=== PATIENT | female | born 1965 ===

== ENCOUNTER 2017-02-01 12:45 | Inpatient (IN) | payer OTHER ==
--- NOTE | 2017-02-01 13:45 | C.PDOC ---
History Of Present Illness 51-year-old female, presents to the emergency department, accompanied by family with complaint of fever and vaginal bleeding x 2 days. Patient is s/p appendectomy 01/01, and developed a fever and therefore returned to the hospital , at which point she was found to have a UTI and gram negative [place] bacteremia. Patient was placed on antibiotics with gradual improvement. She was then found to have shortness of breath and was intubated and in the ICU. Patient had US and CT that were negative for DVT/PE. Patient comes in today with a fever, chills, and lower abdominal pain and vaginal bleeding, which she believes is typical of her menstrual period. She has fibroids and has been told that is why her periods are heavy. No vomiting, diarrhea, back pain, symptoms, chest pain , leg pain/swelling. Of note, patient took Motrin at 1:00PM. She does report cough and shortness of breath but only while she is febrile. Time Seen by Provider: 02/01/17 13:14 Chief Complaint (Nursing): Fever History Per: Patient, Family History/Exam Limitations: no limitations Onset/Duration Of Symptoms: Days Current Symptoms Are (Timing): Still Present Associated Symptoms: Fever, Chills Past Medical History Reviewed: Historical Data, Nursing Documentation, Vital Signs Vital Signs: Last Vital Signs Temp 98.9 F 02/01/17 15:48 Pulse 107 H 02/01/17 16:13 Resp 22 02/01/17 16:13 BP 100/38 L 02/01/17 16:13 Pulse Ox 99 02/01/17 16:13 - Medical History PMH: Anemia Denies: [facility] EXTRACTION OF ENDOMETRIUM, VIA OPENING, DIAGN (01/08/17) INSERTION OF ENDOTRACHEAL AIRWAY INTO TRACHEA, VIA OPENING (01/08/17) INSERTION OF INFUSION DEV INTO R FEMOR VEIN, PERC APPROACH (01/08/17) INSERTION OF INFUSION DEV INTO SUP VENA CAVA, PERC APPROACH (01/08/17) RESECTION OF APPENDIX, PERCUTANEOUS ENDOSCOPIC APPROACH (01/01/17) RESPIRATORY VENTILATION, 24-96 CONSECUTIVE HOURS (01/08/17) TRANSFUSE NONAUT RED BLOOD CELLS IN PERIPH VEIN, PERC (01/08/17) Family History: States: No Known Family Hx, Diabetes - Social History Hx Alcohol Use: No Hx Substance Use: No - Immunization History Hx Tetanus Toxoid Vaccination: No Hx Influenza Vaccination: No Hx Pneumococcal Vaccination: No Review Of Systems Except As Marked, All Systems Reviewed And Found Negative. Constitutional: Positive for: Fever Cardiovascular: Negative for: Chest Pain Genitourinary: Positive for: Vaginal Bleeding Skin: Negative for: Rash Physical Exam - Physical Exam Additional Physical Exam Comments: Constitutional: Tearful. Head: Normocephalic. Atraumatic. Eyes: PERRL. EOMI ENT: Moist mucous membranes. Neck: Supple. Cardiovascular: Tachycardic. Radial pulses 2+ bilaterally. Chest: No tenderness. Respiratory: Clear to auscultation bilaterally. GI: Soft. Lower abdominal tenderness. Nondistended. Well healed laparoscopy scars. Back: No CVA tenderness. No midline tenderness. Musculoskeletal: No tenderness or swelling of extremities. Skin: No rash. Neurologic: Alert, no focal deficit. ED Course And Treatment - Laboratory Results Result Diagrams: 02/01/17 13:40 02/01/17 13:40 O2 Sat by Pulse Oximetry: 97 Critical Care Time - Critical Care Note Total Time (in mins): 60 Documented critical care: time excludes all time spent performing seperately billable procedures. Medical Decision Making Medical Decision Making: Impression 51y/o F with recent appendectomy, uro/bacteremia sepsis p/w recurrent fever, chills and heavy menstrual period. Plan: * VBG * EKG * CMP, Mag, Phos * CBC, PTT, PT * Chest X-Ray * Urine/Blood cultures * Urinalysis/HCG * Reassess and Disposition Patient with fever, tachycardia, septic. Lactate returns at over 3. CODE SEPSIS activated. Patient given 30cc/kg bolus and started on broad spectrum antibiotics. CXR no infiltrate or consolidation as read by me. Patient's HR improved to 100s. UA shows UTI. CT shows large fibroids, cystitis, no obvious intra-abdominal abscess or colitis consistent with C diff. Dr. Wall accepts patient to hospitalist service. Dr. Murphy accepts patient to ICU. Disposition - Disposition Disposition: HOSPITALIZED Disposition Time: 15:00 Condition: CRITICAL - POA Core Measure Indicators: Code Sepsis - Clinical Impression Clinical Impression: UTI (urinary tract infection), Sepsis - Scribe Statement The provider has reviewed the documentation as recorded by the Afua Landin All medical record entries made by the Afua were at my direction and personally dictated by me. I have reviewed the chart and agree that the record accurately reflects my personal performance of the history, physical exam, medical decision making, and the department course for this patient. I have also personally directed, reviewed, and agree with the discharge instructions and disposition.
[2017-02-01 13:50] LABS: VENOUS BLOOD GAS BASE EXCESS -4.9 mmol/L (0.0-2.0); VENOUS BLOOD GAS PCO2 24 mmHg (40-60); VENOUS BLOOD PH 7.46 (7.32-7.43)
[2017-02-01 13:51] LABS: BASO # 0.2 K/uL (0.0-0.2); BASO % 0.7 % (0.0-2.0); EOS # 0.2 K/uL (0.0-0.7); EOS % 0.7 % (0.0-4.0); HEMATOCRIT 29.3 % (34.0-47.0); LYMPH # 1.1 K/uL (1.0-4.3); LYMPH % 3.9 % (20.0-40.0); MEAN CORPUSCULAR HGB CONC 30.8 g/dL (33.0-37.0); MEAN PLATELET VOLUME 9.4 fL (7.2-11.7); MONO # 0.4 K/uL (0.0-0.8); MONO % 1.3 % (0.0-10.0); RED CELL DISTRIBUTION WIDTH 35.2 % (11.5-14.5)
[2017-02-01 13:53] LABS: CHLORIDE 101 mmol/L (98-107)
[2017-02-01 13:54] LABS: SODIUM 132 mmol/L (132-148)
[2017-02-01 13:56] LABS: ALB/GLOB RATIO 0.8 (1.0-2.1); ALKALINE PHOSPHATASE 247 U/L (38-126); ALT/SGPT 27 U/L (9-52); AST/SGOT 64 U/L (14-36); BILIRUBIN,TOTAL 0.9 mg/dL (0.2-1.3); BLOOD UREA NITROGEN 7 mg/dL (7-17); CARBON DIOXIDE 17 mmol/L (22-30); GFR AFRICAN-AMERICAN > 60; GLUCOSE,RANDOM 127 mg/dL (65-105); TOTAL PROTEIN 7.7 g/dL (6.3-8.3)
[2017-02-01 13:57] LABS: MAGNESIUM 1.6 mg/dL (1.6-2.3); MEAN CELL VOLUME 74.9 fL (81.0-99.0); PHOSPHOROUS 4.1 mg/dL (2.5-4.5); POTASSIUM 5.2 mmol/L (3.6-5.2); WHITE BLOOD COUNT 27.9 K/uL (4.8-10.8)
[2017-02-01 13:58] LABS: PLATELET COUNT 402 K/uL (130-400)
[2017-02-01] MEDS ORDERED: Vancomycin 1 gm/NS 200 ml 1 GM/200 ML BAG IVPB STA (14:02)
[2017-02-01] MEDS ORDERED: Cefepime IV 2 gm in Dextrose 2 GM/100 ML BAG IVPB STA (14:02)
[2017-02-01 14:29] LABS: BASOPHIL 1 % (0-2); EOSINOPHIL 1 % (0-4); NEUTROPHIL 82 % (50-75); NUCLEATED RED BLOOD CELL 1 % (0-0); TOTAL CELLS COUNTED 100
[2017-02-01 14:30] LABS: SPHEROCYTES SLIGHT
[2017-02-01 14:31] LABS: LARGE PLATELETS PRESENT
--- NOTE | 2017-02-01 14:33 | RAD ---
HISTORY: fever COMPARISON: No prior. FINDINGS: LUNGS: No active pulmonary disease. PLEURA: No significant pleural effusion identified, no pneumothorax apparent. CARDIOVASCULAR: Normal. OSSEOUS STRUCTURES: No significant abnormalities. VISUALIZED UPPER ABDOMEN: Normal. OTHER FINDINGS: None. IMPRESSION: No active disease.
[2017-02-01] MEDS ORDERED: Cefepime 2 GM in Sodium Chloride 0.9% 100 ML IVPB ONE (15:00)
[2017-02-01] MEDS ORDERED: Iodixanol 320 MG/ML 100 ML BOTTLE IV ONE (15:35)
[2017-02-01] MEDS: Sodium Chloride 0.9% 1,000 ML IV SCH (15:40)
[2017-02-01 15:57] LABS: RBC URINE 86 /hpf (0-3); URINE BACTERIA OCC (<OCC); URINE BILIRUBIN NEGATIVE (NEGATIVE); URINE BLOOD 3+ (NEGATIVE); URINE COLOR Red (YELLOW); URINE GLUCOSE (UA) NORMAL (Normal); URINE KETONE NEGATIVE (NEGATIVE); URINE LEUKOCYTE ESTERASE 3+ Leu/uL (Negative); URINE PROTEIN 2+ mg/dL (NEGATIVE); URINE UROBILINOGEN NORMAL mg/dL (0.2-1.0); WBC URINE 2730 /hpf (0-5)
[2017-02-01] MEDS ORDERED: Sodium Chloride 0.9% 1,000 ML IV ONE (16:21)
--- NOTE | 2017-02-01 16:35 | CT ---
CT abdomen and pelvis History: Prior appendectomy. Fever. Vaginal bleeding. Diarrhea. Comparison: CT scan from [facility] dated 01/26/2017 Technique: Multiple contiguous axial images were performed through the abdomen and pelvis with the use of intravenous contrast. Subsequently, sagittal and images were obtained. This CT exam was performed using one or more of the following dose reduction techniques: Automated exposure control, adjustment of the mA and/or kV according to patient size, and/or use of iterative reconstruction technique. Findings: Bibasilar atelectasis at the lung bases. No pleural or pericardial effusion. Enlarged liver with diffuse fatty infiltration. Scattered hypoattenuated foci in the liver, too small to adequately characterize. Gallbladder appears preserved. Prominent spleen. Adrenal glands are preserved. Mild fatty atrophy of the pancreas. Upper abdominal bowel is preserved. Right kidney: No calculi or hydronephrosis. Left Kidney: No calculi or hydronephrosis. Mild thickening of the urinary bladder wall. Again identified is a markedly enlarged and heterogeneous uterus with markedly enlarged and innumerable fibroid lesions. At the right lateral aspect of the uterus, a partially necrotic and/or hemorrhagic fibroid lesion measures up to 14.4 x 16.2 centimeters. An additional lesion which is multilobulated also demonstrating necrotic and/or hemorrhagic components seen at the right lateral aspect of the uterus measures 15.9 x 11.5 centimeters. These may be better delineated with pelvic MRI if clinically indicated. Underlying neoplasm cannot be excluded. Lobulated elliptical lesion measuring 5.2 x 4.0 centimeters demonstrating a Hounsfield unit attenuation of 7 seen at the level of the left adnexa which may represent a left adnexal cyst. This may be better evaluated with pelvic ultrasound if clinically indicated. Evaluation of the lower abdominal bowel demonstrates fecal retention in the colon. Underdistention of the portion of the proximal sigmoid colon. Fecal retention within the remainder of the colon. Patient status post prior appendectomy with surgical clips noted in the right lower abdomen. Few shotty para-aortic and mesenteric lymph nodes. Degenerative changes in the spine. Multilevel posterior disc osteophyte complexes. Impression: 1. Again identified is a markedly enlarged and heterogeneous uterus with markedly enlarged and innumerable fibroid lesions. At the right lateral aspect of the uterus, a partially necrotic and/or hemorrhagic fibroid lesion measures up to 14.4 x 16.2 centimeters. An additional lesion which is multilobulated also demonstrating necrotic and/or hemorrhagic components seen at the right lateral aspect of the uterus measures 15.9 x 11.5 centimeters. These may be better delineated with pelvic MRI if clinically indicated. Underlying neoplasm cannot be excluded. 2. Lobulated elliptical lesion measuring 5.2 x 4.0 centimeters demonstrating a Hounsfield unit attenuation of 7 seen at the level of the left adnexa which may represent a left adnexal cyst. This may be better evaluated with pelvic ultrasound if clinically indicated. 3. Evaluation of the lower abdominal bowel demonstrates fecal retention in the colon. Underdistention of the portion of the proximal sigmoid colon. Fecal retention within the remainder of the colon. Patient status post prior appendectomy with surgical clips noted in the right lower abdomen. 4. Enlarged liver with diffuse fatty infiltration. Scattered hypoattenuated foci in the liver, too small to adequately characterize. 5. Mild thickening of the urinary bladder wall.
--- NOTE | 2017-02-01 16:42 | CP.PCM.HP ---
History of Present Illness - History of Present Illness History of Present Illness: This is a 51 yo F with PMH significant for iron deficiency anemia, DVT on coumadin and recent appendectomy, followed by a re-admission with complicated hospital course, requiring intubation, that now presents with fever and chills Pt had a lap-appendectomy on 01/02 with no complications. A few days later after an infusion treatment for her iron deficiency anemia, she developed swelling and pain at IV site and returned to [facility] where she was re- admitted. She was also found to have a UTI and gram negative rods bacteremia. She was placed on abx but eventually developed respiratory failure requiring intubation and ICU. However, she was able to recover and was discharged on with Zyvox. The very next day she reported fevers, chills and diarrhea. She also admits to a dry cough and dysuria. She otherwise denies any pain, MCCORD, sob, nausea, vomiting. PMD- does not have an PMD PMH: Iron deficiency anemia, DVT on coumadin PSH: appendectomy Home meds: ferrous sulfate Allergies: NKDA Present on Admission - Present on Admission Any Indicators Present on Admission: No Review of Systems - Constitutional Constitutional: Chills, Fever - Cardiovascular Cardiovascular: absent: Chest Pain, Palpitations - Respiratory Respiratory: Cough. absent: Dyspnea - Gastrointestinal Gastrointestinal: Diarrhea. absent: Abdominal Pain, Nausea, Vomiting - Genitourinary Genitourinary: Dysuria, Voiding Freq/Small Amts - Musculoskeletal Musculoskeletal: absent: Muscle Weakness, Stiffness - Integumentary Integumentary: absent: Pruritus, Rash - Neurological Neurological: absent: Numbness, Tingling Past Patient History - Infectious Disease Hx of Infectious Diseases: None - Past Medical History & Family History Past Medical History?: No - Past Social History Smoking Status: Never Smoked - CARDIAC Hx Cardiac Disorders: No - PULMONARY Hx Respiratory Disorders: No - NEUROLOGICAL Hx Neurological Disorder: No - HEENT Hx HEENT Problems: No - RENAL Hx Chronic Kidney Disease: No - ENDOCRINE/METABOLIC Hx Endocrine Disorders: No - HEMATOLOGICAL/ONCOLOGICAL Hx Anemia: Yes - INTEGUMENTARY Hx Dermatological Problems: No - MUSCULOSKELETAL/RHEUMATOLOGICAL Hx Musculoskeletal Disorders: No Hx Falls: No - GASTROINTESTINAL Hx Gastrointestinal Disorders: No - GENITOURINARY/GYNECOLOGICAL Hx Genitourinary Disorders: No - PSYCHIATRIC Hx Substance Use: No - SURGICAL HISTORY Hx Surgeries: Yes Other/Comment: APPENDECTOMY-DECEMBER 2016 - ANESTHESIA Hx Anesthesia: Yes Hx Anesthesia Reactions: No Hx Malignant Hyperthermia: No Meds Allergies/Adverse Reactions: Allergies Allergy/AdvReac Type Severity Reaction Status Date / Time No Known Allergies Allergy Verified 12/31/16 23:15 Physical Exam - Constitutional Appears: Toxic - Head Exam Head Exam: ATRAUMATIC, NORMOCEPHALIC - ENT Exam ENT Exam: Mucous Membranes Moist - Respiratory Exam Respiratory Exam: Clear to Auscultation Bilateral. absent: NORMAL BREATHING PATTERN (tachypneic) - Cardiovascular Exam Cardiovascular Exam: Tachycardia, +S1, +S2 - GI/Abdominal Exam GI & Abdominal Exam: Normal Bowel Sounds, Soft, Tenderness (b/l lower quadrants) - Extremities Exam Extremities exam: Positive for: normal inspection - Neurological Exam Neurological exam: Alert, Oriented x3 - Skin Skin Exam: Diaphoretic Results - Vital Signs Recent Vital Signs: Last Vital Signs Temp 98.9 F 02/01/17 15:48 Pulse 107 H 02/01/17 16:13 Resp 22 02/01/17 16:13 BP 100/38 L 02/01/17 16:13 Pulse Ox 99 02/01/17 16:13 - Labs Result Diagrams: 02/01/17 13:40 02/01/17 13:40 Labs: Laboratory Results - last 24 hr 02/01/17 15:38 Urine Color Red Urine Clarity Turbid Urine pH 6.0 Ur Specific [place] 1.004 Urine Protein 2+ H Urine Glucose (UA) Normal Urine Ketones Negative Urine Blood 3+ H Urine Nitrate Negative Urine Bilirubin Negative Urine Urobilinogen Normal Ur Leukocyte Esterase 3+ H Urine WBC (Auto) 2730 H Urine RBC (Auto) 86 H Urine Bacteria Occ H Urine HCG, Qual Negative Assessment & Plan - Assessment and Plan (Free Text) Assessment: Sepsis - Likely secondary to UTI vs intra-abdominal source vs endocarditis - Code sepsis - tachypneic, tachycardic, leukocytosis (with bandemia) and elevated lactate - Admitted to ICU - IVF per sepsis protocol - normotensive currently - UA positive for nitrates, protein, blood, RBC, WBC and bacteria - ID Consulted - Started on Tigycycline and Primaxin per ID - Urine/blood cultures collected from ED - Cdiff - f/u - Abd/pelvis CT (02/01) - 1. Again identified is a markedly enlarged and heterogeneous uterus with markedly enlarged and innumerable fibroid lesions. At the right lateral aspect of the uterus, a partially necrotic and/or hemorrhagic fibroid lesion measures up to 14.4 x 16.2 centimeters. An additional lesion which is multilobulated also demonstrating necrotic and/or hemorrhagic components seen at the right lateral aspect of the uterus measures 15.9 x 11.5 centimeters. These may be better delineated with pelvic MRI if clinically indicated. Underlying neoplasm cannot be excluded. 2. Lobulated elliptical lesion measuring 5.2 x 4.0 centimeters demonstrating a Hounsfield unit attenuation of 7 seen at the level of the left adnexa which may represent a left adnexal cyst. This may be better evaluated with pelvic ultrasound if clinically indicated. 3. Evaluation of the lower abdominal bowel demonstrates fecal retention in the colon. Underdistention of the portion of the proximal sigmoid colon. Fecal retention within the remainder of the colon. Patient status post prior appendectomy with surgical clips noted in the right lower abdomen. 4. Enlarged liver with diffuse fatty infiltration. Scattered hypoattenuated foci in the liver, too small to adequately characterize. 5. Mild thickening of the urinary bladder wall. Hx of DVT - Cont home coumadin Hx of iron deficiency anemia - Hgb low at 9 but stable - Cont to monitor and transfuse as necessary
--- NOTE | 2017-02-01 17:18 | CP.PCM.CON ---
History of Present Illness - History of Present Illness History of Present Illness: 51-year-old female presented to the emergency room complaining of fever , chills and lower abdominal pain associated with vaginal bleeding. Patient had lap appendicectomy on 01/02 and was discharged home after 2 days without any complication, Few days later patient developed swelling and pain at IV site where she was getting infusion for iron deficiency anemia, patient was readmitted and found to have urinary tract infection/VRE, patient was started on IV antibiotics but got intubated for respiratory distress requiring ventilatory support, was extubated after 3 days and discharged home last Thursday. During the hospital course patient was also found to have DVT in the right common femoral vein and was started on Coumadin. Today in the emergency room patient received 3 L of normal saline for hypotension. Patient is awake alert oriented 3 and denies any abdominal pain, denies dysuria. Patient complaining of dry cough with no chest pain. Patient also complaining of diarrhea for the past 2 days. Review of Systems - Review of Systems All systems: reviewed and no additional remarkable complaints except (Chills, fever and vaginal bleeding) Past Patient History - Infectious Disease Hx of Infectious Diseases: None - Past Medical History & Family History Past Medical History?: No - Past Social History Smoking Status: Never Smoked - CARDIAC Hx Cardiac Disorders: No - PULMONARY Hx Respiratory Disorders: No - NEUROLOGICAL Hx Neurological Disorder: No - HEENT Hx HEENT Problems: No - RENAL Hx Chronic Kidney Disease: No - ENDOCRINE/METABOLIC Hx Endocrine Disorders: No - HEMATOLOGICAL/ONCOLOGICAL Hx Anemia: Yes - INTEGUMENTARY Hx Dermatological Problems: No - MUSCULOSKELETAL/RHEUMATOLOGICAL Hx Musculoskeletal Disorders: No Hx Falls: No - GASTROINTESTINAL Hx Gastrointestinal Disorders: No - GENITOURINARY/GYNECOLOGICAL Hx Genitourinary Disorders: No - PSYCHIATRIC Hx Substance Use: No - SURGICAL HISTORY Hx Surgeries: Yes Other/Comment: APPENDECTOMY-DECEMBER 2016 - ANESTHESIA Hx Anesthesia: Yes Hx Anesthesia Reactions: No Hx Malignant Hyperthermia: No Meds Allergies/Adverse Reactions: Allergies Allergy/AdvReac Type Severity Reaction Status Date / Time No Known Allergies Allergy Verified 12/31/16 23:15 - Medications Medications: Current Medications Acetaminophen (Tylenol 325mg Tab) 975 mg PO ONCE PRN PRN Reason: Fever >100.4 F Last Admin: 02/01/17 14:40 Dose: 975 mg Imipenem/Cilastatin Sodium 500 (mg/ Sodium Chloride) 100 mls @ 100 mls/hr IVPB Q6H [facility] Sodium Chloride (Sodium Chloride 0.9%) 1,000 mls @ 1,000 mls/hr IV .Q1H ONE Stop: 02/01/17 17:20 Tigecycline 100 mg/ Sodium (Chloride) 100 mls @ 100 mls/hr IVPB ONCE ONE Stop: 02/01/17 17:20 Pantoprazole Sodium (Protonix Inj) 40 mg IVP DAILY [facility] Warfarin Sodium (Coumadin) 1 mg PO 1800 TORI Stop: 02/01/17 18:01 Physical Exam - Head Exam Head Exam: ATRAUMATIC, NORMOCEPHALIC - Eye Exam Eye Exam: Normal appearance - ENT Exam ENT Exam: Mucous Membranes Dry - Neck Exam Neck exam: Positive for: Normal Inspection - Respiratory Exam Respiratory Exam: Clear to Auscultation Bilateral - Cardiovascular Exam Cardiovascular Exam: Tachycardia, REGULAR RHYTHM - GI/Abdominal Exam GI & Abdominal Exam: Hyperactive Bowel Sounds, Tenderness Results - Vital Signs Recent Vital Signs: Last Vital Signs Temp 98.9 F 02/01/17 15:48 Pulse 107 H 02/01/17 16:13 Resp 22 02/01/17 16:13 BP 100/38 L 02/01/17 16:13 Pulse Ox 97 02/01/17 16:47 - Labs Result Diagrams: 02/01/17 13:40 02/01/17 13:40 Labs: Laboratory Results - last 24 hr 02/01/17 15:38 Urine Color Red Urine Clarity Turbid Urine pH 6.0 Ur Specific [place] 1.004 Urine Protein 2+ H Urine Glucose (UA) Normal Urine Ketones Negative Urine Blood 3+ H Urine Nitrate Negative Urine Bilirubin Negative Urine Urobilinogen Normal Ur Leukocyte Esterase 3+ H Urine WBC (Auto) 2730 H Urine RBC (Auto) 86 H Urine Bacteria Occ H Urine HCG, Qual Negative Assessment & Plan (1) Sepsis Status: Acute Comment: Most likely secondary to urinary tract infection, r/o C. difficile colitis. Patient started on tigecycline and Primaxin after discussing with infectious disease. Follow up culture and sensitivity. ID consult. Continue Coumadin and follow up PT/INR. IV fluid resuscitation and monitor urine output. CAT scan of the abdomen and pelvis (2) UTI (urinary tract infection) Status: Acute (3) Abdominal pain Status: Acute (4) Anemia Status: Acute
[2017-02-01 17:36] VITALS: BMI 43.0
[2017-02-01 19:33] LABS: VENOUS BLOOD GAS BASE EXCESS -4.4 mmol/L (0.0-2.0); VENOUS BLOOD GAS PCO2 35 mmHg (40-60); VENOUS BLOOD PH 7.37 (7.32-7.43)
[2017-02-01 20:21] LABS: BASO # 0.2 K/uL (0.0-0.2); BASO % 0.4 % (0.0-2.0); EOS # 0.1 K/uL (0.0-0.7); EOS % 0.2 % (0.0-4.0); HEMATOCRIT 24.7 % (34.0-47.0); LYMPH # 1.5 K/uL (1.0-4.3); LYMPH % 3.9 % (20.0-40.0); MEAN CELL VOLUME 75.6 fL (81.0-99.0); MEAN CORPUSCULAR HGB CONC 30.5 g/dL (33.0-37.0); MEAN PLATELET VOLUME 9.3 fL (7.2-11.7); MONO # 1.1 K/uL (0.0-0.8); MONO % 2.9 % (0.0-10.0); PLATELET COUNT 332 K/uL (130-400)
[2017-02-01 20:23] LABS: WHITE BLOOD COUNT 38.7 K/uL (4.8-10.8)
[2017-02-01 21:03] LABS: EOSINOPHIL 1 % (0-4); NEUTROPHIL 89 % (50-75); TOTAL CELLS COUNTED 100
[2017-02-02] MEDS: Sodium Chloride 0.9% 1,000 ML IV SCH ×4 (04:17→23:40)
[2017-02-02 06:39] LABS: CHLORIDE 107 mmol/L (98-107); POTASSIUM 3.9 mmol/L (3.6-5.2); SODIUM 135 mmol/L (132-148)
[2017-02-02 06:41] LABS: ALB/GLOB RATIO 0.7 (1.0-2.1); ALKALINE PHOSPHATASE 211 U/L (38-126); AST/SGOT 34 U/L (14-36); BILIRUBIN,TOTAL 0.7 mg/dL (0.2-1.3); CARBON DIOXIDE 21 mmol/L (22-30); GFR AFRICAN-AMERICAN > 60; TOTAL PROTEIN 5.8 g/dL (6.3-8.3)
[2017-02-02 06:42] LABS: ALT/SGPT 28 U/L (9-52); BLOOD UREA NITROGEN 7 mg/dL (7-17); CALCIUM 7.3 mg/dl (8.6-10.4); GLUCOSE,RANDOM 100 mg/dL (65-105); MAGNESIUM 1.6 mg/dL (1.6-2.3); PHOSPHOROUS 3.6 mg/dL (2.5-4.5)
[2017-02-02 06:46] LABS: INR 2.4
[2017-02-02 07:09] LABS: BASO # 0.2 K/uL (0.0-0.2); BASO % 0.6 % (0.0-2.0); EOS # 0.1 K/uL (0.0-0.7); EOS % 0.4 % (0.0-4.0); LYMPH # 1.6 K/uL (1.0-4.3); LYMPH % 5.3 % (20.0-40.0); MEAN CORPUSCULAR HEMOGLOBIN 23.7 pg (27.0-31.0); MEAN CORPUSCULAR HGB CONC 31.2 g/dL (33.0-37.0); MONO # 1.2 K/uL (0.0-0.8); MONO % 3.9 % (0.0-10.0); PLATELET COUNT 290 K/uL (130-400); RED CELL DISTRIBUTION WIDTH 31.8 % (11.5-14.5); WHITE BLOOD COUNT 30.8 K/uL (4.8-10.8)
[2017-02-02 08:32] LABS: EOSINOPHIL 1 % (0-4); NEUTROPHIL 77 % (50-75); TOTAL CELLS COUNTED 100
[2017-02-02] MEDS ORDERED: Magnesium Sulfate 1 gm in D5W 1 GM/100 ML BAG IVPB ONE (08:45)
[2017-02-02 10:57] LABS: RBC URINE 407 /hpf (0-3); URINE BILIRUBIN NEGATIVE (NEGATIVE); URINE BLOOD 3+ (NEGATIVE); URINE GLUCOSE (UA) 1+ mg/dL (Normal); URINE KETONE NEGATIVE (NEGATIVE); URINE LEUKOCYTE ESTERASE 3+ Leu/uL (Negative); URINE PROTEIN 2+ mg/dL (NEGATIVE); URINE UROBILINOGEN NORMAL mg/dL (0.2-1.0); WBC CLUMPS MANY /hpf; WBC URINE 501 /hpf (0-5)
[2017-02-02 10:58] LABS: URINE COLOR LIGHT RED (YELLOW)
--- NOTE | 2017-02-02 13:13 | CP.PCM.CON ---
History of Present Illness - History of Present Illness History of Present Illness: dictated Past Patient History - Infectious Disease Hx of Infectious Diseases: None - Past Medical History & Family History Past Medical History?: No - Past Social History Smoking Status: Never Smoked - CARDIAC Hx Cardiac Disorders: No - PULMONARY Hx Respiratory Disorders: No - NEUROLOGICAL Hx Neurological Disorder: No - HEENT Hx HEENT Problems: No - RENAL Hx Chronic Kidney Disease: No - ENDOCRINE/METABOLIC Hx Endocrine Disorders: No - HEMATOLOGICAL/ONCOLOGICAL Hx Anemia: Yes - INTEGUMENTARY Hx Dermatological Problems: No - MUSCULOSKELETAL/RHEUMATOLOGICAL Hx Musculoskeletal Disorders: No Hx Falls: No - GASTROINTESTINAL Hx Gastrointestinal Disorders: No - GENITOURINARY/GYNECOLOGICAL Hx Genitourinary Disorders: No - PSYCHIATRIC Hx Substance Use: No - SURGICAL HISTORY Hx Surgeries: Yes Other/Comment: APPENDECTOMY-DECEMBER 2016 - ANESTHESIA Hx Anesthesia: Yes Hx Anesthesia Reactions: No Hx Malignant Hyperthermia: No Meds Allergies/Adverse Reactions: Allergies Allergy/AdvReac Type Severity Reaction Status Date / Time No Known Allergies Allergy Verified 12/31/16 23:15 - Medications Medications: Current Medications Acetaminophen (Tylenol 325mg Tab) 650 mg PO Q6 PRN PRN Reason: Fever >100.4 F Last Admin: 02/01/17 22:14 Dose: 650 mg Imipenem/Cilastatin Sodium 500 (mg/ Sodium Chloride) 100 mls @ 100 mls/hr IVPB Q6H [facility] Last Admin: 02/02/17 09:58 Dose: 100 mls/hr Sodium Chloride (Sodium Chloride 0.9%) 1,000 mls @ 125 mls/hr IV .Q8H [facility] Last Admin: 02/02/17 08:21 Dose: Not Given Tigecycline 50 mg/ Dextrose 100 mls @ 100 mls/hr IVPB Q12H [facility] Pantoprazole Sodium (Protonix Inj) 40 mg IVP DAILY [facility] Last Admin: 02/02/17 09:59 Dose: 40 mg Pneumococcal Polyvalent Vaccine (Pneumovax 23 Vaccine) 0.5 ml IM .ONCE ONE Stop: 02/03/17 10:01 Results - Vital Signs Recent Vital Signs: Last Vital Signs Temp 97.8 F 02/02/17 12:00 Pulse 78 02/02/17 12:00 Resp 21 02/02/17 12:00 BP 103/44 L 02/02/17 12:00 Pulse Ox 10 L 02/02/17 12:00 - Labs Result Diagrams: 02/02/17 07:06 02/02/17 06:24 Labs: Laboratory Results - last 24 hr 02/01/17 02/01/17 02/01/17 15:38 16:38 17:49 WBC RBC Hgb Hct MCV MCH MCHC RDW Plt Count MPV Neut % (Auto) Lymph % (Auto) [place] % (Auto) Eos % (Auto) Baso % (Auto) Neut # Lymph # [place] # Eos # Baso # Neutrophils % (Manual) Band Neutrophils % Lymphocytes % (Manual) Monocytes % (Manual) Eosinophils % (Manual) Platelet Estimate Hypochromasia (manual) Poikilocytosis (manual Anisocytosis (manual) Microcytosis (manual) PT INR pO2 50 VBG pH 7.37 VBG pCO2 35 L VBG HCO3 21.1 VBG Total CO2 21.3 L VBG O2 Sat (Calc) 87.1 H VBG Base Excess -4.4 L VBG Potassium 3.6 Sodium 137.0 Chloride 114.0 H Glucose 75 Lactate 2.0 Potassium Carbon Dioxide Anion Gap BUN Creatinine Est GFR ( Amer) Est GFR (Non-Af Amer) Random Glucose Calcium Phosphorus Magnesium Total Bilirubin AST ALT Alkaline Phosphatase Total Protein Albumin Globulin Albumin/Globulin Ratio Procalcitonin 16.72 H Venous Blood Potassium 3.6 Urine Color Red Urine Clarity Turbid Urine pH 6.0 Ur Specific [place] 1.004 Urine Protein 2+ H Urine Glucose (UA) Normal Urine Ketones Negative Urine Blood 3+ H Urine Nitrate Negative Urine Bilirubin Negative Urine Urobilinogen Normal Ur Leukocyte Esterase 3+ H Urine WBC (Auto) 2730 H Urine RBC (Auto) 86 H Urine WBC Clumps (Auto) Ur Squamous Epith Cells Urine Bacteria Occ H Urine HCG, Qual Negative C. difficile Ag & Toxin Blood Type Antibody Screen 02/01/17 02/01/17 02/01/17 20:00 20:14 22:27 WBC 38.7 H* RBC 3.26 L Hgb 7.5 L Hct 24.7 L MCV 75.6 L MCH 23.0 L MCHC 30.5 L RDW 34.0 H Plt Count 332 MPV 9.3 Neut % (Auto) 92.6 H Lymph % (Auto) 3.9 L [place] % (Auto) 2.9 Eos % (Auto) 0.2 Baso % (Auto) 0.4 Neut # 35.9 H Lymph # 1.5 [place] # 1.1 H Eos # 0.1 Baso # 0.2 Neutrophils % (Manual) 89 H Band Neutrophils % 6 H Lymphocytes % (Manual) 3 L Monocytes % (Manual) 1 Eosinophils % (Manual) 1 Platelet Estimate Normal Hypochromasia (manual) Slight Poikilocytosis (manual Anisocytosis (manual) Slight Microcytosis (manual) Slight PT INR pO2 VBG pH VBG pCO2 VBG HCO3 VBG Total CO2 VBG O2 Sat (Calc) VBG Base Excess VBG Potassium Sodium Chloride Glucose Lactate Potassium Carbon Dioxide Anion Gap BUN Creatinine Est GFR ( Amer) Est GFR (Non-Af Amer) Random Glucose Calcium Phosphorus Magnesium Total Bilirubin AST ALT Alkaline Phosphatase Total Protein Albumin Globulin Albumin/Globulin Ratio Procalcitonin Venous Blood Potassium Urine Color Urine Clarity Urine pH Ur Specific [place] Urine Protein Urine Glucose (UA) Urine Ketones Urine Blood Urine Nitrate Urine Bilirubin Urine Urobilinogen Ur Leukocyte Esterase Urine WBC (Auto) Urine RBC (Auto) Urine WBC Clumps (Auto) Ur Squamous Epith Cells Urine Bacteria Urine HCG, Qual C. difficile Ag & Toxin Negative Blood Type B POSITIVE Antibody Screen Negative 02/02/17 02/02/17 02/02/17 06:24 06:24 07:06 WBC 30.8 H RBC 3.42 L Hgb 8.1 L Hct 26.0 L MCV 76.0 L MCH 23.7 L MCHC 31.2 L RDW 31.8 H Plt Count 290 MPV 9.0 Neut % (Auto) 89.8 H Lymph % (Auto) 5.3 L [place] % (Auto) 3.9 Eos % (Auto) 0.4 Baso % (Auto) 0.6 Neut # 27.6 H Lymph # 1.6 [place] # 1.2 H Eos # 0.1 Baso # 0.2 Neutrophils % (Manual) 77 H Band Neutrophils % 15 H* Lymphocytes % (Manual) 6 L Monocytes % (Manual) 1 Eosinophils % (Manual) 1 Platelet Estimate Normal Hypochromasia (manual) Moderate Poikilocytosis (manual Slight Anisocytosis (manual) Marked Microcytosis (manual) PT 27.7 H INR 2.4 pO2 VBG pH VBG pCO2 VBG HCO3 VBG Total CO2 VBG O2 Sat (Calc) VBG Base Excess VBG Potassium Sodium 135 Chloride 107 Glucose Lactate Potassium 3.9 Carbon Dioxide 21 L Anion Gap 11 BUN 7 Creatinine 0.5 L Est GFR ( Amer) > 60 Est GFR (Non-Af Amer) > 60 Random Glucose 100 Calcium 7.3 L Phosphorus 3.6 Magnesium 1.6 Total Bilirubin 0.7 AST 34 ALT 28 Alkaline Phosphatase 211 H Total Protein 5.8 L Albumin 2.4 L D Globulin 3.5 Albumin/Globulin Ratio 0.7 L Procalcitonin Venous Blood Potassium Urine Color Urine Clarity Urine pH Ur Specific [place] Urine Protein Urine Glucose (UA) Urine Ketones Urine Blood Urine Nitrate Urine Bilirubin Urine Urobilinogen Ur Leukocyte Esterase Urine WBC (Auto) Urine RBC (Auto) Urine WBC Clumps (Auto) Ur Squamous Epith Cells Urine Bacteria Urine HCG, Qual C. difficile Ag & Toxin Blood Type Antibody Screen 02/02/17 10:47 WBC RBC Hgb Hct MCV MCH MCHC RDW Plt Count MPV Neut % (Auto) Lymph % (Auto) [place] % (Auto) Eos % (Auto) Baso % (Auto) Neut # Lymph # [place] # Eos # Baso # Neutrophils % (Manual) Band Neutrophils % Lymphocytes % (Manual) Monocytes % (Manual) Eosinophils % (Manual) Platelet Estimate Hypochromasia (manual) Poikilocytosis (manual Anisocytosis (manual) Microcytosis (manual) PT INR pO2 VBG pH VBG pCO2 VBG HCO3 VBG Total CO2 VBG O2 Sat (Calc) VBG Base Excess VBG Potassium Sodium Chloride Glucose Lactate Potassium Carbon Dioxide Anion Gap BUN Creatinine Est GFR ( Amer) Est GFR (Non-Af Amer) Random Glucose Calcium Phosphorus Magnesium Total Bilirubin AST ALT Alkaline Phosphatase Total Protein Albumin Globulin Albumin/Globulin Ratio Procalcitonin Venous Blood Potassium Urine Color Light red Urine Clarity Hazy Urine pH 6.0 Ur Specific [place] 1.010 Urine Protein 2+ H Urine Glucose (UA) 1+ Urine Ketones Negative Urine Blood 3+ H Urine Nitrate Negative Urine Bilirubin Negative Urine Urobilinogen Normal Ur Leukocyte Esterase 3+ H Urine WBC (Auto) 501 H Urine RBC (Auto) 407 H Urine WBC Clumps (Auto) Many H Ur Squamous Epith Cells 5 Urine Bacteria Urine HCG, Qual C. difficile Ag & Toxin Blood Type Antibody Screen
--- NOTE | 2017-02-02 13:14 | CP.CCUPN ---
CCU Subjective - Physician Review Subjective (Free Text): 02/02/17 13:12 Patient seen and examined at bedside. Patient in no acute distress. Patient received 1 unit PRBCs overnight. Nursing staff reports no issues. The patient has no present complaints. The patient denies fever, chills, MCCORD, chest pain, abdominal pain, SOB, N/V/D/C, changes in bowel/bladder, and paresthesias. Today on rounds, a lower extremity venous duplex scan was ordered to rule out DVT. A repeat UA, urine culture, and CBC were also ordered. Critical Care Time Spent (in minutes): 90 CCU Objective - Vital Signs / Intake & Output Vital Signs (Last 4 hours): Vital Signs Temp Pulse Resp BP Pulse Ox 02/02/17 12:00 97.8 F 78 21 103/44 L 100 02/02/17 11:50 74 23 103/44 L 100 02/02/17 11:29 77 31 H 105/48 L 100 02/02/17 11:23 75 20 102/42 L 100 02/02/17 11:00 87 19 100 02/02/17 10:50 73 24 98/47 L 100 02/02/17 10:00 75 23 100 02/02/17 09:50 75 25 H 100/46 L 100 Intake and Output (Last 8hrs): Intake & Output 02/01/17 02/02/17 02/02/17 22:59 06:59 14:59 Intake Total 1290 1945 735 Output Total 950 1050 300 Balance 340 895 435 Weight 87 kg 85.899 kg Intake: Intake, IV Amount 1050 1230 635 Right Antecubital 1050 1230 635 Oral 240 390 100 Blood Product 325 Red Blood Cells Cpd As1 325 Lr Unit [id number] Output: Urine 950 1000 300 Urine, Voided 950 1000 300 Emesis 50 Other: Voiding Method Bedpan # Voids Urine, Voided 1 1 # Bowel Movements 1 0 - Physical Exam Head: Positive for: Atraumatic, Normocephalic Pupils: Positive for: PERRL Extroacular Muscles: Positive for: EOMI Conjunctiva: Positive for: Normal Mouth: Positive for: Moist Mucous Membranes. Negative for: Drooling Nose (External): Positive for: Atraumatic Neck: Positive for: Normal Range of Motion. Negative for: JVD, Lymphadenopathy Respiratory/Chest: Positive for: Clear to Auscultation, Good Air Exchange. Negative for: Respiratory Distress, Accessory Muscle Use, Wheezes, Rales, Retracting, Rhonchi, Tachypneic Cardiovascular: Positive for: Regular Rate and Rhythm, Normal S1, S2, Peripheal Pulses Present. Negative for: Murmurs, Irregular Rhythm Abdomen: Positive for: Normal Bowel Sounds. Negative for: Tenderness, Distention, Peritoneal Signs, Rebound, Guarding Upper Extremity: Positive for: Normal Inspection, Normal ROM, NORMAL PULSES, Neurovascularly Intact, Capillary Refill < 2s. Negative for: Cyanosis, Edema, Tenderness Lower Extremity: Positive for: Normal Inspection, NORMAL PULSES, Normal ROM, Neurovascularly Intact. Negative for: Edema, CALF TENDERNESS Neurological: Positive for: CN II-XII Intact Skin: Positive for: Warm, Dry, Normal Color. Negative for: Rashes Psychiatric: Positive for: Alert, Oriented x 3 - Medications Active Medications: Active Medications Generic Name Dose Route Start Last Admin Trade Name Freq PRN Reason Stop Dose Admin Acetaminophen 650 mg 02/01/17 21:44 02/01/17 22:14 Tylenol 325mg Tab PO 650 mg Q6 PRN Administration Fever >100.4 F Imipenem/Cilastatin Sodium 500 100 mls @ 100 mls/hr 02/01/17 16:30 02/02/17 09:58 mg/ Sodium Chloride IVPB 100 mls/hr Q6H TORI Administration Sodium Chloride 1,000 mls @ 125 mls/hr 02/01/17 15:40 02/02/17 08:21 Sodium Chloride 0.9% IV Not Given .Q8H TORI Pantoprazole Sodium 40 mg 02/01/17 16:30 02/02/17 09:59 Protonix Inj IVP 40 mg DAILY TORI Administration Pneumococcal Polyvalent Vaccine 0.5 ml 02/03/17 10:00 Pneumovax 23 Vaccine IM 02/03/17 10:01 .ONCE ONE - Patient Studies Lab Studies: Lab Studies 02/02/17 02/02/17 02/02/17 Range/Units 10:47 07:06 06:24 WBC 30.8 H (4.8-10.8) K/uL RBC 3.42 L (3.80-5.20) Mil/uL Hgb 8.1 L (11.0-16.0) g/dL Hct 26.0 L (34.0-47.0) % MCV 76.0 L (81.0-99.0) fL MCH 23.7 L (27.0-31.0) pg MCHC 31.2 L (33.0-37.0) g/dL RDW 31.8 H (11.5-14.5) % Plt Count 290 (130-400) K/uL MPV 9.0 (7.2-11.7) fL Neut % (Auto) 89.8 H (50.0-75.0) % Lymph % (Auto) 5.3 L (20.0-40.0) % Lyon % (Auto) 3.9 (0.0-10.0) % Eos % (Auto) 0.4 (0.0-4.0) % Baso % (Auto) 0.6 (0.0-2.0) % Neut # 27.6 H (1.8-7.0) K/uL Lymph # 1.6 (1.0-4.3) K/uL Lyon # 1.2 H (0.0-0.8) K/uL Eos # 0.1 (0.0-0.7) K/uL Baso # 0.2 (0.0-0.2) K/uL Neutrophils % (Manual) 77 H (50-75) % Band Neutrophils % 15 H* (0-2) % Lymphocytes % (Manual) 6 L (20-40) % Monocytes % (Manual) 1 (0-10) % Eosinophils % (Manual) 1 (0-4) % Platelet Estimate Normal (NORMAL) Hypochromasia (manual) Moderate Poikilocytosis (manual Slight Anisocytosis (manual) Marked Microcytosis (manual) PT (9.7-12.2) SECONDS INR pO2 (30-55) mm/Hg VBG pH (7.32-7.43) VBG pCO2 (40-60) mmHg VBG HCO3 mmol/L VBG Total CO2 (22-28) mmol/L VBG O2 Sat (Calc) (40-65) % VBG Base Excess (0.0-2.0) mmol/L VBG Potassium (3.6-5.2) mmol/L Sodium 135 (132-148) mmol/l Chloride 107 (98-107) mmol/L Glucose (65-105) mg/dl Lactate (0.7-2.1) mmol/L Potassium 3.9 (3.6-5.2) mmol/L Carbon Dioxide 21 L (22-30) mmol/L Anion Gap 11 (10-20) BUN 7 (7-17) mg/dL Creatinine 0.5 L (0.7-1.2) MG/DL Est GFR ( Amer) > 60 Est GFR (Non-Af Amer) > 60 Random Glucose 100 (65-105) mg/dL Calcium 7.3 L (8.6-10.4) mg/dl Phosphorus 3.6 (2.5-4.5) mg/dL Magnesium 1.6 (1.6-2.3) mg/dL Total Bilirubin 0.7 (0.2-1.3) mg/dL AST 34 (14-36) U/L ALT 28 (9-52) U/L Alkaline Phosphatase 211 H (38-126) U/L Total Protein 5.8 L (6.3-8.3) g/dL Albumin 2.4 L D (3.5-5.0) g/dL Globulin 3.5 (2.2-3.9) gm/dL Albumin/Globulin Ratio 0.7 L (1.0-2.1) Procalcitonin (0.19-0.49) NG/ML Venous Blood Potassium (3.6-5.2) mmol/L Urine Color Light red (YELLOW) Urine Clarity Hazy (Clear) Urine pH 6.0 (5.0-8.0) Ur Specific Makanda 1.010 (1.003-1.030) Urine Protein 2+ H (NEGATIVE) mg/dL Urine Glucose (UA) 1+ (Normal) mg/dL Urine Ketones Negative (NEGATIVE) mg/dL Urine Blood 3+ H (NEGATIVE) Urine Nitrate Negative (NEGATIVE) Urine Bilirubin Negative (NEGATIVE) Urine Urobilinogen Normal (0.2-1.0) mg/dL Ur Leukocyte Esterase 3+ H (Negative) [place]/uL Urine WBC (Auto) 501 H (0-5) /hpf Urine RBC (Auto) 407 H (0-3) /hpf Urine WBC Clumps (Auto) Many H (NONE) /hpf Ur Squamous Epith Cells 5 (0-5) /hpf Urine Bacteria (<OCC) Urine HCG, Qual (NEGATIVE) C. difficile Ag & Toxin (NEGATIVE) Blood Type Antibody Screen 02/02/17 02/01/17 02/01/17 Range/Units 06:24 22:27 20:14 WBC 38.7 H* (4.8-10.8) K/uL RBC 3.26 L (3.80-5.20) Mil/uL Hgb 7.5 L (11.0-16.0) g/dL Hct 24.7 L (34.0-47.0) % MCV 75.6 L (81.0-99.0) fL MCH 23.0 L (27.0-31.0) pg MCHC 30.5 L (33.0-37.0) g/dL RDW 34.0 H (11.5-14.5) % Plt Count 332 (130-400) K/uL MPV 9.3 (7.2-11.7) fL Neut % (Auto) 92.6 H (50.0-75.0) % Lymph % (Auto) 3.9 L (20.0-40.0) % Lyon % (Auto) 2.9 (0.0-10.0) % Eos % (Auto) 0.2 (0.0-4.0) % Baso % (Auto) 0.4 (0.0-2.0) % Neut # 35.9 H (1.8-7.0) K/uL Lymph # 1.5 (1.0-4.3) K/uL Lyon # 1.1 H (0.0-0.8) K/uL Eos # 0.1 (0.0-0.7) K/uL Baso # 0.2 (0.0-0.2) K/uL Neutrophils % (Manual) 89 H (50-75) % Band Neutrophils % 6 H (0-2) % Lymphocytes % (Manual) 3 L (20-40) % Monocytes % (Manual) 1 (0-10) % Eosinophils % (Manual) 1 (0-4) % Platelet Estimate Normal (NORMAL) Hypochromasia (manual) Slight Poikilocytosis (manual Anisocytosis (manual) Slight Microcytosis (manual) Slight PT 27.7 H (9.7-12.2) SECONDS INR 2.4 pO2 (30-55) mm/Hg VBG pH (7.32-7.43) VBG pCO2 (40-60) mmHg VBG HCO3 mmol/L VBG Total CO2 (22-28) mmol/L VBG O2 Sat (Calc) (40-65) % VBG Base Excess (0.0-2.0) mmol/L VBG Potassium (3.6-5.2) mmol/L Sodium (132-148) mmol/l Chloride (98-107) mmol/L Glucose (65-105) mg/dl Lactate (0.7-2.1) mmol/L Potassium (3.6-5.2) mmol/L Carbon Dioxide (22-30) mmol/L Anion Gap (10-20) BUN (7-17) mg/dL Creatinine (0.7-1.2) MG/DL Est GFR ( Amer) Est GFR (Non-Af Amer) Random Glucose (65-105) mg/dL Calcium (8.6-10.4) mg/dl Phosphorus (2.5-4.5) mg/dL Magnesium (1.6-2.3) mg/dL Total Bilirubin (0.2-1.3) mg/dL AST (14-36) U/L ALT (9-52) U/L Alkaline Phosphatase (38-126) U/L Total Protein (6.3-8.3) g/dL Albumin (3.5-5.0) g/dL Globulin (2.2-3.9) gm/dL Albumin/Globulin Ratio (1.0-2.1) Procalcitonin (0.19-0.49) NG/ML Venous Blood Potassium (3.6-5.2) mmol/L Urine Color (YELLOW) Urine Clarity (Clear) Urine pH (5.0-8.0) Ur Specific Makanda (1.003-1.030) Urine Protein (NEGATIVE) mg/dL Urine Glucose (UA) (Normal) mg/dL Urine Ketones (NEGATIVE) mg/dL Urine Blood (NEGATIVE) Urine Nitrate (NEGATIVE) Urine Bilirubin (NEGATIVE) Urine Urobilinogen (0.2-1.0) mg/dL Ur Leukocyte Esterase (Negative) [place]/uL Urine WBC (Auto) (0-5) /hpf Urine RBC (Auto) (0-3) /hpf Urine WBC Clumps (Auto) (NONE) /hpf Ur Squamous Epith Cells (0-5) /hpf Urine Bacteria (<OCC) Urine HCG, Qual (NEGATIVE) C. difficile Ag & Toxin (NEGATIVE) Blood Type B POSITIVE Antibody Screen Negative 02/01/17 02/01/17 02/01/17 Range/Units 20:00 17:49 16:38 WBC (4.8-10.8) K/uL RBC (3.80-5.20) Mil/uL Hgb (11.0-16.0) g/dL Hct (34.0-47.0) % MCV (81.0-99.0) fL MCH (27.0-31.0) pg MCHC (33.0-37.0) g/dL RDW (11.5-14.5) % Plt Count (130-400) K/uL MPV (7.2-11.7) fL Neut % (Auto) (50.0-75.0) % Lymph % (Auto) (20.0-40.0) % Lyon % (Auto) (0.0-10.0) % Eos % (Auto) (0.0-4.0) % Baso % (Auto) (0.0-2.0) % Neut # (1.8-7.0) K/uL Lymph # (1.0-4.3) K/uL Lyon # (0.0-0.8) K/uL Eos # (0.0-0.7) K/uL Baso # (0.0-0.2) K/uL Neutrophils % (Manual) (50-75) % Band Neutrophils % (0-2) % Lymphocytes % (Manual) (20-40) % Monocytes % (Manual) (0-10) % Eosinophils % (Manual) (0-4) % Platelet Estimate (NORMAL) Hypochromasia (manual) Poikilocytosis (manual Anisocytosis (manual) Microcytosis (manual) PT (9.7-12.2) SECONDS INR pO2 50 (30-55) mm/Hg VBG pH 7.37 (7.32-7.43) VBG pCO2 35 L (40-60) mmHg VBG HCO3 21.1 mmol/L VBG Total CO2 21.3 L (22-28) mmol/L VBG O2 Sat (Calc) 87.1 H (40-65) % VBG Base Excess -4.4 L (0.0-2.0) mmol/L VBG Potassium 3.6 (3.6-5.2) mmol/L Sodium 137.0 (132-148) mmol/l Chloride 114.0 H (98-107) mmol/L Glucose 75 (65-105) mg/dl Lactate 2.0 (0.7-2.1) mmol/L Potassium (3.6-5.2) mmol/L Carbon Dioxide (22-30) mmol/L Anion Gap (10-20) BUN (7-17) mg/dL Creatinine (0.7-1.2) MG/DL Est GFR ( Amer) Est GFR (Non-Af Amer) Random Glucose (65-105) mg/dL Calcium (8.6-10.4) mg/dl Phosphorus (2.5-4.5) mg/dL Magnesium (1.6-2.3) mg/dL Total Bilirubin (0.2-1.3) mg/dL AST (14-36) U/L ALT (9-52) U/L Alkaline Phosphatase (38-126) U/L Total Protein (6.3-8.3) g/dL Albumin (3.5-5.0) g/dL Globulin (2.2-3.9) gm/dL Albumin/Globulin Ratio (1.0-2.1) Procalcitonin 16.72 H (0.19-0.49) NG/ML Venous Blood Potassium 3.6 (3.6-5.2) mmol/L Urine Color (YELLOW) Urine Clarity (Clear) Urine pH (5.0-8.0) Ur Specific Makanda (1.003-1.030) Urine Protein (NEGATIVE) mg/dL Urine Glucose (UA) (Normal) mg/dL Urine Ketones (NEGATIVE) mg/dL Urine Blood (NEGATIVE) Urine Nitrate (NEGATIVE) Urine Bilirubin (NEGATIVE) Urine Urobilinogen (0.2-1.0) mg/dL Ur Leukocyte Esterase (Negative) [place]/uL Urine WBC (Auto) (0-5) /hpf Urine RBC (Auto) (0-3) /hpf Urine WBC Clumps (Auto) (NONE) /hpf Ur Squamous Epith Cells (0-5) /hpf Urine Bacteria (<OCC) Urine HCG, Qual (NEGATIVE) C. difficile Ag & Toxin Negative (NEGATIVE) Blood Type Antibody Screen 02/01/17 Range/Units 15:38 WBC (4.8-10.8) K/uL RBC (3.80-5.20) Mil/uL Hgb (11.0-16.0) g/dL Hct (34.0-47.0) % MCV (81.0-99.0) fL MCH (27.0-31.0) pg MCHC (33.0-37.0) g/dL RDW (11.5-14.5) % Plt Count (130-400) K/uL MPV (7.2-11.7) fL Neut % (Auto) (50.0-75.0) % Lymph % (Auto) (20.0-40.0) % Lyon % (Auto) (0.0-10.0) % Eos % (Auto) (0.0-4.0) % Baso % (Auto) (0.0-2.0) % Neut # (1.8-7.0) K/uL Lymph # (1.0-4.3) K/uL Lyon # (0.0-0.8) K/uL Eos # (0.0-0.7) K/uL Baso # (0.0-0.2) K/uL Neutrophils % (Manual) (50-75) % Band Neutrophils % (0-2) % Lymphocytes % (Manual) (20-40) % Monocytes % (Manual) (0-10) % Eosinophils % (Manual) (0-4) % Platelet Estimate (NORMAL) Hypochromasia (manual) Poikilocytosis (manual Anisocytosis (manual) Microcytosis (manual) PT (9.7-12.2) SECONDS INR pO2 (30-55) mm/Hg VBG pH (7.32-7.43) VBG pCO2 (40-60) mmHg VBG HCO3 mmol/L VBG Total CO2 (22-28) mmol/L VBG O2 Sat (Calc) (40-65) % VBG Base Excess (0.0-2.0) mmol/L VBG Potassium (3.6-5.2) mmol/L Sodium (132-148) mmol/l Chloride (98-107) mmol/L Glucose (65-105) mg/dl Lactate (0.7-2.1) mmol/L Potassium (3.6-5.2) mmol/L Carbon Dioxide (22-30) mmol/L Anion Gap (10-20) BUN (7-17) mg/dL Creatinine (0.7-1.2) MG/DL Est GFR ( Amer) Est GFR (Non-Af Amer) Random Glucose (65-105) mg/dL Calcium (8.6-10.4) mg/dl Phosphorus (2.5-4.5) mg/dL Magnesium (1.6-2.3) mg/dL Total Bilirubin (0.2-1.3) mg/dL AST (14-36) U/L ALT (9-52) U/L Alkaline Phosphatase (38-126) U/L Total Protein (6.3-8.3) g/dL Albumin (3.5-5.0) g/dL Globulin (2.2-3.9) gm/dL Albumin/Globulin Ratio (1.0-2.1) Procalcitonin (0.19-0.49) NG/ML Venous Blood Potassium (3.6-5.2) mmol/L Urine Color Red (YELLOW) Urine Clarity Turbid (Clear) Urine pH 6.0 (5.0-8.0) Ur Specific Makanda 1.004 (1.003-1.030) Urine Protein 2+ H (NEGATIVE) mg/dL Urine Glucose (UA) Normal (Normal) mg/dL Urine Ketones Negative (NEGATIVE) mg/dL Urine Blood 3+ H (NEGATIVE) Urine Nitrate Negative (NEGATIVE) Urine Bilirubin Negative (NEGATIVE) Urine Urobilinogen Normal (0.2-1.0) mg/dL Ur Leukocyte Esterase 3+ H (Negative) [place]/uL Urine WBC (Auto) 2730 H (0-5) /hpf Urine RBC (Auto) 86 H (0-3) /hpf Urine WBC Clumps (Auto) (NONE) /hpf Ur Squamous Epith Cells (0-5) /hpf Urine Bacteria Occ H (<OCC) Urine HCG, Qual Negative (NEGATIVE) C. difficile Ag & Toxin (NEGATIVE) Blood Type Antibody Screen Laboratory Results - last 24 hr 02/01/17 02/01/17 02/01/17 15:38 16:38 17:49 WBC RBC Hgb Hct MCV MCH MCHC RDW Plt Count MPV Neut % (Auto) Lymph % (Auto) Lyon % (Auto) Eos % (Auto) Baso % (Auto) Neut # Lymph # Lyon # Eos # Baso # Neutrophils % (Manual) Band Neutrophils % Lymphocytes % (Manual) Monocytes % (Manual) Eosinophils % (Manual) Platelet Estimate Hypochromasia (manual) Poikilocytosis (manual Anisocytosis (manual) Microcytosis (manual) PT INR pO2 50 VBG pH 7.37 VBG pCO2 35 L VBG HCO3 21.1 VBG Total CO2 21.3 L VBG O2 Sat (Calc) 87.1 H VBG Base Excess -4.4 L VBG Potassium 3.6 Sodium 137.0 Chloride 114.0 H Glucose 75 Lactate 2.0 Potassium Carbon Dioxide Anion Gap BUN Creatinine Est GFR ( Amer) Est GFR (Non-Af Amer) Random Glucose Calcium Phosphorus Magnesium Total Bilirubin AST ALT Alkaline Phosphatase Total Protein Albumin Globulin Albumin/Globulin Ratio Procalcitonin 16.72 H Venous Blood Potassium 3.6 Urine Color Red Urine Clarity Turbid Urine pH 6.0 Ur Specific Makanda 1.004 Urine Protein 2+ H Urine Glucose (UA) Normal Urine Ketones Negative Urine Blood 3+ H Urine Nitrate Negative Urine Bilirubin Negative Urine Urobilinogen Normal Ur Leukocyte Esterase 3+ H Urine WBC (Auto) 2730 H Urine RBC (Auto) 86 H Urine WBC Clumps (Auto) Ur Squamous Epith Cells Urine Bacteria Occ H Urine HCG, Qual Negative C. difficile Ag & Toxin Blood Type Antibody Screen 02/01/17 02/01/17 02/01/17 20:00 20:14 22:27 WBC 38.7 H* RBC 3.26 L Hgb 7.5 L Hct 24.7 L MCV 75.6 L MCH 23.0 L MCHC 30.5 L RDW 34.0 H Plt Count 332 MPV 9.3 Neut % (Auto) 92.6 H Lymph % (Auto) 3.9 L Lyon % (Auto) 2.9 Eos % (Auto) 0.2 Baso % (Auto) 0.4 Neut # 35.9 H Lymph # 1.5 Lyon # 1.1 H Eos # 0.1 Baso # 0.2 Neutrophils % (Manual) 89 H Band Neutrophils % 6 H Lymphocytes % (Manual) 3 L Monocytes % (Manual) 1 Eosinophils % (Manual) 1 Platelet Estimate Normal Hypochromasia (manual) Slight Poikilocytosis (manual Anisocytosis (manual) Slight Microcytosis (manual) Slight PT INR pO2 VBG pH VBG pCO2 VBG HCO3 VBG Total CO2 VBG O2 Sat (Calc) VBG Base Excess VBG Potassium Sodium Chloride Glucose Lactate Potassium Carbon Dioxide Anion Gap BUN Creatinine Est GFR ( Amer) Est GFR (Non-Af Amer) Random Glucose Calcium Phosphorus Magnesium Total Bilirubin AST ALT Alkaline Phosphatase Total Protein Albumin Globulin Albumin/Globulin Ratio Procalcitonin Venous Blood Potassium Urine Color Urine Clarity Urine pH Ur Specific Makanda Urine Protein Urine Glucose (UA) Urine Ketones Urine Blood Urine Nitrate Urine Bilirubin Urine Urobilinogen Ur Leukocyte Esterase Urine WBC (Auto) Urine RBC (Auto) Urine WBC Clumps (Auto) Ur Squamous Epith Cells Urine Bacteria Urine HCG, Qual C. difficile Ag & Toxin Negative Blood Type B POSITIVE Antibody Screen Negative 02/02/17 02/02/17 02/02/17 06:24 06:24 07:06 WBC 30.8 H RBC 3.42 L Hgb 8.1 L Hct 26.0 L MCV 76.0 L MCH 23.7 L MCHC 31.2 L RDW 31.8 H Plt Count 290 MPV 9.0 Neut % (Auto) 89.8 H Lymph % (Auto) 5.3 L Lyon % (Auto) 3.9 Eos % (Auto) 0.4 Baso % (Auto) 0.6 Neut # 27.6 H Lymph # 1.6 Lyon # 1.2 H Eos # 0.1 Baso # 0.2 Neutrophils % (Manual) 77 H Band Neutrophils % 15 H* Lymphocytes % (Manual) 6 L Monocytes % (Manual) 1 Eosinophils % (Manual) 1 Platelet Estimate Normal Hypochromasia (manual) Moderate Poikilocytosis (manual Slight Anisocytosis (manual) Marked Microcytosis (manual) PT 27.7 H INR 2.4 pO2 VBG pH VBG pCO2 VBG HCO3 VBG Total CO2 VBG O2 Sat (Calc) VBG Base Excess VBG Potassium Sodium 135 Chloride 107 Glucose Lactate Potassium 3.9 Carbon Dioxide 21 L Anion Gap 11 BUN 7 Creatinine 0.5 L Est GFR ( Amer) > 60 Est GFR (Non-Af Amer) > 60 Random Glucose 100 Calcium 7.3 L Phosphorus 3.6 Magnesium 1.6 Total Bilirubin 0.7 AST 34 ALT 28 Alkaline Phosphatase 211 H Total Protein 5.8 L Albumin 2.4 L D Globulin 3.5 Albumin/Globulin Ratio 0.7 L Procalcitonin Venous Blood Potassium Urine Color Urine Clarity Urine pH Ur Specific Mak[place] Urine Protein Urine Glucose (UA) Urine Ketones Urine Blood Urine Nitrate Urine Bilirubin Urine Urobilinogen Ur Leukocyte Esterase Urine WBC (Auto) Urine RBC (Auto) Urine WBC Clumps (Auto) Ur Squamous Epith Cells Urine Bacteria Urine HCG, Qual C. difficile Ag & Toxin Blood Type Antibody Screen 02/02/17 10:47 WBC RBC Hgb Hct MCV MCH MCHC RDW Plt Count MPV Neut % (Auto) Lymph % (Auto) Lyon % (Auto) Eos % (Auto) Baso % (Auto) Neut # Lymph # Lyon # Eos # Baso # Neutrophils % (Manual) Band Neutrophils % Lymphocytes % (Manual) Monocytes % (Manual) Eosinophils % (Manual) Platelet Estimate Hypochromasia (manual) Poikilocytosis (manual Anisocytosis (manual) Microcytosis (manual) PT INR pO2 VBG pH VBG pCO2 VBG HCO3 VBG Total CO2 VBG O2 Sat (Calc) VBG Base Excess VBG Potassium Sodium Chloride Glucose Lactate Potassium Carbon Dioxide Anion Gap BUN Creatinine Est GFR ( Amer) Est GFR (Non-Af Amer) Random Glucose Calcium Phosphorus Magnesium Total Bilirubin AST ALT Alkaline Phosphatase Total Protein Albumin Globulin Albumin/Globulin Ratio Procalcitonin Venous Blood Potassium Urine Color Light red Urine Clarity Hazy Urine pH 6.0 Ur Specific Makanda 1.010 Urine Protein 2+ H Urine Glucose (UA) 1+ Urine Ketones Negative Urine Blood 3+ H Urine Nitrate Negative Urine Bilirubin Negative Urine Urobilinogen Normal Ur Leukocyte Esterase 3+ H Urine WBC (Auto) 501 H Urine RBC (Auto) 407 H Urine WBC Clumps (Auto) Many H Ur Squamous Epith Cells 5 Urine Bacteria Urine HCG, Qual C. difficile Ag & Toxin Blood Type Antibody Screen Review of Systems - Review of Systems All systems: reviewed and no additional remarkable complaints except - EENT Eyes: absent: Blind Spots, Blurred Vision Nose/Mouth/Throat: absent: Nose Pain, Facial Pain, Neck Pain - Cardiovascular Cardiovascular: absent: Chest Pain, Orthopnea, Palpitations, Syncope - Respiratory Respiratory: absent: Cough, Dyspnea, Dyspnea on Exertion - Gastrointestinal Gastrointestinal: absent: Constipation, Dyspepsia, Nausea, Vomiting - Genitourinary Genitourinary: absent: Change in Urinary Stream, Difficulty Urinating - Musculoskeletal Musculoskeletal: absent: Arthralgias, Stiffness, Tingling - Integumentary Integumentary: absent: Lesions, Rash, Wounds - Neurological Neurological: absent: Sensory Deficit, Syncope, Tingling, Tremor, Vertigo, Weakness - Endocrine Endocrine: absent: Cold Intolorance, Heat Intolorance Critical Care Progress Note - Extremities/Vascular Does the Patient have a Central Venous Catheter?: No Does the Patient need a Central Venous Catheter?: No Does the Patient have a Salas Catheter?: No Does the Patient need a Salas Catheter?: No - Prophylaxis GI Prophylaxis GI: PPI - Prophylaxis DVT Prophylaxis DVT: Warfarin, SCDs - Nutrition Nutrition: Nutrition Category Date Time Status Heart Healthy Diet [DIET] Diets 02/02/17 Lunch Active Assessment/Plan (1) Sepsis Current Visit: Yes Status: Acute (2) UTI (urinary tract infection) Current Visit: Yes Status: Acute (3) Anemia Current Visit: No Status: Acute (4) History of appendicitis Current Visit: No Status: Acute (5) History of deep vein thrombosis (DVT) of lower extremity Current Visit: Yes Status: Acute - Assessment and Plan (Free Text) Plan: Patient status: hemodynamically stable Neuro: -A&OX3 -no acute issues Cardiovascular: -Lower Extremity and RUE Doppler- negative for DVT -02/02/17: will hold Coumadin 1mg po daily until tomorrow; INR = 2.4 - INR currently therapeutic Imaging: -02/01/17 CXR: No active disease -01/16/17 LE ultrasound: There is a incomplete/nonobstructive thrombus within the right common femoral vein. -likely 2/2 to right femoral TLC on prior admission Pulmonary: -No acute issues -Imaging: -02/01/17 CXR: No active disease Gastrointestinal: -No acute issues -Heart Healthy Diet- tolerating well Hematology: -Iron deficiency anemia -02/02/17: h&h 8.1/26 (increased from 7.5/24.7) -02/01/17: transfused 1 units PRBC -Repeat CBC 20:00pm Endocrine: -No acute issues Renal: -Hypomagnesemia --> repleted with 1gm magnesium sulfate Musculoskeletal: -No acute issues Genitourinary: -Vaginal bleeding likely 2/2 to uterine fibroids -No active bleeding -Imaging: -02/01/17 CT abd/pelvis: 1. Again identified is a markedly enlarged and heterogeneous uterus with markedly enlarged and innumerable fibroid lesions. At the right lateral aspect of the uterus, a partially necrotic and/or hemorrhagic fibroid lesion measures up to 14.4 x 16.2 centimeters. An additional lesion which is multilobulated also demonstrating necrotic and/or hemorrhagic components seen at the right lateral aspect of the uterus measures 15.9 x 11.5 centimeters. These may be better delineated with pelvic MRI if clinically indicated. Underlying neoplasm cannot be excluded. 2. Lobulated elliptical lesion measuring 5.2 x 4.0 centimeters demonstrating a Hounsfield unit attenuation of 7 seen at the level of the left adnexa which may represent a left adnexal cyst. This may be better evaluated with pelvic ultrasound if clinically indicated. 3. Evaluation of the lower abdominal bowel demonstrates fecal retention in the colon. Underdistention of the portion of the proximal sigmoid colon. Fecal retention within the remainder of the colon. Patient status post prior appendectomy with surgical clips noted in the right lower abdomen. 4. Enlarged liver with diffuse fatty infiltration. Scattered hypoattenuated foci in the liver, too small to adequately characterize. 5. Mild thickening of the urinary bladder wall. Infectious disease: -ID Consult- Dr. Hernandez -Sepsis likely 2/2 to UTI (urosepsis) -continue Tigecycline 100mg and Imipenem/Cilastatin 500mg (day 2) -continue IVF (NS 125mls/hr Q8h) -02/01/17: C.diff negative -Pro-calcitonin: 16.72 -02/02/17 UA: light red with 501 WBC and 3+ leukocyte esterase; negative nitrate -02/01/17 UA: red with 2730 WBC and 3+ leukocyte esterase; negative nitrate -Leukocytosis with bandemia -WBC count decreasing; will continue to trend -Repeat UA and Urine Cx -Repeat CBC 20:00pm GI prophylaxis: Protonix 40mg IVP daily DVT prophylaxis: SCDs Case discussed with Dr. Susu Story PGY1 - Date & Time Date: 02/02/17 Time: 13:18
--- NOTE | 2017-02-02 17:57 | CARD ---
APPROVED REPORT EXAM: Two-dimensional and M-mode echocardiogram with Doppler and color Doppler. Other Information Quality : GoodRhythm : NSR INDICATION Fever M-Mode DIMENSIONS Left Atrium (MM)4.14 (2.5-4.0cm)IVSd1.21 (0.7-1.1cm) Aortic Root2.73 (2.2-3.7cm)LVDd5.35 (4.0-5.6cm) Aortic Cusp Exc.1.56 (1.5-2.0cm)PWd1.25 (0.7-1.1cm) FS (%) 31 %LVDs3.67 (2.0-3.8cm) LVEF (%)59 (>50%) Aortic Valve AoV Peak Rbbmbyqj468.9cm/Ezequiel Peak GR.10mmHg Mitral Valve MV E Hqtlpwss21.6cm/sMV A Onyutnqg86.3cm/sE/A ratio1.3 TDI E/Lateral E'0.0E/Medial E'0.0 Tricuspid Valve TR Peak Ulpaghja014ku/sTR Peak Gr.[id number] LEFT VENTRICLE The left ventricle is normal size. There is normal left ventricular wall thickness. The left ventricular function is normal. The left ventricular ejection fraction is within the normal range. There is normal LV segmental wall motion. The left ventricular diastolic function is normal. RIGHT VENTRICLE The right ventricle is normal size. ATRIA The left atrium is borderline dilated. MITRAL VALVE The mitral valve is normal in structure. TRICUSPID VALVE There is mild tricuspid regurgitation. <Conclusion> Normal LV systolic function. Mild TR. Borderline dilated LA. No othre significant abnormality seen.
[2017-02-02 20:52] LABS: BASO # 0.1 K/uL (0.0-0.2); BASO % 0.4 % (0.0-2.0); EOS # 0.3 K/uL (0.0-0.7); EOS % 1.2 % (0.0-4.0); LYMPH # 1.8 K/uL (1.0-4.3); LYMPH % 7.9 % (20.0-40.0); MEAN CELL VOLUME 76.4 fL (81.0-99.0); MEAN CORPUSCULAR HGB CONC 31.4 g/dL (33.0-37.0); MEAN PLATELET VOLUME 9.4 fL (7.2-11.7); MONO # 1.2 K/uL (0.0-0.8); MONO % 5.4 % (0.0-10.0); PLATELET COUNT 322 K/uL (130-400); RED CELL DISTRIBUTION WIDTH 32.7 % (11.5-14.5); WHITE BLOOD COUNT 22.6 K/uL (4.8-10.8)
[2017-02-02] MEDS: Enoxaparin 30 mg Syringe SC SCH (21:34)
[2017-02-02 21:48] LABS: EOSINOPHIL 1 % (0-4); NEUTROPHIL 81 % (50-75); TOTAL CELLS COUNTED 100
[2017-02-03] MEDS: Sodium Chloride 0.9% 1,000 ML IV SCH ×4 (01:41→23:31)
[2017-02-03 05:46] LABS: VENOUS BLOOD GAS BASE EXCESS 0.1 mmol/L (0.0-2.0); VENOUS BLOOD GAS PCO2 34 mmHg (40-60); VENOUS BLOOD PH 7.45 (7.32-7.43)
[2017-02-03 05:59] LABS: BASO # 0.1 K/uL (0.0-0.2); BASO % 0.4 % (0.0-2.0); EOS # 0.1 K/uL (0.0-0.7); EOS % 0.5 % (0.0-4.0); HEMATOCRIT 25.2 % (34.0-47.0); LYMPH # 1.6 K/uL (1.0-4.3); LYMPH % 6.3 % (20.0-40.0); MEAN CELL VOLUME 75.5 fL (81.0-99.0); MEAN CORPUSCULAR HGB CONC 31.8 g/dL (33.0-37.0); MONO # 1.4 K/uL (0.0-0.8); MONO % 5.3 % (0.0-10.0); PLATELET COUNT 271 K/uL (130-400); RED CELL DISTRIBUTION WIDTH 31.9 % (11.5-14.5); WHITE BLOOD COUNT 25.8 K/uL (4.8-10.8)
[2017-02-03 06:15] LABS: CHLORIDE 104 mmol/L (98-107); POTASSIUM 3.2 mmol/L (3.6-5.2); SODIUM 134 mmol/L (132-148)
[2017-02-03 06:17] LABS: AST/SGOT 21 U/L (14-36); BILIRUBIN,TOTAL 0.7 mg/dL (0.2-1.3); CARBON DIOXIDE 23 mmol/L (22-30); GFR AFRICAN-AMERICAN > 60
[2017-02-03 06:18] LABS: ALB/GLOB RATIO 0.7 (1.0-2.1); ALKALINE PHOSPHATASE 185 U/L (38-126); ALT/SGPT 23 U/L (9-52); BLOOD UREA NITROGEN 7 mg/dL (7-17); GLUCOSE,RANDOM 110 mg/dL (65-105); PHOSPHOROUS 3.5 mg/dL (2.5-4.5); TOTAL PROTEIN 5.7 g/dL (6.3-8.3)
[2017-02-03 06:19] LABS: CALCIUM 7.4 mg/dl (8.6-10.4); MAGNESIUM 1.6 mg/dL (1.6-2.3)
[2017-02-03 06:49] LABS: METAMYELOCYTE 1 % (0-0); NEUTROPHIL 90 % (50-75); TOTAL CELLS COUNTED 100
[2017-02-03 08:07] LABS: INR 2.1
--- NOTE | 2017-02-03 08:57 | CON ---
DATE: 02/02/2017 REQUESTING PHYSICIAN: Dr. Wall. HISTORY OF PRESENT ILLNESS: This patient is a 51-year-old female. She was admitted through the [facility] Room and she is presently in ICU. I am asked to evaluate her. She came in with fever, chills, lower abdominal pain. She also had diarrhea she says for 2 days, and she came in with lower abdomin al pain and also had vaginal bleeding. She is in ICU. She speaks mostly Chinese, but able to tell m e that she had a laparoscopic appendicectomy done on 01/02/2017 and went home for 2-3 days, and then she went for an IV infusion and where the IV was infused with iron she developed swelling in her righ t arm with a lot of pain and swelling. She stayed home, but when the pain and swelling became worse she went there and she was readmitted to [facility] where she was treated for UTI VRE and also had cellu litis and DVT of the right ____ and also had DVT in the right common femoral vein and right upper arm , and she was started on Coumadin. Now she comes with diarrhea and abdominal pain. Her white count is very elevated; hence, I am asked to see her. She has been on treatment there with ____ and Zyvox I am told, but I will try to get records as they are not here in the chart. She also went for the Do ppler studies right now and there are no clots, and according to the nurse there are no clots there a re at this time in the arm or in the right leg. She is on oxygen. SOCIAL HISTORY: Negative for smoking or drinking. PAST SURGICAL HISTORY: She did have an appendicectomy. ALLERGIES: She is not allergic to any medications. MEDICATIONS: At home are warfarin. She is on Protonix at this time. She has history of anemia and recent appendicectomy on 01/02/2017. REVIEW OF SYSTEMS: She denies any headaches right now. No ear, nose and throat problems. Denies an y chest pain, no shortness of breath. She is on oxygen. Denies abdominal pain. She did have diarrh ea yesterday she says 3 times, liquidy. She denies any pains in her lower extremities. PHYSICAL EXAMINATION: VITAL SIGNS: I find her temperature is 97.8, pulse 78, blood pressure 103/44, respirations are 21. HEENT: Her head is atraumatic, normocephalic. Pupils are reacting to light. She appears pale. Thr oat: No congestion, no thrush seen. NECK: Supple. DIGNA is flat. LUNGS: Clear. No crackles or rales present. HEART: S1, S2 is regular. No murmurs present. ABDOMEN: Soft, flabby, nontender at this time. EXTREMITIES: Have no edema or swelling. There are no rashes. PSYCHIATRIC: She is alert, oriented x 3. LABORATORY DATA: Her white count was 38.7 yesterday, now it is 30.8 She came with a white count of 27.9, hemoglobin is 8.1, hematocrit 26, platelet count is 290, so she is very anemia. Neutrophils ar e 77, bands are 15; this is on a machine diff. INR is 2.4. Sodium is 135, potassium 3.9, chloride 1 07, CO2 is 21, anion gap is 11, creatinine is 0.5. UA shows a lot of WBCs 501, and RBCs 407, ____ ma ny as per ____, and a culture is pending at this time. She also had a CAT scan of the abdomen and pelvis which shows bibasilar atelectasis at the lung base. No pleural or pericardial effusion. Enlarged liver with fatty infiltration. Scattered hypo____ fo ci in the liver, too many to characterize, too small to characterize, which I am not sure what this i s. She did have DVT, however. Gallbladder appears preserved. Noted is an enlarged uterus, markedly enlarged and heterogenous uterus with markedly enlarged enumerable fibroids at the right lateral ___ _ she has a hemorrhagic fibroid lesion which is 14.4 x 16.2 which is multilobulated and demonstrating necrotic and hemorrhagic components; so she may have pedunculated fibroids in the uterus along with this multilobulated necrotic lesion which is also a fibroid. There is some redundancy of the colon, fecal retention, enlarged liver and mild thickening of the urinary bladder gatica. So she will need a gynecological exam as she is anemic, but that can be done once she improves. Chest x-ray did not sh ow any active disease, so she is with a DVT of right arm and right leg, had appendicectomy, has fibro id uterus, is on Coumadin and is anemic and also having diarrhea. C. diff is however negative. Righ t now, I have left her on antibiotics since she has bandemia, and we are using Primaxin as well as Ty gacil here to cover the VRE, as the other antibiotic is not available ____. Will follow as white cou nt is decreasing on this, and will follow with you. Prognosis remains guarded as she is in ICU. Jarrett Hernandez MD cc: [id number] TT: 02/02/2017 18:16:37 Confirmation # [id number] Dictation # [id number] mn
[2017-02-03] MEDS ORDERED: Pneumococcal 23-Valent Vaccine IM ONE (10:00)
[2017-02-03] MEDS: Magnesium Sulfate 1 gm in D5W 1 GM/100 ML BAG IVPB SCH (10:08)
[2017-02-03] MEDS: Enoxaparin 30 mg Syringe SC SCH (10:09)
[2017-02-03] MEDS: Potassium Chloride 20 mEq ER Tab PO SCH ×2 (10:10→17:29)
--- NOTE | 2017-02-03 12:30 | CP.CCUPN ---
<JezRoger - Last Filed: 02/03/17 12:27> CCU Subjective - Physician Review Subjective (Free Text): 02/02/17 13:12 Patient seen and examined at bedside. Patient in no acute distress. Patient received 1 unit PRBCs overnight. Nursing staff reports no issues. The patient has no present complaints. The patient denies fever, chills, MCCORD, chest pain, abdominal pain, SOB, N/V/D/C, changes in bowel/bladder, and paresthesias. Today on rounds, a lower extremity venous duplex scan was ordered to rule out DVT. A repeat UA, urine culture, and CBC were also ordered. 02/03/17 12:28 Patient seen and examined at bedside. No acute distress. No acute events overnight. Nursing staff reports no issues. The patient reports scant vaginal bleeding. Patient also reports continued burning on urination. The patient denies fever, chills, N/V/D/C, chest pain, abdominal pain, SOB, cough, and paresthesias. Today on rounds, the patient's magnesium and potassium were replaced. The patient was deemed medically/hemodynamically stable and will be transferred to the telemetry floor to continue current medical management. The patient's contact precautions were discontinued due to recent negative cultures. Critical Care Time Spent (in minutes): 60 CCU Objective - Vital Signs / Intake & Output Vital Signs (Last 4 hours): Vital Signs Pulse Resp BP Pulse Ox 02/03/17 11:51 65 24 97/40 L 100 02/03/17 11:00 69 19 100 02/03/17 10:51 67 21 108/43 L 100 02/03/17 10:00 78 23 99 02/03/17 09:51 71 24 112/46 L 100 02/03/17 09:00 74 28 H 100 02/03/17 08:51 74 26 H 107/48 L 100 Intake and Output (Last 8hrs): Intake & Output 02/02/17 02/03/17 02/03/17 22:59 06:59 14:59 Intake Total 1635 950 250 Output Total 1261 1151 0 Balance 374 -201 250 Weight 86.183 kg Intake: Intake, IV Amount 1075 950 250 Right Antecubital 1075 950 250 Oral 560 Output: Urine 1260 1150 0 Urine, Voided 1260 1150 0 Urine/Stool Mix 1 1 Other: # Voids Urine, Voided 1 1 # Bowel Movements 0 1 - Physical Exam Head: Positive for: Atraumatic, Normocephalic Pupils: Positive for: PERRL Extroacular Muscles: Positive for: EOMI Conjunctiva: Positive for: Normal Mouth: Positive for: Moist Mucous Membranes. Negative for: Drooling Nose (External): Positive for: Atraumatic Neck: Positive for: Normal Range of Motion. Negative for: JVD, Lymphadenopathy Respiratory/Chest: Positive for: Clear to Auscultation, Good Air Exchange. Negative for: Respiratory Distress, Accessory Muscle Use, Wheezes, Rales, Retracting, Rhonchi, Tachypneic Cardiovascular: Positive for: Regular Rate and Rhythm, Normal S1, S2, Peripheal Pulses Present. Negative for: Murmurs, Irregular Rhythm Abdomen: Positive for: Normal Bowel Sounds. Negative for: Tenderness, Distention, Peritoneal Signs, Rebound, Guarding Upper Extremity: Positive for: Normal Inspection, Normal ROM, NORMAL PULSES, Neurovascularly Intact, Capillary Refill < 2s. Negative for: Cyanosis, Edema, Tenderness Lower Extremity: Positive for: Normal Inspection, NORMAL PULSES, Normal ROM, Neurovascularly Intact. Negative for: Edema, CALF TENDERNESS Neurological: Positive for: CN II-XII Intact Skin: Positive for: Warm, Dry, Normal Color. Negative for: Rashes Psychiatric: Positive for: Alert, Oriented x 3 - Medications Active Medications: Active Medications Generic Name Dose Route Start Last Admin Trade Name Freq PRN Reason Stop Dose Admin Acetaminophen 650 mg 02/01/17 21:44 02/02/17 22:34 Tylenol 325mg Tab PO 650 mg Q6 PRN Administration Fever >100.4 F Enoxaparin Sodium 30 mg 02/02/17 22:00 02/03/17 10:09 Lovenox SC 30 mg Q12 TORI Administration Imipenem/Cilastatin Sodium 500 100 mls @ 100 mls/hr 02/01/17 16:30 02/03/17 04:30 mg/ Sodium Chloride IVPB 100 mls/hr Q6H TORI Administration Sodium Chloride 1,000 mls @ 125 mls/hr 02/01/17 15:40 02/03/17 01:41 Sodium Chloride 0.9% IV 125 mls/hr .Q8H TORI Administration Tigecycline 50 mg/ Sodium 100 mls @ 100 mls/hr 02/02/17 14:00 02/03/17 01:39 Chloride IVPB 100 mls/hr Q12H TORI Administration Pantoprazole Sodium 40 mg 02/01/17 16:30 02/03/17 10:09 Protonix Inj IVP 40 mg DAILY TORI Administration Potassium Chloride 40 meq 02/03/17 10:00 02/03/17 10:10 K-Dur 20 Meq Er Tab PO 02/03/17 18:01 40 meq BID TORI Administration - Patient Studies Lab Studies: Microbiology Studies 02/02/17 10:32 Urine Culture - Final Urine No Growth (<1,000 CFU/ML) 02/01/17 Unknown MRSA Culture (Admit) - Final Naris MRSA NOT DETECTED 02/01/17 19:20 Urine Culture - Final Urine No Growth (<1,000 CFU/ML) Lab Studies 02/03/17 02/03/17 02/03/17 Range/Units 05:54 05:54 05:54 WBC 25.8 H (4.8-10.8) K/uL RBC 3.34 L (3.80-5.20) Mil/uL Hgb 8.0 L (11.0-16.0) g/dL Hct 25.2 L (34.0-47.0) % MCV 75.5 L (81.0-99.0) fL MCH 24.0 L (27.0-31.0) pg MCHC 31.8 L (33.0-37.0) g/dL RDW 31.9 H (11.5-14.5) % Plt Count 271 (130-400) K/uL MPV 9.0 (7.2-11.7) fL Neut % (Auto) 87.5 H (50.0-75.0) % Lymph % (Auto) 6.3 L (20.0-40.0) % [place] % (Auto) 5.3 (0.0-10.0) % Eos % (Auto) 0.5 (0.0-4.0) % Baso % (Auto) 0.4 (0.0-2.0) % Neut # 22.6 H (1.8-7.0) K/uL Lymph # 1.6 (1.0-4.3) K/uL [place] # 1.4 H (0.0-0.8) K/uL Eos # 0.1 (0.0-0.7) K/uL Baso # 0.1 (0.0-0.2) K/uL Neutrophils % (Manual) 90 H (50-75) % Band Neutrophils % 1 (0-2) % Lymphocytes % (Manual) 3 L (20-40) % Monocytes % (Manual) 5 (0-10) % Eosinophils % (Manual) (0-4) % Metamyelocytes % 1 H (0-0) % Platelet Estimate Normal (NORMAL) Polychromasia Slight Hypochromasia (manual) Slight Anisocytosis (manual) Moderate Microcytosis (manual) Slight Tear Drop Cells Slight Ovalocytes Slight PT 25.0 H (9.7-12.2) SECONDS INR 2.1 APTT 44 H (21-34) SECONDS pO2 (30-55) mm/Hg VBG pH (7.32-7.43) VBG pCO2 (40-60) mmHg VBG HCO3 mmol/L VBG Total CO2 (22-28) mmol/L VBG O2 Sat (Calc) (40-65) % VBG Base Excess (0.0-2.0) mmol/L VBG Potassium (3.6-5.2) mmol/L Sodium 134 (132-148) mmol/l Chloride 104 (98-107) mmol/L Glucose (65-105) mg/dl Lactate (0.7-2.1) mmol/L Liter Flow Potassium 3.2 L (3.6-5.2) mmol/L Carbon Dioxide 23 (22-30) mmol/L Anion Gap 10 (10-20) BUN 7 (7-17) mg/dL Creatinine 0.5 L (0.7-1.2) MG/DL Est GFR ( Amer) > 60 Est GFR (Non-Af Amer) > 60 Random Glucose 110 H (65-105) mg/dL Calcium 7.4 L (8.6-10.4) mg/dl Phosphorus 3.5 (2.5-4.5) mg/dL Magnesium 1.6 (1.6-2.3) mg/dL Total Bilirubin 0.7 (0.2-1.3) mg/dL AST 21 (14-36) U/L ALT 23 (9-52) U/L Alkaline Phosphatase 185 H (38-126) U/L Total Protein 5.7 L (6.3-8.3) g/dL Albumin 2.3 L (3.5-5.0) g/dL Globulin 3.5 (2.2-3.9) gm/dL Albumin/Globulin Ratio 0.7 L (1.0-2.1) Venous Blood Potassium (3.6-5.2) mmol/L 02/03/17 02/02/17 Range/Units 05:17 20:30 WBC 22.6 H (4.8-10.8) K/uL RBC 3.67 L (3.80-5.20) Mil/uL Hgb 8.8 L (11.0-16.0) g/dL Hct 28.0 L (34.0-47.0) % MCV 76.4 L (81.0-99.0) fL MCH 24.0 L (27.0-31.0) pg MCHC 31.4 L (33.0-37.0) g/dL RDW 32.7 H (11.5-14.5) % Plt Count 322 (130-400) K/uL MPV 9.4 (7.2-11.7) fL Neut % (Auto) 85.1 H (50.0-75.0) % Lymph % (Auto) 7.9 L (20.0-40.0) % [place] % (Auto) 5.4 (0.0-10.0) % Eos % (Auto) 1.2 (0.0-4.0) % Baso % (Auto) 0.4 (0.0-2.0) % Neut # 19.2 H (1.8-7.0) K/uL Lymph # 1.8 (1.0-4.3) K/uL [place] # 1.2 H (0.0-0.8) K/uL Eos # 0.3 (0.0-0.7) K/uL Baso # 0.1 (0.0-0.2) K/uL Neutrophils % (Manual) 81 H (50-75) % Band Neutrophils % 4 H (0-2) % Lymphocytes % (Manual) 10 L (20-40) % Monocytes % (Manual) 4 (0-10) % Eosinophils % (Manual) 1 (0-4) % Metamyelocytes % (0-0) % Platelet Estimate Normal (NORMAL) Polychromasia Slight Hypochromasia (manual) Slight Anisocytosis (manual) Marked Microcytosis (manual) Moderate Tear Drop Cells Ovalocytes Slight PT (9.7-12.2) SECONDS INR APTT (21-34) SECONDS pO2 83 H (30-55) mm/Hg VBG pH 7.45 H (7.32-7.43) VBG pCO2 34 L (40-60) mmHg VBG HCO3 25.0 mmol/L VBG Total CO2 24.6 (22-28) mmol/L VBG O2 Sat (Calc) 98.9 H (40-65) % VBG Base Excess 0.1 (0.0-2.0) mmol/L VBG Potassium 3.4 L (3.6-5.2) mmol/L Sodium 136.0 (132-148) mmol/l Chloride 107.0 (98-107) mmol/L Glucose 110 H (65-105) mg/dl Lactate 1.0 (0.7-2.1) mmol/L Liter Flow 2.0 Potassium (3.6-5.2) mmol/L Carbon Dioxide (22-30) mmol/L Anion Gap (10-20) BUN (7-17) mg/dL Creatinine (0.7-1.2) MG/DL Est GFR ( Amer) Est GFR (Non-Af Amer) Random Glucose (65-105) mg/dL Calcium (8.6-10.4) mg/dl Phosphorus (2.5-4.5) mg/dL Magnesium (1.6-2.3) mg/dL Total Bilirubin (0.2-1.3) mg/dL AST (14-36) U/L ALT (9-52) U/L Alkaline Phosphatase (38-126) U/L Total Protein (6.3-8.3) g/dL Albumin (3.5-5.0) g/dL Globulin (2.2-3.9) gm/dL Albumin/Globulin Ratio (1.0-2.1) Venous Blood Potassium 3.4 L (3.6-5.2) mmol/L Laboratory Results - last 24 hr 0602/03/17 02/03/17 20:30 05:17 05:54 WBC 22.6 H 25.8 H RBC 3.67 L 3.34 L Hgb 8.8 L 8.0 L Hct 28.0 L 25.2 L MCV 76.4 L 75.5 L MCH 24.0 L 24.0 L MCHC 31.4 L 31.8 L RDW 32.7 H 31.9 H Plt Count 322 271 MPV 9.4 9.0 Neut % (Auto) 85.1 H 87.5 H Lymph % (Auto) 7.9 L 6.3 L [place] % (Auto) 5.4 5.3 Eos % (Auto) 1.2 0.5 Baso % (Auto) 0.4 0.4 Neut # 19.2 H 22.6 H Lymph # 1.8 1.6 [place] # 1.2 H 1.4 H Eos # 0.3 0.1 Baso # 0.1 0.1 Neutrophils % (Manual) 81 H 90 H Band Neutrophils % 4 H 1 Lymphocytes % (Manual) 10 L 3 L Monocytes % (Manual) 4 5 Eosinophils % (Manual) 1 Metamyelocytes % 1 H Platelet Estimate Normal Normal Polychromasia Slight Slight Hypochromasia (manual) Slight Slight Anisocytosis (manual) Marked Moderate Microcytosis (manual) Moderate Slight Tear Drop Cells Slight Ovalocytes Slight Slight PT INR APTT pO2 83 H VBG pH 7.45 H VBG pCO2 34 L VBG HCO3 25.0 VBG Total CO2 24.6 VBG O2 Sat (Calc) 98.9 H VBG Base Excess 0.1 VBG Potassium 3.4 L Sodium 136.0 Chloride 107.0 Glucose 110 H Lactate 1.0 Liter Flow 2.0 Potassium Carbon Dioxide Anion Gap BUN Creatinine Est GFR ( Amer) Est GFR (Non-Af Amer) Random Glucose Calcium Phosphorus Magnesium Total Bilirubin AST ALT Alkaline Phosphatase Total Protein Albumin Globulin Albumin/Globulin Ratio Venous Blood Potassium 3.4 L 02/03/17 02/03/17 05:54 05:54 WBC RBC Hgb Hct MCV MCH MCHC RDW Plt Count MPV Neut % (Auto) Lymph % (Auto) [place] % (Auto) Eos % (Auto) Baso % (Auto) Neut # Lymph # [place] # Eos # Baso # Neutrophils % (Manual) Band Neutrophils % Lymphocytes % (Manual) Monocytes % (Manual) Eosinophils % (Manual) Metamyelocytes % Platelet Estimate Polychromasia Hypochromasia (manual) Anisocytosis (manual) Microcytosis (manual) Tear Drop Cells Ovalocytes PT 25.0 H INR 2.1 APTT 44 H pO2 VBG pH VBG pCO2 VBG HCO3 VBG Total CO2 VBG O2 Sat (Calc) VBG Base Excess VBG Potassium Sodium 134 Chloride 104 Glucose Lactate Liter Flow Potassium 3.2 L Carbon Dioxide 23 Anion Gap 10 BUN 7 Creatinine 0.5 L Est GFR ( Amer) > 60 Est GFR (Non-Af Amer) > 60 Random Glucose 110 H Calcium 7.4 L Phosphorus 3.5 Magnesium 1.6 Total Bilirubin 0.7 AST 21 ALT 23 Alkaline Phosphatase 185 H Total Protein 5.7 L Albumin 2.3 L Globulin 3.5 Albumin/Globulin Ratio 0.7 L Venous Blood Potassium Review of Systems - Review of Systems Review of Systems: All systems: reviewed and no additional remarkable complaints except - EENT Eyes: absent: Blind Spots, Blurred Vision Nose/Mouth/Throat: absent: Nose Pain, Facial Pain, Neck Pain - Cardiovascular Cardiovascular: absent: Chest Pain, Orthopnea, Palpitations, Syncope - Respiratory Respiratory: absent: Cough, Dyspnea, Dyspnea on Exertion - Gastrointestinal Gastrointestinal: absent: Constipation, Dyspepsia, Nausea, Vomiting - Genitourinary Genitourinary: absent: Change in Urinary Stream, Difficulty Urinating - Musculoskeletal Musculoskeletal: absent: Arthralgias, Stiffness, Tingling - Integumentary Integumentary: absent: Lesions, Rash, Wounds - Neurological Neurological: absent: Sensory Deficit, Syncope, Tingling, Tremor, Vertigo, Weakness - Endocrine Endocrine: absent: Cold Intolorance, Heat Intolorance Critical Care Progress Note - Extremities/Vascular Does the Patient have a Central Venous Catheter?: No Does the Patient need a Central Venous Catheter?: No Does the Patient have a [place] Catheter?: No Does the Patient need a [place] Catheter?: No - Prophylaxis GI Prophylaxis GI: PPI - Prophylaxis DVT Prophylaxis DVT: SCDs - Nutrition Nutrition: Nutrition Category Date Time Status Heart Healthy Diet [DIET] Diets 02/02/17 Lunch Active Assessment/Plan (1) Sepsis Current Visit: Yes Status: Acute (2) UTI (urinary tract infection) Current Visit: Yes Status: Acute (3) Anemia Current Visit: No Status: Acute (4) History of appendicitis Current Visit: No Status: Acute (5) History of deep vein thrombosis (DVT) of lower extremity Current Visit: Yes Status: Acute - Assessment and Plan (Free Text) Plan: Patient status: hemodynamically stable transfer to telemetry floor Neuro: -A&OX3 -no acute issues Cardiovascular: -Lower Extremity and RUE Doppler- negative for DVT Imaging: -02/02/17 ECHO: LVEF 59%, no LV systolic dysfunction; mild TR -01/16/17 LE ultrasound: There is a incomplete/nonobstructive thrombus within the right common femoral vein. Pulmonary: -No acute issues -Imaging: -02/01/17 CXR: No active disease Gastrointestinal: -No acute issues -Heart Healthy Diet- tolerating well Hematology: -Iron deficiency anemia -02/02/17: h&h 8.1/26 (increased from 7.5/24.7) -02/01/17: transfused 1 units PRBC -INR 2.1- coumadin 1mg po daily on hold Endocrine: -No acute issues Renal: -Hypomagnesemia --> repleted with 1gm magnesium sulfate x 2 bags -Hypokalemia - repleted with potassium chloride 40meq PO BID x 2 doses Musculoskeletal: -No acute issues Genitourinary: -Vaginal bleeding likely 2/2 to uterine fibroids -No active bleeding -Imaging: -02/01/17 CT abd/pelvis: 1. Again identified is a markedly enlarged and heterogeneous uterus with markedly enlarged and innumerable fibroid lesions. At the right lateral aspect of the uterus, a partially necrotic and/or hemorrhagic fibroid lesion measures up to 14.4 x 16.2 centimeters. An additional lesion which is multilobulated also demonstrating necrotic and/or hemorrhagic components seen at the right lateral aspect of the uterus measures 15.9 x 11.5 centimeters. These may be better delineated with pelvic MRI if clinically indicated. Underlying neoplasm cannot be excluded. 2. Lobulated elliptical lesion measuring 5.2 x 4.0 centimeters demonstrating a Hounsfield unit attenuation of 7 seen at the level of the left adnexa which may represent a left adnexal cyst. This may be better evaluated with pelvic ultrasound if clinically indicated. 3. Evaluation of the lower abdominal bowel demonstrates fecal retention in the colon. Underdistention of the portion of the proximal sigmoid colon. Fecal retention within the remainder of the colon. Patient status post prior appendectomy with surgical clips noted in the right lower abdomen. 4. Enlarged liver with diffuse fatty infiltration. Scattered hypoattenuated foci in the liver, too small to adequately characterize. 5. Mild thickening of the urinary bladder wall. Infectious disease: -DC contact precautions -ID Consult- Dr. Hernandez -Sepsis likely 2/2 to UTI (urosepsis) -continue Tigecycline 100mg q12 (day 3) -Primaxin 500mg IV q6 (day 3) -continue IVF (NS 125mls) -02/01/17: C.diff negative -Pro-calcitonin: 16.72 -02/02/17 UA: light red with 501 WBC and 3+ leukocyte esterase; negative nitrate -02/01/17 UA: red with 2730 WBC and 3+ leukocyte esterase; negative nitrate -Repeat UA and Urine Cx- negative GI prophylaxis: Protonix 40mg IVP daily DVT prophylaxis: Lovenox 30mg SC BID Case discussed with Dr. Jeffrey Story PGY1 - Date & Time Date: 02/03/17 Time: 12:30 <El Murphy - Last Filed: 02/03/17 18:50> CCU Subjective - Physician Review Critical Care Time Spent (in minutes): 30 CCU Objective - Vital Signs / Intake & Output Vital Signs (Last 4 hours): Vital Signs Temp Pulse Resp BP Pulse Ox 02/03/17 16:00 98.4 F 74 25 H 99 02/03/17 15:51 70 23 120/49 L 100 02/03/17 15:00 72 29 H 100 02/03/17 14:51 79 21 116/75 99 Intake and Output (Last 8hrs): Intake & Output 02/03/17 02/03/17 02/03/17 06:59 14:59 22:59 Intake Total 950 1000 500 Output Total 1151 650 700 Balance -201 350 -200 Weight 190 lb Intake: Intake, IV Amount 950 1000 500 Right Antecubital 950 1000 500 Output: Urine 1150 650 700 Urine, Voided 1150 650 700 Urine/Stool Mix 1 Other: # Voids Urine, Voided 1 # Bowel Movements 1 - Medications Active Medications: Active Medications Generic Name Dose Route Start Last Admin Trade Name Freq PRN Reason Stop Dose Admin Acetaminophen 650 mg 02/01/17 21:44 06/12/17 22:34 Tylenol 325mg Tab PO 650 mg Q6 PRN Administration Fever >100.4 F Imipenem/Cilastatin Sodium 500 100 mls @ 100 mls/hr 02/01/17 16:30 02/03/17 17:29 mg/ Sodium Chloride IVPB 100 mls/hr Q6H TORI Administration Sodium Chloride 1,000 mls @ 125 mls/hr 02/01/17 15:40 02/03/17 15:14 Sodium Chloride 0.9% IV 125 mls/hr .Q8H TORI Administration Tigecycline 50 mg/ Sodium 100 mls @ 100 mls/hr 02/02/17 14:00 02/03/17 14:00 Chloride IVPB 100 mls/hr Q12H TORI Administration Pantoprazole Sodium 40 mg 02/01/17 16:30 02/03/17 10:09 Protonix Inj IVP 40 mg DAILY TORI Administration Pneumococcal Polyvalent Vaccine 0.5 ml 02/07/17 17:36 Pneumovax 23 Vaccine IM 02/07/17 17:37 .ONCE ONE - Patient Studies Lab Studies: Microbiology Studies 02/02/17 10:32 Urine Culture - Final Urine No Growth (<1,000 CFU/ML) 02/01/17 Unknown MRSA Culture (Admit) - Final Naris MRSA NOT DETECTED 02/01/17 19:20 Urine Culture - Final Urine No Growth (<1,000 CFU/ML) Lab Studies 02/03/17 02/03/17 02/03/17 Range/Units 05:54 05:54 05:54 WBC 25.8 H (4.8-10.8) K/uL RBC 3.34 L (3.80-5.20) Mil/uL Hgb 8.0 L (11.0-16.0) g/dL Hct 25.2 L (34.0-47.0) % MCV 75.5 L (81.0-99.0) fL MCH 24.0 L (27.0-31.0) pg MCHC 31.8 L (33.0-37.0) g/dL RDW 31.9 H (11.5-14.5) % Plt Count 271 (130-400) K/uL MPV 9.0 (7.2-11.7) fL Neut % (Auto) 87.5 H (50.0-75.0) % Lymph % (Auto) 6.3 L (20.0-40.0) % [place] % (Auto) 5.3 (0.0-10.0) % Eos % (Auto) 0.5 (0.0-4.0) % Baso % (Auto) 0.4 (0.0-2.0) % Neut # 22.6 H (1.8-7.0) K/uL Lymph # 1.6 (1.0-4.3) K/uL [place] # 1.4 H (0.0-0.8) K/uL Eos # 0.1 (0.0-0.7) K/uL Baso # 0.1 (0.0-0.2) K/uL Neutrophils % (Manual) 90 H (50-75) % Band Neutrophils % 1 (0-2) % Lymphocytes % (Manual) 3 L (20-40) % Monocytes % (Manual) 5 (0-10) % Eosinophils % (Manual) (0-4) % Metamyelocytes % 1 H (0-0) % Platelet Estimate Normal (NORMAL) Polychromasia Slight Hypochromasia (manual) Slight Anisocytosis (manual) Moderate Microcytosis (manual) Slight Tear Drop Cells Slight Ovalocytes Slight PT 25.0 H (9.7-12.2) SECONDS INR 2.1 APTT 44 H (21-34) SECONDS pO2 (30-55) mm/Hg VBG pH (7.32-7.43) VBG pCO2 (40-60) mmHg VBG HCO3 mmol/L VBG Total CO2 (22-28) mmol/L VBG O2 Sat (Calc) (40-65) % VBG Base Excess (0.0-2.0) mmol/L VBG Potassium (3.6-5.2) mmol/L Sodium 134 (132-148) mmol/l Chloride 104 (98-107) mmol/L Glucose (65-105) mg/dl Lactate (0.7-2.1) mmol/L Liter Flow Potassium 3.2 L (3.6-5.2) mmol/L Carbon Dioxide 23 (22-30) mmol/L Anion Gap 10 (10-20) BUN 7 (7-17) mg/dL Creatinine 0.5 L (0.7-1.2) MG/DL Est GFR ( Amer) > 60 Est GFR (Non-Af Amer) > 60 Random Glucose 110 H (65-105) mg/dL Calcium 7.4 L (8.6-10.4) mg/dl Phosphorus 3.5 (2.5-4.5) mg/dL Magnesium 1.6 (1.6-2.3) mg/dL Total Bilirubin 0.7 (0.2-1.3) mg/dL AST 21 (14-36) U/L ALT 23 (9-52) U/L Alkaline Phosphatase 185 H (38-126) U/L Total Protein 5.7 L (6.3-8.3) g/dL Albumin 2.3 L (3.5-5.0) g/dL Globulin 3.5 (2.2-3.9) gm/dL Albumin/Globulin Ratio 0.7 L (1.0-2.1) Venous Blood Potassium (3.6-5.2) mmol/L 02/03/17 02/02/17 Range/Units 05:17 20:30 WBC 22.6 H (4.8-10.8) K/uL RBC 3.67 L (3.80-5.20) Mil/uL Hgb 8.8 L (11.0-16.0) g/dL Hct 28.0 L (34.0-47.0) % MCV 76.4 L (81.0-99.0) fL MCH 24.0 L (27.0-31.0) pg MCHC 31.4 L (33.0-37.0) g/dL RDW 32.7 H (11.5-14.5) % Plt Count 322 (130-400) K/uL MPV 9.4 (7.2-11.7) fL Neut % (Auto) 85.1 H (50.0-75.0) % Lymph % (Auto) 7.9 L (20.0-40.0) % [place] % (Auto) 5.4 (0.0-10.0) % Eos % (Auto) 1.2 (0.0-4.0) % Baso % (Auto) 0.4 (0.0-2.0) % Neut # 19.2 H (1.8-7.0) K/uL Lymph # 1.8 (1.0-4.3) K/uL [place] # 1.2 H (0.0-0.8) K/uL Eos # 0.3 (0.0-0.7) K/uL Baso # 0.1 (0.0-0.2) K/uL Neutrophils % (Manual) 81 H (50-75) % Band Neutrophils % 4 H (0-2) % Lymphocytes % (Manual) 10 L (20-40) % Monocytes % (Manual) 4 (0-10) % Eosinophils % (Manual) 1 (0-4) % Metamyelocytes % (0-0) % Platelet Estimate Normal (NORMAL) Polychromasia Slight Hypochromasia (manual) Slight Anisocytosis (manual) Marked Microcytosis (manual) Moderate Tear Drop Cells Ovalocytes Slight PT (9.7-12.2) SECONDS INR APTT (21-34) SECONDS pO2 83 H (30-55) mm/Hg VBG pH 7.45 H (7.32-7.43) VBG pCO2 34 L (40-60) mmHg VBG HCO3 25.0 mmol/L VBG Total CO2 24.6 (22-28) mmol/L VBG O2 Sat (Calc) 98.9 H (40-65) % VBG Base Excess 0.1 (0.0-2.0) mmol/L VBG Potassium 3.4 L (3.6-5.2) mmol/L Sodium 136.0 (132-148) mmol/l Chloride 107.0 (98-107) mmol/L Glucose 110 H (65-105) mg/dl Lactate 1.0 (0.7-2.1) mmol/L Liter Flow 2.0 Potassium (3.6-5.2) mmol/L Carbon Dioxide (22-30) mmol/L Anion Gap (10-20) BUN (7-17) mg/dL Creatinine (0.7-1.2) MG/DL Est GFR ( Amer) Est GFR (Non-Af Amer) Random Glucose (65-105) mg/dL Calcium (8.6-10.4) mg/dl Phosphorus (2.5-4.5) mg/dL Magnesium (1.6-2.3) mg/dL Total Bilirubin (0.2-1.3) mg/dL AST (14-36) U/L ALT (9-52) U/L Alkaline Phosphatase (38-126) U/L Total Protein (6.3-8.3) g/dL Albumin (3.5-5.0) g/dL Globulin (2.2-3.9) gm/dL Albumin/Globulin Ratio (1.0-2.1) Venous Blood Potassium 3.4 L (3.6-5.2) mmol/L Laboratory Results - last 24 hr 02/02/17 02/03/17 02/03/17 20:30 05:17 05:54 WBC 22.6 H 25.8 H RBC 3.67 L 3.34 L Hgb 8.8 L 8.0 L Hct 28.0 L 25.2 L MCV 76.4 L 75.5 L MCH 24.0 L 24.0 L MCHC 31.4 L 31.8 L RDW 32.7 H 31.9 H Plt Count 322 271 MPV 9.4 9.0 Neut % (Auto) 85.1 H 87.5 H Lymph % (Auto) 7.9 L 6.3 L [place] % (Auto) 5.4 5.3 Eos % (Auto) 1.2 0.5 Baso % (Auto) 0.4 0.4 Neut # 19.2 H 22.6 H Lymph # 1.8 1.6 [place] # 1.2 H 1.4 H Eos # 0.3 0.1 Baso # 0.1 0.1 Neutrophils % (Manual) 81 H 90 H Band Neutrophils % 4 H 1 Lymphocytes % (Manual) 10 L 3 L Monocytes % (Manual) 4 5 Eosinophils % (Manual) 1 Metamyelocytes % 1 H Platelet Estimate Normal Normal Polychromasia Slight Slight Hypochromasia (manual) Slight Slight Anisocytosis (manual) Marked Moderate Microcytosis (manual) Moderate Slight Tear Drop Cells Slight Ovalocytes Slight Slight PT INR APTT pO2 83 H VBG pH 7.45 H VBG pCO2 34 L VBG HCO3 25.0 VBG Total CO2 24.6 VBG O2 Sat (Calc) 98.9 H VBG Base Excess 0.1 VBG Potassium 3.4 L Sodium 136.0 Chloride 107.0 Glucose 110 H Lactate 1.0 Liter Flow 2.0 Potassium Carbon Dioxide Anion Gap BUN Creatinine Est GFR ( Amer) Est GFR (Non-Af Amer) Random Glucose Calcium Phosphorus Magnesium Total Bilirubin AST ALT Alkaline Phosphatase Total Protein Albumin Globulin Albumin/Globulin Ratio Venous Blood Potassium 3.4 L 02/03/17 02/03/17 05:54 05:54 WBC RBC Hgb Hct MCV MCH MCHC RDW Plt Count MPV Neut % (Auto) Lymph % (Auto) [place] % (Auto) Eos % (Auto) Baso % (Auto) Neut # Lymph # [place] # Eos # Baso # Neutrophils % (Manual) Band Neutrophils % Lymphocytes % (Manual) Monocytes % (Manual) Eosinophils % (Manual) Metamyelocytes % Platelet Estimate Polychromasia Hypochromasia (manual) Anisocytosis (manual) Microcytosis (manual) Tear Drop Cells Ovalocytes PT 25.0 H INR 2.1 APTT 44 H pO2 VBG pH VBG pCO2 VBG HCO3 VBG Total CO2 VBG O2 Sat (Calc) VBG Base Excess VBG Potassium Sodium 134 Chloride 104 Glucose Lactate Liter Flow Potassium 3.2 L Carbon Dioxide 23 Anion Gap 10 BUN 7 Creatinine 0.5 L Est GFR ( Amer) > 60 Est GFR (Non-Af Amer) > 60 Random Glucose 110 H Calcium 7.4 L Phosphorus 3.5 Magnesium 1.6 Total Bilirubin 0.7 AST 21 ALT 23 Alkaline Phosphatase 185 H Total Protein 5.7 L Albumin 2.3 L Globulin 3.5 Albumin/Globulin Ratio 0.7 L Venous Blood Potassium Critical Care Progress Note - Nutrition Nutrition: Nutrition Category Date Time Status Heart Healthy Diet [DIET] Diets 02/02/17 Lunch Active Assessment/Plan (1) Sepsis Current Visit: Yes Status: Acute (2) UTI (urinary tract infection) Current Visit: Yes Status: Acute (3) Abdominal pain Current Visit: No Status: Acute (4) Anemia Current Visit: No Status: Acute Attending/Attestation - Attestation I have personally seen and examined this patient.: Yes I have fully participated in the care of the patient.: Yes I have reviewed all pertinent clinical information: Yes Notes (Text): 02/03/17 18:49 Patient seen and examined in the intensive care unit. Case discussed with staff in morning rounds. Condition much improved Continue antibiotics Transfer to floor
--- NOTE | 2017-02-03 14:50 | CP.PCM.PN ---
Subjective - Date & Time of Evaluation Date of Evaluation: 02/03/17 Time of Evaluation: 02:30 - Subjective Subjective: dictated Objective - Vital Signs/Intake and Output Vital Signs (last 24 hours): Temp Pulse Resp BP Pulse Ox 100.2 F H 66 21 97/40 L 100 02/03/17 04:00 02/03/17 12:00 02/03/17 12:00 02/03/17 11:51 02/03/17 12:00 Intake and Output: 02/03/17 02/03/17 06:59 18:59 Intake Total 1790 750 Output Total 1852 300 Balance -62 450 - Medications Medications: Current Medications Acetaminophen (Tylenol 325mg Tab) 650 mg PO Q6 PRN PRN Reason: Fever >100.4 F Last Admin: 02/02/17 22:34 Dose: 650 mg Enoxaparin Sodium (Lovenox) 30 mg SC Q12 [facility] Last Admin: 02/03/17 10:09 Dose: 30 mg Imipenem/Cilastatin Sodium 500 (mg/ Sodium Chloride) 100 mls @ 100 mls/hr IVPB Q6H [facility] Last Admin: 02/03/17 04:30 Dose: 100 mls/hr Sodium Chloride (Sodium Chloride 0.9%) 1,000 mls @ 125 mls/hr IV .Q8H [facility] Last Admin: 02/03/17 01:41 Dose: 125 mls/hr Tigecycline 50 mg/ Sodium (Chloride) 100 mls @ 100 mls/hr IVPB Q12H [facility] Last Admin: 02/03/17 01:39 Dose: 100 mls/hr Pantoprazole Sodium (Protonix Inj) 40 mg IVP DAILY [facility] Last Admin: 02/03/17 10:09 Dose: 40 mg Potassium Chloride (K-Dur 20 Meq Er Tab) 40 meq PO BID [facility] Stop: 02/03/17 18:01 Last Admin: 02/03/17 10:10 Dose: 40 meq - Labs Labs: 02/03/17 05:54 02/03/17 05:54 PT 25.0 SECONDS (9.7-12.2) H 02/03/17 05:54 INR 2.1 02/03/17 05:54 APTT 44 SECONDS (21-34) H 02/03/17 05:54
--- NOTE | 2017-02-03 14:52 | VASCLAB ---
PROCEDURE: Right Upper Extremity Venous Duplex Exam HISTORY: DVT PRIORS: None. TECHNIQUE: Right upper extremity, internal jugular, subclavian, axillary, brachial, ulnar, radial, basilic and upper cephalic veins were evaluated. Flow was assessed with color Doppler, compressibility, assessment of phasic flow and augmentation response. Report prepared by TRINIDAD Sanchez, RVT FINDINGS: RIGHT: 1. Internal Jugular: 1.1. Compressibility - Fully compressible: Thrombus - None : Flow - Phasic: Augmentation -Normal: Reflux - None. 2. Subclavian: 2.1. Compressibility - Fully compressible: Thrombus - None : Flow - Phasic: Augmentation -Normal: Reflux - None. 3. Axillary: 3.1. Compressibility - Fully compressible: Thrombus - None : Flow - Phasic: Augmentation -Normal: Reflux - None. 4. Brachial: 4.1. Compressibility - Fully compressible: Thrombus - None: Flow - Phasic: Augmentation -Normal: Reflux - None. 5. Ulnar: 5.1. Compressibility - Fully compressible: Thrombus - None: Flow - Phasic: Augmentation -Normal: Reflux - None. 6. Radial: 6.1. Compressibility - Fully compressible: Thrombus - None: Flow - Phasic: Augmentation - Normal: Reflux - None. 7. Cephalic: 7.1. Compressibility - Fully compressible: Thrombus - None: Flow - Phasic: Augmentation -Normal: Reflux - None. 8. Basilic: 8.1. Compressibility - Fully compressible: Thrombus - None: Flow - Phasic: Augmentation -Normal: Reflux - None. OTHER FINDINGS: Right: None. IMPRESSION: Right: No evidence of vein thrombosis of the right upper extremity with excellent venous flow. Normal valve function noted of the right side. Normal venous flow noted in the left internal jugular and left subclavian veins.
--- NOTE | 2017-02-03 14:52 | VASCLAB ---
PROCEDURE: Lower Extremity Venous Duplex Exam. HISTORY: DVT PRIORS: None. TECHNIQUE: Bilateral common femoral, femoral, popliteal and posterior tibial, peroneal and great saphenous veins were evaluated. Flow was assessed with color Doppler, compressibility, assessment of phasic flow and augmentation response. Report prepared by TRINIDAD Sanchez, RVT FINDINGS: RIGHT: 1. Common Femoral Vein: 1.1. Compressibility - Fully compressible: Thrombus - None : Flow - Phasic: Augmentation -Normal: Reflux - None. 2. Femoral Vein: 2.1. Compressibility - Fully compressible: Thrombus - None : Flow - Phasic: Augmentation -Normal: Reflux - None. 3. Popliteal Vein: 3.1. Compressibility - Fully compressible: Thrombus - None : Flow - Phasic: Augmentation -Normal: Reflux - None. 4. Posterior Tibial Vein: 4.1. Compressibility - Fully compressible: Thrombus - None: Flow - Phasic: Augmentation -Normal: Reflux - None. 5. Peroneal Vein: 5.1. Compressibility - Fully compressible: Thrombus - None: Flow - Phasic: Augmentation -Normal: Reflux - None. 6. Great Saphenous Vein: 6.1. Compressibility - Fully compressible: Thrombus - None: Flow - Phasic: Augmentation - Normal: Reflux - None. LEFT: 1. Common Femoral Vein: 1.1. Compressibility - Fully compressible: Thrombus - None: Flow - Phasic: Augmentation -Normal: Reflux - None. 2. Femoral Vein: 2.1. Compressibility - Fully compressible: Thrombus - None: Flow - Phasic: Augmentation -Normal: Reflux - None. 3. Popliteal Vein: 3.1. Compressibility - Fully compressible: Thrombus - None : Flow - Phasic: Augmentation -Normal: Reflux - None. 4. Posterior Tibial Vein: 4.1. Compressibility - Fully compressible: Thrombus - None: Flow - Phasic: Augmentation -Normal: Reflux - None. 5. Peroneal Vein: 5.1. Compressibility - Fully compressible: Thrombus - None: Flow - Phasic: Augmentation -Normal: Reflux - None. 6. Great Saphenous Vein: 6.1. Compressibility - Fully compressible: Thrombus - None: Flow - Phasic: Augmentation - Normal: Reflux - None. OTHER FINDINGS: Right: None significant. Left: None significant. IMPRESSION: Right: No evidence of deep or superficial vein thrombosis of the right lower extremity. Normal valve function noted of the right side. Left: No evidence of deep or superficial vein thrombosis of the left lower extremity. Normal valve function noted of the left side.
--- NOTE | 2017-02-03 17:35 | CP.PCM.PN ---
Subjective - Date & Time of Evaluation Date of Evaluation: 02/03/17 Time of Evaluation: 17:31 - Subjective Subjective: feels better though had fever and chills all night now not somnolent Objective - Vital Signs/Intake and Output Vital Signs (last 24 hours): Temp Pulse Resp BP Pulse Ox 98.4 F 74 25 H 120/49 L 99 02/03/17 16:00 02/03/17 16:00 02/03/17 16:00 02/03/17 15:51 02/03/17 16:00 Intake and Output: 02/03/17 02/03/17 06:59 18:59 Intake Total 1790 1250 Output Total 1852 950 Balance -62 300 - Medications Medications: Current Medications Acetaminophen (Tylenol 325mg Tab) 650 mg PO Q6 PRN PRN Reason: Fever >100.4 F Last Admin: 02/02/17 22:34 Dose: 650 mg Enoxaparin Sodium (Lovenox) 30 mg SC Q12 [facility] Last Admin: 02/03/17 10:09 Dose: 30 mg Imipenem/Cilastatin Sodium 500 (mg/ Sodium Chloride) 100 mls @ 100 mls/hr IVPB Q6H [facility] Last Admin: 02/03/17 17:29 Dose: 100 mls/hr Sodium Chloride (Sodium Chloride 0.9%) 1,000 mls @ 125 mls/hr IV .Q8H [facility] Last Admin: 02/03/17 15:14 Dose: 125 mls/hr Tigecycline 50 mg/ Sodium (Chloride) 100 mls @ 100 mls/hr IVPB Q12H [facility] Last Admin: 02/03/17 14:00 Dose: 100 mls/hr Pantoprazole Sodium (Protonix Inj) 40 mg IVP DAILY [facility] Last Admin: 02/03/17 10:09 Dose: 40 mg Potassium Chloride (K-Dur 20 Meq Er Tab) 40 meq PO BID [facility] Stop: 02/03/17 18:01 Last Admin: 02/03/17 17:29 Dose: 40 meq - Labs Labs: 02/03/17 05:54 02/03/17 05:54 PT 25.0 SECONDS (9.7-12.2) H 02/03/17 05:54 INR 2.1 02/03/17 05:54 APTT 44 SECONDS (21-34) H 02/03/17 05:54 - Constitutional Appears: Well, Non-toxic, No Acute Distress - Head Exam Head Exam: ATRAUMATIC, NORMAL INSPECTION - Eye Exam Eye Exam: Normal appearance - ENT Exam ENT Exam: Mucous Membranes Dry - Respiratory Exam Respiratory Exam: Clear to Ausculation Bilateral, NORMAL BREATHING PATTERN. absent: Rales, Rhonchi, Wheezes - Cardiovascular Exam Cardiovascular Exam: REGULAR RHYTHM, +S1, +S2. absent: Murmur - GI/Abdominal Exam GI & Abdominal Exam: Soft, Normal Bowel Sounds. absent: Organomegaly Additional comments: obese - Back Exam Back Exam: absent: CVA tenderness (L), CVA tenderness (R) - Neurological Exam Neurological Exam: Alert, Awake, Oriented x3 - Psychiatric Exam Psychiatric exam: Depressed - Skin Skin Exam: Normal Color Assessment and Plan - Assessment and Plan (Free Text) Assessment: Sepsis - Likely secondary to UTI complicated recurrent and possible pyelonephritis- - rule out bacteremia, consider intraabdominal abscess post surgical procedure appendectomy recently - Code severe sepsis without shock- tachypneic, tachycardic, leukocytosis (with bandemia) and elevated lactate - Admitted to ICU on admssion now stable for floor - IVF per sepsis protocol - normotensive currently - UA positive for nitrates, protein, blood, RBC, WBC and bacteria - ID Consult appreciated - Urine/blood cultures collected from ED - Cdiff - f/u - Abd/pelvis CT (02/01) - 1. Again identified is a markedly enlarged and heterogeneous uterus with markedly enlarged and innumerable fibroid lesions. At the right lateral aspect of the uterus, a partially necrotic and/or hemorrhagic fibroid lesion measures up to 14.4 x 16.2 centimeters. An additional lesion which is multilobulated also demonstrating necrotic and/or hemorrhagic components seen at the right lateral aspect of the uterus measures 15.9 x 11.5 centimeters. These may be better delineated with pelvic MRI if clinically indicated. Underlying neoplasm cannot be excluded. 2. Lobulated elliptical lesion measuring 5.2 x 4.0 centimeters demonstrating a Hounsfield unit attenuation of 7 seen at the level of the left adnexa which may represent a left adnexal cyst. This may be better evaluated with pelvic ultrasound if clinically indicated. 3. Evaluation of the lower abdominal bowel demonstrates fecal retention in the colon. Underdistention of the portion of the proximal sigmoid colon. Fecal retention within the remainder of the colon. Patient status post prior appendectomy with surgical clips noted in the right lower abdomen. 4. Enlarged liver with diffuse fatty infiltration. Scattered hypoattenuated foci in the liver, too small to adequately characterize. 5. Mild thickening of the urinary bladder wall. Hx of DVT - Cont home coumadin Hx of iron deficiency anemia - Hgb low - Cont to monitor and transfuse as necessary constipation fecal retention monitor Hypokalemia monitor
[2017-02-04] MEDS: Sodium Chloride 0.9% 1,000 ML IV SCH ×3 (01:11→17:29)
[2017-02-04 06:02] LABS: BASO # 0.1 K/uL (0.0-0.2); BASO % 0.5 % (0.0-2.0); EOS # 0.2 K/uL (0.0-0.7); EOS % 1.5 % (0.0-4.0); HEMATOCRIT 26.8 % (34.0-47.0); LYMPH # 1.8 K/uL (1.0-4.3); LYMPH % 14.3 % (20.0-40.0); MEAN CELL VOLUME 76.3 fL (81.0-99.0); MEAN CORPUSCULAR HEMOGLOBIN 24.3 pg (27.0-31.0); MEAN CORPUSCULAR HGB CONC 31.8 g/dL (33.0-37.0); MEAN PLATELET VOLUME 9.3 fL (7.2-11.7); MONO % 7.8 % (0.0-10.0); RED CELL DISTRIBUTION WIDTH 32.2 % (11.5-14.5); WHITE BLOOD COUNT 12.7 K/uL (4.8-10.8)
[2017-02-04 06:13] LABS: CHLORIDE 102 mmol/L (98-107)
[2017-02-04 06:14] LABS: POTASSIUM 4.1 mmol/L (3.6-5.2); SODIUM 134 mmol/L (132-148)
[2017-02-04 06:16] LABS: ALB/GLOB RATIO 0.5 (1.0-2.1); ALKALINE PHOSPHATASE 153 U/L (38-126); AST/SGOT 28 U/L (14-36); BILIRUBIN,TOTAL 0.6 mg/dL (0.2-1.3); BLOOD UREA NITROGEN 8 mg/dL (7-17); CARBON DIOXIDE 23 mmol/L (22-30); GFR AFRICAN-AMERICAN > 60; TOTAL PROTEIN 6.1 g/dL (6.3-8.3)
[2017-02-04 06:17] LABS: ALT/SGPT 25 U/L (9-52); CALCIUM 7.7 mg/dl (8.6-10.4); GLUCOSE,RANDOM 93 mg/dL (65-105); MAGNESIUM 1.7 mg/dL (1.6-2.3); PHOSPHOROUS 3.7 mg/dL (2.5-4.5)
--- NOTE | 2017-02-04 08:15 | PN ---
DATE: 02/03/2017 PHYSICAL EXAMINATION: VITAL SIGNS: The patient is afebrile, T-max is ____; blood pressure is 97/40, respirations are 21. She states she has no problems. She is still, however, having high white count. HEENT: Head is atraumatic, normocephalic. NECK: Supple. LUNGS: Clear. GASTROINTESTINAL: She denies any diarrhea. HEART: S1, S2 regular. ABDOMEN: Soft, nontender. No guarding, no rigidity present. EXTREMITIES: Have no edema. LABORATORY DATA: White count is 25.8, hemoglobin 8, hematocrit 25.2, platelet count is 271. Her ___ _ are 87.5, ____ are 90. The chemistry shows sodium 134, potassium 3.2, chloride 104, CO2 is 23. He r alk phos is 185. Potassium is low and is being supplemented. C. diff is negative. Blood cultures x 2 are negative. Urine culture is all negative. She, however, had that CAT scan which showed hete rogenous uterus, markedly enlarged, at the right lateral aspect of the uterus a partially necrotic an d hemorrhaging fibroid lesion 14.4 x 16.2, it is multiloculated, demonstrating necrotic and/or hemorr hagic component. So this needs to be reviewed with the old CAT scan prior to her surgery, so that if this is hemorrhagic cyst or probably an abscess as the white count still remains high and needs to b e investigated further. I do see a pelvic MRI which was done on 01/14/2017 which shows on the right 11 x 10 x 11 and has multiple areas, so they are talking about the same cyst on uterus. But this is also after the surgery, so it does remain suspicious. IMPRESSION: She is admitted here with sepsis and has a really high white count. Cultures have been negative. At this time, she is status post appendicectomy and has hemorrhagic cyst versus abscess on the right side which needs to be investigated further as the white count still remains high. I see her on medications of imipenem as well as Tygacil, and will leave her on these medications till she i s a little more stable. If the white count is not coming down, we may have to explore this area of t he hemorrhagic cyst versus abscess. Jarrett Hernandez MD cc: [id number] TT: 02/03/2017 15:47:13 Confirmation # [id number] Dictation # [id number] [id number]
--- NOTE | 2017-02-04 09:17 | CP.PCM.PN ---
Subjective - Date & Time of Evaluation Date of Evaluation: 02/04/17 Time of Evaluation: 09:10 - Subjective Subjective: Medical Attending Note Follow-up: Sepsis, Urinary tract infection, Pyleonephritis, History of Fibroid Patient seen and examined this morning. Patient denies headache, denies chills, denies chest pain, denies shortness of breathe, denies cough, reports mild abdominal pain, reports mild nausea, denies vomitting, denies edema, denies change in stools. Patient is currently on her menstruation, which she reports irregular secondary to history of fibroids. Objective - Vital Signs/Intake and Output Vital Signs (last 24 hours): Temp Pulse Resp BP Pulse Ox 97.2 F L 65 20 118/42 L 99 02/04/17 04:00 02/04/17 05:00 02/04/17 05:00 02/04/17 03:59 02/04/17 04:00 Intake and Output: 02/04/17 02/04/17 06:59 18:59 Intake Total 1790 Output Total 1 Balance 1789 - Medications Medications: Current Medications Acetaminophen (Tylenol 325mg Tab) 650 mg PO Q6 PRN PRN Reason: Fever >100.4 F Last Admin: 02/02/17 22:34 Dose: 650 mg Imipenem/Cilastatin Sodium 500 (mg/ Sodium Chloride) 100 mls @ 100 mls/hr IVPB Q6H [facility] Last Admin: 02/04/17 03:59 Dose: 100 mls/hr Sodium Chloride (Sodium Chloride 0.9%) 1,000 mls @ 125 mls/hr IV .Q8H [facility] Last Admin: 02/04/17 01:11 Dose: 125 mls/hr Tigecycline 50 mg/ Sodium (Chloride) 100 mls @ 100 mls/hr IVPB Q12H [facility] Last Admin: 02/04/17 01:15 Dose: 100 mls/hr Pantoprazole Sodium (Protonix Inj) 40 mg IVP DAILY [facility] Last Admin: 02/03/17 10:09 Dose: 40 mg Pneumococcal Polyvalent Vaccine (Pneumovax 23 Vaccine) 0.5 ml IM .ONCE ONE Stop: 02/07/17 17:37 - Labs Labs: 02/04/17 05:50 02/04/17 05:50 PT 22.9 SECONDS (9.7-12.2) H 02/04/17 05:50 INR 2.0 02/04/17 05:50 APTT 44 SECONDS (21-34) H 02/03/17 05:54 - Constitutional Appears: Non-toxic, No Acute Distress - Head Exam Head Exam: NORMAL INSPECTION - Eye Exam Eye Exam: EOMI Pupil Exam: PERRL - ENT Exam ENT Exam: Mucous Membranes Moist - Respiratory Exam Respiratory Exam: Clear to Ausculation Bilateral, NORMAL BREATHING PATTERN. absent: Rales, Rhonchi, Wheezes - Cardiovascular Exam Cardiovascular Exam: REGULAR RHYTHM, +S1, +S2 - GI/Abdominal Exam GI & Abdominal Exam: Soft, Normal Bowel Sounds. absent: Distended, Firm, Guarding, Rigid, Tenderness, Rebound - Neurological Exam Neurological Exam: Alert, Awake, Oriented x3 - Psychiatric Exam Psychiatric exam: Normal Affect, Normal Mood - Skin Skin Exam: Dry, Normal Color, Warm. absent: Pallor, Petechiae, Rash Assessment and Plan (1) Sepsis Assessment & Plan: * Criteria: tachypneic, tachycardic, leukocytosis (with bandemia) and elevated lactate * Likely secondary to UTI complicated recurrent and possible pyelonephritis * Infectious Disease (Dr. Hernandez) on consult-->help appreciated * Abd/pelvis CT with IV contrast (02/01/17) - 1. Again identified is a markedly enlarged and heterogeneous uterus with markedly enlarged and innumerable fibroid lesions. At the right lateral aspect of the uterus, a partially necrotic and/or hemorrhagic fibroid lesion measures up to 14.4 x 16.2 centimeters. An additional lesion which is multilobulated also demonstrating necrotic and/or hemorrhagic components seen at the right lateral aspect of the uterus measures 15.9 x 11.5 centimeters. These may be better delineated with pelvic MRI if clinically indicated. Underlying neoplasm cannot be excluded. 2. Lobulated elliptical lesion measuring 5.2 x 4.0 centimeters demonstrating a Hounsfield unit attenuation of 7 seen at the level of the left adnexa which may represent a left adnexal cyst. This may be better evaluated with pelvic ultrasound if clinically indicated. 3. Evaluation of the lower abdominal bowel demonstrates fecal retention in the colon. Underdistention of the portion of the proximal sigmoid colon. Fecal retention within the remainder of the colon. Patient status post prior appendectomy with surgical clips noted in the right lower abdomen. 4. Enlarged liver with diffuse fatty infiltration. Scattered hypoattenuated foci in the liver, too small to adequately characterize. 5. Mild thickening of the urinary bladder wall. * IV Abx: Primaxin 500mg IV Q 6hour (active since 02/01/17); Tigecycline 50mg IV Q 12hours (active since 02/02/17) * Echocardiogram (02/02/17): normal LV systolic function, mild TR, Borderline dilated LA, no other significiant abnormality seen * UA: pyruia * Blood Culture (02/01/17): no growth for 48 hours X2 * Urine culture (02/01/17): no growth * Urine culture (02/02/17) No growth * MRSA: not detected * pending Renal US Status: Acute (2) Complicated UTI (urinary tract infection) Status: Acute (3) History of deep vein thrombosis (DVT) of lower extremity Assessment & Plan: 02/03/17 Lower venous doppler; No evidence of deep or superficial vein thrombus of the right and left lower extremities Patient reports she only took Coumadin for 3 weeks. Will need at least 3 month therapy to complete first time DVT Status: Chronic (4) Fibroid Assessment & Plan: Patient reports a history of irregular periods and history of fibroids Will order pelvic/transvaginal US to further evaluate Status: Chronic (5) Iron deficiency anemia Assessment & Plan: Ordered for iron studies, ferritin, B12, haptoglobin, occult blood, reti count Pelvic/transvaginal ordered given hx of fibromas/irregular menstruations Status: Chronic (6) Prophylactic measure Assessment & Plan: Lovenox 30mg subq12 hours Protonix 40mg PO daily Status: Acute
--- NOTE | 2017-02-04 09:48 | US ---
Renal ultrasound History: Hematuria. Comparison: CT scan dated 02/01/2017 Technique: Real-time sonography was performed through the kidneys. Findings: Right kidney: 12.2 x 5.4 x 5.6 centimeters. Normal echogenicity. No calculi or hydronephrosis. Left Kidney: Limited visualization. 11.8 x 6.5 x 6.1 centimeters. Normal echogenicity. No calculi or hydronephrosis. Visualized aorta is grossly preserved. Under distended urinary bladder. Question mild wall thickening of the urinary bladder. Incidentally noted is a markedly enlarged fibroid uterus. Impression: Unremarkable sonographic evaluation of the kidneys. Somewhat limited evaluation of the left kidney. Incidentally noted is a markedly enlarged fibroid uterus. Underdistended urinary bladder. Question mild thickening of the urinary bladder wall. Clinical correlation. If there is persistent concern for pyelonephritis, consider further evaluation with contrast-enhanced CT scan of the abdomen and pelvis.
[2017-02-04] MEDS ORDERED: Enoxaparin 30 mg Syringe SC SCH (10:00)
[2017-02-04 11:37] LABS: INR 2.1
[2017-02-04 11:50] LABS: IRON 52 ug/dL (37-170)
--- NOTE | 2017-02-04 18:32 | CP.PCM.CON ---
History of Present Illness - History of Present Illness History of Present Illness: 51 yr lmp 01/31/17 admitted for septicimia/h/o dct/s/p appedectomy with complicated course.pt c/o irrgular periods, period staying 15 days with clots. pt states bleeding not heavy.pt has not seen an obgyn in 20yrs.[facility] and was told she had fibroid uterus and ovariabn cyst. onhx 3 x , 1 x sab pmh h/o dvt on coumadian all vancomycin psh appendectomy soch den pelvic exam ext gen old blood, ut 20weeks size, irrgulaar. could not palpate adenxa,min bleeding CT Scan Abd/pelvis CT (02/01) - 1. Again identified is a markedly enlarged and heterogeneous uterus with markedly enlarged and innumerable fibroid lesions. At the right lateral aspect of the uterus, a partially necrotic and/or hemorrhagic fibroid lesion measures up to 14.4 x 16.2 centimeters. An additional lesion which is multilobulated also demonstrating necrotic and/or hemorrhagic components seen at the right lateral aspect of the uterus measures 15.9 x 11.5 centimeters. These may be better delineated with pelvic MRI if clinically indicated. Underlying neoplasm cannot be excluded. 2. Lobulated elliptical lesion measuring 5.2 x 4.0 centimeters demonstrating a Hounsfield unit attenuation of 7 seen at the level of the left adnexa which may represent a left adnexal cyst. This may be better evaluated with pelvic ultrasound if clinically indicated. 3. Evaluation of the lower abdominal bowel demonstrates fecal retention in the colon. Underdistention of the portion of the proximal sigmoid colon. Fecal retention within the remainder of the colon. Patient status post prior appendectomy with surgical clips noted in the right lower abdomen. 4. Enlarged liver with diffuse fatty infiltration. Scattered hypoattenuated foci in the liver, too small to adequately characterize. 5. Mild thickening of the urinary bladder wall. Review of Systems - Menstruation Menstruation: Abnormal Vaginal Bleeding Past Patient History - Infectious Disease Hx of Infectious Diseases: None - Past Medical History & Family History Past Medical History?: No - Past Social History Smoking Status: Never Smoked - CARDIAC Hx Cardiac Disorders: No - PULMONARY Hx Respiratory Disorders: No - NEUROLOGICAL Hx Neurological Disorder: No - HEENT Hx HEENT Problems: No - RENAL Hx Chronic Kidney Disease: No - ENDOCRINE/METABOLIC Hx Endocrine Disorders: No - HEMATOLOGICAL/ONCOLOGICAL Hx Anemia: Yes - INTEGUMENTARY Hx Dermatological Problems: No - MUSCULOSKELETAL/RHEUMATOLOGICAL Hx Musculoskeletal Disorders: No Hx Falls: No - GASTROINTESTINAL Hx Gastrointestinal Disorders: No - GENITOURINARY/GYNECOLOGICAL Hx Genitourinary Disorders: No - PSYCHIATRIC Hx Substance Use: No - SURGICAL HISTORY Hx Surgeries: Yes Other/Comment: APPENDECTOMY-DECEMBER 2016 - ANESTHESIA Hx Anesthesia: Yes Hx Anesthesia Reactions: No Hx Malignant Hyperthermia: No Meds Allergies/Adverse Reactions: Allergies Allergy/AdvReac Type Severity Reaction Status Date / Time vancomycin AdvReac Severe REDNESS Verified 02/03/17 10:03 - Medications Medications: Current Medications Acetaminophen (Tylenol 325mg Tab) 650 mg PO Q6 PRN PRN Reason: Fever >100.4 F Last Admin: 02/02/17 22:34 Dose: 650 mg Imipenem/Cilastatin Sodium 500 (mg/ Sodium Chloride) 100 mls @ 100 mls/hr IVPB Q6H [facility] Last Admin: 02/04/17 17:34 Dose: 100 mls/hr Sodium Chloride (Sodium Chloride 0.9%) 1,000 mls @ 125 mls/hr IV .Q8H [facility] Last Admin: 02/04/17 17:29 Dose: Not Given Tigecycline 50 mg/ Sodium (Chloride) 100 mls @ 100 mls/hr IVPB Q12H [facility] Last Admin: 02/04/17 14:23 Dose: 100 mls/hr Ondansetron HCl (Zofran Inj) 4 mg IVP Q6H PRN PRN Reason: Nausea/Vomiting Pantoprazole Sodium (Protonix Inj) 40 mg IVP DAILY [facility] Last Admin: 02/04/17 11:12 Dose: 40 mg Pneumococcal Polyvalent Vaccine (Pneumovax 23 Vaccine) 0.5 ml IM .ONCE ONE Stop: 02/07/17 17:37 Physical Exam - Exam External exam: NORMAL EXTERNAL EXAM Speculum exam: Vaginal Bleeding (min) Bimanual exam: Adenexal Mass (could not be palpated), Uterine Enlargement Results - Vital Signs Recent Vital Signs: Last Vital Signs Temp 97.2 F L 02/04/17 04:00 Pulse 65 02/04/17 05:00 Resp 20 02/04/17 05:00 BP 118/42 L 02/04/17 03:59 Pulse Ox 99 02/04/17 04:00 - Labs Result Diagrams: 02/04/17 05:50 02/04/17 05:50 Labs: Laboratory Results - last 24 hr 02/04/17 02/04/17 02/04/17 05:50 05:50 05:50 WBC 12.7 H D RBC 3.51 L Hgb 8.5 L Hct 26.8 L MCV 76.3 L MCH 24.3 L MCHC 31.8 L RDW 32.2 H Plt Count 311 MPV 9.3 Neut % (Auto) 75.9 H Lymph % (Auto) 14.3 L Kemper % (Auto) 7.8 Eos % (Auto) 1.5 Baso % (Auto) 0.5 Neut # 9.6 H Lymph # 1.8 Kemper # 1.0 H Eos # 0.2 Baso # 0.1 Retic Count PT 22.9 H INR 2.0 Sodium 134 Potassium 4.1 Chloride 102 Carbon Dioxide 23 Anion Gap 12 BUN 8 Creatinine 0.4 L Est GFR ( Amer) > 60 Est GFR (Non-Af Amer) > 60 Random Glucose 93 Calcium 7.7 L Phosphorus 3.7 Magnesium 1.7 Iron TIBC % Saturation Ferritin Total Bilirubin 0.6 AST 28 ALT 25 Alkaline Phosphatase 153 H Total Protein 6.1 L Albumin 2.1 L Globulin 4.0 H Albumin/Globulin Ratio 0.5 L Vitamin B12 Folate Procalcitonin Stool Occult Blood 02/04/17 02/04/17 02/04/17 05:50 11:25 11:25 WBC RBC Hgb Hct MCV MCH MCHC RDW Plt Count MPV Neut % (Auto) Lymph % (Auto) Kemper % (Auto) Eos % (Auto) Baso % (Auto) Neut # Lymph # Kemper # Eos # Baso # Retic Count 2.2 H PT 23.9 H INR 2.1 Sodium Potassium Chloride Carbon Dioxide Anion Gap BUN Creatinine Est GFR ( Amer) Est GFR (Non-Af Amer) Random Glucose Calcium Phosphorus Magnesium Iron TIBC % Saturation Ferritin Total Bilirubin AST ALT Alkaline Phosphatase Total Protein Albumin Globulin Albumin/Globulin Ratio Vitamin B12 Folate Procalcitonin 3.73 H Stool Occult Blood 02/04/17 02/04/17 02/04/17 11:25 11:25 11:59 WBC RBC Hgb Hct MCV MCH MCHC RDW Plt Count MPV Neut % (Auto) Lymph % (Auto) Kemper % (Auto) Eos % (Auto) Baso % (Auto) Neut # Lymph # Kemper # Eos # Baso # Retic Count PT INR Sodium Potassium Chloride Carbon Dioxide Anion Gap BUN Creatinine Est GFR ( Amer) Est GFR (Non-Af Amer) Random Glucose Calcium Phosphorus Magnesium Iron 52 TIBC 221 L % Saturation 23 Ferritin 226.0 Total Bilirubin AST ALT Alkaline Phosphatase Total Protein Albumin Globulin Albumin/Globulin Ratio Vitamin B12 > 1000 H Folate 6.0 Procalcitonin Stool Occult Blood Positive H Assessment & Plan - Assessment and Plan (Free Text) Assessment: 51 yr with septicimea/h/o dvr/irrgular periods/fibroid uterus/left ovarian cyst Plan: plan will f/u pelvic sonogram results will order tumor markers. cont ICU management. cont medical management will f/u up results - Date & Time Date: 02/04/17 Time: 18:40
--- NOTE | 2017-02-04 18:56 | US ---
HISTORY: irregular menstruation; fibroma vs abscess COMPARISON: Comparison is made to the previous CT dated 02/01/2017 TECHNIQUE: Transabdominal ultrasound examination of the pelvis was obtained. FINDINGS: UTERUS: Measures 18.5 x 11.5 x 17.8 cm. The uterus is heterogeneous markedly enlarged demonstrates anteverted configuration. There is large fibroid at the uterine fundus measures 11.8 x 10.7 x 10.5 centimeter. There is also fibroid at the midportion of the uterus measures 11.3 x 8.8 x 10.6 centimeter. There are also smaller fibroids at the uterine body. ENDOMETRIUM: Measures 5.6 mm in diameter. Unremarkable. CERVIX: No cervical abnormality identified. RIGHT OVARY: The right ovary was not visualized. LEFT OVARY: Measures 2.5 x 4.6 x 6.1 cm. There is complex cyst seen at the left ovary measures 4.6 x 4.5 x 3.6 centimeter. FREE FLUID: No significant free fluid noted. OTHER FINDINGS: None. IMPRESSION: Markedly enlarged heterogeneous uterus contains multiple soft tissue mass lesions likely represent fibroids. The largest fibroid seen at the fundus measures 11.7 centimeter in the largest diameter. Complex cystic lesion at the left ovary measures 4.6 centimeter. Further assessment and follow-up are recommended. Nonvisualization of the right ovary in this exam.
[2017-02-05] MEDS: Sodium Chloride 0.9% 1,000 ML IV SCH ×2 (01:41→17:15)
[2017-02-05 06:21] LABS: BASO # 0.1 K/uL (0.0-0.2); BASO % 0.8 % (0.0-2.0); EOS # 0.2 K/uL (0.0-0.7); EOS % 0.9 % (0.0-4.0); HEMATOCRIT 30.2 % (34.0-47.0); LYMPH # 1.7 K/uL (1.0-4.3); LYMPH % 10.1 % (20.0-40.0); MEAN CELL VOLUME 76.7 fL (81.0-99.0); MEAN CORPUSCULAR HEMOGLOBIN 24.4 pg (27.0-31.0); MEAN CORPUSCULAR HGB CONC 31.8 g/dL (33.0-37.0); MEAN PLATELET VOLUME 9.3 fL (7.2-11.7); MONO # 0.8 K/uL (0.0-0.8); MONO % 4.9 % (0.0-10.0); RED CELL DISTRIBUTION WIDTH 31.7 % (11.5-14.5); WHITE BLOOD COUNT 16.8 K/uL (4.8-10.8)
[2017-02-05 06:39] LABS: CHLORIDE 99 mmol/L (98-107); POTASSIUM 3.8 mmol/L (3.6-5.2); SODIUM 132 mmol/L (132-148)
[2017-02-05 06:41] LABS: GFR AFRICAN-AMERICAN > 60
[2017-02-05 06:42] LABS: ALB/GLOB RATIO 0.7 (1.0-2.1); ALKALINE PHOSPHATASE 179 U/L (38-126); ALT/SGPT 19 U/L (9-52); AST/SGOT 18 U/L (14-36); BILIRUBIN,TOTAL 0.7 mg/dL (0.2-1.3); BLOOD UREA NITROGEN 9 mg/dL (7-17); CARBON DIOXIDE 23 mmol/L (22-30); GLUCOSE,RANDOM 99 mg/dL (65-105); PHOSPHOROUS 4.3 mg/dL (2.5-4.5); TOTAL PROTEIN 6.3 g/dL (6.3-8.3)
[2017-02-05 06:43] LABS: CALCIUM 7.9 mg/dl (8.6-10.4); MAGNESIUM 1.5 mg/dL (1.6-2.3)
[2017-02-05 06:49] LABS: FSH 10.6 mIU/mL
[2017-02-05 07:05] LABS: CA 19-9 6.4 U/mL (0-37)
--- NOTE | 2017-02-05 07:18 | CP.PCM.PN ---
<BookerJanelle - Last Filed: 02/05/17 19:31> Subjective - Date & Time of Evaluation Date of Evaluation: 02/05/17 Time of Evaluation: 07:45 - Subjective Subjective: Patient seen and examined this morning. She stated that she is feeling a lot better today. Patient denies headache, denies chills, denies chest pain, denies shortness of breathe, denies cough, reports mild abdominal pain, reports mild nausea, denies vomiting, denies edema, denies change in stools. Objective - Vital Signs/Intake and Output Vital Signs (last 24 hours): Temp Pulse Resp BP Pulse Ox 98.2 F 74 16 125/57 L 98 02/05/17 04:00 02/05/17 05:05 02/05/17 05:05 02/05/17 05:05 02/05/17 05:05 - Medications Medications: Current Medications Acetaminophen (Tylenol 325mg Tab) 650 mg PO Q6 PRN PRN Reason: Fever >100.4 F Last Admin: 02/02/17 22:34 Dose: 650 mg Enoxaparin Sodium (Lovenox) 40 mg SC DAILY [facility] Imipenem/Cilastatin Sodium 500 (mg/ Sodium Chloride) 100 mls @ 100 mls/hr IVPB Q6H [facility] Last Admin: 02/05/17 04:44 Dose: 100 mls/hr Sodium Chloride (Sodium Chloride 0.9%) 1,000 mls @ 125 mls/hr IV .Q8H [facility] Last Admin: 02/05/17 01:41 Dose: 125 mls/hr Tigecycline 50 mg/ Sodium (Chloride) 100 mls @ 100 mls/hr IVPB Q12H [facility] Last Admin: 02/05/17 01:41 Dose: 100 mls/hr Ondansetron HCl (Zofran Inj) 4 mg IVP Q6H PRN PRN Reason: Nausea/Vomiting Pantoprazole Sodium (Protonix Inj) 40 mg IVP DAILY [facility] Last Admin: 02/04/17 11:12 Dose: 40 mg Pneumococcal Polyvalent Vaccine (Pneumovax 23 Vaccine) 0.5 ml IM .ONCE ONE Stop: 02/07/17 17:37 - Labs Labs: 02/05/17 06:12 02/05/17 06:09 PT 22.6 SECONDS (9.7-12.2) H 02/05/17 06:11 INR 2.0 02/05/17 06:11 APTT 44 SECONDS (21-34) H 02/03/17 05:54 - Constitutional Appears: Non-toxic, No Acute Distress - Head Exam Head Exam: ATRAUMATIC, NORMAL INSPECTION - Eye Exam Eye Exam: EOMI, Normal appearance, PERRL Pupil Exam: NORMAL ACCOMODATION - ENT Exam ENT Exam: Mucous Membranes Moist - Neck Exam Neck Exam: Normal Inspection - Respiratory Exam Respiratory Exam: Clear to Ausculation Bilateral, NORMAL BREATHING PATTERN. absent: Accessory Muscle Use, Rales, Wheezes, Respiratory Distress - Cardiovascular Exam Cardiovascular Exam: REGULAR RHYTHM, +S1, +S2 - GI/Abdominal Exam GI & Abdominal Exam: Soft, Normal Bowel Sounds. absent: Distended, Firm, Guarding, Tenderness - Extremities Exam Extremities Exam: Normal Inspection. absent: Calf Tenderness - Back Exam Back Exam: NORMAL INSPECTION. absent: CVA tenderness (L), CVA tenderness (R), paraspinal tenderness - Neurological Exam Neurological Exam: Alert, Awake, Oriented x3 - Psychiatric Exam Psychiatric exam: Normal Affect, Normal Mood - Skin Skin Exam: Dry, Intact, Normal Color, Warm Assessment and Plan - Assessment and Plan (Free Text) Assessment: (1) Sepsis Assessment & Plan: Criteria: tachypneic, tachycardic, leukocytosis (with bandemia) and elevated lactate Likely secondary to UTI complicated recurrent and possible pyelonephritis Infectious Disease (Dr. Hernandez) on consult-->help appreciated IV Abx: Primaxin 500mg IV Q 6hour (active since 02/01/17) Tigecycline 50mg IV Q 12hours (active since 02/02/17) - discontinued 02/05 Abd/pelvis CT with IV contrast (02/01/17) - 1. Again identified is a markedly enlarged and heterogeneous uterus with markedly enlarged and innumerable fibroid lesions. At the right lateral aspect of the uterus, a partially necrotic and/or hemorrhagic fibroid lesion measures up to 14.4 x 16.2 centimeters. An additional lesion which is multilobulated also demonstrating necrotic and/or hemorrhagic components seen at the right lateral aspect of the uterus measures 15.9 x 11.5 centimeters. These may be better delineated with pelvic MRI if clinically indicated. Underlying neoplasm cannot be excluded. 2. Lobulated elliptical lesion measuring 5.2 x 4.0 centimeters demonstrating a Hounsfield unit attenuation of 7 seen at the level of the left adnexa which may represent a left adnexal cyst. This may be better evaluated with pelvic ultrasound if clinically indicated. 3. Evaluation of the lower abdominal bowel demonstrates fecal retention in the colon. Underdistention of the portion of the proximal sigmoid colon. Fecal retention within the remainder of the colon. Patient status post prior appendectomy with surgical clips noted in the right lower abdomen. 4. Enlarged liver with diffuse fatty infiltration. Scattered hypoattenuated foci in the liver, too small to adequately characterize. 5. Mild thickening of the urinary bladder wall. Echocardiogram (02/02/17): normal LV systolic function, mild TR, Borderline dilated LA, no other significiant abnormality seen UA: pyruia Blood Culture (02/01/17): no growth for 48 hours X2 Urine culture (02/01/17): no growth Urine culture (02/02/17) No growth pending Renal US Status: Acute (2) Complicated UTI (urinary tract infection) Status: Acute (3) History of deep vein thrombosis (DVT) of lower extremity Assessment & Plan: 02/03/17 Lower venous doppler; No evidence of deep or superficial vein thrombus of the right and left lower extremities Patient reports she only took Coumadin for 3 weeks. Will need at least 3 month therapy to complete first time DVT Coumadin 1mg PO daily, Monitor INR today was 2 Status: Chronic (4) Fibroid Assessment & Plan: Patient reports a history of irregular periods and history of fibroids Pelvic/transvaginal - leiomyomata, left ovarian cyst and non visualization of right ovary negative tumor markers [employer] consulted - outpatient follow up, no further intervention at this time Status: Chronic (5) Iron deficiency anemia Assessment & Plan: Fe 52, TIBC 221, %Sat 23, Ferritin 226 B12 >1000 Folate 6 FOBT + Retic 2.2 Haptoglobin 212 Status: Chronic (6) Prophylactic measure Assessment & Plan: Lovenox 30mg subq12 hours Protonix 40mg PO daily Heart Healthy diet Status: Acute <Tiffani Rivera V - Last Filed: 02/06/17 08:13> Objective - Vital Signs/Intake and Output Vital Signs (last 24 hours): Temp Pulse Resp BP Pulse Ox 98.7 F 67 16 110/53 L 98 02/06/17 06:00 06/16/17 06:00 02/06/17 06:00 02/06/17 05:05 02/06/17 05:05 Intake and Output: 02/06/17 02/06/17 06:59 18:59 Intake Total 1800 Output Total 1450 Balance 350 - Medications Medications: Current Medications Acetaminophen (Tylenol 325mg Tab) 650 mg PO Q6 PRN PRN Reason: Fever >100.4 F Last Admin: 02/02/17 22:34 Dose: 650 mg Enoxaparin Sodium (Lovenox) 40 mg SC DAILY [facility] Last Admin: 02/05/17 09:40 Dose: 40 mg Imipenem/Cilastatin Sodium 500 (mg/ Sodium Chloride) 100 mls @ 100 mls/hr IVPB Q6H [facility] Last Admin: 02/06/17 04:00 Dose: 100 mls/hr Sodium Chloride (Sodium Chloride 0.9%) 1,000 mls @ 75 mls/hr IV .[id number] [facility] Last Admin: 02/06/17 06:00 Dose: Not Given Ondansetron HCl (Zofran Inj) 4 mg IVP Q6H PRN PRN Reason: Nausea/Vomiting Pantoprazole Sodium (Protonix Inj) 40 mg IVP DAILY [facility] Last Admin: 02/05/17 09:39 Dose: 40 mg Pneumococcal Polyvalent Vaccine (Pneumovax 23 Vaccine) 0.5 ml IM .ONCE ONE Stop: 02/07/17 17:37 - Labs Labs: 02/06/17 06:36 02/06/17 06:33 PT 22.3 SECONDS (9.7-12.2) H 02/06/17 07:09 INR 1.9 02/06/17 07:09 APTT 44 SECONDS (21-34) H 02/03/17 05:54 Assessment and Plan (1) Sepsis Status: Acute (2) Complicated UTI (urinary tract infection) Status: Acute (3) History of deep vein thrombosis (DVT) of lower extremity Status: Chronic (4) Fibroid Status: Chronic (5) Iron deficiency anemia Status: Chronic (6) Prophylactic measure Status: Acute Attending/Attestation - Attestation I have personally seen and examined this patient.: Yes I have fully participated in the care of the patient.: Yes I have reviewed all pertinent clinical information, including history, physical exam and plan: Yes Notes (Text): This is late computer entry for 02/05/17. Patient seen, examined and case discussed with day-time resident. Patient reports she is feeling better. Discussed with infectious disease, will continue Primaxin and discontinue Tigeyclcine and monitor the white count. Patient's cultures remain negative but suspected source like urinary tract infection given pyuria noted on multiple urinalysis. Fluids decreased to 75cc/hr. Patient ordered for Coumadin 1mg PO for treatment of DVT. Assessment and Plan (1) Sepsis Assessment & Plan: * Criteria: tachypneic, tachycardic, leukocytosis (with bandemia) and elevated lactate * Likely secondary to UTI complicated recurrent * Infectious Disease (Dr. Hernandez) on consult-->help appreciated * Abd/pelvis CT with IV contrast (02/01/17) - 1. Again identified is a markedly enlarged and heterogeneous uterus with markedly enlarged and innumerable fibroid lesions. At the right lateral aspect of the uterus, a partially necrotic and/or hemorrhagic fibroid lesion measures up to 14.4 x 16.2 centimeters. An additional lesion which is multilobulated also demonstrating necrotic and/or hemorrhagic components seen at the right lateral aspect of the uterus measures 15.9 x 11.5 centimeters. These may be better delineated with pelvic MRI if clinically indicated. Underlying neoplasm cannot be excluded. 2. Lobulated elliptical lesion measuring 5.2 x 4.0 centimeters demonstrating a Hounsfield unit attenuation of 7 seen at the level of the left adnexa which may represent a left adnexal cyst. This may be better evaluated with pelvic ultrasound if clinically indicated. 3. Evaluation of the lower abdominal bowel demonstrates fecal retention in the colon. Underdistention of the portion of the proximal sigmoid colon. Fecal retention within the remainder of the colon. Patient status post prior appendectomy with surgical clips noted in the right lower abdomen. 4. Enlarged liver with diffuse fatty infiltration. Scattered hypoattenuated foci in the liver, too small to adequately characterize. 5. Mild thickening of the urinary bladder wall. * IV Abx: Primaxin 500mg IV Q 6hour (active since 02/01/17); Tigecycline 50mg IV Q 12hours (active since 02/02/17) * Echocardiogram (02/02/17): normal LV systolic function, mild TR, Borderline dilated LA, no other significiant abnormality seen * UA: pyruia * Blood Culture (02/01/17): no growth for 48 hours X2 * Urine culture (02/01/17): no growth * Urine culture (02/02/17) No growth * MRSA: not detected * Renal US (02/03/17): unremarkable sonographic evaluation of the kidneys. somewhat limited evaluation of the left kidney. incidentally noted a markedly enlarged fibroid urterus. underdistended urinary bladder. Mild thickening of the urinary bladder wall. * Procalcitonin: 16.72-->3.73 Status: Acute (2) Complicated UTI (urinary tract infection) Status: Acute * see above (3) History of deep vein thrombosis (DVT) of lower extremity Assessment & Plan: * 02/03/17 Lower venous doppler; No evidence of deep or superficial vein thrombus of the right and left lower extremities * Patient reports she only took Coumadin for 3 weeks. Will need at least 3 month therapy to complete first time DVT. INR: 2.0 * Given home dose Coumadin 1mg PO today; f/u INR in AM Status: Chronic (4) Fibroid Assessment & Plan: * Patient reports a history of irregular periods and history of fibroids * Pelvic US (02/04/17): markedly enlarged heterogenous uters contains multiple soft tissue mass lesions likely represent fibroids. Largest fibroid seen at the fundus measures 11.7 cm in the largest diameter. Complex cystic lesion at the left ovary measures 4.6 cm. * Per technology advisor, no intervention at this time, follow-up outpatient Status: Chronic (5) Iron deficiency anemia Assessment & Plan: * Given blood transfusion during admission * B12 >1000, Folate: 6.0, Iron: 52, TIBC: 221, %saturation: 23, Ferritin: 226, Occult blood positive. monitor H/H * Per technology advisor, no intervention at this time, follow-up outpatient for fibroids Status: Chronic (6) Prophylactic measure Assessment & Plan: * Lovenox 30mg subq daily for dvt ppx * Protonix 40mg PO daily Status: Acute
[2017-02-05] MEDS: Magnesium Sulfate 1 gm in D5W 1 GM/100 ML BAG IVPB SCH ×2 (08:14→09:36)
[2017-02-05] MEDS: Enoxaparin 40 mg Syringe SC SCH (09:40)
--- NOTE | 2017-02-05 16:07 | CP.PCM.CON ---
History of Present Illness - History of Present Illness History of Present Illness: Follow up credit assessment analyst consultation initially requested by Dr. Wall Patient received in ICU #11, reclining in reclining chair. Patient appears in NAD; in good spirits. Pleasant and cooperative Patient has no credit assessment analyst-related complaints at this time. Past Patient History - Infectious Disease Hx of Infectious Diseases: None - Past Medical History & Family History Past Medical History?: No - Past Social History Smoking Status: Never Smoked - CARDIAC Hx Cardiac Disorders: No - PULMONARY Hx Respiratory Disorders: No - NEUROLOGICAL Hx Neurological Disorder: No - HEENT Hx HEENT Problems: No - RENAL Hx Chronic Kidney Disease: No - ENDOCRINE/METABOLIC Hx Endocrine Disorders: No - HEMATOLOGICAL/ONCOLOGICAL Hx Anemia: Yes - INTEGUMENTARY Hx Dermatological Problems: No - MUSCULOSKELETAL/RHEUMATOLOGICAL Hx Musculoskeletal Disorders: No Hx Falls: No - GASTROINTESTINAL Hx Gastrointestinal Disorders: No - GENITOURINARY/GYNECOLOGICAL Hx Genitourinary Disorders: No - PSYCHIATRIC Hx Substance Use: No - SURGICAL HISTORY Hx Surgeries: Yes Other/Comment: APPENDECTOMY-DECEMBER 2016 - ANESTHESIA Hx Anesthesia: Yes Hx Anesthesia Reactions: No Hx Malignant Hyperthermia: No Meds Allergies/Adverse Reactions: Allergies Allergy/AdvReac Type Severity Reaction Status Date / Time vancomycin AdvReac Severe REDNESS Verified 02/03/17 10:03 - Medications Medications: Current Medications Acetaminophen (Tylenol 325mg Tab) 650 mg PO Q6 PRN PRN Reason: Fever >100.4 F Last Admin: 02/02/17 22:34 Dose: 650 mg Enoxaparin Sodium (Lovenox) 40 mg SC DAILY [facility] Last Admin: 02/05/17 09:40 Dose: 40 mg Imipenem/Cilastatin Sodium 500 (mg/ Sodium Chloride) 100 mls @ 100 mls/hr IVPB Q6H [facility] Last Admin: 02/05/17 10:36 Dose: 100 mls/hr Sodium Chloride (Sodium Chloride 0.9%) 1,000 mls @ 125 mls/hr IV .Q8H [facility] Last Admin: 02/05/17 01:41 Dose: 125 mls/hr Ondansetron HCl (Zofran Inj) 4 mg IVP Q6H PRN PRN Reason: Nausea/Vomiting Pantoprazole Sodium (Protonix Inj) 40 mg IVP DAILY [facility] Last Admin: 02/05/17 09:39 Dose: 40 mg Pneumococcal Polyvalent Vaccine (Pneumovax 23 Vaccine) 0.5 ml IM .ONCE ONE Stop: 02/07/17 17:37 Physical Exam - Constitutional Appears: Well, No Acute Distress - Eye Exam Eye Exam: Normal appearance - ENT Exam ENT Exam: Mucous Membranes Moist - Extremities Exam Extremities exam: Positive for: normal inspection (SCD in place) - Neurological Exam Neurological exam: Alert, Oriented x3 - Psychiatric Exam Psychiatric exam: Normal Affect, Normal Mood - Skin Skin Exam: Dry, Pallor Results - Vital Signs Recent Vital Signs: Last Vital Signs Temp 98.2 F 02/05/17 04:00 Pulse 71 02/05/17 08:00 Resp 16 02/05/17 05:05 BP 125/57 L 02/05/17 05:05 Pulse Ox 98 02/05/17 05:05 - Labs Result Diagrams: 02/05/17 06:12 02/05/17 06:09 Labs: Laboratory Results - last 24 hr 02/04/17 02/05/17 02/05/17 11:25 06:09 06:09 WBC RBC Hgb Hct MCV MCH MCHC RDW Plt Count MPV Neut % (Auto) Lymph % (Auto) Arthur % (Auto) Eos % (Auto) Baso % (Auto) Neut # Lymph # Arthur # Eos # Baso # Haptoglobin 212 PT INR Sodium Potassium Chloride Carbon Dioxide Anion Gap BUN Creatinine Est GFR ( Amer) Est GFR (Non-Af Amer) Random Glucose Calcium Phosphorus Magnesium Total Bilirubin AST ALT Alkaline Phosphatase Total Protein Albumin Globulin Albumin/Globulin Ratio Alpha Fetoprotein < 0.8 CA 19-9 Antigen 6.4 CA 125 Antigen 25.8 FSH 3rd Generation 10.6 02/05/17 02/05/17 02/05/17 06:09 06:11 06:12 WBC 16.8 H RBC 3.94 Hgb 9.6 L Hct 30.2 L MCV 76.7 L MCH 24.4 L MCHC 31.8 L RDW 31.7 H Plt Count 342 MPV 9.3 Neut % (Auto) 83.3 H Lymph % (Auto) 10.1 L Arthur % (Auto) 4.9 Eos % (Auto) 0.9 Baso % (Auto) 0.8 Neut # 14.0 H Lymph # 1.7 Arthur # 0.8 Eos # 0.2 Baso # 0.1 Haptoglobin PT 22.6 H INR 2.0 Sodium 132 Potassium 3.8 Chloride 99 Carbon Dioxide 23 Anion Gap 14 BUN 9 Creatinine 0.4 L Est GFR ( Amer) > 60 Est GFR (Non-Af Amer) > 60 Random Glucose 99 Calcium 7.9 L Phosphorus 4.3 Magnesium 1.5 L Total Bilirubin 0.7 AST 18 ALT 19 Alkaline Phosphatase 179 H Total Protein 6.3 Albumin 2.6 L D Globulin 3.6 Albumin/Globulin Ratio 0.7 L Alpha Fetoprotein CA 19-9 Antigen CA 125 Antigen FSH 3rd Generation Assessment & Plan - Assessment and Plan (Free Text) Assessment: Ultrasound report reviewed by me: uterus 18.5 x 11.5 x 17.8 cm ; large fundal leiomyoma 11.8 x 10.7 x 10.5cm; one in the midportion 11.3 x 8.8 x 10.6 cm; and other smaller leiomyomata. Endometrium 5.6 mm. Left ovary: 2.5 x 4.6 x 6.1 cm with complex cyst 4.6 x 4.5 x 3.6 cm. Right ovary not visualized. No free fluid. 51 y.o. admitted for sepsis; being treated for UTI/pyelonephritis; h/o DVT on anticoagulant; and recent appendectomy (01/01/17) with post-operative complications. H/O leiomyomata - just found out during hospitalization 12/2016; not seen credit assessment analyst x >= 20 years. Discussed with patient ultrasound findings noted for leiomyomata, left ovarian cyst and non visualization of right ovary; also, negative tumor markers. It was explained to patient, any further intervention for her leiomyomata, menorrhagia and resulting anemia, are to be addressed as an outpatient. Patient was informed of services in [facility]; states she might prefer to go to [facility]. Patient was reassured the hospital and credit assessment analyst provider are all of her choosing. Patient is clinically stable; no credit assessment analyst intervention indicated at this time. Thank you for the pleasure of this consultation. Please re-consult if necessary. Plan: Continue management as per primary/ICU medical teams - Date & Time Date: 02/05/17 Time: 15:35
[2017-02-06] MEDS: Sodium Chloride 0.9% 1,000 ML IV SCH (06:00)
[2017-02-06 06:51] LABS: BASO # 0.1 K/uL (0.0-0.2); BASO % 1.2 % (0.0-2.0); EOS # 0.2 K/uL (0.0-0.7); EOS % 1.9 % (0.0-4.0); HEMATOCRIT 29.8 % (34.0-47.0); LYMPH # 1.7 K/uL (1.0-4.3); LYMPH % 17.8 % (20.0-40.0); MEAN CELL VOLUME 76.7 fL (81.0-99.0); MEAN CORPUSCULAR HEMOGLOBIN 24.9 pg (27.0-31.0); MEAN CORPUSCULAR HGB CONC 32.4 g/dL (33.0-37.0); MONO # 0.5 K/uL (0.0-0.8); RED CELL DISTRIBUTION WIDTH 32.2 % (11.5-14.5); WHITE BLOOD COUNT 9.5 K/uL (4.8-10.8)
[2017-02-06 06:52] LABS: CHLORIDE 102 mmol/L (98-107); POTASSIUM 3.8 mmol/L (3.6-5.2); SODIUM 134 mmol/L (132-148)
[2017-02-06 06:54] LABS: ALB/GLOB RATIO 0.7 (1.0-2.1); ALKALINE PHOSPHATASE 177 U/L (38-126); AST/SGOT 20 U/L (14-36); BILIRUBIN,TOTAL 0.6 mg/dL (0.2-1.3); BLOOD UREA NITROGEN 9 mg/dL (7-17); CARBON DIOXIDE 22 mmol/L (22-30); GFR AFRICAN-AMERICAN > 60; TOTAL PROTEIN 6.4 g/dL (6.3-8.3)
[2017-02-06 06:55] LABS: ALT/SGPT 12 U/L (9-52); CALCIUM 7.9 mg/dl (8.6-10.4); GLUCOSE,RANDOM 88 mg/dL (65-105); MAGNESIUM 1.9 mg/dL (1.6-2.3); PHOSPHOROUS 4.1 mg/dL (2.5-4.5)
[2017-02-06 07:22] LABS: INR 1.9
[2017-02-06] MEDS: Enoxaparin 40 mg Syringe SC SCH (09:06)
--- NOTE | 2017-02-06 10:15 | CP.PCM.PN ---
<Janelle Celeste - Last Filed: 02/06/17 17:41> Subjective - Date & Time of Evaluation Date of Evaluation: 02/06/17 Time of Evaluation: 07:30 - Subjective Subjective: Pt seen and evaluated at bedside. Nursing reports no adverse events overnight. Today, pt is comfortable and in no acute distress. Pt states that her breathing is good today and that her back pain has resolved. Pt has no other complaints at this time. She reports having a normal bowel movement yesterday. Pt denies fever, chills, headache, chest pain, palpitations, shortness of breath, back pain, abdominal pain, bowel/bladder pain or leg swelling/pain. Pt tolerating diet and medications well. Objective - Vital Signs/Intake and Output Vital Signs (last 24 hours): Temp Pulse Resp BP Pulse Ox 98.7 F 67 16 110/53 L 98 02/06/17 06:00 02/06/17 06:00 02/06/17 06:00 02/06/17 05:05 02/06/17 05:05 Intake and Output: 02/06/17 02/06/17 06:59 18:59 Intake Total 1800 Output Total 1450 Balance 350 - Medications Medications: Current Medications Acetaminophen (Tylenol 325mg Tab) 650 mg PO Q6 PRN PRN Reason: Fever >100.4 F Last Admin: 02/02/17 22:34 Dose: 650 mg Enoxaparin Sodium (Lovenox) 40 mg SC DAILY [facility] Last Admin: 02/06/17 09:06 Dose: 40 mg Imipenem/Cilastatin Sodium 500 (mg/ Sodium Chloride) 100 mls @ 100 mls/hr IVPB Q6H [facility] Last Admin: 02/06/17 04:00 Dose: 100 mls/hr Sodium Chloride (Sodium Chloride 0.9%) 1,000 mls @ 75 mls/hr IV .[id number] [facility] Last Admin: 02/06/17 06:00 Dose: Not Given Ondansetron HCl (Zofran Inj) 4 mg IVP Q6H PRN PRN Reason: Nausea/Vomiting Pantoprazole Sodium (Protonix Inj) 40 mg IVP DAILY [facility] Last Admin: 02/06/17 09:06 Dose: 40 mg Pneumococcal Polyvalent Vaccine (Pneumovax 23 Vaccine) 0.5 ml IM .ONCE ONE Stop: 02/07/17 17:37 - Labs Labs: 02/06/17 06:36 02/06/17 06:33 PT 22.3 SECONDS (9.7-12.2) H 02/06/17 07:09 INR 1.9 02/06/17 07:09 APTT 44 SECONDS (21-34) H 02/03/17 05:54 - Constitutional Appears: Non-toxic, No Acute Distress - Head Exam Head Exam: ATRAUMATIC, NORMAL INSPECTION - Eye Exam Eye Exam: EOMI Pupil Exam: NORMAL ACCOMODATION - ENT Exam ENT Exam: Mucous Membranes Moist - Respiratory Exam Respiratory Exam: Clear to Ausculation Bilateral, NORMAL BREATHING PATTERN. absent: Accessory Muscle Use, Decreased Breath Sounds, Respiratory Distress - Cardiovascular Exam Cardiovascular Exam: REGULAR RHYTHM, +S1, +S2 - GI/Abdominal Exam GI & Abdominal Exam: Soft, Normal Bowel Sounds. absent: Distended, Firm, Guarding, Tenderness - Extremities Exam Extremities Exam: Normal Inspection. absent: Calf Tenderness - Back Exam Back Exam: NORMAL INSPECTION. absent: CVA tenderness (L), CVA tenderness (R), paraspinal tenderness - Neurological Exam Neurological Exam: Alert, Awake, Oriented x3 - Psychiatric Exam Psychiatric exam: Normal Affect, Normal Mood - Skin Skin Exam: Dry, Intact, Normal Color, Warm Assessment and Plan - Assessment and Plan (Free Text) Assessment: (1) Sepsis Assessment & Plan: * Criteria: tachypneic, tachycardic, leukocytosis (with bandemia) and elevated lactate * WBC 9.8, has now normalized * With follow up with ID about ab tx * Likely secondary to UTI complicated recurrent * Infectious Disease (Dr. Hernandez) on consult-->help appreciated * Abd/pelvis CT with IV contrast (02/01/17) - 1. Again identified is a markedly enlarged and heterogeneous uterus with markedly enlarged and innumerable fibroid lesions. At the right lateral aspect of the uterus, a partially necrotic and/or hemorrhagic fibroid lesion measures up to 14.4 x 16.2 centimeters. An additional lesion which is multilobulated also demonstrating necrotic and/or hemorrhagic components seen at the right lateral aspect of the uterus measures 15.9 x 11.5 centimeters. These may be better delineated with pelvic MRI if clinically indicated. Underlying neoplasm cannot be excluded. 2. Lobulated elliptical lesion measuring 5.2 x 4.0 centimeters demonstrating a Hounsfield unit attenuation of 7 seen at the level of the left adnexa which may represent a left adnexal cyst. This may be better evaluated with pelvic ultrasound if clinically indicated. 3. Evaluation of the lower abdominal bowel demonstrates fecal retention in the colon. Underdistention of the portion of the proximal sigmoid colon. Fecal retention within the remainder of the colon. Patient status post prior appendectomy with surgical clips noted in the right lower abdomen. 4. Enlarged liver with diffuse fatty infiltration. Scattered hypoattenuated foci in the liver, too small to adequately characterize. 5. Mild thickening of the urinary bladder wall. * IV Abx: Primaxin 500mg IV Q 6hour (active since 02/01/17); Tigecycline 50mg IV Q 12hours (active since 02/02/17) * Echocardiogram (02/02/17): normal LV systolic function, mild TR, Borderline dilated LA, no other significiant abnormality seen * UA: pyruia * Blood Culture (02/01/17): no growth for 48 hours X2 * Urine culture (02/01/17): no growth * Urine culture (02/02/17) No growth * MRSA: not detected * Renal US (02/03/17): unremarkable sonographic evaluation of the kidneys. somewhat limited evaluation of the left kidney. incidentally noted a markedly enlarged fibroid urterus. underdistended urinary bladder. Mild thickening of the urinary bladder wall. * Procalcitonin: 16.72-->3.73, will f/u tomorrow am Status: Acute (2) Complicated UTI (urinary tract infection) Status: Acute * see above (3) History of deep vein thrombosis (DVT) of lower extremity Assessment & Plan: * 02/03/17 Lower venous doppler; No evidence of deep or superficial vein thrombus of the right and left lower extremities * Patient reports she only took Coumadin for 3 weeks. Will need at least 3 month therapy to complete first time DVT. INR: 2.0 * Give Coumadin 2mg PO today; INR 1.9 this morning will repeat tomorrow. Status: Chronic (4) Fibroid Assessment & Plan: * Patient reports a history of irregular periods and history of fibroids * Pelvic US (02/04/17): markedly enlarged heterogenous uters contains multiple soft tissue mass lesions likely represent fibroids. Largest fibroid seen at the fundus measures 11.7 cm in the largest diameter. Complex cystic lesion at the left ovary measures 4.6 cm. * Per battery repairer, no intervention at this time, follow-up outpatient Status: Chronic (5) Iron deficiency anemia Assessment & Plan: * Given blood transfusion during admission * B12 >1000, Folate: 6.0, Iron: 52, TIBC: 221, %saturation: 23, Ferritin: 226, Occult blood positive. monitor H/H * Per battery repairer, no intervention at this time, follow-up outpatient for fibroids Status: Chronic (6) Prophylactic measure Assessment & Plan: * Lovenox 30mg subq daily for dvt ppx * Protonix 40mg PO daily Status: Acute <Tiffani Rivera V - Last Filed: 02/09/17 16:00> Objective - Vital Signs/Intake and Output Vital Signs (last 24 hours): Temp Pulse Resp BP Pulse Ox 97.5 F L 73 20 121/65 97 02/09/17 15:00 02/09/17 15:00 02/09/17 15:00 02/09/17 15:00 02/09/17 15:00 Intake and Output: 02/09/17 02/09/17 06:59 18:59 Intake Total 700 Balance 700 - Medications Medications: Current Medications Acetaminophen (Tylenol 325mg Tab) 650 mg PO Q6 PRN PRN Reason: Fever >100.4 F Last Admin: 02/02/17 22:34 Dose: 650 mg Enoxaparin Sodium (Lovenox) 90 mg SC Q12 [facility] Stop: 02/10/17 10:01 Imipenem/Cilastatin Sodium 500 (mg/ Sodium Chloride) 100 mls @ 100 mls/hr IVPB Q6H [facility] Last Admin: 02/09/17 11:30 Dose: 100 mls/hr Metronidazole (Flagyl) 500 mg in 100 mls @ 100 mls/hr IVPB Q8 [facility] Last Admin: 02/09/17 14:35 Dose: 100 mls/hr Ondansetron HCl (Zofran Inj) 4 mg IVP Q6H PRN PRN Reason: Nausea/Vomiting Pantoprazole Sodium (Protonix Inj) 40 mg IVP DAILY [facility] Last Admin: 02/09/17 09:53 Dose: 40 mg Potassium Chloride (K-Dur 20 Meq Er Tab) 40 meq PO ONCE ONE Stop: 02/10/17 13:39 Warfarin Sodium (Coumadin) 5 mg PO 1800 [facility] Stop: 02/09/17 18:01 - Labs Labs: 02/09/17 06:19 02/09/17 06:19 PT 20.8 SECONDS (9.7-12.2) H 02/09/17 06:19 INR 1.8 02/09/17 06:19 APTT 44 SECONDS (21-34) H 02/03/17 05:54 Assessment and Plan (1) Sepsis Status: Acute (2) Complicated UTI (urinary tract infection) Status: Acute (3) History of deep vein thrombosis (DVT) of lower extremity Status: Chronic (4) Fibroid Status: Chronic (5) Iron deficiency anemia Status: Chronic (6) Prophylactic measure Status: Acute Attending/Attestation - Attestation I have personally seen and examined this patient.: Yes I have fully participated in the care of the patient.: Yes I have reviewed all pertinent clinical information, including history, physical exam and plan: Yes Notes (Text): This is late computer entry for 02/06/17. Patient seen, examined and case discussed with day-time resident. Patient reports she is feeling better. Patient's white count has normalized to 9.5. Patient is currently on Primaxin IV. Patient ordered for procalcitonin for tomorrow. Discussed with infectious disease, will continue Primaxin and discontinue Tigeyclcine and monitor the white count. Patient's cultures remain negative but suspected source like urinary tract infection given pyuria noted on multiple urinalysis. Fluids decreased to 75cc/hr. Patient ordered for Coumadin PO for treatment of 1st time DVT. Assessment and Plan (1) Sepsis Assessment & Plan: * Criteria: tachypneic, tachycardic, leukocytosis (with bandemia) and elevated lactate * Likely secondary to UTI complicated recurrent * Infectious Disease (Dr. Hernandez) on consult-->help appreciated * Abd/pelvis CT with IV contrast (02/01/17) - 1. Again identified is a markedly enlarged and heterogeneous uterus with markedly enlarged and innumerable fibroid lesions. At the right lateral aspect of the uterus, a partially necrotic and/or hemorrhagic fibroid lesion measures up to 14.4 x 16.2 centimeters. An additional lesion which is multilobulated also demonstrating necrotic and/or hemorrhagic components seen at the right lateral aspect of the uterus measures 15.9 x 11.5 centimeters. These may be better delineated with pelvic MRI if clinically indicated. Underlying neoplasm cannot be excluded. 2. Lobulated elliptical lesion measuring 5.2 x 4.0 centimeters demonstrating a Hounsfield unit attenuation of 7 seen at the level of the left adnexa which may represent a left adnexal cyst. This may be better evaluated with pelvic ultrasound if clinically indicated. 3. Evaluation of the lower abdominal bowel demonstrates fecal retention in the colon. Underdistention of the portion of the proximal sigmoid colon. Fecal retention within the remainder of the colon. Patient status post prior appendectomy with surgical clips noted in the right lower abdomen. 4. Enlarged liver with diffuse fatty infiltration. Scattered hypoattenuated foci in the liver, too small to adequately characterize. 5. Mild thickening of the urinary bladder wall. * IV Abx: Primaxin 500mg IV Q 6hour (active since 02/01/17) * Echocardiogram (02/02/17): normal LV systolic function, mild TR, Borderline dilated LA, no other significiant abnormality seen * UA: pyruia * Blood Culture (02/01/17): no growth * Urine culture (02/01/17): no growth * Urine culture (02/02/17) No growth * MRSA: not detected * Renal US (02/03/17): unremarkable sonographic evaluation of the kidneys. somewhat limited evaluation of the left kidney. incidentally noted a markedly enlarged fibroid urterus. underdistended urinary bladder. Mild thickening of the urinary bladder wall. * Procalcitonin: 16.72-->3.73-->ordered for procalcitonin tomorrow Status: Acute (2) Complicated UTI (urinary tract infection) Status: Acute * see above (3) History of deep vein thrombosis (DVT) of lower extremity Assessment & Plan: * 02/03/17 Lower venous doppler; No evidence of deep or superficial vein thrombus of the right and left lower extremities * Patient reports she only took Coumadin for 3 weeks. Will need at least 3 month therapy to complete first time DVT. INR: 2.0 * Ordered for Coumdin tomorrow; f/u INR Status: Chronic (4) Fibroid Assessment & Plan: * Patient reports a history of irregular periods and history of fibroids * Pelvic US (02/04/17): markedly enlarged heterogenous uters contains multiple soft tissue mass lesions likely represent fibroids. Largest fibroid seen at the fundus measures 11.7 cm in the largest diameter. Complex cystic lesion at the left ovary measures 4.6 cm. * Per battery repairer, no intervention at this time, follow-up outpatient Status: Chronic (5) Iron deficiency anemia Assessment & Plan: * Given blood transfusion during admission * B12 >1000, Folate: 6.0, Iron: 52, TIBC: 221, %saturation: 23, Ferritin: 226, Occult blood positive. monitor H/H * Per battery repairer, no intervention at this time, follow-up outpatient for fibroids Status: Chronic (6) Prophylactic measure Assessment & Plan: * Lovenox 30mg subq daily for dvt ppx * Protonix 40mg PO daily Status: Acute
[2017-02-07 06:10] LABS: BASO % 0.2 % (0.0-2.0); EOS # 0.2 K/uL (0.0-0.7); EOS % 1.7 % (0.0-4.0); HEMATOCRIT 29.5 % (34.0-47.0); LYMPH # 2.2 K/uL (1.0-4.3); LYMPH % 19.7 % (20.0-40.0); MEAN CORPUSCULAR HEMOGLOBIN 24.8 pg (27.0-31.0); MEAN CORPUSCULAR HGB CONC 32.2 g/dL (33.0-37.0); MEAN PLATELET VOLUME 9.1 fL (7.2-11.7); MONO # 0.8 K/uL (0.0-0.8); MONO % 7.4 % (0.0-10.0); RED CELL DISTRIBUTION WIDTH 31.3 % (11.5-14.5); WHITE BLOOD COUNT 11.3 K/uL (4.8-10.8)
[2017-02-07 06:29] LABS: CHLORIDE 98 mmol/L (98-107); POTASSIUM 3.5 mmol/L (3.6-5.2); SODIUM 133 mmol/L (132-148)
[2017-02-07 06:31] LABS: BILIRUBIN,TOTAL 0.7 mg/dL (0.2-1.3); GFR AFRICAN-AMERICAN > 60
[2017-02-07 06:32] LABS: ALB/GLOB RATIO 0.7 (1.0-2.1); ALKALINE PHOSPHATASE 185 U/L (38-126); ALT/SGPT 14 U/L (9-52); AST/SGOT 20 U/L (14-36); BLOOD UREA NITROGEN 7 mg/dL (7-17); CALCIUM 7.8 mg/dl (8.6-10.4); CARBON DIOXIDE 26 mmol/L (22-30); GLUCOSE,RANDOM 105 mg/dL (65-105); PHOSPHOROUS 3.9 mg/dL (2.5-4.5); TOTAL PROTEIN 6.4 g/dL (6.3-8.3)
[2017-02-07 06:33] LABS: MAGNESIUM 1.7 mg/dL (1.6-2.3)
[2017-02-07] MEDS ORDERED: Potassium Chloride 20 mEq ER Tab PO ONE (10:42)
[2017-02-07] MEDS: Enoxaparin 40 mg Syringe SC SCH (10:56)
--- NOTE | 2017-02-07 13:33 | CP.PCM.PN ---
Subjective - Date & Time of Evaluation Date of Evaluation: 02/07/17 Time of Evaluation: 08:30 - Subjective Subjective: PGY1 Progress note for Dr. Magallon: Patient seen and examined. Patient reports she feels well and is eating well. She states she feels her stomach was churning and had a small amount of diarrhea yesterday. Patient denies dysuria. Objective - Vital Signs/Intake and Output Vital Signs (last 24 hours): Temp Pulse Resp BP Pulse Ox 98.5 F 73 20 111/73 98 02/07/17 07:15 02/07/17 08:00 02/07/17 07:15 02/07/17 07:15 02/07/17 07:15 - Medications Medications: Current Medications Acetaminophen (Tylenol 325mg Tab) 650 mg PO Q6 PRN PRN Reason: Fever >100.4 F Last Admin: 02/02/17 22:34 Dose: 650 mg Enoxaparin Sodium (Lovenox) 40 mg SC DAILY [facility] Last Admin: 02/07/17 10:56 Dose: 40 mg Imipenem/Cilastatin Sodium 500 (mg/ Sodium Chloride) 100 mls @ 100 mls/hr IVPB Q6H [facility] Last Admin: 02/07/17 10:57 Dose: 100 mls/hr Ondansetron HCl (Zofran Inj) 4 mg IVP Q6H PRN PRN Reason: Nausea/Vomiting Pantoprazole Sodium (Protonix Inj) 40 mg IVP DAILY [facility] Last Admin: 02/07/17 10:56 Dose: 40 mg Pneumococcal Polyvalent Vaccine (Pneumovax 23 Vaccine) 0.5 ml IM .ONCE ONE Stop: 02/07/17 17:37 - Labs Labs: 02/07/17 06:05 02/07/17 06:05 PT 22.9 SECONDS (9.7-12.2) H 02/07/17 06:05 INR 2.0 02/07/17 06:05 APTT 44 SECONDS (21-34) H 02/03/17 05:54 - Constitutional Appears: Non-toxic, No Acute Distress - Head Exam Head Exam: ATRAUMATIC, NORMOCEPHALIC - Eye Exam Eye Exam: EOMI - ENT Exam ENT Exam: Mucous Membranes Moist - Respiratory Exam Respiratory Exam: Clear to Ausculation Bilateral, NORMAL BREATHING PATTERN - Cardiovascular Exam Cardiovascular Exam: +S1, +S2 - GI/Abdominal Exam GI & Abdominal Exam: Soft, Normal Bowel Sounds. absent: Tenderness - Extremities Exam Extremities Exam: Normal Inspection, Pedal Edema (mild bilateral) - Neurological Exam Neurological Exam: Alert, Awake - Psychiatric Exam Psychiatric exam: Normal Affect, Normal Mood - Skin Skin Exam: Warm Assessment and Plan - Assessment and Plan (Free Text) Assessment: (1) Sepsis Assessment & Plan: * Criteria: tachypneic, tachycardic, leukocytosis (with bandemia) and elevated lactate * WBC 9.8, has now normalized * With follow up with ID about ab tx * Likely secondary to UTI complicated recurrent * Infectious Disease (Dr. Hernandez) on consult-->help appreciated * Abd/pelvis CT with IV contrast (02/01/17) - 1. Again identified is a markedly enlarged and heterogeneous uterus with markedly enlarged and innumerable fibroid lesions. At the right lateral aspect of the uterus, a partially necrotic and/or hemorrhagic fibroid lesion measures up to 14.4 x 16.2 centimeters. An additional lesion which is multilobulated also demonstrating necrotic and/or hemorrhagic components seen at the right lateral aspect of the uterus measures 15.9 x 11.5 centimeters. These may be better delineated with pelvic MRI if clinically indicated. Underlying neoplasm cannot be excluded. 2. Lobulated elliptical lesion measuring 5.2 x 4.0 centimeters demonstrating a Hounsfield unit attenuation of 7 seen at the level of the left adnexa which may represent a left adnexal cyst. This may be better evaluated with pelvic ultrasound if clinically indicated. 3. Evaluation of the lower abdominal bowel demonstrates fecal retention in the colon. Underdistention of the portion of the proximal sigmoid colon. Fecal retention within the remainder of the colon. Patient status post prior appendectomy with surgical clips noted in the right lower abdomen. 4. Enlarged liver with diffuse fatty infiltration. Scattered hypoattenuated foci in the liver, too small to adequately characterize. 5. Mild thickening of the urinary bladder wall. * IV Abx: Primaxin 500mg IV Q 6hour (active since 02/01/17); Tigecycline 50mg IV Q 12hours (active since 02/02/17) * Echocardiogram (02/02/17): normal LV systolic function, mild TR, Borderline dilated LA, no other significiant abnormality seen * UA: pyruia * Blood Culture (02/01/17): no growth for 48 hours X2 * Urine culture (02/01/17): no growth * Urine culture (02/02/17) No growth * MRSA: not detected * Renal US (02/03/17): unremarkable sonographic evaluation of the kidneys. somewhat limited evaluation of the left kidney. incidentally noted a markedly enlarged fibroid urterus. underdistended urinary bladder. Mild thickening of the urinary bladder wall. * Procalcitonin: 16.72-->3.73--> 0.29 Status: Acute (2) Complicated UTI (urinary tract infection) Status: Acute * see above (3) History of deep vein thrombosis (DVT) of lower extremity Assessment & Plan: * 02/03/17 Lower venous doppler; No evidence of deep or superficial vein thrombus of the right and left lower extremities * Patient reports she only took Coumadin for 3 weeks. Will need at least 3 month therapy to complete first time DVT. INR: 2.0 * Give Coumadin 1mg PO today; INR 2.0 this morning will repeat tomorrow. Status: Chronic (4) Fibroid Assessment & Plan: * Patient reports a history of irregular periods and history of fibroids * Pelvic US (02/04/17): markedly enlarged heterogenous uters contains multiple soft tissue mass lesions likely represent fibroids. Largest fibroid seen at the fundus measures 11.7 cm in the largest diameter. Complex cystic lesion at the left ovary measures 4.6 cm. * Per verifier operator, no intervention at this time, follow-up outpatient Status: Chronic (5) Iron deficiency anemia Assessment & Plan: * Given blood transfusion during admission * B12 >1000, Folate: 6.0, Iron: 52, TIBC: 221, %saturation: 23, Ferritin: 226, Occult blood positive. monitor H/H * Per verifier operator, no intervention at this time, follow-up outpatient for fibroids Status: Chronic (6) Prophylactic measure Assessment & Plan: * Lovenox 30mg subq daily for dvt ppx * Protonix 40mg PO daily Status: Acute
[2017-02-07] MEDS ORDERED: Pneumococcal 23-Valent Vaccine IM ONE (17:36)
--- NOTE | 2017-02-08 06:44 | CP.PCM.PN ---
Subjective - Date & Time of Evaluation Date of Evaluation: 02/08/17 Time of Evaluation: 10:00 - Subjective Subjective: Medicine Note- Hospitalist Service Patient was seen and examined at bedside. Patient reports no acute complaints at this time. Patient says she was feeling gassy yesterday. Tolerating PO. Denies constipation, diarrhea, no nausea, vomiting. No events overnight Objective - Vital Signs/Intake and Output Vital Signs (last 24 hours): Temp Pulse Resp BP Pulse Ox 99.2 F 92 H 20 115/74 98 02/07/17 23:00 02/07/17 23:00 02/07/17 23:00 02/07/17 23:00 02/07/17 23:00 Intake and Output: 02/07/17 02/08/17 18:59 06:59 Intake Total 500 500 Balance 500 500 - Medications Medications: Current Medications Acetaminophen (Tylenol 325mg Tab) 650 mg PO Q6 PRN PRN Reason: Fever >100.4 F Last Admin: 02/02/17 22:34 Dose: 650 mg Enoxaparin Sodium (Lovenox) 40 mg SC DAILY [facility] Last Admin: 02/07/17 10:56 Dose: 40 mg Imipenem/Cilastatin Sodium 500 (mg/ Sodium Chloride) 100 mls @ 100 mls/hr IVPB Q6H [facility] Last Admin: 02/08/17 06:01 Dose: 100 mls/hr Ondansetron HCl (Zofran Inj) 4 mg IVP Q6H PRN PRN Reason: Nausea/Vomiting Pantoprazole Sodium (Protonix Inj) 40 mg IVP DAILY [facility] Last Admin: 02/07/17 10:56 Dose: 40 mg - Labs Labs: 02/07/17 06:05 02/07/17 06:05 PT 22.9 SECONDS (9.7-12.2) H 02/07/17 06:05 INR 2.0 02/07/17 06:05 APTT 44 SECONDS (21-34) H 02/03/17 05:54 - Constitutional Appears: Non-toxic, No Acute Distress - Head Exam Head Exam: ATRAUMATIC, NORMAL INSPECTION, NORMOCEPHALIC - Eye Exam Pupil Exam: NORMAL ACCOMODATION, PERRL - ENT Exam ENT Exam: Mucous Membranes Moist - Respiratory Exam Respiratory Exam: Clear to Ausculation Bilateral, NORMAL BREATHING PATTERN. absent: Rhonchi, Wheezes - Cardiovascular Exam Cardiovascular Exam: REGULAR RHYTHM, +S1, +S2 - GI/Abdominal Exam GI & Abdominal Exam: Soft, Normal Bowel Sounds. absent: Tenderness, Diminished Bowel Sounds, Hernia, Hypoactive Bowel Sounds - Neurological Exam Neurological Exam: Alert, Awake, Oriented x3 - Psychiatric Exam Psychiatric exam: Normal Affect, Normal Mood - Skin Skin Exam: Dry, Intact, Normal Color, Warm Assessment and Plan - Assessment and Plan (Free Text) Assessment: (1) Sepsis Assessment & Plan: * Criteria: tachypneic, tachycardic, leukocytosis (with bandemia) and elevated lactate * WBC 9.8, has now normalized * With follow up with ID about ab tx * Likely secondary to UTI complicated recurrent * Infectious Disease (Dr. Hernandez) on consult-->help appreciated * Abd/pelvis CT with IV contrast (02/01/17) - 1. Again identified is a markedly enlarged and heterogeneous uterus with markedly enlarged and innumerable fibroid lesions. At the right lateral aspect of the uterus, a partially necrotic and/or hemorrhagic fibroid lesion measures up to 14.4 x 16.2 centimeters. An additional lesion which is multilobulated also demonstrating necrotic and/or hemorrhagic components seen at the right lateral aspect of the uterus measures 15.9 x 11.5 centimeters. These may be better delineated with pelvic MRI if clinically indicated. Underlying neoplasm cannot be excluded. 2. Lobulated elliptical lesion measuring 5.2 x 4.0 centimeters demonstrating a Hounsfield unit attenuation of 7 seen at the level of the left adnexa which may represent a left adnexal cyst. This may be better evaluated with pelvic ultrasound if clinically indicated. 3. Evaluation of the lower abdominal bowel demonstrates fecal retention in the colon. Underdistention of the portion of the proximal sigmoid colon. Fecal retention within the remainder of the colon. Patient status post prior appendectomy with surgical clips noted in the right lower abdomen. 4. Enlarged liver with diffuse fatty infiltration. Scattered hypoattenuated foci in the liver, too small to adequately characterize. 5. Mild thickening of the urinary bladder wall. * IV Abx: Primaxin 500mg IV Q 6hour (active since 02/01/17); Tigecycline 50mg IV Q 12hours (active since 02/02/17) * Echocardiogram (02/02/17): normal LV systolic function, mild TR, Borderline dilated LA, no other significiant abnormality seen * UA: pyruia * Blood Culture (02/01/17): no growth for 48 hours X2 * Urine culture (02/01/17): no growth * Urine culture (02/02/17) No growth * MRSA: not detected * Renal US (02/03/17): unremarkable sonographic evaluation of the kidneys. somewhat limited evaluation of the left kidney. incidentally noted a markedly enlarged fibroid urterus. underdistended urinary bladder. Mild thickening of the urinary bladder wall. * Procalcitonin: 16.72-->3.73--> 0.29 Status: Acute (2) Complicated UTI (urinary tract infection) Status: Acute * see above (3) History of deep vein thrombosis (DVT) of lower extremity Assessment & Plan: * 02/03/17 Lower venous doppler; No evidence of deep or superficial vein thrombus of the right and left lower extremities * Patient reports she only took Coumadin for 3 weeks. Will need at least 3 month therapy to complete first time DVT. INR: 2.0 * Give Coumadin 1mg PO today; INR 2.0 this morning will repeat tomorrow. Status: Chronic (4) Fibroid Assessment & Plan: * Patient reports a history of irregular periods and history of fibroids * Pelvic US (02/04/17): markedly enlarged heterogenous uters contains multiple soft tissue mass lesions likely represent fibroids. Largest fibroid seen at the fundus measures 11.7 cm in the largest diameter. Complex cystic lesion at the left ovary measures 4.6 cm. * Per senior engineering associate, no intervention at this time, follow-up outpatient Status: Chronic (5) Iron deficiency anemia Assessment & Plan: * Given blood transfusion during admission * B12 >1000, Folate: 6.0, Iron: 52, TIBC: 221, %saturation: 23, Ferritin: 226, Occult blood positive. monitor H/H * Per senior engineering associate, no intervention at this time, follow-up outpatient for fibroids * Stool occult positive Status: Chronic (6) Prophylactic measure Assessment & Plan: * Lovenox 30mg subq daily for dvt ppx * Protonix 40mg PO daily Status: Acute
[2017-02-08] MEDS: Enoxaparin 40 mg Syringe SC SCH (09:29)
[2017-02-08] MEDS ORDERED: POLYETHYLENE GLYCOL 3350 17 GM/Dose PACKET PO ONE (13:59)
[2017-02-08 14:01] LABS: BASO # 0.2 K/uL (0.0-0.2); BASO % 0.8 % (0.0-2.0); MEAN CELL VOLUME 78.8 fL (81.0-99.0); MEAN PLATELET VOLUME 9.4 fL (7.2-11.7)
[2017-02-08 14:07] LABS: EOS # 0.1 K/uL (0.0-0.7); EOS % 0.6 % (0.0-4.0); HEMATOCRIT 31.3 % (34.0-47.0); LYMPH # 2.3 K/uL (1.0-4.3); MEAN CORPUSCULAR HEMOGLOBIN 24.8 pg (27.0-31.0); MEAN CORPUSCULAR HGB CONC 31.5 g/dL (33.0-37.0); MONO % 5.5 % (0.0-10.0); RED CELL DISTRIBUTION WIDTH 32.6 % (11.5-14.5); WHITE BLOOD COUNT 17.9 K/uL (4.8-10.8)
[2017-02-08 14:09] LABS: CHLORIDE 101 mmol/L (98-107); SODIUM 134 mmol/L (132-148)
[2017-02-08 14:10] LABS: POTASSIUM 3.7 mmol/L (3.6-5.2)
[2017-02-08 14:12] LABS: ALB/GLOB RATIO 0.7 (1.0-2.1); ALKALINE PHOSPHATASE 185 U/L (38-126); ALT/SGPT 16 U/L (9-52); AST/SGOT 31 U/L (14-36); BILIRUBIN,TOTAL 0.7 mg/dL (0.2-1.3); BLOOD UREA NITROGEN 3 mg/dL (7-17); CARBON DIOXIDE 24 mmol/L (22-30); GFR AFRICAN-AMERICAN > 60; GLUCOSE,RANDOM 112 mg/dL (65-105); TOTAL PROTEIN 6.8 g/dL (6.3-8.3)
[2017-02-08 14:13] LABS: CALCIUM 7.9 mg/dl (8.6-10.4)
[2017-02-08] MEDS: metroNIDAZOLE IV 500 mg/100 ml 500 MG/100 ML BAG IVPB SCH ×2 (14:49→21:39)
[2017-02-09] MEDS: metroNIDAZOLE IV 500 mg/100 ml 500 MG/100 ML BAG IVPB SCH ×3 (05:21→22:08)
[2017-02-09 06:31] LABS: BASO # 0.1 K/uL (0.0-0.2); BASO % 0.8 % (0.0-2.0); EOS # 0.2 K/uL (0.0-0.7); EOS % 1.6 % (0.0-4.0); HEMATOCRIT 30.1 % (34.0-47.0); LYMPH # 2.4 K/uL (1.0-4.3); LYMPH % 19.8 % (20.0-40.0); MEAN CELL VOLUME 78.8 fL (81.0-99.0); MEAN CORPUSCULAR HEMOGLOBIN 24.6 pg (27.0-31.0); MEAN CORPUSCULAR HGB CONC 31.2 g/dL (33.0-37.0); MEAN PLATELET VOLUME 9.1 fL (7.2-11.7); MONO # 0.8 K/uL (0.0-0.8); NRBC % 0.1 % (0.0-2.0); RED CELL DISTRIBUTION WIDTH 32.4 % (11.5-14.5); WHITE BLOOD COUNT 11.9 K/uL (4.8-10.8)
[2017-02-09 06:35] LABS: INR 1.8
[2017-02-09 06:58] LABS: CHLORIDE 100 mmol/L (98-107); SODIUM 135 mmol/L (132-148)
[2017-02-09 06:59] LABS: POTASSIUM 3.5 mmol/L (3.6-5.2)
[2017-02-09 07:01] LABS: ALB/GLOB RATIO 0.6 (1.0-2.1); ALKALINE PHOSPHATASE 184 U/L (38-126); AST/SGOT 24 U/L (14-36); BILIRUBIN,TOTAL 0.5 mg/dL (0.2-1.3); CARBON DIOXIDE 26 mmol/L (22-30); GFR AFRICAN-AMERICAN > 60; TOTAL PROTEIN 6.8 g/dL (6.3-8.3)
[2017-02-09 07:02] LABS: ALT/SGPT 22 U/L (9-52); BLOOD UREA NITROGEN 4 mg/dL (7-17); GLUCOSE,RANDOM 108 mg/dL (65-105)
[2017-02-09] MEDS: Enoxaparin 40 mg Syringe SC SCH (09:53)
[2017-02-09] MEDS ORDERED: Enoxaparin 100 mg Syringe SC SCH (10:30)
[2017-02-09] MEDS ORDERED: Enoxaparin 60 mg Syringe SC ONE ×2 (10:45→12:00)
--- NOTE | 2017-02-09 17:56 | CP.PCM.PN ---
Subjective - Date & Time of Evaluation Date of Evaluation: 02/09/17 Time of Evaluation: 09:40 - Subjective Subjective: PGY1 Progress note for Dr. Magallon Patient was seen and examined at bedside. Patient states she is passing gas but is still constipated. Tolerating PO. Denies diarrhea, nausea, and vomiting. No events overnight Objective - Vital Signs/Intake and Output Vital Signs (last 24 hours): Temp Pulse Resp BP Pulse Ox 97.5 F L 78 20 121/65 97 02/09/17 15:00 02/09/17 16:00 02/09/17 15:00 02/09/17 15:00 02/09/17 15:00 Intake and Output: 02/09/17 02/09/17 06:59 18:59 Intake Total 700 600 Balance 700 600 - Medications Medications: Current Medications Acetaminophen (Tylenol 325mg Tab) 650 mg PO Q6 PRN PRN Reason: Fever >100.4 F Last Admin: 02/02/17 22:34 Dose: 650 mg Enoxaparin Sodium (Lovenox) 90 mg SC Q12 [facility] Stop: 02/10/17 10:01 Imipenem/Cilastatin Sodium 500 (mg/ Sodium Chloride) 100 mls @ 100 mls/hr IVPB Q6H [facility] Last Admin: 02/09/17 17:24 Dose: 100 mls/hr Metronidazole (Flagyl) 500 mg in 100 mls @ 100 mls/hr IVPB Q8 [facility] Last Admin: 02/09/17 14:35 Dose: 100 mls/hr Ondansetron HCl (Zofran Inj) 4 mg IVP Q6H PRN PRN Reason: Nausea/Vomiting Pantoprazole Sodium (Protonix Inj) 40 mg IVP DAILY [facility] Last Admin: 02/09/17 09:53 Dose: 40 mg Potassium Chloride (K-Dur 20 Meq Er Tab) 40 meq PO ONCE ONE Stop: 02/10/17 13:39 Warfarin Sodium (Coumadin) 5 mg PO 1800 [facility] Stop: 02/09/17 18:01 - Labs Labs: 02/09/17 06:19 02/09/17 06:19 PT 20.8 SECONDS (9.7-12.2) H 02/09/17 06:19 INR 1.8 02/09/17 06:19 APTT 44 SECONDS (21-34) H 02/03/17 05:54 - Constitutional Appears: No Acute Distress - Respiratory Exam Respiratory Exam: Clear to Ausculation Bilateral, NORMAL BREATHING PATTERN - Cardiovascular Exam Cardiovascular Exam: REGULAR RHYTHM. absent: JVD - GI/Abdominal Exam GI & Abdominal Exam: Soft, Normal Bowel Sounds - Neurological Exam Neurological Exam: Alert, Awake, Oriented x3 Assessment and Plan - Assessment and Plan (Free Text) Plan: 1.) Sepsis secondary to UTI Criteria: tachypneic, tachycardic, leukocytosis (with bandemia) and elevated lactate * WBC 11.9 * With follow up with ID about ab tx * Likely secondary to UTI complicated recurrent * Infectious Disease (Dr. Hrenandez) on consult-->help appreciated * Abd/pelvis CT with IV contrast (02/01/17) - 1. Again identified is a markedly enlarged and heterogeneous uterus with markedly enlarged and innumerable fibroid lesions. At the right lateral aspect of the uterus, a partially necrotic and/or hemorrhagic fibroid lesion measures up to 14.4 x 16.2 centimeters. An additional lesion which is multilobulated also demonstrating necrotic and/or hemorrhagic components seen at the right lateral aspect of the uterus measures 15.9 x 11.5 centimeters. These may be better delineated with pelvic MRI if clinically indicated. Underlying neoplasm cannot be excluded. 2. Lobulated elliptical lesion measuring 5.2 x 4.0 centimeters demonstrating a Hounsfield unit attenuation of 7 seen at the level of the left adnexa which may represent a left adnexal cyst. This may be better evaluated with pelvic ultrasound if clinically indicated. 3. Evaluation of the lower abdominal bowel demonstrates fecal retention in the colon. Underdistention of the portion of the proximal sigmoid colon. Fecal retention within the remainder of the colon. Patient status post prior appendectomy with surgical clips noted in the right lower abdomen. 4. Enlarged liver with diffuse fatty infiltration. Scattered hypoattenuated foci in the liver, too small to adequately characterize. 5. Mild thickening of the urinary bladder wall. * IV Abx: Primaxin 500mg IV Q 6hour (active since 02/01/17); Tigecycline 50mg IV Q 12hours (active since 02/02/17) * Echocardiogram (02/02/17): normal LV systolic function, mild TR, Borderline dilated LA, no other significiant abnormality seen * UA: pyruia * Blood Culture (02/01/17): no growth for 48 hours X2 * Urine culture (02/01/17): no growth * Urine culture (02/02/17) No growth * MRSA: not detected * Renal US (02/03/17): unremarkable sonographic evaluation of the kidneys. somewhat limited evaluation of the left kidney. incidentally noted a markedly enlarged fibroid urterus. underdistended urinary bladder. Mild thickening of the urinary bladder wall. * Procalcitonin: 16.72-->3.73--> 0.29 2.) History of DVT * 02/03/17 Lower venous doppler; No evidence of deep or superficial vein thrombus of the right and left lower extremities * Patient reports she only took Coumadin for 3 weeks. Will need at least 3 month therapy to complete first time DVT. * INR: 1.8 * Coumadin 5mg PO 02/09/17 * Lovenox changed to 90mg Q12 3.) Fibroid * Patient reports a history of irregular periods and history of fibroids * Pelvic US (02/04/17): markedly enlarged heterogenous uters contains multiple soft tissue mass lesions likely represent fibroids. Largest fibroid seen at the fundus measures 11.7 cm in the largest diameter. Complex cystic lesion at the left ovary measures 4.6 cm. * Per javascript engineer, no intervention at this time, follow-up outpatient 5.) Iron deficiency Anemia * Given blood transfusion during admission * B12 >1000, Folate: 6.0, Iron: 52, TIBC: 221, %saturation: 23, Ferritin: 226, Occult blood positive. * H/H: 9.4/30.1 * Per javascript engineer, no intervention at this time, follow-up outpatient for fibroids * Stool occult positive 6.) Acute Constipation * Lactulose 20mg PO once 7.) Prophylactic Measure * Lovenox changed to 90mg Q12 * Protonix 40mg PO daily
[2017-02-09] MEDS: Enoxaparin 100 mg Syringe SC SCH (22:10)
[2017-02-10] MEDS: metroNIDAZOLE IV 500 mg/100 ml 500 MG/100 ML BAG IVPB SCH ×3 (05:16→21:58)
--- NOTE | 2017-02-10 06:15 | CP.PCM.PN ---
<Carolina Snow - Last Filed: 02/10/17 21:17> Subjective - Date & Time of Evaluation Date of Evaluation: 02/10/17 Time of Evaluation: 07:30 - Subjective Subjective: PGY1 Progress note for Dr. Rivera Patient was seen and examined at bedside. Patient states she has had a bowel movement. Tolerating PO. Denies diarrhea, nausea, and vomiting. No events overnight Objective - Vital Signs/Intake and Output Vital Signs (last 24 hours): Temp Pulse Resp BP Pulse Ox 98.6 F 73 20 104/66 97 02/10/17 04:00 02/10/17 04:00 02/10/17 04:00 02/10/17 04:00 02/10/17 04:00 Intake and Output: 02/09/17 02/10/17 18:59 06:59 Intake Total 600 Balance 600 - Medications Medications: Current Medications Acetaminophen (Tylenol 325mg Tab) 650 mg PO Q6 PRN PRN Reason: Fever >100.4 F Last Admin: 02/02/17 22:34 Dose: 650 mg Enoxaparin Sodium (Lovenox) 90 mg SC Q12 [facility] Stop: 02/10/17 10:01 Last Admin: 02/09/17 22:10 Dose: 90 mg Imipenem/Cilastatin Sodium 500 (mg/ Sodium Chloride) 100 mls @ 100 mls/hr IVPB Q6H [facility] Last Admin: 02/10/17 04:09 Dose: 100 mls/hr Metronidazole (Flagyl) 500 mg in 100 mls @ 100 mls/hr IVPB Q8 [facility] Last Admin: 02/10/17 05:16 Dose: 100 mls/hr Ondansetron HCl (Zofran Inj) 4 mg IVP Q6H PRN PRN Reason: Nausea/Vomiting Last Admin: 02/10/17 05:21 Dose: 4 mg Pantoprazole Sodium (Protonix Inj) 40 mg IVP DAILY [facility] Last Admin: 02/09/17 09:53 Dose: 40 mg Potassium Chloride (K-Dur 20 Meq Er Tab) 40 meq PO ONCE ONE Stop: 02/10/17 13:39 - Labs Labs: 02/09/17 06:19 02/09/17 06:19 PT 20.8 SECONDS (9.7-12.2) H 06/19/17 06:19 INR 1.8 02/09/17 06:19 APTT 44 SECONDS (21-34) H 02/03/17 05:54 - Constitutional Appears: No Acute Distress - Respiratory Exam Respiratory Exam: Clear to Ausculation Bilateral, NORMAL BREATHING PATTERN - Cardiovascular Exam Cardiovascular Exam: REGULAR RHYTHM - GI/Abdominal Exam GI & Abdominal Exam: Soft, Normal Bowel Sounds. absent: Tenderness - Neurological Exam Neurological Exam: Alert, Awake, Oriented x3 Assessment and Plan - Assessment and Plan (Free Text) Plan: 1.) Sepsis secondary to UTI Criteria: tachypneic, tachycardic, leukocytosis (with bandemia) and elevated lactate * WBC 10.9 * With follow up with ID about ab tx * Likely secondary to UTI complicated recurrent * Infectious Disease (Dr. Hernandez) on consult-->help appreciated * Abd/pelvis CT with IV contrast (02/01/17) - 1. Again identified is a markedly enlarged and heterogeneous uterus with markedly enlarged and innumerable fibroid lesions. At the right lateral aspect of the uterus, a partially necrotic and/or hemorrhagic fibroid lesion measures up to 14.4 x 16.2 centimeters. An additional lesion which is multilobulated also demonstrating necrotic and/or hemorrhagic components seen at the right lateral aspect of the uterus measures 15.9 x 11.5 centimeters. These may be better delineated with pelvic MRI if clinically indicated. Underlying neoplasm cannot be excluded. 2. Lobulated elliptical lesion measuring 5.2 x 4.0 centimeters demonstrating a Hounsfield unit attenuation of 7 seen at the level of the left adnexa which may represent a left adnexal cyst. This may be better evaluated with pelvic ultrasound if clinically indicated. 3. Evaluation of the lower abdominal bowel demonstrates fecal retention in the colon. Underdistention of the portion of the proximal sigmoid colon. Fecal retention within the remainder of the colon. Patient status post prior appendectomy with surgical clips noted in the right lower abdomen. 4. Enlarged liver with diffuse fatty infiltration. Scattered hypoattenuated foci in the liver, too small to adequately characterize. 5. Mild thickening of the urinary bladder wall. * IV Abx: 500mg Imipenem/Cilastatin q6h, 500mg Metronidazole q8h * Echocardiogram (02/02/17): normal LV systolic function, mild TR, Borderline dilated LA, no other significiant abnormality seen * UA: pyruia * Blood Culture (02/01/17): no growth for 48 hours X2 * Urine culture (02/01/17): no growth * Urine culture (02/02/17) No growth * MRSA: not detected * Renal US (02/03/17): unremarkable sonographic evaluation of the kidneys. somewhat limited evaluation of the left kidney. incidentally noted a markedly enlarged fibroid urterus. underdistended urinary bladder. Mild thickening of the urinary bladder wall. * Procalcitonin: 16.72-->3.73--> 0.29 * f/u abdominal and pelvic CT 2.) History of DVT * 02/03/17 Lower venous doppler; No evidence of deep or superficial vein thrombus of the right and left lower extremities * Patient reports she only took Coumadin for 3 weeks. Will need at least 3 month therapy to complete first time DVT. * INR: 1.7 * Coumadin 5mg PO 02/09/17 * Lovenox changed to 90mg Q12 3.) Fibroid * Patient reports a history of irregular periods and history of fibroids * Pelvic US (02/04/17): markedly enlarged heterogenous uters contains multiple soft tissue mass lesions likely represent fibroids. Largest fibroid seen at the fundus measures 11.7 cm in the largest diameter. Complex cystic lesion at the left ovary measures 4.6 cm. * Per coagulator, no intervention at this time, follow-up outpatient 5.) Iron deficiency Anemia * Given blood transfusion during admission * B12 >1000, Folate: 6.0, Iron: 52, TIBC: 221, %saturation: 23, Ferritin: 226, Occult blood positive. * H/H: 9.5/29.8 * Per coagulator, no intervention at this time, follow-up outpatient for fibroids * Stool occult positive 7.) Prophylactic Measure * Lovenox changed to 90mg Q12 * Protonix 40mg PO daily <Tiffani Rivera V - Last Filed: 02/10/17 23:57> Objective - Vital Signs/Intake and Output Vital Signs (last 24 hours): Temp Pulse Resp BP Pulse Ox 97.8 F 75 20 135/94 H 100 02/10/17 16:00 02/10/17 16:00 02/10/17 16:00 02/10/17 08:34 02/10/17 16:00 Intake and Output: 02/10/17 02/11/17 18:59 06:59 Intake Total 680 Balance 680 - Medications Medications: Current Medications Acetaminophen (Tylenol 325mg Tab) 650 mg PO Q6 PRN PRN Reason: Fever >100.4 F Last Admin: 02/02/17 22:34 Dose: 650 mg Imipenem/Cilastatin Sodium 500 (mg/ Sodium Chloride) 100 mls @ 100 mls/hr IVPB Q6H [facility] Last Admin: 02/10/17 23:31 Dose: 100 mls/hr Metronidazole (Flagyl) 500 mg in 100 mls @ 100 mls/hr IVPB Q8 [facility] Last Admin: 02/10/17 21:58 Dose: 100 mls/hr Ondansetron HCl (Zofran Inj) 4 mg IVP Q6H PRN PRN Reason: Nausea/Vomiting Last Admin: 02/10/17 05:21 Dose: 4 mg Pantoprazole Sodium (Protonix Inj) 40 mg IVP DAILY [facility] Last Admin: 02/10/17 09:25 Dose: 40 mg Potassium Chloride (K-Dur 20 Meq Er Tab) 40 meq PO ONCE ONE Stop: 02/11/17 11:48 - Labs Labs: 02/10/17 07:03 02/10/17 07:03 PT 19.0 SECONDS (9.7-12.2) H 02/10/17 07:03 INR 1.7 02/10/17 07:03 APTT 44 SECONDS (21-34) H 02/03/17 05:54 Assessment and Plan (1) Sepsis Status: Acute (2) Complicated UTI (urinary tract infection) Status: Acute (3) History of deep vein thrombosis (DVT) of lower extremity Status: Chronic (4) Fibroid Status: Chronic (5) Iron deficiency anemia Status: Chronic (6) Prophylactic measure Status: Acute Attending/Attestation - Attestation I have personally seen and examined this patient.: Yes I have fully participated in the care of the patient.: Yes I have reviewed all pertinent clinical information, including history, physical exam and plan: Yes Notes (Text): Patient seen, examined and case discussed with day-time resident. Patient seen this morning; reports feeling well; curious to when she can go home. Discussed with infectious disease, recommending repeat CT scan given recent history of appendectomy and rule out abscess. Patient's white count is decreasing and is afebrile. Patient is also no therapeutic for DVT; will continue bridge therapeutic Lovenox to Coumadin; f/u INR in the AM. Patient ordered for repeat CT abdomen/Pelvis-->awaiting result Assessment and Plan (1) Sepsis Assessment & Plan: * Criteria: tachypneic, tachycardic, leukocytosis (with bandemia) and elevated lactate * Likely secondary to UTI complicated recurrent * Infectious Disease (Dr. Hernandez) on consult-->help appreciated * Abd/pelvis CT with IV contrast (02/01/17) - 1. Again identified is a markedly enlarged and heterogeneous uterus with markedly enlarged and innumerable fibroid lesions. At the right lateral aspect of the uterus, a partially necrotic and/or hemorrhagic fibroid lesion measures up to 14.4 x 16.2 centimeters. An additional lesion which is multilobulated also demonstrating necrotic and/or hemorrhagic components seen at the right lateral aspect of the uterus measures 15.9 x 11.5 centimeters. These may be better delineated with pelvic MRI if clinically indicated. Underlying neoplasm cannot be excluded. 2. Lobulated elliptical lesion measuring 5.2 x 4.0 centimeters demonstrating a Hounsfield unit attenuation of 7 seen at the level of the left adnexa which may represent a left adnexal cyst. This may be better evaluated with pelvic ultrasound if clinically indicated. 3. Evaluation of the lower abdominal bowel demonstrates fecal retention in the colon. Underdistention of the portion of the proximal sigmoid colon. Fecal retention within the remainder of the colon. Patient status post prior appendectomy with surgical clips noted in the right lower abdomen. 4. Enlarged liver with diffuse fatty infiltration. Scattered hypoattenuated foci in the liver, too small to adequately characterize. 5. Mild thickening of the urinary bladder wall. * IV Abx: Primaxin 500mg IV Q 6hour (active since 02/01/17) * Echocardiogram (02/02/17): normal LV systolic function, mild TR, Borderline dilated LA, no other significiant abnormality seen * UA: pyruia * Blood Culture (02/01/17): no growth * Urine culture (02/01/17): no growth * Urine culture (02/02/17) No growth * MRSA: not detected * Renal US (02/03/17): unremarkable sonographic evaluation of the kidneys. somewhat limited evaluation of the left kidney. incidentally noted a markedly enlarged fibroid urterus. underdistended urinary bladder. Mild thickening of the urinary bladder wall. * Procalcitonin: 16.72-->3.73-->0.27 * Ordered for repeat CT abdomen/Pelvis Status: Acute (2) Complicated UTI (urinary tract infection) Status: Acute * see above (3) History of deep vein thrombosis (DVT) of lower extremity Assessment & Plan: * 02/03/17 Lower venous doppler; No evidence of deep or superficial vein thrombus of the right and left lower extremities * Patient reports she only took Coumadin for 3 weeks. Will need at least 3 month therapy to complete first time DVT. INR: 2.0 * Lovenox 90mg [id number] bridge until INR is therapeutic * Ordered for Coumadin 5mg tonight; f/u INR in AM Status: Chronic (4) Fibroid Assessment & Plan: * Patient reports a history of irregular periods and history of fibroids * Pelvic US (02/04/17): markedly enlarged heterogenous uters contains multiple soft tissue mass lesions likely represent fibroids. Largest fibroid seen at the fundus measures 11.7 cm in the largest diameter. Complex cystic lesion at the left ovary measures 4.6 cm. * Per coagulator, no intervention at this time, follow-up outpatient Status: Chronic (5) Iron deficiency anemia Assessment & Plan: * Given blood transfusion during admission * B12 >1000, Folate: 6.0, Iron: 52, TIBC: 221, %saturation: 23, Ferritin: 226, Occult blood positive. monitor H/H * Per coagulator, no intervention at this time, follow-up outpatient for fibroids Status: Chronic (6) Prophylactic measure Assessment & Plan: * Lovenox 90mg subq Q12 hours-->patient is being bridged to Coumadin * Protonix 40mg PO daily Status: Acute
[2017-02-10 07:12] LABS: BASO # 0.1 K/uL (0.0-0.2); BASO % 0.6 % (0.0-2.0); EOS # 0.2 K/uL (0.0-0.7); HEMATOCRIT 29.8 % (34.0-47.0); LYMPH # 1.9 K/uL (1.0-4.3); LYMPH % 17.1 % (20.0-40.0); MEAN CELL VOLUME 79.4 fL (81.0-99.0); MEAN CORPUSCULAR HEMOGLOBIN 25.5 pg (27.0-31.0); MEAN CORPUSCULAR HGB CONC 32.1 g/dL (33.0-37.0); MEAN PLATELET VOLUME 9.1 fL (7.2-11.7); MONO # 0.5 K/uL (0.0-0.8); RED CELL DISTRIBUTION WIDTH 32.2 % (11.5-14.5); WHITE BLOOD COUNT 10.9 K/uL (4.8-10.8)
[2017-02-10 07:17] LABS: INR 1.7
[2017-02-10 08:36] LABS: CHLORIDE 105 mmol/L (98-107); POTASSIUM 3.5 mmol/L (3.6-5.2); SODIUM 137 mmol/L (132-148)
[2017-02-10 08:38] LABS: ALB/GLOB RATIO 0.7 (1.0-2.1); ALKALINE PHOSPHATASE 159 U/L (38-126); AST/SGOT 28 U/L (14-36); BILIRUBIN,TOTAL 0.5 mg/dL (0.2-1.3); CARBON DIOXIDE 23 mmol/L (22-30); GFR AFRICAN-AMERICAN > 60; TOTAL PROTEIN 6.8 g/dL (6.3-8.3)
[2017-02-10 08:39] LABS: ALT/SGPT 18 U/L (9-52); BLOOD UREA NITROGEN 5 mg/dL (7-17); CALCIUM 8.2 mg/dl (8.6-10.4); GLUCOSE,RANDOM 105 mg/dL (65-105)
[2017-02-10] MEDS: Enoxaparin 100 mg Syringe SC SCH (09:28)
--- NOTE | 2017-02-10 11:55 | CP.PCM.PN ---
Subjective - Date & Time of Evaluation Date of Evaluation: 02/10/17 Time of Evaluation: 11:15 - Subjective Subjective: dictated Objective - Vital Signs/Intake and Output Vital Signs (last 24 hours): Temp Pulse Resp BP Pulse Ox 97.7 F 81 18 135/94 H 98 02/10/17 08:34 02/10/17 08:34 02/10/17 08:34 02/10/17 08:34 02/10/17 08:34 - Medications Medications: Current Medications Acetaminophen (Tylenol 325mg Tab) 650 mg PO Q6 PRN PRN Reason: Fever >100.4 F Last Admin: 02/02/17 22:34 Dose: 650 mg Imipenem/Cilastatin Sodium 500 (mg/ Sodium Chloride) 100 mls @ 100 mls/hr IVPB Q6H [facility] Last Admin: 02/10/17 09:33 Dose: 100 mls/hr Metronidazole (Flagyl) 500 mg in 100 mls @ 100 mls/hr IVPB Q8 [facility] Last Admin: 02/10/17 05:16 Dose: 100 mls/hr Ondansetron HCl (Zofran Inj) 4 mg IVP Q6H PRN PRN Reason: Nausea/Vomiting Last Admin: 02/10/17 05:21 Dose: 4 mg Pantoprazole Sodium (Protonix Inj) 40 mg IVP DAILY [facility] Last Admin: 02/10/17 09:25 Dose: 40 mg Potassium Chloride (K-Dur 20 Meq Er Tab) 40 meq PO ONCE ONE Stop: 02/11/17 11:48 Warfarin Sodium (Coumadin) 5 mg PO 1800 [facility] Stop: 02/10/17 18:01 - Labs Labs: 02/10/17 07:03 02/10/17 07:03 PT 19.0 SECONDS (9.7-12.2) H 02/10/17 07:03 INR 1.7 02/10/17 07:03 APTT 44 SECONDS (21-34) H 02/03/17 05:54
[2017-02-10] MEDS ORDERED: Potassium Chloride 20 mEq ER Tab PO ONE (13:38)
[2017-02-10] MEDS ORDERED: Iodixanol 320 MG/ML 100 ML BOTTLE IV ONE (21:36)
[2017-02-10] MEDS ORDERED: Enoxaparin 100 mg Syringe SC SCH (23:45)
[2017-02-11] MEDS: metroNIDAZOLE IV 500 mg/100 ml 500 MG/100 ML BAG IVPB SCH ×2 (05:12→14:09)
--- NOTE | 2017-02-11 05:50 | CP.PCM.PN ---
Objective - Vital Signs/Intake and Output Vital Signs (last 24 hours): Temp Pulse Resp BP Pulse Ox 98.7 F 86 20 109/71 96 02/10/17 23:00 02/11/17 00:00 02/10/17 23:00 02/10/17 23:00 02/10/17 23:00 Intake and Output: 02/10/17 02/11/17 18:59 06:59 Intake Total 680 Balance 680 - Medications Medications: Current Medications Acetaminophen (Tylenol 325mg Tab) 650 mg PO Q6 PRN PRN Reason: Fever >100.4 F Last Admin: 02/02/17 22:34 Dose: 650 mg Enoxaparin Sodium (Lovenox) 90 mg SC Q12 [facility] Last Admin: 02/11/17 00:20 Dose: 90 mg Imipenem/Cilastatin Sodium 500 (mg/ Sodium Chloride) 100 mls @ 100 mls/hr IVPB Q6H [facility] Last Admin: 02/11/17 03:59 Dose: 100 mls/hr Metronidazole (Flagyl) 500 mg in 100 mls @ 100 mls/hr IVPB Q8 [facility] Last Admin: 02/11/17 05:12 Dose: 100 mls/hr Ondansetron HCl (Zofran Inj) 4 mg IVP Q6H PRN PRN Reason: Nausea/Vomiting Last Admin: 02/10/17 05:21 Dose: 4 mg Pantoprazole Sodium (Protonix Inj) 40 mg IVP DAILY [facility] Last Admin: 02/10/17 09:25 Dose: 40 mg Potassium Chloride (K-Dur 20 Meq Er Tab) 40 meq PO ONCE ONE Stop: 02/11/17 11:48 - Labs Labs: 02/10/17 07:03 02/10/17 07:03 PT 19.0 SECONDS (9.7-12.2) H 02/10/17 07:03 INR 1.7 02/10/17 07:03 APTT 44 SECONDS (21-34) H 02/03/17 05:54
[2017-02-11 07:06] LABS: INR 2.8
[2017-02-11 07:07] LABS: EOS # 0.2 K/uL (0.0-0.7); EOS % 1.5 % (0.0-4.0); MONO # 0.5 K/uL (0.0-0.8)
[2017-02-11 07:19] LABS: BASO # 0.2 K/uL (0.0-0.2); BASO % 1.5 % (0.0-2.0); HEMATOCRIT 30.9 % (34.0-47.0); LYMPH # 2.1 K/uL (1.0-4.3); LYMPH % 18.7 % (20.0-40.0); MEAN CELL VOLUME 79.6 fL (81.0-99.0); MEAN CORPUSCULAR HEMOGLOBIN 24.8 pg (27.0-31.0); MEAN CORPUSCULAR HGB CONC 31.2 g/dL (33.0-37.0); MEAN PLATELET VOLUME 9.5 fL (7.2-11.7); NRBC % 0.3 % (0.0-2.0); RED CELL DISTRIBUTION WIDTH 32.1 % (11.5-14.5); WHITE BLOOD COUNT 11.4 K/uL (4.8-10.8)
[2017-02-11 07:33] LABS: CHLORIDE 105 mmol/L (98-107); SODIUM 137 mmol/L (132-148)
[2017-02-11 07:34] LABS: POTASSIUM 3.4 mmol/L (3.6-5.2)
[2017-02-11 07:36] LABS: ALB/GLOB RATIO 0.7 (1.0-2.1); ALKALINE PHOSPHATASE 147 U/L (38-126); ALT/SGPT 19 U/L (9-52); AST/SGOT 22 U/L (14-36); BILIRUBIN,TOTAL 0.5 mg/dL (0.2-1.3); BLOOD UREA NITROGEN 4 mg/dL (7-17); CALCIUM 8.2 mg/dl (8.6-10.4); CARBON DIOXIDE 25 mmol/L (22-30); GFR AFRICAN-AMERICAN > 60; GLUCOSE,RANDOM 103 mg/dL (65-105)
[2017-02-11] MEDS ORDERED: Iodixanol 320 MG/ML 100 ML BOTTLE IV ONE (08:52)
--- NOTE | 2017-02-11 10:21 | CT ---
PROCEDURE: CT Abdomen and Pelvis with contrast HISTORY: s/p appendectomy r/o abcess COMPARISON: 02/01/2017 TECHNIQUE: Contrast dose: 100 mL Visipaque 320 Radiation dose: Total exam DLP = 1143.80 mGy-cm. This CT exam was performed using one or more of the following dose reduction techniques: Automated exposure control, adjustment of the mA and/or kV according to patient size, and/or use of iterative reconstruction technique. FINDINGS: LOWER THORAX: Unremarkable. LIVER: Normal size and contour. Diffusely diminished attenuation may indicate diffuse fatty infiltration. There are several very small nonspecific low-attenuation masses in both lobes of the liver, largest 6 mm. No change. No biliary dilatation. GALLBLADDER AND BILE DUCTS: Unremarkable. PANCREAS: Unremarkable. No gross lesion or ductal dilatation. SPLEEN: Unremarkable. ADRENALS: Unremarkable. No mass. KIDNEYS AND URETERS: Unremarkable. No hydronephrosis. No solid mass. VASCULATURE: Unremarkable. No aortic aneurysm. BOWEL: Unremarkable. No obstruction. No gross mural thickening. APPENDIX: Status post appendectomy. PERITONEUM: Unremarkable. No free fluid. No free air. LYMPH NODES: Unremarkable. No enlarged lymph nodes. BLADDER: Nondistended REPRODUCTIVE: Markedly enlarged uterus containing multiple with fibroids. Largest fibroid measures 13.6 cm in greatest dimension, unchanged. This shows possible central necrosis. Heterogeneous low attenuation is seen throughout the center of this fibroid in the upper right uterus. This is unchanged. Multiple smaller fibroids are identified. Left adnexal cyst, likely ovarian, 5 cm greatest dimension. This corresponds to a complex left ovarian cyst demonstrated on pelvic ultrasound 02/04/2017 measuring 4.6 cm in greatest dimension. BONES: No acute fracture. OTHER FINDINGS: None. IMPRESSION: Markedly enlarged multi fibroid uterus. 5 cm left ovarian cyst. No acute abnormalities.
[2017-02-11] MEDS ORDERED: Potassium Chloride 20 mEq ER Tab PO ONE ×2 (10:35→11:47)
[2017-02-11 13:04] LABS: MAGNESIUM 1.7 mg/dL (1.6-2.3)
--- NOTE | 2017-02-11 14:56 | CP.PCM.DIS ---
<Tiffani Rivera V - Last Filed: 02/11/17 18:18> Provider - Provider Date of Admission: 02/01/17 15:00 Attending physician: Tiffani Rivera DO Diagnosis - Discharge Diagnosis (1) Sepsis Status: Resolved (2) Complicated UTI (urinary tract infection) Status: Resolved (3) History of deep vein thrombosis (DVT) of lower extremity Status: Chronic (4) Fibroid Status: Chronic (5) Iron deficiency anemia Status: Chronic (6) Prophylactic measure Status: Acute Hospital Course - Lab Results Lab Results: Micro Results 02/02/17 10:32 Urine Urine Culture - Final No Growth (<1,000 CFU/ML) 02/01/17 Unknown Naris MRSA Culture (Admit) - Final MRSA NOT DETECTED 02/01/17 19:20 Urine Urine Culture - Final No Growth (<1,000 CFU/ML) Most Recent Lab Values WBC 11.4 K/uL (4.8-10.8) H 02/11/17 06:56 RBC 3.88 Mil/uL (3.80-5.20) 02/11/17 06:56 Hgb 9.6 g/dL (11.0-16.0) L 02/11/17 06:56 Hct 30.9 % (34.0-47.0) L 02/11/17 06:56 MCV 79.6 fL (81.0-99.0) L 02/11/17 06:56 MCH 24.8 pg (27.0-31.0) L 02/11/17 06:56 MCHC 31.2 g/dL (33.0-37.0) L 02/11/17 06:56 RDW 32.1 % (11.5-14.5) H 02/11/17 06:56 Plt Count 298 K/uL (130-400) 02/11/17 06:56 MPV 9.5 fL (7.2-11.7) 02/11/17 06:56 Neut % (Auto) 74.3 % (50.0-75.0) 02/11/17 06:56 Lymph % (Auto) 18.7 % (20.0-40.0) L 02/11/17 06:56 [place] % (Auto) 4.0 % (0.0-10.0) 02/11/17 06:56 Eos % (Auto) 1.5 % (0.0-4.0) 02/11/17 06:56 Baso % (Auto) 1.5 % (0.0-2.0) 02/11/17 06:56 Neut # 8.5 K/uL (1.8-7.0) H 02/11/17 06:56 Lymph # 2.1 K/uL (1.0-4.3) 02/11/17 06:56 [place] # 0.5 K/uL (0.0-0.8) 02/11/17 06:56 Eos # 0.2 K/uL (0.0-0.7) 02/11/17 06:56 Baso # 0.2 K/uL (0.0-0.2) 02/11/17 06:56 Neutrophils % (Manual) 90 % (50-75) H 02/03/17 05:54 Band Neutrophils % 1 % (0-2) 02/03/17 05:54 Lymphocytes % (Manual) 3 % (20-40) L 02/03/17 05:54 Monocytes % (Manual) 5 % (0-10) 02/03/17 05:54 Eosinophils % (Manual) 1 % (0-4) 02/02/17 20:30 Basophils % (Manual) 1 % (0-2) 02/01/17 13:40 Metamyelocytes % 1 % (0-0) H 02/03/17 05:54 Nucleated RBC % 1 % (0-0) H 02/01/17 13:40 Differential Comment 02/08/17 13:50 Platelet Estimate Normal (NORMAL) 02/03/17 05:54 Large Platelets Present 02/01/17 13:40 Polychromasia Slight 02/03/17 05:54 Hypochromasia (manual) Slight 02/03/17 05:54 Poikilocytosis (manual Slight 02/02/17 07:06 Anisocytosis (manual) Moderate 02/03/17 05:54 Microcytosis (manual) Slight 02/03/17 05:54 Macrocytosis (manual) Slight 02/01/17 13:40 Spherocytes Slight 02/01/17 13:40 Tear Drop Cells Slight 02/03/17 05:54 Ovalocytes Slight 02/03/17 05:54 Retic Count 2.2 % (0.5-1.5) H 02/04/17 11:25 Haptoglobin 212 mg/dL (43-212) 02/04/17 11:25 PT 32.9 SECONDS (9.7-12.2) H* D 02/11/17 06:56 INR 2.8 D 02/11/17 06:56 APTT 44 SECONDS (21-34) H 02/03/17 05:54 pO2 83 mm/Hg (30-55) H 02/03/17 05:17 VBG pH 7.45 (7.32-7.43) H 02/03/17 05:17 VBG pCO2 34 mmHg (40-60) L 02/03/17 05:17 VBG HCO3 25.0 mmol/L 02/03/17 05:17 VBG Total CO2 24.6 mmol/L (22-28) 02/03/17 05:17 VBG O2 Sat (Calc) 98.9 % (40-65) H 02/03/17 05:17 VBG Base Excess 0.1 mmol/L (0.0-2.0) 02/03/17 05:17 VBG Potassium 3.4 mmol/L (3.6-5.2) L 02/03/17 05:17 Sodium 136.0 mmol/l (132-148) 02/03/17 05:17 Chloride 107.0 mmol/L (98-107) 02/03/17 05:17 Glucose 110 mg/dl (65-105) H 02/03/17 05:17 Lactate 1.0 mmol/L (0.7-2.1) 02/03/17 05:17 Liter Flow 2.0 02/03/17 05:17 Sodium 137 mmol/L (132-148) 02/11/17 06:56 Potassium 3.4 mmol/L (3.6-5.2) L 02/11/17 06:56 Chloride 105 mmol/L (98-107) 02/11/17 06:56 Carbon Dioxide 25 mmol/L (22-30) 02/11/17 06:56 Anion Gap 10 (10-20) 02/11/17 06:56 BUN 4 mg/dL (7-17) L 02/11/17 06:56 Creatinine 0.4 MG/DL (0.7-1.2) L 02/11/17 06:56 Est GFR ( Amer) > 60 02/11/17 06:56 Est GFR (Non-Af Amer) > 60 02/11/17 06:56 Random Glucose 103 mg/dL (65-105) 02/11/17 06:56 Calcium 8.2 mg/dl (8.6-10.4) L 02/11/17 06:56 Phosphorus 3.9 mg/dL (2.5-4.5) 02/07/17 06:05 Magnesium 1.7 mg/dL (1.6-2.3) 02/11/17 06:56 Iron 52 ug/dL (37-170) 02/04/17 11:25 TIBC 221 ug/dL (250-450) L 02/04/17 11:25 % Saturation 23 (20-55) 02/04/17 11:25 Ferritin 226.0 ng/mL 02/04/17 11:25 Total Bilirubin 0.5 mg/dL (0.2-1.3) 02/11/17 06:56 AST 22 U/L (14-36) 02/11/17 06:56 ALT 19 U/L (9-52) 02/11/17 06:56 Alkaline Phosphatase 147 U/L (38-126) H 02/11/17 06:56 Total Protein 7.0 g/dL (6.3-8.3) 02/11/17 06:56 Albumin 2.8 g/dL (3.5-5.0) L 02/11/17 06:56 Globulin 4.1 gm/dL (2.2-3.9) H 02/11/17 06:56 Albumin/Globulin Ratio 0.7 (1.0-2.1) L 02/11/17 06:56 Alpha Fetoprotein < 0.8 ng/mL (0.0-7.5) 02/05/17 06:09 CA 19-9 Antigen 6.4 U/mL (0-37) 02/05/17 06:09 CA 125 Antigen 25.8 U/mL (0-35) 02/05/17 06:09 Vitamin B12 > 1000 pg/mL (239-931) H 02/04/17 11:25 Folate 6.0 ng/mL 02/04/17 11:25 Procalcitonin 0.29 NG/ML (0.19-0.49) 02/07/17 06:05 FSH 3rd Generation 10.6 mIU/mL 02/05/17 06:09 Venous Blood Potassium 3.4 mmol/L (3.6-5.2) L 02/03/17 05:17 Urine Color Light red (YELLOW) 02/02/17 10:47 Urine Clarity Hazy (Clear) 02/02/17 10:47 Urine pH 6.0 (5.0-8.0) 02/02/17 10:47 Ur Specific [place] 1.010 (1.003-1.030) 02/02/17 10:47 Urine Protein 2+ mg/dL (NEGATIVE) H 02/02/17 10:47 Urine Glucose (UA) 1+ mg/dL (Normal) 02/02/17 10:47 Urine Ketones Negative mg/dL (NEGATIVE) 02/02/17 10:47 Urine Blood 3+ (NEGATIVE) H 02/02/17 10:47 Urine Nitrate Negative (NEGATIVE) 02/02/17 10:47 Urine Bilirubin Negative (NEGATIVE) 02/02/17 10:47 Urine Urobilinogen Normal mg/dL (0.2-1.0) 02/02/17 10:47 Ur Leukocyte Esterase 3+ [place]/uL (Negative) H 02/02/17 10:47 Urine WBC (Auto) 501 /hpf (0-5) H 02/02/17 10:47 Urine RBC (Auto) 407 /hpf (0-3) H 02/02/17 10:47 Urine WBC Clumps (Auto) Many /hpf (NONE) H 02/02/17 10:47 Ur Squamous Epith Cells 5 /hpf (0-5) 02/02/17 10:47 Urine Bacteria Occ (<OCC) H 02/01/17 15:38 Urine HCG, Qual Negative (NEGATIVE) 02/01/17 15:38 Stool Occult Blood Positive (NEGATIVE) H 02/04/17 11:59 C. difficile Ag & Toxin Negative (NEGATIVE) 02/01/17 20:00 Blood Type B POSITIVE 02/01/17 22:27 Antibody Screen Negative 02/01/17 22:27 Discharge Plan - Discharge Medications Prescriptions: Warfarin [Coumadin] 1 mg PO 1800 #7 tab - Follow Up Plan Condition: STABLE Disposition: HOME/ ROUTINE Instructions: Warfarin (By mouth), Urinary Tract Infection in Women (DC), Heart Healthy Diet (DC), Deep Venous Thrombosis (DC), Sepsis (GEN) Additional Instructions: Patient is recommended to take Zyvox 600mg once twice a day for 7 days and with yogurt. Patient is also advised to take Coumadin 1mg once a day. Patient is scheduled for an INR check on Thursday02/16/17 at the [facility] must come at 8:30am. Patient also recommended to take Iron supplements and take with juice. Patient recommended to follow up at the [facility] to establish care post hospitalization and for referal for rug shampooer for fibroids. Patient should return to ED immediately if symptoms return or worsen. Instructions discussed with patient who understood and agreed. New perscriptions: Zyvox 600mg PO q12 (#14/no refills), Coumadin 1mg once a day (#7/no refills), Ferrrous Sulfate 325mg PO BID (#30/no refills) Referrals: Magno Emanuel [Staff Provider] - Nisa Goldstein MD [Staff Provider] - [facility] [Provider Group] - 7 Days (INR check Thursday) Attending/Attestation - Attestation I have personally seen and examined this patient.: Yes I have fully participated in the care of the patient.: Yes I have reviewed all pertinent clinical information, including history, physical exam and plan: Yes Notes (Text): Patient seen, examined and case discussed with day-time resident. Patient seen this morning; reports feeling well. Patient's repeat CT scan does not show abscess; shows fibroids. Discussed with infectious disease, patient is stable for discharge; recommended for Zyvox 600mg PO BID for 7 days. Patient has prescription filled from her recent discharge from [facility]. Discharge order and discharge instructions discussed with day-communications intern which include: Patient is scheduled for an INR check on Thursday02/16/17 at the [facility] must come at 8:30am for DVT therapy. Patient is recommended to take Zyvox 600mg once twice a day for 7 days and with yogurt. Patient is also advised to take Coumadin 1mg once a day. Patient is scheduled for an INR check on Thursday02/16/17 at the [facility] at [facility] must come at 8:30am. Patient also recommended to take Iron supplements and take with juice. Patient recommended to follow up at the [facility] to establish care post hospitalization and for referral for rug shampooer for fibroids and GI for screening colonoscopy. Patient should return to ED immediately if symptoms return or worsen. Instructions discussed with patient who understood and agreed. New prescriptions: Zyvox 600mg PO q12 (#14/no refills)-->has the script filled Coumadin 1mg once a day (#7/no refills)-->will need INR check and refill script pending INR level Ferrrous Sulfate 325mg PO BID (#30/no refills)-->advised to take with juice This is a summary of patient's hospitalization. Please see EMR for further details. Assessment and Plan (1) Sepsis Assessment & Plan: * Criteria: tachypneic, tachycardic, leukocytosis (with bandemia) and elevated lactate * Likely secondary to UTI complicated recurrent * Infectious Disease (Dr. Hernandez) on consult-->help appreciated * Abd/pelvis CT with IV contrast (02/01/17) - 1. Again identified is a markedly enlarged and heterogeneous uterus with markedly enlarged and innumerable fibroid lesions. At the right lateral aspect of the uterus, a partially necrotic and/or hemorrhagic fibroid lesion measures up to 14.4 x 16.2 centimeters. An additional lesion which is multilobulated also demonstrating necrotic and/or hemorrhagic components seen at the right lateral aspect of the uterus measures 15.9 x 11.5 centimeters. These may be better delineated with pelvic MRI if clinically indicated. Underlying neoplasm cannot be excluded. 2. Lobulated elliptical lesion measuring 5.2 x 4.0 centimeters demonstrating a Hounsfield unit attenuation of 7 seen at the level of the left adnexa which may represent a left adnexal cyst. This may be better evaluated with pelvic ultrasound if clinically indicated. 3. Evaluation of the lower abdominal bowel demonstrates fecal retention in the colon. Underdistention of the portion of the proximal sigmoid colon. Fecal retention within the remainder of the colon. Patient status post prior appendectomy with surgical clips noted in the right lower abdomen. 4. Enlarged liver with diffuse fatty infiltration. Scattered hypoattenuated foci in the liver, too small to adequately characterize. 5. Mild thickening of the urinary bladder wall. * Primaxin 500mg IV Q 6hour (active since 02/01/17) during hospitalization * Echocardiogram (02/02/17): normal LV systolic function, mild TR, Borderline dilated LA, no other significiant abnormality seen * UA: pyruia * Blood Culture (02/01/17): no growth * Urine culture (02/01/17): no growth * Urine culture (02/02/17) No growth * MRSA: not detected * Renal US (02/03/17): unremarkable sonographic evaluation of the kidneys. somewhat limited evaluation of the left kidney. incidentally noted a markedly enlarged fibroid urterus. underdistended urinary bladder. Mild thickening of the urinary bladder wall. * Procalcitonin: 16.72-->3.73-->0.27 * Ct abdomen/Pelvis (02/11/17): markedly enlarged multifibroid uterus. 5 cm left ovarian cyst. No acute abnormalities * Discharge instructions include: Patient is recommended to take Zyvox 600mg once twice a day for 7 days and with yogurt Status: Resolved (2) Complicated UTI (urinary tract infection) Status: Stablized * see above (3) History of deep vein thrombosis (DVT) of lower extremity Assessment & Plan: * 02/03/17 Lower venous doppler; No evidence of deep or superficial vein thrombus of the right and left lower extremities * Patient reports she only took Coumadin for 3 weeks. Will need at least 3 month therapy to complete first time DVT. INR: 2.0 * Therapuetic INR: 2.8 * Discharge instructions: Coumadin 1mg once a day (#7/no refills)-->will need INR check and refill script pending INR level when she follow-up on Thursday, february 16 for an INR check Status: Chronic (4) Fibroid Assessment & Plan: * Patient reports a history of irregular periods and history of fibroids * Pelvic US (02/04/17): markedly enlarged heterogenous uters contains multiple soft tissue mass lesions likely represent fibroids. Largest fibroid seen at the fundus measures 11.7 cm in the largest diameter. Complex cystic lesion at the left ovary measures 4.6 cm. * Discharge instructions include: will need referral to ob-research program manager when she establishes herself in the clinic for further workup. Status: Chronic (5) Iron deficiency anemia Assessment & Plan: * Given blood transfusion during admission * H/H monitored during admission while on blood thinner * B12 >1000, Folate: 6.0, Iron: 52, TIBC: 221, %saturation: 23, Ferritin: 226, Occult blood positive. monitor H/H * Per research program manager, no intervention at this time, follow-up outpatient for fibroids * Discharge instructions include: will need referral to ob-research program manager when she establishes herself in the clinic for further workup, will need GI referral for screening colonoscopy; and possible occult blood, and provided script iron supplements Status: Chronic (6) Prophylactic measure Assessment & Plan: * Protonix 40mg PO daily * Coumadin 1mg PO daily upon discharge-->f/u INR check for DVT therapy <Carolina Snow - Last Filed: 02/11/17 20:47> Provider - Provider Date of Admission: 02/01/17 15:00 Attending physician: Tiffani Rivera, Time Spent in preparation of Discharge (in minutes): 40 Diagnosis - Discharge Diagnosis (1) Sepsis Status: Resolved Comment: See hospital summary for further details. (2) Complicated UTI (urinary tract infection) Status: Resolved Comment: See hospital summary for further details. (3) Fibroid Status: Chronic Comment: See hospital summary for further details. (4) History of deep vein thrombosis (DVT) of lower extremity Status: Chronic Comment: See hospital summary for further details. (5) Iron deficiency anemia Status: Chronic Comment: See hospital summary for further details. Hospital Course - Lab Results Lab Results: Micro Results 02/02/17 10:32 Urine Urine Culture - Final No Growth (<1,000 CFU/ML) 02/01/17 Unknown Naris MRSA Culture (Admit) - Final MRSA NOT DETECTED 02/01/17 19:20 Urine Urine Culture - Final No Growth (<1,000 CFU/ML) Most Recent Lab Values WBC 11.4 K/uL (4.8-10.8) H 02/11/17 06:56 RBC 3.88 Mil/uL (3.80-5.20) 02/11/17 06:56 Hgb 9.6 g/dL (11.0-16.0) L 02/11/17 06:56 Hct 30.9 % (34.0-47.0) L 02/11/17 06:56 MCV 79.6 fL (81.0-99.0) L 02/11/17 06:56 MCH 24.8 pg (27.0-31.0) L 02/11/17 06:56 MCHC 31.2 g/dL (33.0-37.0) L 02/11/17 06:56 RDW 32.1 % (11.5-14.5) H 02/11/17 06:56 Plt Count 298 K/uL (130-400) 02/11/17 06:56 MPV 9.5 fL (7.2-11.7) 02/11/17 06:56 Neut % (Auto) 74.3 % (50.0-75.0) 02/11/17 06:56 Lymph % (Auto) 18.7 % (20.0-40.0) L 02/11/17 06:56 [place] % (Auto) 4.0 % (0.0-10.0) 02/11/17 06:56 Eos % (Auto) 1.5 % (0.0-4.0) 02/11/17 06:56 Baso % (Auto) 1.5 % (0.0-2.0) 02/11/17 06:56 Neut # 8.5 K/uL (1.8-7.0) H 02/11/17 06:56 Lymph # 2.1 K/uL (1.0-4.3) 02/11/17 06:56 [place] # 0.5 K/uL (0.0-0.8) 02/11/17 06:56 Eos # 0.2 K/uL (0.0-0.7) 02/11/17 06:56 Baso # 0.2 K/uL (0.0-0.2) 02/11/17 06:56 Neutrophils % (Manual) 90 % (50-75) H 02/03/17 05:54 Band Neutrophils % 1 % (0-2) 02/03/17 05:54 Lymphocytes % (Manual) 3 % (20-40) L 02/03/17 05:54 Monocytes % (Manual) 5 % (0-10) 02/03/17 05:54 Eosinophils % (Manual) 1 % (0-4) 02/02/17 20:30 Basophils % (Manual) 1 % (0-2) 02/01/17 13:40 Metamyelocytes % 1 % (0-0) H 02/03/17 05:54 Nucleated RBC % 1 % (0-0) H 02/01/17 13:40 Differential Comment 02/08/17 13:50 Platelet Estimate Normal (NORMAL) 02/03/17 05:54 Large Platelets Present 02/01/17 13:40 Polychromasia Slight 02/03/17 05:54 Hypochromasia (manual) Slight 02/03/17 05:54 Poikilocytosis (manual Slight 02/02/17 07:06 Anisocytosis (manual) Moderate 02/03/17 05:54 Microcytosis (manual) Slight 02/03/17 05:54 Macrocytosis (manual) Slight 02/01/17 13:40 Spherocytes Slight 02/01/17 13:40 Tear Drop Cells Slight 02/03/17 05:54 Ovalocytes Slight 02/03/17 05:54 Retic Count 2.2 % (0.5-1.5) H 02/04/17 11:25 Haptoglobin 212 mg/dL (43-212) 02/04/17 11:25 PT 32.9 SECONDS (9.7-12.2) H* D 02/11/17 06:56 INR 2.8 D 02/11/17 06:56 APTT 44 SECONDS (21-34) H 02/03/17 05:54 pO2 83 mm/Hg (30-55) H 02/03/17 05:17 VBG pH 7.45 (7.32-7.43) H 02/03/17 05:17 VBG pCO2 34 mmHg (40-60) L 02/03/17 05:17 VBG HCO3 25.0 mmol/L 02/03/17 05:17 VBG Total CO2 24.6 mmol/L (22-28) 02/03/17 05:17 VBG O2 Sat (Calc) 98.9 % (40-65) H 02/03/17 05:17 VBG Base Excess 0.1 mmol/L (0.0-2.0) 02/03/17 05:17 VBG Potassium 3.4 mmol/L (3.6-5.2) L 02/03/17 05:17 Sodium 136.0 mmol/l (132-148) 02/03/17 05:17 Chloride 107.0 mmol/L (98-107) 02/03/17 05:17 Glucose 110 mg/dl (65-105) H 02/03/17 05:17 Lactate 1.0 mmol/L (0.7-2.1) 02/03/17 05:17 Liter Flow 2.0 02/03/17 05:17 Sodium 137 mmol/L (132-148) 02/11/17 06:56 Potassium 3.4 mmol/L (3.6-5.2) L 02/11/17 06:56 Chloride 105 mmol/L (98-107) 02/11/17 06:56 Carbon Dioxide 25 mmol/L (22-30) 02/11/17 06:56 Anion Gap 10 (10-20) 02/11/17 06:56 BUN 4 mg/dL (7-17) L 02/11/17 06:56 Creatinine 0.4 MG/DL (0.7-1.2) L 02/11/17 06:56 Est GFR ( Amer) > 60 02/11/17 06:56 Est GFR (Non-Af Amer) > 60 02/11/17 06:56 Random Glucose 103 mg/dL (65-105) 02/11/17 06:56 Calcium 8.2 mg/dl (8.6-10.4) L 02/11/17 06:56 Phosphorus 3.9 mg/dL (2.5-4.5) 02/07/17 06:05 Magnesium 1.7 mg/dL (1.6-2.3) 02/11/17 06:56 Iron 52 ug/dL (37-170) 02/04/17 11:25 TIBC 221 ug/dL (250-450) L 02/04/17 11:25 % Saturation 23 (20-55) 02/04/17 11:25 Ferritin 226.0 ng/mL 02/04/17 11:25 Total Bilirubin 0.5 mg/dL (0.2-1.3) 02/11/17 06:56 AST 22 U/L (14-36) 02/11/17 06:56 ALT 19 U/L (9-52) 02/11/17 06:56 Alkaline Phosphatase 147 U/L (38-126) H 02/11/17 06:56 Total Protein 7.0 g/dL (6.3-8.3) 02/11/17 06:56 Albumin 2.8 g/dL (3.5-5.0) L 02/11/17 06:56 Globulin 4.1 gm/dL (2.2-3.9) H 02/11/17 06:56 Albumin/Globulin Ratio 0.7 (1.0-2.1) L 02/11/17 06:56 Alpha Fetoprotein < 0.8 ng/mL (0.0-7.5) 02/05/17 06:09 CA 19-9 Antigen 6.4 U/mL (0-37) 02/05/17 06:09 CA 125 Antigen 25.8 U/mL (0-35) 02/05/17 06:09 Vitamin B12 > 1000 pg/mL (239-931) H 02/04/17 11:25 Folate 6.0 ng/mL 02/04/17 11:25 Procalcitonin 0.29 NG/ML (0.19-0.49) 02/07/17 06:05 FSH 3rd Generation 10.6 mIU/mL 02/05/17 06:09 Venous Blood Potassium 3.4 mmol/L (3.6-5.2) L 02/03/17 05:17 Urine Color Light red (YELLOW) 02/02/17 10:47 Urine Clarity Hazy (Clear) 02/02/17 10:47 Urine pH 6.0 (5.0-8.0) 02/02/17 10:47 Ur Specific [place] 1.010 (1.003-1.030) 02/02/17 10:47 Urine Protein 2+ mg/dL (NEGATIVE) H 02/02/17 10:47 Urine Glucose (UA) 1+ mg/dL (Normal) 02/02/17 10:47 Urine Ketones Negative mg/dL (NEGATIVE) 02/02/17 10:47 Urine Blood 3+ (NEGATIVE) H 02/02/17 10:47 Urine Nitrate Negative (NEGATIVE) 02/02/17 10:47 Urine Bilirubin Negative (NEGATIVE) 02/02/17 10:47 Urine Urobilinogen Normal mg/dL (0.2-1.0) 02/02/17 10:47 Ur Leukocyte Esterase 3+ [place]/uL (Negative) H 02/02/17 10:47 Urine WBC (Auto) 501 /hpf (0-5) H 02/02/17 10:47 Urine RBC (Auto) 407 /hpf (0-3) H 02/02/17 10:47 Urine WBC Clumps (Auto) Many /hpf (NONE) H 02/02/17 10:47 Ur Squamous Epith Cells 5 /hpf (0-5) 02/02/17 10:47 Urine Bacteria Occ (<OCC) H 02/01/17 15:38 Urine HCG, Qual Negative (NEGATIVE) 02/01/17 15:38 Stool Occult Blood Positive (NEGATIVE) H 02/04/17 11:59 C. difficile Ag & Toxin Negative (NEGATIVE) 02/01/17 20:00 Blood Type B POSITIVE 02/01/17 22:27 Antibody Screen Negative 02/01/17 22:27 - Hospital Course Hospital Course: On admission: This is a 51 yo F with PMH significant for iron deficiency anemia , DVT on coumadin and recent appendectomy, followed by a re-admission with complicated hospital course, requiring intubation, that now presents with fever and chills Pt had a lap-appendectomy on 01/02 with no complications. A few days later after an infusion treatment for her iron deficiency anemia, she developed swelling and pain at IV site and returned to [facility] where she was re-admitted. She was also found to have a UTI and gram negative rods bacteremia. She was placed on abx but eventually developed respiratory failure requiring intubation and ICU. However, she was able to recover and was discharged on 01/30/17 with Zyvox. The very next day she reported fevers, chills and diarrhea. She also admits to a dry cough and dysuria. She otherwise denies any pain, MCCORD, sob, nausea, vomiting. Patient admitted to intensive care unit. Infectious disease (Dr. Hernandez), and obstetrics and gynecology (Dr. Farooq) were consulted on her case. Patient underwent sepsis workup. Patient's workup included blood and urine cultures and completed imaging which showed: Abd/pelvis CT with IV contrast (02/01/17) - 1. Again identified is a markedly enlarged and heterogeneous uterus with markedly enlarged and innumerable fibroid lesions. At the right lateral aspect of the uterus, a partially necrotic and/or hemorrhagic fibroid lesion measures up to 14.4 x 16.2 centimeters. An additional lesion which is multilobulated also demonstrating necrotic and/or hemorrhagic components seen at the right lateral aspect of the uterus measures 15.9 x 11.5 centimeters. These may be better delineated with pelvic MRI if clinically indicated. Underlying neoplasm cannot be excluded. 2. Lobulated elliptical lesion measuring 5.2 x 4.0 centimeters demonstrating a Hounsfield unit attenuation of 7 seen at the level of the left adnexa which may represent a left adnexal cyst. This may be better evaluated with pelvic ultrasound if clinically indicated. 3. Evaluation of the lower abdominal bowel demonstrates fecal retention in the colon. Underdistention of the portion of the proximal sigmoid colon. Fecal retention within the remainder of the colon. Patient status post prior appendectomy with surgical clips noted in the right lower abdomen. 4. Enlarged liver with diffuse fatty infiltration. Scattered hypoattenuated foci in the liver, too small to adequately characterize. 5. Mild thickening of the urinary bladder wall. Renal US (02/03/17): unremarkable sonographic evaluation of the kidneys. somewhat limited evaluation of the left kidney. incidentally noted a markedly enlarged fibroid urterus. underdistended urinary bladder. Mild thickening of the urinary bladder wall. Patient was started on IV antibiotics to cover for complicated urinary tract infection based on abnormal urinary analysis. Patient was closely monitored and stabilized to telemetry floor. Patient noted for fibroid. Obstetrics and gynecology (Dr. Farooq) on case determined: Pelvic US (02/04/17): markedly enlarged heterogenous uters contains multiple soft tissue mass lesions likely represent fibroids. Largest fibroid seen at the fundus measures 11.7 cm in the largest diameter. Complex cystic lesion at the left ovary measures 4.6 cm. Patient treated for prior deep vein thrombosis, and closely monitored hemoglobin and hematocrit while on anticoagulation. Patient stable for discharge per Dr. Rivera. Per infectious disease patient is stable for discharge. Patient is recommended to take Zyvox 600mg once twice a day for 7 days and with yogurt. Patient is also advised to take Coumadin 1mg once a day. Patient is scheduled for an INR check on Thursday02/16/17 at the [facility] must come at 8:30am. Patient also recommended to take Iron supplements and take with juice. Patient recommended to follow up at the [facility] to establish care post hospitalization and for referal for rug shampooer for fibroids. Patient should return to ED immediately if symptoms return or worsen. Instructions discussed with patient who understood and agreed. New perscriptions: Zyvox 600mg PO q12 (#14/no refills), Coumadin 1mg once a day (#7/no refills), Ferrrous Sulfate 325mg PO BID (#30/no refills) This is a summary of patient's hospitalization please refer to EMR for further details of the record. Discharge Exam - Head Exam Head Exam: ATRAUMATIC, NORMAL INSPECTION, NORMOCEPHALIC - Respiratory Exam Respiratory Exam: Clear to PA & Lateral, NORMAL BREATHING PATTERN - Cardiovascular Exam Cardiovascular Exam: REGULAR RHYTHM - GI/Abdominal Exam GI & Abdominal Exam: Normal Bowel Sounds, Soft. absent: Tenderness - Neurological Exam Neurological exam: Alert, Oriented x3
[2017-02-11] MEDS ORDERED: Magnesium Sulfate 1 gm in D5W 1 GM/100 ML BAG IVPB ONE (15:29)
[2017-02-11 16:48] VITALS: BP 109/70
[2017-02-11 16:58] VITALS: PULSE 65; RESP 18; TEMP 98.4; O2SAT 98
[2017-02-11] MEDS ORDERED: Bisacodyl 5mg EC Tab PO ONE (17:03)
== END 2017-02-11 18:30 | disposition home or self-care (01) | DRG 901 ==
LOC: C.ER 12:45 → C.9I 15:00 → C.6T 02-07 07:25
PROVIDERS: ADMIT Internal Medicine; ATTEND Hospitalist
DX: A41.9 Sepsis, unspecified organism (principal); K76.0 Fatty (change of) liver, not elsewhere classified; E87.6 Hypokalemia; N39.0 Urinary tract infection, site not specified; D50.9 Iron deficiency anemia, unspecified; D25.9 Leiomyoma of uterus, unspecified; K59.00 Constipation, unspecified; N92.0 Excessive and frequent menstruation with regular cycle; R65.20 Severe sepsis without septic shock; Z86.718 Personal history of other venous thrombosis and embolism; B96.89 Other specified bacterial agents as the cause of diseases classified elsewhere

== ENCOUNTER 2017-02-14 16:46 | Inpatient (IN) | payer OTHER ==
[2017-02-14 16:46] VITALS: BMI 43.0
[2017-02-14] MEDS ORDERED: Sodium Chloride 0.9% 1,000 ML IV ONE (17:19)
--- NOTE | 2017-02-14 17:20 | C.PDOC ---
History Of Present Illness Patient is a 51 year old female who presents to the ER with a complaint of fever and palpitations that began this morning. Patient was admitted 02/01-02/11 for sepsis due to appendicitis; has been bed bound for weeks. Denies nausea, vomiting or SOB. Time Seen by Provider: 02/14/17 17:11 Chief Complaint (Nursing): Chest Pain History Per: Patient History/Exam Limitations: no limitations Onset/Duration Of Symptoms: Hrs (Since AM) Current Symptoms Are (Timing): Still Present Associated Symptoms: denies: Nausea, Dyspnea, Other (Vomiting) Modifying Factors: None Exacerbating Factors: None Alleviating Factors: None Recent travel outside of the [place]: No Past Medical History Reviewed: Historical Data, Nursing Documentation, Vital Signs Vital Signs: Last Vital Signs Temp 97.8 F 02/14/17 22:42 Pulse 76 02/14/17 22:42 Resp 16 02/14/17 22:42 BP 112/73 02/14/17 22:42 Pulse Ox 98 02/14/17 22:42 - Medical History PMH: Anemia, Deep Vein Thrombosis (to leg doesnt remember which one) Surgical History: No Surg Hx - [facility] Procedures EXTRACTION OF ENDOMETRIUM, VIA OPENING, DIAGN (01/08/17) INSERTION OF ENDOTRACHEAL AIRWAY INTO TRACHEA, VIA OPENING (01/08/17) INSERTION OF INFUSION DEV INTO R FEMOR VEIN, PERC APPROACH (01/08/17) INSERTION OF INFUSION DEV INTO SUP VENA CAVA, PERC APPROACH (01/08/17) RESECTION OF APPENDIX, PERCUTANEOUS ENDOSCOPIC APPROACH (01/01/17) RESPIRATORY VENTILATION, 24-96 CONSECUTIVE HOURS (01/08/17) TRANSFUSE NONAUT RED BLOOD CELLS IN PERIPH VEIN, PERC (01/08/17) Family History: States: Diabetes - Social History Hx Alcohol Use: No Hx Substance Use: No - Immunization History Hx Tetanus Toxoid Vaccination: No Hx Influenza Vaccination: No Hx Pneumococcal Vaccination: No Review Of Systems Constitutional: Positive for: Fever Cardiovascular: Positive for: Palpitations Respiratory: Negative for: Shortness of Breath Gastrointestinal: Negative for: Nausea, Vomiting Physical Exam - Physical Exam Appears: Non-toxic, No Acute Distress, Other (Anxious, appears older than age given) Skin: Normal Color, Warm, Dry Head: Atraumatic, Normacephalic Oral Mucosa: Moist Chest: Symmetrical, No Tenderness Cardiovascular: Rhythm Regular, No Murmur Respiratory: Normal Breath Sounds, No Rales, No Rhonchi, No Wheezing Gastrointestinal/Abdominal: Soft, No Tenderness Neurological/Psych: Oriented x3, Normal Speech, Normal Cognition ED Course And Treatment - Laboratory Results Result Diagrams: 02/14/17 17:42 02/14/17 17:42 Lab Interpretation: Abnormal (Ua neg, d-dimer 296 H) ECG: Interpreted By Il ECG Rhythm: Sinus Rhythm ECG Interpretation: Normal Rate From EC O2 Sat by Pulse Oximetry: 100 Pulse Ox Interpretation: Normal - Radiology CXR: Interpreted by Me CXR Interpretation: Yes: No Acute Disease - CT Scan/US CTA Other Rad Studies (CT/US): Read By Radiologist, Radiology Report Reviewed CT/US Interpretation: IMPRESSION: No acute chest pathology. No filling defects suspicious for pulmonary emboli are seen. There is no CT evidence of aortic dissection nor leakage. No aortic aneurysm is appreciated. Progress Note: CTA, EKG, blood culture and urine culture ordered. IV fluids administered. Reevaluation Time: 21:13 Reassessment Condition: Improved - Physician Consult Information Outcome Of Conversation: 1700 and 2100: d/w Hospitalists- Dr. Ruddy colby to Obs. Will consider abx changes. Medical Decision Making Medical Decision Making: recent sepsis related to AP, now febrile and leukocytosis again d-dimer elevated, neg for PE consider endocarditis? ABX changes per per prior antibacteriograms and per Hospitalists. Disposition Doctor Will See Patient In The: Hospital Counseled Patient/Family Regarding: Studies Performed, Diagnosis - Disposition Disposition: HOSPITALIZED Disposition Time: 21:14 Condition: GOOD - Clinical Impression Clinical Impression: Chest discomfort, Fever - Scribe Statement The provider has reviewed the documentation as recorded by the Afua Patel All medical record entries made by the Arnulfoibamol were at my direction and personally dictated by me. I have reviewed the chart and agree that the record accurately reflects my personal performance of the history, physical exam, medical decision making, and the department course for this patient. I have also personally directed, reviewed, and agree with the discharge instructions and disposition.
--- NOTE | 2017-02-14 17:47 | RAD ---
PROCEDURE: CHEST RADIOGRAPH, 1 VIEW HISTORY: SOB COMPARISON: 02/01/2017 FINDINGS: LUNGS: Clear. PLEURA: No pneumothorax or pleural fluid seen. CARDIOVASCULAR: Normal. OSSEOUS STRUCTURES: No significant abnormalities. VISUALIZED UPPER ABDOMEN: Normal. OTHER FINDINGS: None. IMPRESSION: No active disease.
[2017-02-14 17:48] LABS: BASO # 0.1 K/uL (0.0-0.2); BASO % 0.8 % (0.0-2.0); EOS # 0.1 K/uL (0.0-0.7); EOS % 0.6 % (0.0-4.0); HEMOGLOBIN 10.3 g/dL (11.0-16.0); LYMPH # 1.9 K/uL (1.0-4.3); LYMPH % 9.7 % (20.0-40.0); MEAN CELL VOLUME 80.2 fL (81.0-99.0); MEAN CORPUSCULAR HGB CONC 32.4 g/dL (33.0-37.0); MONO % 5.1 % (0.0-10.0); NEUT # 16.5 K/uL (1.8-7.0); NEUT % 83.8 % (50.0-75.0); PLATELET COUNT 281 K/uL (130-400); RBC 3.95 Mil/uL (3.80-5.20); RED CELL DISTRIBUTION WIDTH 30.6 % (11.5-14.5); WHITE BLOOD COUNT 19.7 K/uL (4.8-10.8)
[2017-02-14 17:55] LABS: ALBUMIN 3.4 g/dL (3.5-5.0)
[2017-02-14 17:57] LABS: INR 2.2
[2017-02-14 17:58] LABS: ALB/GLOB RATIO 0.8 (1.0-2.1); AST/SGOT 34 U/L (14-36); BLOOD UREA NITROGEN 6 mg/dL (7-17); GFR AFRICAN-AMERICAN > 60; GFR NON-AFRICAN AMERICAN > 60
[2017-02-14 17:59] LABS: ALT/SGPT 17 U/L (9-52); CALCIUM 8.7 mg/dl (8.6-10.4)
[2017-02-14 18:06] LABS: SQUAMOUS EPITHIAL < 1 /hpf (0-5); URINE BILIRUBIN NEGATIVE (NEGATIVE); URINE BLOOD 2+ (NEGATIVE); URINE CLARITY Clear (Clear); URINE COLOR Colorless (YELLOW); URINE GLUCOSE (UA) NORMAL (Normal); URINE LEUKOCYTE ESTERASE 2+ Leu/uL (Negative); URINE NITRATE NEGATIVE (NEGATIVE); URINE PROTEIN NEGATIVE (NEGATIVE); URINE UROBILINOGEN NORMAL mg/dL (0.2-1.0)
[2017-02-14 18:08] LABS: B-TYPE NATRIURETIC PEPTIDE 280 pg/mL (0-900)
[2017-02-14 18:20] LABS: LYMPHOCYTE 9 % (20-40); MONOCYTE 3 % (0-10); NEUTROPHIL 88 % (50-75); TOTAL CELLS COUNTED 100
[2017-02-14 18:21] LABS: ANISOCYTOSIS MODERATE; HYPOCHROMIC SLIGHT; MICROCYTOSIS SLIGHT; PLATELET ESTIMATE NORMAL (NORMAL)
[2017-02-14 18:22] LABS: OVALOCYTES SLIGHT; POLYCHROMIC SLIGHT
[2017-02-14 18:42] LABS: VENOUS BLOOD GAS BASE EXCESS 0.1 mmol/L (0.0-2.0); VENOUS BLOOD GAS PCO2 39 mmHg (40-60); VENOUS BLOOD GAS PO2 39 mm/Hg (30-55); VENOUS BLOOD PH 7.41 (7.32-7.43)
[2017-02-14] MEDS ORDERED: Iodixanol 320 MG/ML 100 ML BOTTLE IV ONE (19:34)
[2017-02-14] MEDS ORDERED: (Novolin R) Insulin Human Regular 100 units/ml vial IV ONE (22:43)
[2017-02-14] MEDS: Sodium Chloride 0.9% 1,000 ML IV SCH (23:52)
[2017-02-15 00:01] LABS: CK-MB 0.24 ng/mL (0.0-3.38)
--- NOTE | 2017-02-15 01:05 | CP.PCM.HP ---
<Layo Snowssaj Cam - Last Filed: 02/15/17 02:39> History of Present Illness - History of Present Illness History of Present Illness: PMD: [facility] CC: "Fever" HPI: 51 year old female with past medical history of urinary tract infection, fibroids, anemia, dvt presents to the ED with fever. Patient states she had a fever today at 9AM at 101 degrees and after taking 2 Motrin her temperature went down to 97 degrees. Patient states she sweated when she had the fever. Patient states she feels short of breath with exertion. Patient states she feels chest pressure. Patient denies headache, change in vision, nausea, vomiting, dysuria, hematuria, diarrhea or constipation. Past Medical History: Fibroids, Urinary tract infection, anemia, DVT Past Surgical History: Appendectomy Family History: Mom: hypertension, stomach cancer, passed at the age of 68 Medications: Ferrous Sulfate 325BID, 1mg Coumadin once per day, Linezolid 600mg Allergies: Vancomycin Social: Lives at home with , unemployed, denies alcohol, smoking, illicit drugs Present on Admission - Present on Admission Any Indicators Present on Admission: Yes History of DVT/PE: Yes Review of Systems - Review of Systems Systems not reviewed;Unavailable: Language Barrier (speaks slovak) - Constitutional Constitutional: Fever. absent: Chills, Headache - EENT Eyes: absent: Blurred Vision, Change in Vision Nose/Mouth/Throat: absent: Nasal Congestion, Nasal Discharge, Sore Throat - Cardiovascular Cardiovascular: Chest Pain (chest pressure), Dyspnea on Exertion. absent: Chest Pain at Rest, Edema, Leg Edema, Lightheadedness, Pedal Edema, Radiating Pain, Rapid Heart Rate - Respiratory Respiratory: absent: Cough, Dyspnea, Stridor, Pain on Inspiration, Chest Congestion Additional comments: shortness of breath on exertion - Gastrointestinal Gastrointestinal: absent: Abdominal Pain, Constipation, Diarrhea, Nausea, Vomiting - Genitourinary Genitourinary: absent: Dysuria, Flank Pain, Hematuria - Reproductive: Female Additional comments: no vaginal bleeding - Musculoskeletal Musculoskeletal: absent: Arthralgias, Numbness, Tingling - Neurological Neurological: absent: Dizziness, Numbness, Headaches, Loss of Vision, Tingling - Endocrine Endocrine: Excessive Sweating (during the fever on thursday morning ) Past Patient History - Infectious Disease Hx of Infectious Diseases: None - Past Medical History & Family History Past Medical History?: No - Past Social History Smoking Status: Never Smoked - CARDIAC Hx Cardiac Disorders: No - PULMONARY Hx Respiratory Disorders: No - NEUROLOGICAL Hx Neurological Disorder: No - HEENT Hx HEENT Problems: No - RENAL Hx Chronic Kidney Disease: No - ENDOCRINE/METABOLIC Hx Endocrine Disorders: No - HEMATOLOGICAL/ONCOLOGICAL Hx Anemia: Yes - INTEGUMENTARY Hx Dermatological Problems: No - MUSCULOSKELETAL/RHEUMATOLOGICAL Hx Musculoskeletal Disorders: No Hx Falls: No - GASTROINTESTINAL Hx Gastrointestinal Disorders: No - GENITOURINARY/GYNECOLOGICAL Other/Comment: uterine fibroids - PSYCHIATRIC Hx Substance Use: No - SURGICAL HISTORY Hx Surgeries: Yes Other/Comment: APPENDECTOMY-JAN 01 2017 - ANESTHESIA Hx Anesthesia: Yes Hx Anesthesia Reactions: No Hx Malignant Hyperthermia: No Meds Allergies/Adverse Reactions: Allergies Allergy/AdvReac Type Severity Reaction Status Date / Time vancomycin Allergy Severe REDNESS Verified 02/14/17 17:06 Physical Exam - Constitutional Appears: No Acute Distress - Head Exam Head Exam: NORMAL INSPECTION, NORMOCEPHALIC - Eye Exam Eye Exam: EOMI, PERRL - ENT Exam ENT Exam: Mucous Membranes Moist - Neck Exam Neck exam: Positive for: Full Rom, Normal Inspection - Respiratory Exam Respiratory Exam: Clear to Auscultation Bilateral, NORMAL BREATHING PATTERN. absent: Rales, Rhonchi, Wheezes, Stridor - Cardiovascular Exam Cardiovascular Exam: REGULAR RHYTHM, RRR, +S1, +S2. absent: JVD - GI/Abdominal Exam GI & Abdominal Exam: Normal Bowel Sounds, Soft. absent: Distended, Rebound, Rigid, Tenderness - Extremities Exam Extremities exam: Positive for: normal inspection, pedal pulses present. Negative for: calf tenderness, joint swelling, pedal edema, tenderness - Back Exam Back exam: absent: CVA tenderness (L), CVA tenderness (R) - Neurological Exam Neurological exam: Alert, Oriented x3 - Skin Skin Exam: Normal Color, Warm Results - Vital Signs Recent Vital Signs: Last Vital Signs Temp 98.0 F 02/15/17 00:05 Pulse 85 02/15/17 00:05 Resp 20 02/15/17 00:05 BP 112/75 02/15/17 00:05 Pulse Ox 100 02/15/17 00:39 - Labs Result Diagrams: 02/14/17 17:42 02/14/17 17:42 Labs: Laboratory Results - last 24 hr 02/14/17 02/14/17 23:37 23:37 Lactic Acid 0.7 Total Creatine Kinase < 20 L CK-MB (Mass) 0.24 Troponin I, Quant < 0.0120 Assessment & Plan - Assessment and Plan (Free Text) Assessment: 51 year old female with past medical history of urinary tract infection , fibroids, anemia, dvt presents to the ED with fever. Plan: 1.) Fever * Infectious Disease Consult: Dr. Hernandez ---> help appreciated * 500mg Primaxin q6h * 600mg Zyvox q12h * f/u blood culture * f/u urine culture * f/u procalcitonin * f/u Lactate Level 2.) Chest Pain * f/u ECHO * f/u JOE x3 * f/u EKG x3 * f/u Angio Chest 3.) History of DVT * Coumadin 1mg PO daily * PT/INR: 26.0/2.2 4.) Chronic Anemia * Monitor H/H: 10.3/31.7 * 325mg Ferrous Sulfate PO BID 5.) History of Fibroid Patient reports a history of irregular periods and history of fibroids * Pelvic US (02/04/17): markedly enlarged heterogenous uters contains multiple soft tissue mass lesions likely represent fibroids. Largest fibroid seen at the fundus measures 11.7 cm in the largest diameter. Complex cystic lesion at the left ovary measures 4.6 cm. 6.) Prophylaxis * Protonix 40mg PO daily <Gene Pabon - Last Filed: 02/15/17 06:36> Results - Vital Signs Recent Vital Signs: Last Vital Signs Temp 98.0 F 02/15/17 00:05 Pulse 85 02/15/17 00:05 Resp 20 02/15/17 00:05 BP 112/75 02/15/17 00:05 Pulse Ox 100 02/15/17 00:39 - Labs Result Diagrams: 02/15/17 05:37 02/15/17 05:37 Labs: Laboratory Results - last 24 hr 02/14/17 02/14/17 02/15/17 23:37 23:37 05:37 WBC RBC Hgb Hct MCV MCH MCHC RDW Plt Count MPV Neut % (Auto) Lymph % (Auto) [place] % (Auto) Eos % (Auto) Baso % (Auto) Neut # Lymph # [place] # Eos # Baso # Sodium 135 Potassium 3.7 Chloride 100 Carbon Dioxide 24 Anion Gap 15 BUN 6 L Creatinine 0.5 L Est GFR ( Amer) > 60 Est GFR (Non-Af Amer) > 60 Random Glucose 110 H Lactic Acid 0.7 Calcium 7.8 L Phosphorus 4.5 Magnesium 1.7 Total Bilirubin 0.4 AST 22 ALT 20 Alkaline Phosphatase 186 H Total Creatine Kinase < 20 L < 20 L CK-MB (Mass) 0.24 < 0.22 Troponin I, Quant < 0.0120 < 0.0120 Total Protein 7.3 Albumin 3.1 L Globulin 4.2 H Albumin/Globulin Ratio 0.7 L 02/15/17 05:37 WBC 11.6 H RBC 3.72 L Hgb 9.7 L Hct 30.3 L MCV 81.3 MCH 26.0 L MCHC 32.0 L RDW 30.8 H Plt Count 269 MPV 9.3 Neut % (Auto) 73.5 Lymph % (Auto) 15.4 L [place] % (Auto) 7.9 Eos % (Auto) 2.0 Baso % (Auto) 1.2 Neut # 8.6 H Lymph # 1.8 [place] # 0.9 H Eos # 0.2 Baso # 0.1 Sodium Potassium Chloride Carbon Dioxide Anion Gap BUN Creatinine Est GFR ( Amer) Est GFR (Non-Af Amer) Random Glucose Lactic Acid Calcium Phosphorus Magnesium Total Bilirubin AST ALT Alkaline Phosphatase Total Creatine Kinase CK-MB (Mass) Troponin I, Quant Total Protein Albumin Globulin Albumin/Globulin Ratio Assessment & Plan - Date & Time Date: 02/15/17 (I have seen and examined the patient. I agree with the findings and plan of care as documented by Dr. Snow. Patient with UTI, recent admission for Sepsis, returns positive for SIRS. Patient sent home on Linezolid, but returns due to fever, chest pain, and SOB. Consult to ID. Start Primaxin and Zyvox. Monitor vitals closely. Check urine and blool cultures. ROMIx3 with EKG. Check 2D Echo. Monitor for acute changes.) Time: 06:33 Attending/Attestation - Attestation I have personally seen and examined this patient.: Yes I have fully participated in the care of the patient.: Yes I have reviewed all pertinent clinical information: Yes
[2017-02-15] MEDS: Linezolid 600 mg in D5W 300 ml 600 MG/300 ML BAG IVPB SCH ×2 (01:35→15:44)
[2017-02-15 05:47] LABS: BASO # 0.1 K/uL (0.0-0.2); BASO % 1.2 % (0.0-2.0); EOS # 0.2 K/uL (0.0-0.7); HEMOGLOBIN 9.7 g/dL (11.0-16.0); LYMPH # 1.8 K/uL (1.0-4.3); LYMPH % 15.4 % (20.0-40.0); MEAN CELL VOLUME 81.3 fL (81.0-99.0); MEAN PLATELET VOLUME 9.3 fL (7.2-11.7); MONO # 0.9 K/uL (0.0-0.8); MONO % 7.9 % (0.0-10.0); NEUT # 8.6 K/uL (1.8-7.0); NEUT % 73.5 % (50.0-75.0); RBC 3.72 Mil/uL (3.80-5.20); RED CELL DISTRIBUTION WIDTH 30.8 % (11.5-14.5); WHITE BLOOD COUNT 11.6 K/uL (4.8-10.8)
[2017-02-15 05:48] LABS: ALBUMIN 3.1 g/dL (3.5-5.0)
[2017-02-15 05:51] LABS: ALB/GLOB RATIO 0.7 (1.0-2.1); ALT/SGPT 20 U/L (9-52); AST/SGOT 22 U/L (14-36); BLOOD UREA NITROGEN 6 mg/dL (7-17); GFR AFRICAN-AMERICAN > 60; GFR NON-AFRICAN AMERICAN > 60
[2017-02-15 05:52] LABS: CALCIUM 7.8 mg/dl (8.6-10.4); MAGNESIUM 1.7 mg/dL (1.6-2.3)
[2017-02-15 06:00] LABS: CK-MB < 0.22 ng/mL (0.0-3.38)
--- NOTE | 2017-02-15 08:37 | CT ---
PROCEDURE: CT Chest with contrast (Pulmonary Angiogram) HISTORY: cp/sob, h/o DVT, recent sepsis COMPARISON: None available. TECHNIQUE: Axial computed tomography images were obtained of the chest in the pulmonary arterial phase of enhancement. Coronal and sagittal reformatted images were created and reviewed. Intravenous contrast dose: 100 mL Visipaque 320 Radiation dose: Total exam DLP = 437.74 mGy-cm. This CT exam was performed using one or more of the following dose reduction techniques: Automated exposure control, adjustment of the mA and/or kV according to patient size, and/or use of iterative reconstruction technique. FINDINGS: PULMONARY ARTERIES: Unremarkable. No pulmonary embolism. AORTA: No acute findings. No thoracic aortic aneurysm. LUNGS: No pulmonary infiltrate. 4 mm nodule identified in right upper lobe (series 4, image 42). No followup required. PLEURAL SPACES: Unremarkable. No effusion or pneuomothorax. HEART: Unremarkable. No cardiomegaly. No significant pericardial effusion. LYMPH NODES: No lymphadenopathy. BONES, CHEST WALL: Unremarkable. No fracture or destructive lesion OTHER FINDINGS: Nodule in right lobe of thyroid, 1.4 cm. Recommend correlation with thyroid ultrasound examination. Images through upper abdomen demonstrate mild splenomegaly. The spleen measures up to 13.5 cm greatest dimension. IMPRESSION: No evidence of pulmonary embolism. No evidence of pneumonia. Incidental 4 mm right upper lobe nodule. No followup required as per Fleischner society criteria. 1.4 cm nodule in right lobe of thyroid. Correlate with thyroid ultrasound examination. Mild splenomegaly, nonspecific. Preliminary interpretation of this examination was reported by [employer] at 8:27 p.m. on 02/14/2017. There is concurrence of this report with the preliminary interpretation.
[2017-02-15] MEDS: Sodium Chloride 0.9% 1,000 ML IV SCH ×2 (09:00→18:46)
--- NOTE | 2017-02-15 16:23 | CP.PCM.PN ---
<Sebas Hernandez - Last Filed: 02/15/17 16:15> Subjective - Date & Time of Evaluation Date of Evaluation: 02/15/17 Time of Evaluation: 09:00 - Subjective Subjective: PGY3 on medicine Dr. Rivera service: Pt seen and examined at bedside this morning. Pt reports no acute events overnight and resting comfortably on bed. Pt said her symptoms improved a lot since yesterday. No acute events overnight per RN. Objective - Vital Signs/Intake and Output Vital Signs (last 24 hours): Temp Pulse Resp BP Pulse Ox 98.2 F 78 20 113/57 L 99 02/15/17 09:53 02/15/17 09:53 02/15/17 09:53 02/15/17 09:53 02/15/17 09:53 Intake and Output: 02/15/17 02/15/17 06:59 18:59 Intake Total 1160 Balance 1160 - Medications Medications: Current Medications Famotidine (Pepcid) 20 mg PO BID [facility] Last Admin: 02/15/17 10:36 Dose: 20 mg Ferrous Sulfate (Feosol) 325 mg PO BID [facility] Last Admin: 02/15/17 10:36 Dose: 325 mg Sodium Chloride (Sodium Chloride 0.9%) 1,000 mls @ 100 mls/hr IV .Q10H [facility] Last Admin: 02/15/17 09:00 Dose: Not Given Imipenem/Cilastatin Sodium 500 (mg/ Sodium Chloride) 100 mls @ 100 mls/hr IVPB Q6H [facility] Last Admin: 02/15/17 13:14 Dose: 100 mls/hr Linezolid (Zyvox 600mg/300ml D5w) 600 mg in 300 mls @ 200 mls/hr IVPB Q12H [facility] Last Admin: 02/15/17 15:44 Dose: 200 mls/hr Warfarin Sodium (Coumadin) 1 mg PO 1800 [facility] Stop: 02/15/17 18:01 - Labs Labs: 02/15/17 05:37 02/15/17 05:37 PT 26.0 SECONDS (9.7-12.2) H 02/14/17 17:42 INR 2.2 02/14/17 17:42 APTT 41 SECONDS (21-34) H 02/14/17 17:42 - Constitutional Appears: Non-toxic, No Acute Distress - Head Exam Head Exam: NORMOCEPHALIC - Eye Exam Eye Exam: Normal appearance Pupil Exam: NORMAL ACCOMODATION - ENT Exam ENT Exam: Mucous Membranes Moist - Respiratory Exam Respiratory Exam: Rales (RLL ), NORMAL BREATHING PATTERN - Cardiovascular Exam Cardiovascular Exam: REGULAR RHYTHM, +S1, +S2. absent: Gallop, Rubs - GI/Abdominal Exam GI & Abdominal Exam: Soft, Normal Bowel Sounds - Neurological Exam Neurological Exam: Alert, Awake, Oriented x3 - Psychiatric Exam Psychiatric exam: Normal Mood - Skin Skin Exam: Intact Assessment and Plan - Assessment and Plan (Free Text) Assessment: 51 year old female with past medical history of urinary tract infection , fibroids, anemia, dvt presents to the ED with fever. Plan: 1.) Fever * Infectious Disease Consult: Dr. Hernandez ---> help appreciated * 500mg Primaxin q6h * 600mg Zyvox q12h * WBC improving * will repeat urine culture * Procalcitonin mildly elevated at 0.55 * Lactate Level normal * f/u blood culture 2.) Chest Pain * Angio chest CT showed no evidence of PE. 4mm RUL nodule finding does not need follow up per Fleischner criteria. 1.4cm right lobe thyroid per report. * JOE negative * f/u ECHO * f/u EKG x3 3.) History of DVT * Coumadin 1mg PO daily * PT/INR: 26.0/2.2 4.) Chronic Anemia * Monitor H/H: 10.3/31.7 * 325mg Ferrous Sulfate PO BID 5.) History of Fibroid Patient reports a history of irregular periods and history of fibroids * Pelvic US (02/04/17): markedly enlarged heterogenous uters contains multiple soft tissue mass lesions likely represent fibroids. Largest fibroid seen at the fundus measures 11.7 cm in the largest diameter. Complex cystic lesion at the left ovary measures 4.6 cm. 6.) Thyroid nodule * Right thyroid nodule 1.4cm per CT report. * F/U TSH. 7.) Prophylaxis * Protonix 40mg PO daily <Tiffani Rivera V - Last Filed: 02/16/17 06:58> Objective - Vital Signs/Intake and Output Vital Signs (last 24 hours): Temp Pulse Resp BP Pulse Ox 98.0 F 78 20 107/67 98 02/15/17 23:50 02/16/17 04:18 02/15/17 23:50 02/15/17 23:50 02/15/17 23:50 - Medications Medications: Current Medications Famotidine (Pepcid) 20 mg PO BID [facility] Last Admin: 02/15/17 18:41 Dose: 20 mg Ferrous Sulfate (Feosol) 325 mg PO BID [facility] Last Admin: 02/15/17 18:41 Dose: 325 mg Sodium Chloride (Sodium Chloride 0.9%) 1,000 mls @ 100 mls/hr IV .Q10H [facility] Last Admin: 02/15/17 18:46 Dose: Not Given Imipenem/Cilastatin Sodium 500 (mg/ Sodium Chloride) 100 mls @ 100 mls/hr IVPB Q6H [facility] Last Admin: 02/16/17 06:20 Dose: 100 mls/hr Linezolid (Zyvox 600mg/300ml D5w) 600 mg in 300 mls @ 200 mls/hr IVPB Q12H [facility] Last Admin: 02/16/17 01:16 Dose: 200 mls/hr - Labs Labs: 02/15/17 05:37 02/15/17 05:37 PT 20.1 SECONDS (9.7-12.2) H D 02/15/17 17:44 INR 1.8 02/15/17 17:44 APTT 41 SECONDS (21-34) H 02/14/17 17:42 Attending/Attestation - Attestation I have personally seen and examined this patient.: Yes I have fully participated in the care of the patient.: Yes I have reviewed all pertinent clinical information, including history, physical exam and plan: Yes Notes (Text): This is late computer entry for 02/15/17. Patient seen, examined, and case discussed with day-time resident. Patient reports she can tried the Zyvox for the past 4 days but reports she had 101 F with associated chills and sweats and came to the hospital. Patient restarted on IV antibiotics per infectious disease. Patient's procalcitonin: 0.55 (estuarod slightly) from prior admission. Patient denies other acute complaints. ROMIX3: negative Patient ruled for PE on admission. Compliant on Coumadin; order for Coumadin tonight; f/u INR (1) Sepsis Assessment & Plan: * Came in with leukocytosis which is improving today * Urine culture contaminated->will repeat * Blood cultures collected on admission * CT Chest: negative for pneumonia, PE * Per ID, Primaxin 500mg IV Q 6hours and Zyvox 600mg IV Q 12hours * Infectious disease: Dr Hernandez on the case * Procalcitonin: 0.55 Prior admission: * Criteria: tachypneic, tachycardic, leukocytosis (with bandemia) and elevated lactate * Likely secondary to UTI complicated recurrent * Infectious Disease (Dr. Hernandez) on consult-->help appreciated * Abd/pelvis CT with IV contrast (02/01/17) - 1. Again identified is a markedly enlarged and heterogeneous uterus with markedly enlarged and innumerable fibroid lesions. At the right lateral aspect of the uterus, a partially necrotic and/or hemorrhagic fibroid lesion measures up to 14.4 x 16.2 centimeters. An additional lesion which is multilobulated also demonstrating necrotic and/or hemorrhagic components seen at the right lateral aspect of the uterus measures 15.9 x 11.5 centimeters. These may be better delineated with pelvic MRI if clinically indicated. Underlying neoplasm cannot be excluded. 2. Lobulated elliptical lesion measuring 5.2 x 4.0 centimeters demonstrating a Hounsfield unit attenuation of 7 seen at the level of the left adnexa which may represent a left adnexal cyst. This may be better evaluated with pelvic ultrasound if clinically indicated. 3. Evaluation of the lower abdominal bowel demonstrates fecal retention in the colon. Underdistention of the portion of the proximal sigmoid colon. Fecal retention within the remainder of the colon. Patient status post prior appendectomy with surgical clips noted in the right lower abdomen. 4. Enlarged liver with diffuse fatty infiltration. Scattered hypoattenuated foci in the liver, too small to adequately characterize. 5. Mild thickening of the urinary bladder wall. * Primaxin 500mg IV Q 6hour (active since 02/01/17) during hospitalization * Echocardiogram (02/02/17): normal LV systolic function, mild TR, Borderline dilated LA, no other significiant abnormality seen * UA: pyruia * Blood Culture (02/01/17): no growth * Urine culture (02/01/17): no growth * Urine culture (02/02/17) No growth * MRSA: not detected * Renal US (02/03/17): unremarkable sonographic evaluation of the kidneys. somewhat limited evaluation of the left kidney. incidentally noted a markedly enlarged fibroid urterus. underdistended urinary bladder. Mild thickening of the urinary bladder wall. * Procalcitonin: 16.72-->3.73-->0.27 * Ct abdomen/Pelvis (02/11/17): markedly enlarged multifibroid uterus. 5 cm left ovarian cyst. No acute abnormalities * Discharge instructions include: Patient is recommended to take Zyvox 600mg once twice a day for 7 days and with yogurt Status: Resolved (2) Complicated UTI (urinary tract infection) Status: Stablized * see above (3) History of deep vein thrombosis (DVT) of lower extremity Assessment & Plan: * CT chest: ruled out for PE * compliant on coumadin; restarted home dose in hospital; monitor INR Prior admission * 02/03/17 Lower venous doppler; No evidence of deep or superficial vein thrombus of the right and left lower extremities * Patient reports she only took Coumadin for 3 weeks. Will need at least 3 month therapy to complete first time DVT. INR: 2.0 * Therapuetic INR: 2.8 * Discharge instructions: Coumadin 1mg once a day (#7/no refills)-->will need INR check and refill script pending INR level when she follow-up on february 16 for an INR check Status: Chronic (4) Fibroid Assessment & Plan: Per last admission * Patient reports a history of irregular periods and history of fibroids * Pelvic US (02/04/17): markedly enlarged heterogenous uters contains multiple soft tissue mass lesions likely represent fibroids. Largest fibroid seen at the fundus measures 11.7 cm in the largest diameter. Complex cystic lesion at the left ovary measures 4.6 cm. * Discharge instructions include: will need referral to ob-primer press operator when she establishes herself in the clinic for further workup. Status: Chronic (5) Iron deficiency anemia Assessment & Plan: Per last admission: * Given blood transfusion during admission * H/H monitored during admission while on blood thinner * B12 >1000, Folate: 6.0, Iron: 52, TIBC: 221, %saturation: 23, Ferritin: 226, Occult blood positive. monitor H/H * Per primer press operator, no intervention at this time, follow-up outpatient for fibroids * Discharge instructions include: will need referral to ob-primer press operator when she establishes herself in the clinic for further workup, will need GI referral for screening colonoscopy; and possible occult blood, and provided script iron supplements Status: Chronic (6) Prophylactic measure Assessment & Plan: * Protonix 40mg PO daily * Coumadin 1mg PO daily for DVT therapy * NS 100cc/hr * Florastor 250mg PO bid
[2017-02-15 18:08] LABS: INR 1.8; PROTHROMBIN TIME 20.1 SECONDS (9.7-12.2)
[2017-02-16] MEDS: Linezolid 600 mg in D5W 300 ml 600 MG/300 ML BAG IVPB SCH ×2 (01:16→14:00)
[2017-02-16 08:36] LABS: INR 1.7; PROTHROMBIN TIME 19.9 SECONDS (9.7-12.2)
[2017-02-16] MEDS: Saccharomyces Boulardi 250 mg Cap PO SCH ×2 (09:13→17:35)
--- NOTE | 2017-02-16 10:08 | CARD ---
APPROVED REPORT EKG Measurement Heart [id number] <Conclusion> Normal sinus rhythm Inferior infarct, age undetermined Abnormal ECG
--- NOTE | 2017-02-16 10:18 | CP.PCM.PN ---
<Carolina Snow - Last Filed: 02/16/17 18:26> Subjective - Date & Time of Evaluation Date of Evaluation: 02/16/17 Time of Evaluation: 09:30 - Subjective Subjective: PGY3 on medicine Dr. Magallon's service: Patient seen and examined at bedside this morning. Patient reports no acute events overnight and resting comfortably on bed. Patient stated she has not felt a fever since Thursday morning. Patient stated she has colicky pain due to her menstrual cycling starting today. Patient denies chest pain, shortness of breath, pain on urination, nausea, vomiting, diarrhea, or constipation. Objective - Vital Signs/Intake and Output Vital Signs (last 24 hours): Temp Pulse Resp BP Pulse Ox 99.0 F 83 18 115/50 L 97 02/16/17 07:35 02/16/17 07:35 02/16/17 07:35 02/16/17 07:35 02/16/17 07:35 Intake and Output: 02/16/17 02/16/17 06:59 18:59 Intake Total 920 Balance 920 - Medications Medications: Current Medications Famotidine (Pepcid) 20 mg PO BID [facility] Last Admin: 02/16/17 09:14 Dose: 20 mg Ferrous Sulfate (Feosol) 325 mg PO BID [facility] Last Admin: 02/16/17 09:14 Dose: 325 mg Heparin Sodium (Porcine) (Heparin) 5,000 units SC Q8 [facility] Sodium Chloride (Sodium Chloride 0.9%) 1,000 mls @ 100 mls/hr IV .Q10H [facility] Last Admin: 02/15/17 18:46 Dose: Not Given Imipenem/Cilastatin Sodium 500 (mg/ Sodium Chloride) 100 mls @ 100 mls/hr IVPB Q6H [facility] Last Admin: 02/16/17 06:20 Dose: 100 mls/hr Linezolid (Zyvox 600mg/300ml D5w) 600 mg in 300 mls @ 200 mls/hr IVPB Q12H [facility] Last Admin: 02/16/17 01:16 Dose: 200 mls/hr Saccharomyces Boulardii (Florastor) 250 mg PO BID [facility] Last Admin: 02/16/17 09:13 Dose: 250 mg - Labs Labs: 02/15/17 05:37 02/15/17 05:37 PT 19.9 SECONDS (9.7-12.2) H 02/16/17 08:19 INR 1.7 02/16/17 08:19 APTT 41 SECONDS (21-34) H 02/14/17 17:42 - Constitutional Appears: No Acute Distress - Head Exam Head Exam: NORMAL INSPECTION, NORMOCEPHALIC - Eye Exam Eye Exam: EOMI, PERRL Pupil Exam: NORMAL ACCOMODATION - ENT Exam ENT Exam: Mucous Membranes Moist - Respiratory Exam Respiratory Exam: Clear to Ausculation Bilateral, NORMAL BREATHING PATTERN. absent: Rales, Rhonchi, Wheezes, Respiratory Distress, Stridor - Cardiovascular Exam Cardiovascular Exam: REGULAR RHYTHM, RRR, +S1, +S2. absent: JVD - GI/Abdominal Exam GI & Abdominal Exam: Soft, Tenderness (tenderness to right lower quadrant s/p appendectomy where sutures are located), Normal Bowel Sounds - Extremities Exam Extremities Exam: absent: Calf Tenderness, Joint Swelling, Pedal Edema, Tenderness - Neurological Exam Neurological Exam: Alert, Awake, Oriented x3 - Skin Skin Exam: Dry, Intact, Normal Color. absent: Petechiae, Rash Assessment and Plan - Assessment and Plan (Free Text) Assessment: 51 year old female with past medical history of urinary tract infection , fibroids, anemia, dvt presents to the ED with fever. Plan: 1.) Fever presumed to be due to incomplete therapy of UTI * Infectious Disease Consult: Dr. Hernandez ---> help appreciated * 500mg Primaxin q6h * 600mg Zyvox q12h * Monitor WBC * will repeat urine culture f/u * Procalcitonin mildly elevated at 0.55 * Lactate Level normal * f/u blood culture (02/14/17) 2.) Chest Pressure Resolved * Angio chest CT showed no evidence of PE. 4mm RUL nodule finding does not need follow up per Fleischner criteria. 1.4cm right lobe thyroid per report. * JOE negative * EKG x3 negative * f/u ECHO 3.) Thyroid nodule * Right thyroid nodule 1.4cm per CT report. * F/U TSH. 4.) History of DVT * Coumadin 1mg PO daily * PT/INR: 19.9/1.7 * 5mg Coumadin Daily * 80mg Lovenox Q12 5.) Chronic Anemia * Monitor H/H: 10.3/31.7 * 325mg Ferrous Sulfate PO BID 6.) History of Fibroid Patient reports a history of irregular periods and history of fibroids * Pelvic US (02/04/17): markedly enlarged heterogenous uters contains multiple soft tissue mass lesions likely represent fibroids. Largest fibroid seen at the fundus measures 11.7 cm in the largest diameter. Complex cystic lesion at the left ovary measures 4.6 cm. 7.) Prophylaxis * Protonix 40mg PO daily <Doroteo Magallon - Last Filed: 03/03/17 15:16> Objective - Vital Signs/Intake and Output Vital Signs (last 24 hours): Temp Pulse Resp BP Pulse Ox 98.9 F 75 20 120/75 99 03/03/17 08:00 03/03/17 08:00 03/03/17 08:00 03/03/17 08:00 03/03/17 08:00 Intake and Output: 03/03/17 03/03/17 06:59 18:59 Intake Total 1060 Balance 1060 - Medications Medications: Current Medications Acetaminophen (Tylenol 325mg Tab) 650 mg PO Q6 PRN PRN Reason: Pain, severe (8-10) Last Admin: 03/02/17 17:57 Dose: 650 mg Famotidine (Pepcid) 20 mg PO BID [facility] Last Admin: 03/03/17 09:28 Dose: 20 mg Ferrous Sulfate (Feosol) 325 mg PO BID [facility] Last Admin: 03/03/17 09:28 Dose: 325 mg Imipenem/Cilastatin Sodium 500 (mg/ Sodium Chloride) 100 mls @ 100 mls/hr IVPB Q6H [facility] Last Admin: 03/03/17 12:42 Dose: 100 mls/hr Metronidazole (Flagyl) 500 mg in 100 mls @ 100 mls/hr IVPB Q12 [facility] Last Admin: 03/03/17 09:29 Dose: 100 mls/hr Ondansetron HCl (Zofran Inj) 4 mg IVP Q6H PRN PRN Reason: Nausea/Vomiting, IF NPO Last Admin: 03/02/17 02:22 Dose: 4 mg Saccharomyces Boulardii (Florastor) 250 mg PO BID [facility] Last Admin: 03/03/17 09:28 Dose: 250 mg - Labs Labs: 03/03/17 06:57 03/03/17 06:57 PT 24.1 SECONDS (9.7-12.2) H 03/03/17 06:57 INR 2.1 03/03/17 06:57 APTT 38 SECONDS (21-34) H 03/03/17 06:57 Attending/Attestation - Attestation I have personally seen and examined this patient.: Yes I have fully participated in the care of the patient.: Yes I have reviewed all pertinent clinical information, including history, physical exam and plan: Yes Notes (Text): Patient Seen and examined with the resident. Agree with the resident's evaluation, assessment and plan. Sepsis - Likely secondary to UTI failed antibiotics zyvox Hx of DVT - Cont home coumadin Hx of fatty liver Hx of iron deficiency anemia
[2017-02-16] MEDS: Enoxaparin 80 mg Syringe SC SCH ×2 (14:00→22:05)
[2017-02-16 17:59] LABS: ALBUMIN 3.1 g/dL (3.5-5.0)
[2017-02-16 18:02] LABS: ALB/GLOB RATIO 0.7 (1.0-2.1); AST/SGOT 26 U/L (14-36); GFR AFRICAN-AMERICAN > 60; GFR NON-AFRICAN AMERICAN > 60
[2017-02-16 18:03] LABS: ALT/SGPT 17 U/L (9-52); CALCIUM 8.2 mg/dl (8.6-10.4)
[2017-02-16 18:10] LABS: BLOOD UREA NITROGEN 2 mg/dL (7-17)
[2017-02-16] MEDS ORDERED: Potassium Chloride 20 mEq ER Tab PO STA (20:14)
--- NOTE | 2017-02-16 20:57 | CP.PCM.CON ---
History of Present Illness - History of Present Illness History of Present Illness: dictated Past Patient History - Infectious Disease Hx of Infectious Diseases: None - Past Medical History & Family History Past Medical History?: No - Past Social History Smoking Status: Never Smoked - CARDIAC Hx Cardiac Disorders: No - PULMONARY Hx Respiratory Disorders: No - NEUROLOGICAL Hx Neurological Disorder: No - HEENT Hx HEENT Problems: No - RENAL Hx Chronic Kidney Disease: No - ENDOCRINE/METABOLIC Hx Endocrine Disorders: No - HEMATOLOGICAL/ONCOLOGICAL Hx Anemia: Yes - INTEGUMENTARY Hx Dermatological Problems: No - MUSCULOSKELETAL/RHEUMATOLOGICAL Hx Musculoskeletal Disorders: No Hx Falls: No - GASTROINTESTINAL Hx Gastrointestinal Disorders: No - GENITOURINARY/GYNECOLOGICAL Other/Comment: uterine fibroids - PSYCHIATRIC Hx Substance Use: No - SURGICAL HISTORY Hx Surgeries: Yes Other/Comment: APPENDECTOMY-JAN 01 2017 - ANESTHESIA Hx Anesthesia: Yes Hx Anesthesia Reactions: No Hx Malignant Hyperthermia: No Meds Allergies/Adverse Reactions: Allergies Allergy/AdvReac Type Severity Reaction Status Date / Time vancomycin Allergy Severe REDNESS Verified 02/14/17 17:06 - Medications Medications: Current Medications Enoxaparin Sodium (Lovenox) 80 mg SC Q12 [facility] Last Admin: 02/16/17 14:00 Dose: 80 mg Famotidine (Pepcid) 20 mg PO BID [facility] Last Admin: 02/16/17 17:36 Dose: 20 mg Ferrous Sulfate (Feosol) 325 mg PO BID [facility] Last Admin: 02/16/17 17:35 Dose: 325 mg Sodium Chloride (Sodium Chloride 0.9%) 1,000 mls @ 100 mls/hr IV .Q10H [facility] Last Admin: 02/15/17 18:46 Dose: Not Given Imipenem/Cilastatin Sodium 500 (mg/ Sodium Chloride) 100 mls @ 100 mls/hr IVPB Q6H [facility] Last Admin: 02/16/17 18:46 Dose: 100 mls/hr Linezolid (Zyvox 600mg/300ml D5w) 600 mg in 300 mls @ 200 mls/hr IVPB Q12H [facility] Last Admin: 02/16/17 14:00 Dose: 200 mls/hr Ondansetron HCl (Zofran Tab) 4 mg PO Q6 PRN PRN Reason: Nausea/Vomiting Saccharomyces Boulardii (Florastor) 250 mg PO BID [facility] Last Admin: 02/16/17 17:35 Dose: 250 mg Results - Vital Signs Recent Vital Signs: Last Vital Signs Temp 98.4 F 02/16/17 20:23 Pulse 90 02/16/17 20:23 Resp 18 02/16/17 20:23 BP 111/59 L 02/16/17 20:23 Pulse Ox 100 02/16/17 20:23 - Labs Result Diagrams: 02/15/17 05:37 02/16/17 17:44 Labs: Laboratory Results - last 24 hr 02/16/17 02/16/17 08:19 17:44 PT 19.9 H INR 1.7 Sodium 134 Potassium 3.2 L Chloride 99 Carbon Dioxide 23 Anion Gap 15 BUN 2 L Creatinine 0.5 L Est GFR ( Amer) > 60 Est GFR (Non-Af Amer) > 60 Random Glucose 106 H Calcium 8.2 L Total Bilirubin 0.5 AST 26 ALT 17 Alkaline Phosphatase 168 H Total Protein 7.5 Albumin 3.1 L Globulin 4.4 H Albumin/Globulin Ratio 0.7 L
[2017-02-16 21:45] LABS: BASO # 0.2 K/uL (0.0-0.2); EOS # 0.1 K/uL (0.0-0.7); EOS % 0.9 % (0.0-4.0); HEMOGLOBIN 9.8 g/dL (11.0-16.0); LYMPH # 1.4 K/uL (1.0-4.3); LYMPH % 8.5 % (20.0-40.0); MEAN CELL VOLUME 82.7 fL (81.0-99.0); MEAN CORPUSCULAR HEMOGLOBIN 26.2 pg (27.0-31.0); MEAN CORPUSCULAR HGB CONC 31.7 g/dL (33.0-37.0); MEAN PLATELET VOLUME 9.5 fL (7.2-11.7); MONO # 0.7 K/uL (0.0-0.8); MONO % 4.4 % (0.0-10.0); NEUT # 13.6 K/uL (1.8-7.0); NEUT % 85.2 % (50.0-75.0); PLATELET COUNT 293 K/uL (130-400); RBC 3.75 Mil/uL (3.80-5.20); RED CELL DISTRIBUTION WIDTH 30.3 % (11.5-14.5)
[2017-02-16 21:48] LABS: PLATELET ESTIMATE NORMAL (NORMAL)
[2017-02-16 21:51] LABS: ANISOCYTOSIS SLIGHT; BANDS 6 % (0-2); EOSINOPHIL 1 % (0-4); LYMPHOCYTE 6 % (20-40); MICROCYTOSIS SLIGHT; MONOCYTE 4 % (0-10); NEUTROPHIL 81 % (50-75); POIKILOCYTOSIS SLIGHT; POLYCHROMIC SLIGHT; REACTIVE LYMPHOCYTES 2 % (0-0); TOTAL CELLS COUNTED 100; TOXIC GRANULATION PRESENT
[2017-02-16 21:52] LABS: HYPERSEGMENTATION PRESENT; LARGE PLATELETS PRESENT; SMUDGE CELLS PRESENT
--- NOTE | 2017-02-16 23:00 | CON ---
DATE: 02/16/2017 HISTORY OF PRESENT ILLNESS: This patient is a 51-year-old female. She was recently here with severe UTI, sepsis, fibroids, anemia, history of DVT. She had a history of VRE. She was treated with anti biotics and then she was given imipenem and was found to have a fibroid extending on the right side from the uterus. Came home, she says 2 days later, she started to have fever of 101 and she was sweating. She states she was feeling short of breath with exertion. She denied any headache, no ab dominal pain, no nausea, no vomiting, no diarrhea. PAST MEDICAL HISTORY: Significant for fibroid, VRE in the urine, anemia and DVT. PAST SURGICAL HISTORY: Significant for a recent appendicectomy. She also has fibroids. She was see n by [employer]. FAMILY HISTORY: Significant for hypertension, stomach cancer, at the age of 69. She went home on ferrous sulfate, Coumadin and . ALLERGIES: SHE IS ALLERGIC TO VANCOMYCIN. SOCIAL HISTORY: She lives with her and she returned with fever. PAST MEDICAL HISTORY: The same as before. REVIEW OF SYSTEMS: Same except for having fevers and shortness of breath, so she came here. LABORATORY DATA: She had a white count of 19.7. She was admitted with fever, chest pain, history of DVT, history of fibroid and we placed her on the antibiotics. Blood cultures x 2 were negativ e. Urine culture is negative. She also had a chest CT done, which showed no evidence of pulmonary e mbolism, no evidence of pneumonia, incidental 4 mm right upper lobe nodule that needs to be followed up. So at this time in this whole workup, I do not see the source of the fever. She remains on imip enem and Zyvox. I think I need to do a CAT scan of the abdomen and pelvis. We will have to do a CAT scan of the abdomen and pelvis to see if there is any other different source or how the fibroid is d oing and is this fibroid or is it an abscess, because last time she did come with a high white count and now she comes in with a white count of 19,000. I will order a CAT scan of the abdomen and pelvis . Labs showed that her white count is 16 today, hemoglobin 9.8, hematocrit 31. Her potassium is 3.2 and she complains of feeling tired. PHYSICAL EXAMINATION: VITAL SIGNS: I find her temperature is 98.4, pulse 90, blood pressure 111/59, and respirations are 1 8. HEENT: Head is atraumatic, pallor present. NECK: Supple. LUNGS: Clear. No crackles or rales present. HEART: S1, S2 regular. ABDOMEN: Soft, nontender, no guarding, no rigidity present. EXTREMITIES: No edema. Her calcitonin was 0.55, alkaline phosphatase is 168. We will repeat another. She came with a lacti c acid of 0.7. But to complete her workup, I would do a CAT scan of the abdomen and pelvis. Her cre atinine is 0.5. So, we will do contrast and make sure she is on IV fluids. An echo was also ordered . We will follow. She is on Lovenox, Pepcid, ferrous sulfate, imipenem, linezolid, Zofran, potassiu m was discontinued, , and IV fluids. Her urine culture was repeat, uncollected from today. Jarrett Hernandez MD cc: [id number] TT: 02/16/2017 23:00:32 Confirmation # [id number] Dictation # [id number] mn
[2017-02-17] MEDS: Sodium Chloride 0.9% 1,000 ML IV SCH ×4 (00:45→21:41)
[2017-02-17] MEDS: Linezolid 600 mg in D5W 300 ml 600 MG/300 ML BAG IVPB SCH ×2 (01:11→14:00)
[2017-02-17 07:45] LABS: BASO % 0.5 % (0.0-2.0); EOS # 0.2 K/uL (0.0-0.7); EOS % 2.7 % (0.0-4.0); HEMOGLOBIN 8.6 g/dL (11.0-16.0); LYMPH # 1.4 K/uL (1.0-4.3); LYMPH % 16.6 % (20.0-40.0); MEAN CELL VOLUME 82.3 fL (81.0-99.0); MEAN CORPUSCULAR HEMOGLOBIN 26.6 pg (27.0-31.0); MEAN CORPUSCULAR HGB CONC 32.3 g/dL (33.0-37.0); MEAN PLATELET VOLUME 9.3 fL (7.2-11.7); MONO # 0.6 K/uL (0.0-0.8); MONO % 6.8 % (0.0-10.0); NEUT # 6.2 K/uL (1.8-7.0); NEUT % 73.4 % (50.0-75.0); RBC 3.22 Mil/uL (3.80-5.20); WHITE BLOOD COUNT 8.4 K/uL (4.8-10.8)
[2017-02-17 07:53] LABS: INR 2.1; PROTHROMBIN TIME 24.1 SECONDS (9.7-12.2)
[2017-02-17 08:15] LABS: ALBUMIN 2.7 g/dL (3.5-5.0)
[2017-02-17 08:18] LABS: ALB/GLOB RATIO 0.7 (1.0-2.1); ALT/SGPT 17 U/L (9-52); AST/SGOT 20 U/L (14-36); BLOOD UREA NITROGEN 3 mg/dL (7-17); GFR AFRICAN-AMERICAN > 60; GFR NON-AFRICAN AMERICAN > 60
[2017-02-17 08:19] LABS: CALCIUM 8.3 mg/dl (8.6-10.4); MAGNESIUM 1.9 mg/dL (1.6-2.3)
[2017-02-17] MEDS: Enoxaparin 80 mg Syringe SC SCH (09:45)
[2017-02-17] MEDS: Saccharomyces Boulardi 250 mg Cap PO SCH ×2 (09:50→17:29)
--- NOTE | 2017-02-17 10:08 | CP.PCM.PN ---
<Carolina Snow - Last Filed: 02/17/17 19:59> Subjective - Date & Time of Evaluation Date of Evaluation: 02/17/17 Time of Evaluation: 07:00 - Subjective Subjective: PGY1 on medicine Dr. Magallon's service: Patient seen and examined at bedside this morning. Patient stated she has not felt a fever since Thursday morning. Patient stated she has colicky pain and shortness of breath over night due to her very heavy menstrual cycle. Patient denies chest pain, current shortness of breath, pain on urination, nausea, vomiting, diarrhea, or constipation. Objective - Vital Signs/Intake and Output Vital Signs (last 24 hours): Temp Pulse Resp BP Pulse Ox 97.5 F L 80 18 106/68 100 02/17/17 07:20 02/17/17 07:30 02/17/17 07:20 02/17/17 07:20 02/17/17 07:20 - Medications Medications: Current Medications Enoxaparin Sodium (Lovenox) 80 mg SC Q12 [facility] Last Admin: 02/17/17 09:45 Dose: 80 mg Famotidine (Pepcid) 20 mg PO BID [facility] Last Admin: 02/17/17 09:44 Dose: 20 mg Ferrous Sulfate (Feosol) 325 mg PO BID [facility] Last Admin: 02/17/17 09:44 Dose: 325 mg Sodium Chloride (Sodium Chloride 0.9%) 1,000 mls @ 100 mls/hr IV .Q10H [facility] Last Admin: 02/17/17 06:04 Dose: 100 mls/hr Imipenem/Cilastatin Sodium 500 (mg/ Sodium Chloride) 100 mls @ 100 mls/hr IVPB Q6H [facility] Last Admin: 02/17/17 06:04 Dose: 100 mls/hr Linezolid (Zyvox 600mg/300ml D5w) 600 mg in 300 mls @ 200 mls/hr IVPB Q12H [facility] Last Admin: 02/17/17 01:11 Dose: 200 mls/hr Ondansetron HCl (Zofran Tab) 4 mg PO Q6 PRN PRN Reason: Nausea/Vomiting Saccharomyces Boulardii (Florastor) 250 mg PO BID [facility] Last Admin: 02/17/17 09:50 Dose: 250 mg - Labs Labs: 02/17/17 07:32 02/17/17 07:32 PT 24.1 SECONDS (9.7-12.2) H 02/17/17 07:32 INR 2.1 02/17/17 07:32 APTT 43 SECONDS (21-34) H 02/17/17 07:32 - Constitutional Appears: No Acute Distress - Head Exam Head Exam: NORMAL INSPECTION, NORMOCEPHALIC - Eye Exam Eye Exam: Normal appearance - ENT Exam ENT Exam: Mucous Membranes Moist - Respiratory Exam Respiratory Exam: Clear to Ausculation Bilateral, NORMAL BREATHING PATTERN. absent: Rales, Rhonchi, Wheezes, Stridor - Cardiovascular Exam Cardiovascular Exam: REGULAR RHYTHM, RRR, +S1, +S2. absent: JVD - GI/Abdominal Exam GI & Abdominal Exam: Soft, Normal Bowel Sounds. absent: Guarding, Tenderness, Rebound - Extremities Exam Extremities Exam: absent: Calf Tenderness, Joint Swelling, Pedal Edema, Tenderness - Neurological Exam Neurological Exam: Alert, Awake, Oriented x3 - Psychiatric Exam Psychiatric exam: Normal Mood - Skin Skin Exam: Normal Color, Warm. absent: Rash Assessment and Plan - Assessment and Plan (Free Text) Assessment: 51 year old female with past medical history of urinary tract infection , fibroids, anemia, dvt presents to the ED with fever. Plan: 1.) Fever presumed to be due to incomplete therapy of UTI * Infectious Disease Consult: Dr. Hernandez ---> help appreciated * 500mg Primaxin q6h * 600mg Zyvox q12h * Monitor WBC * will repeat urine culture f/u * Procalcitonin mildly elevated at 0.55 * Lactate Level normal * f/u blood culture (02/14/17) * Abdominal/Pelvis CT (02/16/17): Enlarged, multi fibroid uterus. Possible necrosis within the largest right fundal uterine fibroid although there was no liquefactation demonstrated on pelvic ultrasound examination of 02/04/17. Subtle increased attenuation of the periuterine fate along the right lateral aspect, of untertain significance. this may reflect an inflammatory or infectious process through no clear source is identified. 2.) Chest Pressure Resolved * Angio chest CT showed no evidence of PE. 4mm RUL nodule finding does not need follow up per Fleischner criteria. 1.4cm right lobe thyroid per report. * JOE negative * EKG x3: Normal Sinus Rhythm; Inferior Infarct of undetermined age * f/u ECHO 3.) Thyroid nodule * Right thyroid nodule 1.4cm per CT report. * Free T4: 1.33 4.) History of DVT * Coumadin 1mg PO daily * PT/INR: 19.9/1.7 * 5mg Coumadin Daily * 80mg Lovenox Q12 5.) Chronic Anemia * Monitor H/H: 8.6/26.5 * 325mg Ferrous Sulfate PO BID 6.) History of Fibroid Patient reports a history of irregular periods and history of fibroids * Pelvic US (02/04/17): markedly enlarged heterogenous uters contains multiple soft tissue mass lesions likely represent fibroids. Largest fibroid seen at the fundus measures 11.7 cm in the largest diameter. Complex cystic lesion at the left ovary measures 4.6 cm. 7.) Prophylaxis * Protonix 40mg PO daily <Doroteo Magallon - Last Filed: 03/03/17 15:16> Objective - Vital Signs/Intake and Output Vital Signs (last 24 hours): Temp Pulse Resp BP Pulse Ox 98.9 F 75 20 120/75 99 03/03/17 08:00 03/03/17 08:00 03/03/17 08:00 03/03/17 08:00 03/03/17 08:00 Intake and Output: 03/03/17 03/03/17 06:59 18:59 Intake Total 1060 Balance 1060 - Medications Medications: Current Medications Acetaminophen (Tylenol 325mg Tab) 650 mg PO Q6 PRN PRN Reason: Pain, severe (8-10) Last Admin: 03/02/17 17:57 Dose: 650 mg Famotidine (Pepcid) 20 mg PO BID [facility] Last Admin: 03/03/17 09:28 Dose: 20 mg Ferrous Sulfate (Feosol) 325 mg PO BID [facility] Last Admin: 03/03/17 09:28 Dose: 325 mg Imipenem/Cilastatin Sodium 500 (mg/ Sodium Chloride) 100 mls @ 100 mls/hr IVPB Q6H [facility] Last Admin: 03/03/17 12:42 Dose: 100 mls/hr Metronidazole (Flagyl) 500 mg in 100 mls @ 100 mls/hr IVPB Q12 [facility] Last Admin: 03/03/17 09:29 Dose: 100 mls/hr Ondansetron HCl (Zofran Inj) 4 mg IVP Q6H PRN PRN Reason: Nausea/Vomiting, IF NPO Last Admin: 03/02/17 02:22 Dose: 4 mg Saccharomyces Boulardii (Florastor) 250 mg PO BID [facility] Last Admin: 03/03/17 09:28 Dose: 250 mg - Labs Labs: 03/03/17 06:57 03/03/17 06:57 PT 24.1 SECONDS (9.7-12.2) H 03/03/17 06:57 INR 2.1 03/03/17 06:57 APTT 38 SECONDS (21-34) H 03/03/17 06:57 Attending/Attestation - Attestation I have personally seen and examined this patient.: Yes I have fully participated in the care of the patient.: Yes I have reviewed all pertinent clinical information, including history, physical exam and plan: Yes Notes (Text): Patient Seen and examined with the resident. Agree with the resident's evaluation, assessment and plan. Sepsis - Likely secondary to UTI failed antibiotics zyvox Hx of DVT - Cont home coumadin Hx of fatty liver Hx of iron deficiency anemia
[2017-02-17] MEDS ORDERED: Iodixanol 320 MG/ML 100 ML BOTTLE IV ONE (13:13)
--- NOTE | 2017-02-17 14:59 | CT ---
PROCEDURE: CT Abdomen and Pelvis with contrast HISTORY: fever and recent abnormality in ctscan abdomen fo COMPARISON: None. TECHNIQUE: Contrast dose: 100 mL Visipaque 320 Radiation dose: Total exam DLP = 1010.51 mGy-cm. This CT exam was performed using one or more of the following dose reduction techniques: Automated exposure control, adjustment of the mA and/or kV according to patient size, and/or use of iterative reconstruction technique. FINDINGS: LOWER THORAX: Unremarkable LIVER: Normal size and contour. Normal attenuation. Several small nonspecific low-attenuation lesions, unchanged. Largest 6 mm. GALLBLADDER AND BILE DUCTS: Unremarkable. PANCREAS: Unremarkable. No gross lesion or ductal dilatation. SPLEEN: Unremarkable. ADRENALS: Unremarkable. No mass. KIDNEYS AND URETERS: Unremarkable. No hydronephrosis. No solid mass. VASCULATURE: Unremarkable. No aortic aneurysm. BOWEL: Unremarkable. No obstruction. No gross mural thickening. APPENDIX: Status post appendectomy PERITONEUM: No ascites or pneumoperitoneum. LYMPH NODES: Unremarkable. No enlarged lymph nodes. BLADDER: Nondistended REPRODUCTIVE: The uterus is enlarged and contains multiple fibroids of varying size. Largest fibroids measure approximately 13.5 cm at the right fundus and 11.8 cm in the left uterine body. Adjacent to the right lateral aspect of the uterus, there is subtle increased attenuation of the very uterine fat. Significance uncertain but this may reflect an inflammatory or infectious process. There is no abscess identified. Please note that there is particular low attenuation within the right fundal uterine fibroid, as on prior examinations. This may indicate central necrosis. However, pelvic ultrasound 02/04/2017 did not demonstrate liquefaction within any of the large fibroids. Left ovarian cyst, approximately 5 cm greatest dimension, unchanged. BONES: No acute fracture. OTHER FINDINGS: None IMPRESSION: Enlarged, multi fibroid uterus. Possible central necrosis within the largest right fundal uterine fibroid although there was no liquefaction demonstrated on pelvic ultrasound examination of 02/04/2017. Subtle increased attenuation of the periuterine fat along the right lateral aspect, of uncertain significance. This may reflect an inflammatory or infectious process though no clear source is identified. Stable 5 cm left ovarian cyst. Additional minor findings as above.
[2017-02-18] MEDS: Sodium Chloride 0.9% 1,000 ML IV SCH (01:31)
[2017-02-18] MEDS: Linezolid 600 mg in D5W 300 ml 600 MG/300 ML BAG IVPB SCH ×2 (01:32→14:00)
[2017-02-18 08:32] LABS: BASO # 0.1 K/uL (0.0-0.2); BASO % 0.9 % (0.0-2.0); EOS # 0.2 K/uL (0.0-0.7); EOS % 2.3 % (0.0-4.0); HEMOGLOBIN 8.2 g/dL (11.0-16.0); LYMPH # 1.2 K/uL (1.0-4.3); LYMPH % 13.3 % (20.0-40.0); MEAN CELL VOLUME 83.1 fL (81.0-99.0); MEAN CORPUSCULAR HEMOGLOBIN 26.7 pg (27.0-31.0); MEAN CORPUSCULAR HGB CONC 32.1 g/dL (33.0-37.0); MEAN PLATELET VOLUME 9.3 fL (7.2-11.7); MONO # 0.4 K/uL (0.0-0.8); MONO % 4.6 % (0.0-10.0); NEUT # 7.4 K/uL (1.8-7.0); NEUT % 78.9 % (50.0-75.0); RBC 3.06 Mil/uL (3.80-5.20); RED CELL DISTRIBUTION WIDTH 29.7 % (11.5-14.5); WHITE BLOOD COUNT 9.4 K/uL (4.8-10.8)
[2017-02-18 08:46] LABS: INR 2.6
[2017-02-18 08:48] LABS: ALBUMIN 2.7 g/dL (3.5-5.0)
[2017-02-18 08:50] LABS: GFR AFRICAN-AMERICAN > 60; GFR NON-AFRICAN AMERICAN > 60
[2017-02-18 08:51] LABS: ALB/GLOB RATIO 0.8 (1.0-2.1); ALT/SGPT 18 U/L (9-52); AST/SGOT 25 U/L (14-36); BLOOD UREA NITROGEN 3 mg/dL (7-17)
[2017-02-18 08:52] LABS: CALCIUM 8.1 mg/dl (8.6-10.4); MAGNESIUM 1.7 mg/dL (1.6-2.3)
[2017-02-18] MEDS: Saccharomyces Boulardi 250 mg Cap PO SCH ×2 (10:31→17:40)
[2017-02-18] MEDS ORDERED: Magnesium Sulfate 1 gm in D5W 1 GM/100 ML BAG IVPB ONE (11:30)
[2017-02-18] MEDS ORDERED: Potassium Chloride 20 mEq ER Tab PO ONE (12:30)
--- NOTE | 2017-02-18 13:42 | CARD ---
APPROVED REPORT EKG Measurement Heart [id number] CA [id number] [id number] <Conclusion> Normal sinus rhythm Inferior infarct, age undetermined Abnormal ECG
[2017-02-18 14:08] LABS: IRON 39 ug/dL (37-170)
[2017-02-18 14:18] LABS: % IRON SATURATION 15 (20-55); TOTAL IRON BINDING CAPACITY 268 ug/dL (250-450)
--- NOTE | 2017-02-18 18:52 | CP.PCM.PN ---
Subjective - Date & Time of Evaluation Date of Evaluation: 02/18/17 Time of Evaluation: 07:30 - Subjective Subjective: PGY1 on medicine Dr. Rivera's service: Patient seen and examined at bedside this morning. Patient stated she has not felt a fever since Thursday morning. Patient denies chest pain, current shortness of breath, pain on urination, nausea, vomiting, diarrhea, or constipation. Objective - Vital Signs/Intake and Output Vital Signs (last 24 hours): Temp Pulse Resp BP Pulse Ox 99.8 F H 104 H 18 114/59 L 100 02/18/17 15:35 02/18/17 15:35 02/18/17 15:35 02/18/17 15:35 02/18/17 15:35 Intake and Output: 02/18/17 02/18/17 06:59 18:59 Intake Total 1989 Balance 1989 - Medications Medications: Current Medications Famotidine (Pepcid) 20 mg PO BID [facility] Last Admin: 02/18/17 17:39 Dose: 20 mg Ferrous Sulfate (Feosol) 325 mg PO BID [facility] Last Admin: 02/18/17 17:39 Dose: 325 mg Imipenem/Cilastatin Sodium 500 (mg/ Sodium Chloride) 100 mls @ 100 mls/hr IVPB Q6H [facility] Last Admin: 02/18/17 14:00 Dose: 100 mls/hr Linezolid (Zyvox 600mg/300ml D5w) 600 mg in 300 mls @ 200 mls/hr IVPB Q12H [facility] Last Admin: 02/18/17 14:00 Dose: 200 mls/hr Ondansetron HCl (Zofran Tab) 4 mg PO Q6 PRN PRN Reason: Nausea/Vomiting Last Admin: 02/18/17 17:39 Dose: 4 mg Saccharomyces Boulardii (Florastor) 250 mg PO BID [facility] Last Admin: 02/18/17 17:40 Dose: 250 mg - Labs Labs: 02/18/17 08:24 02/18/17 08:24 PT 31.0 SECONDS (9.7-12.2) H* D 02/18/17 08:24 INR 2.6 D 02/18/17 08:24 APTT 43 SECONDS (21-34) H 02/17/17 07:32 - Constitutional Appears: No Acute Distress - Head Exam Head Exam: NORMAL INSPECTION, NORMOCEPHALIC - Eye Exam Eye Exam: Normal appearance - ENT Exam ENT Exam: Mucous Membranes Moist - Respiratory Exam Respiratory Exam: Clear to Ausculation Bilateral, NORMAL BREATHING PATTERN. absent: Rales, Rhonchi, Wheezes, Stridor - Cardiovascular Exam Cardiovascular Exam: REGULAR RHYTHM, RRR, +S1, +S2. absent: JVD - GI/Abdominal Exam GI & Abdominal Exam: Soft, Normal Bowel Sounds. absent: Tenderness - Extremities Exam Extremities Exam: absent: Calf Tenderness, Joint Swelling, Pedal Edema, Tenderness - Neurological Exam Neurological Exam: Alert, Awake, Oriented x3 - Psychiatric Exam Psychiatric exam: Normal Mood - Skin Skin Exam: Normal Color, Warm Assessment and Plan - Assessment and Plan (Free Text) Assessment: 51 year old female with past medical history of urinary tract infection , fibroids, anemia, dvt presents to the ED with fever. Plan: 1.) Fever presumed to be due to incomplete therapy of UTI * Infectious Disease Consult: Dr. Hernandez ---> help appreciated * 500mg Primaxin q6h (02/15/17) * 600mg Zyvox q12h (02/15/17) * Monitor WBC * will repeat urine culture f/u * Procalcitonin mildly elevated at 0.55 * Lactate Level normal * f/u blood culture (02/14/17) * Abdominal/Pelvis CT (02/16/17): Enlarged, multi fibroid uterus. Possible necrosis within the largest right fundal uterine fibroid although there was no liquefactation demonstrated on pelvic ultrasound examination of 02/04/17. Subtle increased attenuation of the periuterine fate along the right lateral aspect, of untertain significance. this may reflect an inflammatory or infectious process through no clear source is identified. * f/u stool accult blood * Urine culture: No growth 2.) Chest Pressure Resolved * Angio chest CT showed no evidence of PE. 4mm RUL nodule finding does not need follow up per Fleischner criteria. 1.4cm right lobe thyroid per report. * JOE negative * EKG x3: Normal Sinus Rhythm; Inferior Infarct of undetermined age * f/u ECHO 3.) Hypokalemia * Monitor K, Mg 4.) Thyroid nodule * Right thyroid nodule 1.4cm per CT report. * Free T4: 1.33 5.) History of DVT * Coumadin 1mg PO daily * PT/INR: 19.9/1.7 * 5mg Coumadin Daily * 80mg Lovenox Q12 6.) Chronic Anemia * Monitor H/H: 8.2/25.5 * 325mg Ferrous Sulfate PO BID * f/u %Iron, serum iron, TIBC, retic count, ferritin 7.) History of Fibroid Patient reports a history of irregular periods and history of fibroids * Pelvic US (02/04/17): markedly enlarged heterogenous uters contains multiple soft tissue mass lesions likely represent fibroids. Largest fibroid seen at the fundus measures 11.7 cm in the largest diameter. Complex cystic lesion at the left ovary measures 4.6 cm. 8.) Prophylaxis * Protonix 40mg PO daily * Florastor
--- NOTE | 2017-02-18 20:51 | CARD ---
APPROVED REPORT EXAM: Two-dimensional and M-mode echocardiogram with Doppler and color Doppler. Other Information Quality : GoodRhythm : NSR INDICATION Chest Pain FEVER ; No M.Mode ; Repeat Limited Study Mitral Valve MV E Aelmsuas71.6cm/sMV A Wwjzolwn38.1cm/sE/A ratio0.9 TDI E/Lateral E'0.0E/Medial E'0.0 Tricuspid Valve TR Peak Uqyeminu951at/sTR Peak Gr.[id number] <Conclusion> tds. poor window. la,lv & ra rv size appears normal. overall normal lv systolic function with lvef of 55-60%. normal diastolic filling. mitral,tv & aortic valve are probably normal. no pericardial effusion. suggest judy if indicated.
--- NOTE | 2017-02-18 22:18 | CP.PCM.PN ---
Subjective - Date & Time of Evaluation Date of Evaluation: 02/18/17 Time of Evaluation: 03:00 - Subjective Subjective: Patient denies any new complaints,says she is getting potassium iv Objective - Vital Signs/Intake and Output Vital Signs (last 24 hours): Temp Pulse Resp BP Pulse Ox 98.4 F 104 H 18 114/59 L 100 02/18/17 20:26 02/18/17 15:35 02/18/17 15:35 02/18/17 15:35 02/18/17 15:35 - Medications Medications: Current Medications Famotidine (Pepcid) 20 mg PO BID [facility] Last Admin: 02/18/17 17:39 Dose: 20 mg Ferrous Sulfate (Feosol) 325 mg PO BID [facility] Last Admin: 02/18/17 17:39 Dose: 325 mg Imipenem/Cilastatin Sodium 500 (mg/ Sodium Chloride) 100 mls @ 100 mls/hr IVPB Q6H [facility] Last Admin: 02/18/17 14:00 Dose: 100 mls/hr Linezolid (Zyvox 600mg/300ml D5w) 600 mg in 300 mls @ 200 mls/hr IVPB Q12H [facility] Last Admin: 02/18/17 14:00 Dose: 200 mls/hr Ondansetron HCl (Zofran Tab) 4 mg PO Q6 PRN PRN Reason: Nausea/Vomiting Last Admin: 02/18/17 17:39 Dose: 4 mg Saccharomyces Boulardii (Florastor) 250 mg PO BID [facility] Last Admin: 02/18/17 17:40 Dose: 250 mg - Labs Labs: 02/18/17 08:24 02/18/17 08:24 PT 31.0 SECONDS (9.7-12.2) H* D 02/18/17 08:24 INR 2.6 D 02/18/17 08:24 APTT 43 SECONDS (21-34) H 02/17/17 07:32 - Constitutional Appears: Non-toxic, No Acute Distress - Head Exam Head Exam: ATRAUMATIC, NORMOCEPHALIC - Eye Exam Eye Exam: Normal appearance - Neck Exam Neck Exam: Normal Inspection - Respiratory Exam Respiratory Exam: Clear to Ausculation Bilateral - Cardiovascular Exam Cardiovascular Exam: REGULAR RHYTHM, RRR. absent: Bradycardia, Tachycardia, Clicks, Diastolic murmur, Gallop, Irregular Rhythm, JVD, Rubs, +S1, +S2, +S4, Murmur - GI/Abdominal Exam GI & Abdominal Exam: Soft, Hyperactive Bowel Sounds - Extremities Exam Extremities Exam: Normal Inspection - Back Exam Additional comments: skin as excoriation in the buttock fold and this extends into perineum with abscess new in left perineal area Assessment and Plan (1) Fever Status: Resolved - Assessment and Plan (Free Text) Assessment: unclear why she had fever but responding to antibiotics for now may give antibiotics for 5 to 7 days total at this time and sned home off antibiotics n coumadin and 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
[2017-02-19] MEDS: Linezolid 600 mg in D5W 300 ml 600 MG/300 ML BAG IVPB SCH ×2 (01:41→14:07)
[2017-02-19 07:32] LABS: BASO % 0.4 % (0.0-2.0); EOS # 0.3 K/uL (0.0-0.7); EOS % 3.1 % (0.0-4.0); LYMPH # 1.4 K/uL (1.0-4.3); LYMPH % 16.3 % (20.0-40.0); MEAN CELL VOLUME 83.5 fL (81.0-99.0); MEAN CORPUSCULAR HEMOGLOBIN 27.3 pg (27.0-31.0); MEAN CORPUSCULAR HGB CONC 32.7 g/dL (33.0-37.0); MEAN PLATELET VOLUME 8.5 fL (7.2-11.7); MONO # 0.5 K/uL (0.0-0.8); MONO % 5.6 % (0.0-10.0); NEUT # 6.2 K/uL (1.8-7.0); NEUT % 74.6 % (50.0-75.0); NRBC % 0.1 % (0.0-2.0); RBC 2.93 Mil/uL (3.80-5.20); WHITE BLOOD COUNT 8.3 K/uL (4.8-10.8)
[2017-02-19 07:39] LABS: INR 2.9
--- NOTE | 2017-02-19 07:43 | CP.PCM.PN ---
Subjective - Date & Time of Evaluation Date of Evaluation: 02/19/17 Time of Evaluation: 00:00 - Subjective Subjective: PGY1 on medicine Dr. Rivera's service: Patient seen and examined at bedside this morning. Patient denies fever, chest pain, current shortness of breath, pain on urination, nausea, vomiting, diarrhea , or constipation. Objective - Vital Signs/Intake and Output Vital Signs (last 24 hours): Temp Pulse Resp BP Pulse Ox 97.6 F 81 20 105/61 98 02/19/17 04:50 02/18/17 23:55 02/18/17 23:55 02/18/17 23:55 02/18/17 23:55 Intake and Output: 02/19/17 02/19/17 06:59 18:59 Intake Total 300 Balance 300 - Medications Medications: Current Medications Famotidine (Pepcid) 20 mg PO BID [facility] Last Admin: 02/18/17 17:39 Dose: 20 mg Ferrous Sulfate (Feosol) 325 mg PO BID [facility] Last Admin: 02/18/17 17:39 Dose: 325 mg Imipenem/Cilastatin Sodium 500 (mg/ Sodium Chloride) 100 mls @ 100 mls/hr IVPB Q6H [facility] Last Admin: 02/19/17 06:07 Dose: 100 mls/hr Linezolid (Zyvox 600mg/300ml D5w) 600 mg in 300 mls @ 200 mls/hr IVPB Q12H [facility] Last Admin: 02/19/17 01:41 Dose: 200 mls/hr Ondansetron HCl (Zofran Tab) 4 mg PO Q6 PRN PRN Reason: Nausea/Vomiting Last Admin: 02/18/17 17:39 Dose: 4 mg Saccharomyces Boulardii (Florastor) 250 mg PO BID [facility] Last Admin: 02/18/17 17:40 Dose: 250 mg - Labs Labs: 02/19/17 07:07 02/18/17 08:24 PT 31.0 SECONDS (9.7-12.2) H* D 02/18/17 08:24 INR 2.6 D 02/18/17 08:24 APTT 43 SECONDS (21-34) H 02/17/17 07:32 - Constitutional Appears: No Acute Distress - Head Exam Head Exam: NORMAL INSPECTION - Eye Exam Eye Exam: Normal appearance - ENT Exam ENT Exam: Mucous Membranes Moist - Respiratory Exam Respiratory Exam: Clear to Ausculation Bilateral, NORMAL BREATHING PATTERN. absent: Rales, Rhonchi, Wheezes, Stridor - Cardiovascular Exam Cardiovascular Exam: REGULAR RHYTHM, +S1, +S2. absent: JVD - GI/Abdominal Exam GI & Abdominal Exam: Soft, Normal Bowel Sounds. absent: Tenderness - Extremities Exam Extremities Exam: Full ROM. absent: Calf Tenderness, Joint Swelling, Pedal Edema, Tenderness - Neurological Exam Neurological Exam: Alert, Awake, Oriented x3 - Psychiatric Exam Psychiatric exam: Normal Mood - Skin Skin Exam: Normal Color, Warm Assessment and Plan - Assessment and Plan (Free Text) Assessment: 51 year old female with past medical history of urinary tract infection , fibroids, anemia, dvt presents to the ED with fever. Plan: 1.) Fever presumed to be due to incomplete therapy of UTI * Infectious Disease Consult: Dr. Hernandez ---> help appreciated * 500mg Primaxin q6h (02/15/17) * 600mg Zyvox q12h (02/15/17) * Monitor WBC * Procalcitonin mildly elevated at 0.55 (02/15/17) * Procalcionin 0.24 (02/19/17) * Lactate Level normal * Abdominal/Pelvis CT (02/16/17): Enlarged, multi fibroid uterus. Possible necrosis within the largest right fundal uterine fibroid although there was no liquefactation demonstrated on pelvic ultrasound examination of 02/04/17. Subtle increased attenuation of the periuterine fate along the right lateral aspect, of untertain significance. this may reflect an inflammatory or infectious process through no clear source is identified. * Urine culture 02/17/17: No growth * f/u Repeat stool accult blood * f/u blood culture (02/14/17) 2.) Chest Pressure Resolved * Angio chest CT showed no evidence of PE. 4mm RUL nodule finding does not need follow up per Fleischner criteria. 1.4cm right lobe thyroid per report. * JOE negative * EKG x3: Normal Sinus Rhythm; Inferior Infarct of undetermined age * ECHO 02/14/17: LA, LV, and RA, RV size appears normal. Over all normal LV systolic function with LV EF of 55-60%. Normal diastolic filling. Mitral, TV and aortic valve are probably normal. No pericardial effusion. 3.) Hypokalemia * Resolved 4.) Thyroid nodule * Right thyroid nodule 1.4cm per CT report. * Free T4: 1.33 5.) History of DVT * Coumadin 1mg PO daily * PT/INR: 34.2/2.9 6.) Chronic Anemia * Monitor H/H: 8.0/24.5 * 325mg Ferrous Sulfate PO BID * 15 %Iron Saturation, 39 serum iron, 268 TIBC, 151 ferritin, 3.1 reticulocyte count 7.) History of Fibroid Patient reports a history of irregular periods and history of fibroids * Pelvic US (02/04/17): markedly enlarged heterogenous uters contains multiple soft tissue mass lesions likely represent fibroids. Largest fibroid seen at the fundus measures 11.7 cm in the largest diameter. Complex cystic lesion at the left ovary measures 4.6 cm. 8.) Prophylaxis * Protonix 40mg PO daily * Florastor
[2017-02-19 07:47] LABS: PROTHROMBIN TIME 34.2 SECONDS (9.7-12.2)
[2017-02-19 07:57] LABS: ALBUMIN 2.8 g/dL (3.5-5.0)
[2017-02-19 08:00] LABS: ALB/GLOB RATIO 0.7 (1.0-2.1); ALT/SGPT 16 U/L (9-52); AST/SGOT 20 U/L (14-36); BLOOD UREA NITROGEN 3 mg/dL (7-17); GFR AFRICAN-AMERICAN > 60; GFR NON-AFRICAN AMERICAN > 60
[2017-02-19 08:01] LABS: CALCIUM 8.5 mg/dl (8.6-10.4); MAGNESIUM 2.1 mg/dL (1.6-2.3)
[2017-02-19] MEDS: Saccharomyces Boulardi 250 mg Cap PO SCH ×2 (09:41→17:44)
[2017-02-20] MEDS: Linezolid 600 mg in D5W 300 ml 600 MG/300 ML BAG IVPB SCH ×2 (01:07→13:30)
[2017-02-20 07:32] LABS: BASO % 0.2 % (0.0-2.0); EOS # 0.2 K/uL (0.0-0.7); EOS % 1.4 % (0.0-4.0); HEMOGLOBIN 8.2 g/dL (11.0-16.0); INR 2.6; LYMPH # 1.3 K/uL (1.0-4.3); LYMPH % 9.5 % (20.0-40.0); MEAN CELL VOLUME 83.2 fL (81.0-99.0); MEAN CORPUSCULAR HEMOGLOBIN 26.7 pg (27.0-31.0); MEAN CORPUSCULAR HGB CONC 32.1 g/dL (33.0-37.0); MONO # 0.6 K/uL (0.0-0.8); MONO % 4.5 % (0.0-10.0); NEUT # 11.8 K/uL (1.8-7.0); NEUT % 84.4 % (50.0-75.0); PLATELET COUNT 270 K/uL (130-400); PROTHROMBIN TIME 30.8 SECONDS (9.7-12.2); RBC 3.06 Mil/uL (3.80-5.20); RED CELL DISTRIBUTION WIDTH 29.4 % (11.5-14.5)
[2017-02-20 08:14] LABS: ALBUMIN 3.1 g/dL (3.5-5.0)
[2017-02-20 08:17] LABS: ALB/GLOB RATIO 0.8 (1.0-2.1); AST/SGOT 27 U/L (14-36); BLOOD UREA NITROGEN 5 mg/dL (7-17); GFR AFRICAN-AMERICAN > 60; GFR NON-AFRICAN AMERICAN > 60
[2017-02-20 08:18] LABS: ALT/SGPT 16 U/L (9-52); CALCIUM 8.2 mg/dl (8.6-10.4); MAGNESIUM 1.8 mg/dL (1.6-2.3)
[2017-02-20] MEDS: Saccharomyces Boulardi 250 mg Cap PO SCH ×2 (09:42→18:26)
[2017-02-20 10:32] LABS: ANISOCYTOSIS MODERATE; LYMPHOCYTE 4 % (20-40); MONOCYTE 4 % (0-10); NEUTROPHIL 92 % (50-75); PLATELET ESTIMATE NORMAL (NORMAL); TOTAL CELLS COUNTED 100
[2017-02-20 10:33] LABS: HYPOCHROMIC SLIGHT; MICROCYTOSIS SLIGHT; OVALOCYTES SLIGHT; POIKILOCYTOSIS SLIGHT; POLYCHROMIC SLIGHT
--- NOTE | 2017-02-20 11:08 | CP.PCM.PN ---
<Carolina Snow - Last Filed: 02/20/17 19:12> Subjective - Date & Time of Evaluation Date of Evaluation: 02/20/17 Time of Evaluation: 07:00 - Subjective Subjective: PGY1 on medicine Dr. Magallon's service: Patient seen and examined at bedside this morning. Patient denies fever, chest pain, current shortness of breath, pain on urination, nausea, vomiting, or diarrhea. Patient stated she is constipated. Patient stated she is still currently menstruating and her blood flow is heavy, she is changing her pad 2 times every hour. Objective - Vital Signs/Intake and Output Vital Signs (last 24 hours): Temp Pulse Resp BP Pulse Ox 99.6 F 101 H 20 102/54 L 97 02/20/17 08:23 02/20/17 08:23 02/20/17 08:23 02/20/17 08:23 02/20/17 08:23 Intake and Output: 02/20/17 02/20/17 06:59 18:59 Intake Total 500 Balance 500 - Medications Medications: Current Medications Acetaminophen (Tylenol 325mg Tab) 650 mg PO Q6 PRN PRN Reason: Pain, severe (8-10) Famotidine (Pepcid) 20 mg PO BID [facility] Last Admin: 02/20/17 09:42 Dose: 20 mg Ferrous Sulfate (Feosol) 325 mg PO BID [facility] Last Admin: 02/20/17 09:42 Dose: 325 mg Imipenem/Cilastatin Sodium 500 (mg/ Sodium Chloride) 100 mls @ 100 mls/hr IVPB Q6H [facility] Last Admin: 02/20/17 06:16 Dose: 100 mls/hr Linezolid (Zyvox 600mg/300ml D5w) 600 mg in 300 mls @ 200 mls/hr IVPB Q12H [facility] Last Admin: 02/20/17 01:07 Dose: 200 mls/hr Ondansetron HCl (Zofran Tab) 4 mg PO Q6 PRN PRN Reason: Nausea/Vomiting Last Admin: 02/20/17 06:22 Dose: 4 mg Saccharomyces Boulardii (Florastor) 250 mg PO BID [facility] Last Admin: 02/20/17 09:42 Dose: 250 mg Warfarin Sodium (Coumadin) 1 mg PO 1800 [facility] Stop: 02/20/17 18:01 - Labs Labs: 02/20/17 07:11 02/20/17 07:11 PT 30.8 SECONDS (9.7-12.2) H* 02/20/17 07:11 INR 2.6 02/20/17 07:11 APTT 43 SECONDS (21-34) H 02/17/17 07:32 - Constitutional Appears: No Acute Distress - Head Exam Head Exam: NORMAL INSPECTION - Eye Exam Eye Exam: Normal appearance - ENT Exam ENT Exam: Mucous Membranes Moist - Respiratory Exam Respiratory Exam: Clear to Ausculation Bilateral, NORMAL BREATHING PATTERN - Cardiovascular Exam Cardiovascular Exam: REGULAR RHYTHM, RRR, +S1, +S2 - GI/Abdominal Exam GI & Abdominal Exam: Soft, Normal Bowel Sounds. absent: Distended, Tenderness - Extremities Exam Extremities Exam: absent: Calf Tenderness, Joint Swelling, Pedal Edema, Tenderness - Neurological Exam Neurological Exam: Alert, Awake, Oriented x3 - Psychiatric Exam Psychiatric exam: Normal Mood - Skin Skin Exam: Normal Color, Warm. absent: Rash Assessment and Plan - Assessment and Plan (Free Text) Assessment: 51 year old female with past medical history of urinary tract infection , fibroids, anemia, dvt presents to the ED with fever. Plan: 1.) Fever presumed to be due to incomplete therapy of UTI * Infectious Disease Consult: Dr. Hernandez ---> help appreciated * 500mg Primaxin q6h (02/15/17) ---> Day 6 out of 10 * 600mg Zyvox q12h (02/15/17) ---> Day 6 out of 10 * Monitor WBC * Procalcitonin mildly elevated at 0.55 (02/15/17) * Procalcionin 0.24 (02/19/17) * Lactate Level normal * Abdominal/Pelvis CT (02/16/17): Enlarged, multi fibroid uterus. Possible necrosis within the largest right fundal uterine fibroid although there was no liquefactation demonstrated on pelvic ultrasound examination of 02/04/17. Subtle increased attenuation of the periuterine fate along the right lateral aspect, of untertain significance. this may reflect an inflammatory or infectious process through no clear source is identified. * Urine culture 02/17/17: No growth * Blood culture (02/14/17): No growth * f/u Repeat stool occult blood * f/u Urine chlamydia and gonorrhea 2.) Chest Pressure Resolved * Angio chest CT showed no evidence of PE. 4mm RUL nodule finding does not need follow up per Fleischner criteria. 1.4cm right lobe thyroid per report. * JOE negative * EKG x3: Normal Sinus Rhythm; Inferior Infarct of undetermined age * ECHO 02/14/17: LA, LV, and RA, RV size appears normal. Over all normal LV systolic function with LV EF of 55-60%. Normal diastolic filling. Mitral, TV and aortic valve are probably normal. No pericardial effusion. 3.) Hypokalemia * Resolved 4.) Thyroid nodule * Right thyroid nodule 1.4cm per CT report. * Free T4: 1.33 5.) History of DVT * Coumadin 1mg PO daily * PT/INR: 30.8/2.6 6.) Chronic Anemia * Monitor H/H: 8.2/25.5 * 325mg Ferrous Sulfate PO BID * 15 %Iron Saturation, 39 serum iron, 268 TIBC, 151 ferritin, 3.1 reticulocyte count 7.) History of Fibroid Patient reports a history of irregular periods and history of fibroids * Pelvic US (02/04/17): markedly enlarged heterogenous uters contains multiple soft tissue mass lesions likely represent fibroids. Largest fibroid seen at the fundus measures 11.7 cm in the largest diameter. Complex cystic lesion at the left ovary measures 4.6 cm. * Gynecology Consult: Dr. Farooq --> help appreciated * f/u repeat pelvic/transvaginal sonogram * Patient to follow up with a datawarehouse developer oncologist as an outpatient 8.) Prophylaxis * Protonix 40mg PO daily * Florastodette <Doroteo Magallon - Last Filed: 03/03/17 15:17> Objective - Vital Signs/Intake and Output Vital Signs (last 24 hours): Temp Pulse Resp BP Pulse Ox 98.9 F 75 20 120/75 99 03/03/17 08:00 03/03/17 08:00 03/03/17 08:00 03/03/17 08:00 03/03/17 08:00 Intake and Output: 03/03/17 03/03/17 06:59 18:59 Intake Total 1060 Balance 1060 - Medications Medications: Current Medications Acetaminophen (Tylenol 325mg Tab) 650 mg PO Q6 PRN PRN Reason: Pain, severe (8-10) Last Admin: 03/02/17 17:57 Dose: 650 mg Famotidine (Pepcid) 20 mg PO BID [facility] Last Admin: 03/03/17 09:28 Dose: 20 mg Ferrous Sulfate (Feosol) 325 mg PO BID [facility] Last Admin: 03/03/17 09:28 Dose: 325 mg Imipenem/Cilastatin Sodium 500 (mg/ Sodium Chloride) 100 mls @ 100 mls/hr IVPB Q6H [facility] Last Admin: 03/03/17 12:42 Dose: 100 mls/hr Metronidazole (Flagyl) 500 mg in 100 mls @ 100 mls/hr IVPB Q12 [facility] Last Admin: 03/03/17 09:29 Dose: 100 mls/hr Ondansetron HCl (Zofran Inj) 4 mg IVP Q6H PRN PRN Reason: Nausea/Vomiting, IF NPO Last Admin: 03/02/17 02:22 Dose: 4 mg Saccharomyces Boulardii (Florastor) 250 mg PO BID [facility] Last Admin: 03/03/17 09:28 Dose: 250 mg - Labs Labs: 03/03/17 06:57 03/03/17 06:57 PT 24.1 SECONDS (9.7-12.2) H 03/03/17 06:57 INR 2.1 03/03/17 06:57 APTT 38 SECONDS (21-34) H 03/03/17 06:57 Attending/Attestation - Attestation I have personally seen and examined this patient.: Yes I have fully participated in the care of the patient.: Yes I have reviewed all pertinent clinical information, including history, physical exam and plan: Yes Notes (Text): Patient Seen and examined with the resident. Agree with the resident's evaluation, assessment and plan. Sepsis - Likely secondary to UTI failed antibiotics zyvox Hx of DVT - Cont home coumadin Hx of fatty liver Hx of iron deficiency anemia
[2017-02-20] MEDS ORDERED: Bisacodyl 5mg EC Tab PO ONE (13:15)
--- NOTE | 2017-02-20 17:22 | CP.PCM.CON ---
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 pt states she was admitted her for 2 weeks and was discharge home and started having fever again. c/o pain in the abdomen.pt was diagnosed with fibroid uterus 20weeks sizer and was told to folloew up with specialist. pt had an appointment but missed it as she started having fever.blood ulture/urine cultre neg.On ct scan infectious process cannot be ruled out.pt has been with steady partner for 33 years. obhx 3 x . has not seen systems design engineer in 20 yrs. pmh h/o dvt on coumadin all vancomycin psh appendectomy soch denies and soft,mild ten pelvic exam old blood, cervix closed, min blood, ut 20weks size,no pal mass Review of Systems - Reproductive: Female Reproductive:Female: Abnormal Vaginal Bleeding Past Patient History - Infectious Disease Hx of Infectious Diseases: None - Past Medical History & Family History Past Medical History?: No - Past Social History Smoking Status: Never Smoked - CARDIAC Hx Cardiac Disorders: No - PULMONARY Hx Respiratory Disorders: No - NEUROLOGICAL Hx Neurological Disorder: No - HEENT Hx HEENT Problems: No - RENAL Hx Chronic Kidney Disease: No - ENDOCRINE/METABOLIC Hx Endocrine Disorders: No - HEMATOLOGICAL/ONCOLOGICAL Hx Anemia: Yes - INTEGUMENTARY Hx Dermatological Problems: No - MUSCULOSKELETAL/RHEUMATOLOGICAL Hx Falls: No - GASTROINTESTINAL Hx Gastrointestinal Disorders: No - GENITOURINARY/GYNECOLOGICAL Other/Comment: uterine fibroids - PSYCHIATRIC Hx Substance Use: No - SURGICAL HISTORY Hx Surgeries: Yes Other/Comment: APPENDECTOMY-JAN 01 2017 - ANESTHESIA Hx Anesthesia: Yes Hx Anesthesia Reactions: No Hx Malignant Hyperthermia: No Meds Allergies/Adverse Reactions: Allergies Allergy/AdvReac Type Severity Reaction Status Date / Time vancomycin Allergy Severe REDNESS Verified 02/14/17 17:06 - Medications Medications: Current Medications Acetaminophen (Tylenol 325mg Tab) 650 mg PO Q6 PRN PRN Reason: Pain, severe (8-10) Last Admin: 02/20/17 11:50 Dose: 650 mg Famotidine (Pepcid) 20 mg PO BID [facility] Last Admin: 02/20/17 09:42 Dose: 20 mg Ferrous Sulfate (Feosol) 325 mg PO BID [facility] Last Admin: 02/20/17 09:42 Dose: 325 mg Imipenem/Cilastatin Sodium 500 (mg/ Sodium Chloride) 100 mls @ 100 mls/hr IVPB Q6H [facility] Last Admin: 02/20/17 13:00 Dose: 100 mls/hr Linezolid (Zyvox 600mg/300ml D5w) 600 mg in 300 mls @ 200 mls/hr IVPB Q12H [facility] Last Admin: 02/20/17 13:30 Dose: 200 mls/hr Ondansetron HCl (Zofran Tab) 4 mg PO Q6 PRN PRN Reason: Nausea/Vomiting Last Admin: 02/20/17 06:22 Dose: 4 mg Saccharomyces Boulardii (Florastor) 250 mg PO BID [facility] Last Admin: 02/20/17 09:42 Dose: 250 mg Warfarin Sodium (Coumadin) 1 mg PO 1800 [facility] Stop: 02/20/17 18:01 Physical Exam - Constitutional Appears: Well - Exam Bimanual exam: Cervical Motion Tendernes (neg), Uterine Enlargement (20wek), Uterine Tenderness (mild) Results - Vital Signs Recent Vital Signs: Last Vital Signs Temp 98.3 F 02/20/17 15:33 Pulse 93 H 02/20/17 15:33 Resp 20 02/20/17 15:33 BP 104/70 02/20/17 15:33 Pulse Ox 98 02/20/17 15:33 - Labs Result Diagrams: 02/20/17 07:11 02/20/17 07:11 Labs: Laboratory Results - last 24 hr 02/20/17 02/20/17 02/20/17 07:11 07:11 07:11 WBC 14.0 H D RBC 3.06 L Hgb 8.2 L Hct 25.5 L MCV 83.2 MCH 26.7 L MCHC 32.1 L RDW 29.4 H Plt Count 270 MPV 9.0 Neut % (Auto) 84.4 H Lymph % (Auto) 9.5 L Andrew % (Auto) 4.5 Eos % (Auto) 1.4 Baso % (Auto) 0.2 Neut # 11.8 H Lymph # 1.3 Andrew # 0.6 Eos # 0.2 Baso # 0.0 Neutrophils % (Manual) 92 H Lymphocytes % (Manual) 4 L Monocytes % (Manual) 4 Platelet Estimate Normal Polychromasia Slight Hypochromasia (manual) Slight Poikilocytosis (manual Slight Anisocytosis (manual) Moderate Microcytosis (manual) Slight Macrocytosis (manual) Slight Ovalocytes Slight PT 30.8 H* INR 2.6 Sodium 135 Potassium 3.7 Chloride 100 Carbon Dioxide 23 Anion Gap 16 BUN 5 L Creatinine 0.5 L Est GFR ( Amer) > 60 Est GFR (Non-Af Amer) > 60 Random Glucose 120 H Calcium 8.2 L Phosphorus 4.1 Magnesium 1.8 Total Bilirubin 0.5 AST 27 ALT 16 Alkaline Phosphatase 128 H Total Protein 6.9 Albumin 3.1 L Globulin 3.8 Albumin/Globulin Ratio 0.8 L Assessment & Plan - Assessment and Plan (Free Text) Assessment: 51 yr with fibroid uterus/fever of unknown origin Plan: plan repeat pelvic/transvaginal sonogram u chymidia/gonorrhea cont antibiotcs cont medical management will follow the results - Date & Time Date: 02/20/17 Time: 17:50
[2017-02-21] MEDS: Linezolid 600 mg in D5W 300 ml 600 MG/300 ML BAG IVPB SCH ×2 (01:31→13:30)
[2017-02-21 06:35] LABS: BASO # 0.1 K/uL (0.0-0.2); BASO % 0.5 % (0.0-2.0); EOS # 0.2 K/uL (0.0-0.7); EOS % 1.5 % (0.0-4.0); HEMOGLOBIN 7.9 g/dL (11.0-16.0); LYMPH # 1.8 K/uL (1.0-4.3); LYMPH % 14.2 % (20.0-40.0); MEAN CELL VOLUME 84.1 fL (81.0-99.0); MEAN CORPUSCULAR HEMOGLOBIN 27.1 pg (27.0-31.0); MEAN CORPUSCULAR HGB CONC 32.3 g/dL (33.0-37.0); MEAN PLATELET VOLUME 8.6 fL (7.2-11.7); MONO # 0.9 K/uL (0.0-0.8); MONO % 6.8 % (0.0-10.0); NEUT # 9.8 K/uL (1.8-7.0); RBC 2.93 Mil/uL (3.80-5.20); RED CELL DISTRIBUTION WIDTH 28.1 % (11.5-14.5); WHITE BLOOD COUNT 12.7 K/uL (4.8-10.8)
--- NOTE | 2017-02-21 06:58 | CP.PCM.PN ---
<Antony Jensen - Last Filed: 02/21/17 06:56> Subjective - Date & Time of Evaluation Date of Evaluation: 02/21/17 Time of Evaluation: 01:00 - Subjective Subjective: PGY1 on medicine Dr. Magallon's service: Patient seen and examined at bedside this morning. Patient admits to subjective fever and diaphoresis. She denies chest pain, current shortness of breath, pain on urination, nausea, vomiting, or diarrhea. She attributes her fever to her fibroid and wants to know when she can have it removed. Objective - Vital Signs/Intake and Output Vital Signs (last 24 hours): Temp Pulse Resp BP Pulse Ox 98.2 F 88 20 96/61 L 98 02/21/17 04:25 02/20/17 23:45 02/20/17 23:45 02/20/17 23:45 02/20/17 23:45 Intake and Output: 02/20/17 02/21/17 18:59 06:59 Intake Total 600 Balance 600 - Medications Medications: Current Medications Acetaminophen (Tylenol 325mg Tab) 650 mg PO Q6 PRN PRN Reason: Pain, severe (8-10) Last Admin: 02/20/17 22:20 Dose: 650 mg Famotidine (Pepcid) 20 mg PO BID [facility] Last Admin: 02/20/17 18:26 Dose: 20 mg Ferrous Sulfate (Feosol) 325 mg PO BID [facility] Last Admin: 02/20/17 18:27 Dose: 325 mg Imipenem/Cilastatin Sodium 500 (mg/ Sodium Chloride) 100 mls @ 100 mls/hr IVPB Q6H [facility] Last Admin: 02/21/17 06:28 Dose: 100 mls/hr Linezolid (Zyvox 600mg/300ml D5w) 600 mg in 300 mls @ 200 mls/hr IVPB Q12H [facility] Last Admin: 02/21/17 01:31 Dose: 200 mls/hr Ondansetron HCl (Zofran Tab) 4 mg PO Q6 PRN PRN Reason: Nausea/Vomiting Last Admin: 02/20/17 18:30 Dose: 4 mg Saccharomyces Boulardii (Florastor) 250 mg PO BID [facility] Last Admin: 02/20/17 18:26 Dose: 250 mg - Labs Labs: 02/20/17 07:11 02/20/17 07:11 PT 30.8 SECONDS (9.7-12.2) H* 02/20/17 07:11 INR 2.6 02/20/17 07:11 APTT 43 SECONDS (21-34) H 02/17/17 07:32 - Constitutional Appears: Well - Head Exam Head Exam: ATRAUMATIC, NORMAL INSPECTION, NORMOCEPHALIC - Eye Exam Eye Exam: EOMI, Normal appearance, PERRL Pupil Exam: NORMAL ACCOMODATION, PERRL - ENT Exam ENT Exam: Mucous Membranes Moist, Normal Exam - Neck Exam Neck Exam: Full ROM, Normal Inspection. absent: Lymphadenopathy - Respiratory Exam Respiratory Exam: Clear to Ausculation Bilateral, NORMAL BREATHING PATTERN - Cardiovascular Exam Cardiovascular Exam: REGULAR RHYTHM, +S1, +S2. absent: Murmur - GI/Abdominal Exam GI & Abdominal Exam: Soft, Normal Bowel Sounds. absent: Tenderness - Rectal Exam Rectal Exam: Deferred - Extremities Exam Extremities Exam: Full ROM, Normal Capillary Refill, Normal Inspection. absent : Joint Swelling, Pedal Edema - Neurological Exam Neurological Exam: Alert, Awake, CN II-XII Intact, Normal Gait, Oriented x3 - Psychiatric Exam Psychiatric exam: Normal Affect, Normal Mood - Skin Skin Exam: Dry, Intact, Normal Color, Warm Assessment and Plan - Assessment and Plan (Free Text) Assessment: 51 year old female with past medical history of urinary tract infection , fibroids, anemia, dvt presents to the ED with fever. Plan: 1.) Fever presumed to be due to incomplete therapy of UTI * Infectious Disease Consult: Dr. Hernandez ---> help appreciated * 500mg Primaxin q6h (02/15/17) ---> Day 6 out of 10 * 600mg Zyvox q12h (02/15/17) ---> Day 6 out of 10 * Monitor WBC * Procalcitonin mildly elevated at 0.55 (02/15/17) * Procalcionin 0.24 (02/19/17) * Lactate Level normal * Abdominal/Pelvis CT (02/16/17): Enlarged, multi fibroid uterus. Possible necrosis within the largest right fundal uterine fibroid although there was no liquefactation demonstrated on pelvic ultrasound examination of 02/04/17. Subtle increased attenuation of the periuterine fate along the right lateral aspect, of untertain significance. this may reflect an inflammatory or infectious process through no clear source is identified. * Urine culture 02/17/17: No growth * Blood culture (02/14/17): No growth * f/u Repeat stool occult blood * f/u Urine chlamydia and gonorrhea 2.) Chest Pressure Resolved * Angio chest CT showed no evidence of PE. 4mm RUL nodule finding does not need follow up per Fleischner criteria. 1.4cm right lobe thyroid per report. * JOE negative * EKG x3: Normal Sinus Rhythm; Inferior Infarct of undetermined age * ECHO 02/14/17: LA, LV, and RA, RV size appears normal. Over all normal LV systolic function with LV EF of 55-60%. Normal diastolic filling. Mitral, TV and aortic valve are probably normal. No pericardial effusion. 3.) Hypokalemia * Resolved 4.) Thyroid nodule * Right thyroid nodule 1.4cm per CT report. * Free T4: 1.33 5.) History of DVT * Coumadin 1mg PO daily * PT/INR: 30.8/2.6 6.) Chronic Anemia * Monitor H/H: 8.2/25.5 * 325mg Ferrous Sulfate PO BID * 15 %Iron Saturation, 39 serum iron, 268 TIBC, 151 ferritin, 3.1 reticulocyte count 7.) History of Fibroid Patient reports a history of irregular periods and history of fibroids * Pelvic US (02/04/17): markedly enlarged heterogenous uters contains multiple soft tissue mass lesions likely represent fibroids. Largest fibroid seen at the fundus measures 11.7 cm in the largest diameter. Complex cystic lesion at the left ovary measures 4.6 cm. * Gynecology Consult: Dr. Farooq --> help appreciated * f/u repeat pelvic/transvaginal sonogram * Patient to follow up with a information systems security manager oncologist as an outpatient 8.) Prophylaxis * Protonix 40mg PO daily * Kyara <Doroteo Magallon - Last Filed: 03/03/17 15:17> Objective - Vital Signs/Intake and Output Vital Signs (last 24 hours): Temp Pulse Resp BP Pulse Ox 98.9 F 75 20 120/75 99 03/03/17 08:00 03/03/17 08:00 03/03/17 08:00 03/03/17 08:00 03/03/17 08:00 Intake and Output: 03/03/17 03/03/17 06:59 18:59 Intake Total 1060 Balance 1060 - Medications Medications: Current Medications Acetaminophen (Tylenol 325mg Tab) 650 mg PO Q6 PRN PRN Reason: Pain, severe (8-10) Last Admin: 03/02/17 17:57 Dose: 650 mg Famotidine (Pepcid) 20 mg PO BID [facility] Last Admin: 03/03/17 09:28 Dose: 20 mg Ferrous Sulfate (Feosol) 325 mg PO BID [facility] Last Admin: 03/03/17 09:28 Dose: 325 mg Imipenem/Cilastatin Sodium 500 (mg/ Sodium Chloride) 100 mls @ 100 mls/hr IVPB Q6H [facility] Last Admin: 03/03/17 12:42 Dose: 100 mls/hr Metronidazole (Flagyl) 500 mg in 100 mls @ 100 mls/hr IVPB Q12 [facility] Last Admin: 03/03/17 09:29 Dose: 100 mls/hr Ondansetron HCl (Zofran Inj) 4 mg IVP Q6H PRN PRN Reason: Nausea/Vomiting, IF NPO Last Admin: 03/02/17 02:22 Dose: 4 mg Saccharomyces Boulardii (Florastor) 250 mg PO BID [facility] Last Admin: 03/03/17 09:28 Dose: 250 mg - Labs Labs: 03/03/17 06:57 03/03/17 06:57 PT 24.1 SECONDS (9.7-12.2) H 03/03/17 06:57 INR 2.1 03/03/17 06:57 APTT 38 SECONDS (21-34) H 03/03/17 06:57 Attending/Attestation - Attestation I have personally seen and examined this patient.: Yes I have fully participated in the care of the patient.: Yes I have reviewed all pertinent clinical information, including history, physical exam and plan: Yes Notes (Text): Patient Seen and examined with the resident. Agree with the resident's evaluation, assessment and plan. Sepsis - Likely secondary to UTI failed antibiotics zyvox Hx of DVT - Cont home coumadin Hx of fatty liver Hx of iron deficiency anemia
[2017-02-21 07:14] LABS: GFR AFRICAN-AMERICAN > 60; GFR NON-AFRICAN AMERICAN > 60
[2017-02-21 07:15] LABS: ALB/GLOB RATIO 0.7 (1.0-2.1); ALT/SGPT 14 U/L (9-52); AST/SGOT 20 U/L (14-36); BLOOD UREA NITROGEN 4 mg/dL (7-17); CALCIUM 8.5 mg/dl (8.6-10.4)
[2017-02-21] MEDS ORDERED: Potassium Chloride 20 mEq ER Tab PO ONE (09:00)
[2017-02-21] MEDS: Saccharomyces Boulardi 250 mg Cap PO SCH ×2 (09:15→18:00)
--- NOTE | 2017-02-21 09:35 | US ---
HISTORY: fibroid uterus r/o pid COMPARISON: CT abdomen and pelvis from 02/17/2017 TECHNIQUE: Transabdominal and transvaginal pelvic ultrasound was performed FINDINGS: UTERUS: The uterus is markedly enlarged and measures 22 cm in sagittal dimension. There is a large 11.8 x 11 pain 2 x 10.6 cm fundal fibroid and a 2nd large 12.2 x 10.0 x 11.2 cm left lateral wall fibroid. Seen. ENDOMETRIUM: Obscured by fibroids CERVIX: No cervical abnormality identified. RIGHT OVARY: Measures 2.0 x 1.6 x 2.0 cm. No solid mass. Normal flow. LEFT OVARY: Enlarged and measures 6.1 x 4.1 x 5.2 cm. No solid mass. Normal flow. There is a 5.3 x 3.5 x 3.8 cm cyst. FREE FLUID: No significant free fluid noted. OTHER FINDINGS: None. IMPRESSION: 1. Enlarged fibroid uterus. 2. 5.3 cm simple cyst in the left ovary. The differential considerations include simple cyst, cystadenoma and cystadenocarcinoma. Short-term interval follow-up and gynecologic concert is advised.
[2017-02-21] MEDS ORDERED: Bisacodyl 5mg EC Tab PO ONE (14:07)
--- NOTE | 2017-02-21 20:14 | RAD ---
HISTORY: Abdominal pain COMPARISON: No prior. FINDINGS: BOWEL: There is moderate amount of stool in the left hemicolon and rectum. No evidence of bowel dilatation or obstruction BONES: Normal. OTHER FINDINGS: There are surgical clips in the right lower quadrant. IMPRESSION: Constipation. No evidence of bowel obstruction.
[2017-02-22] MEDS ORDERED: guaiFENesin 200 mg/10 ml Syrup UD PO PRN (00:25)
[2017-02-22] MEDS: Linezolid 600 mg in D5W 300 ml 600 MG/300 ML BAG IVPB SCH ×2 (01:34→13:00)
--- NOTE | 2017-02-22 02:01 | CP.PCM.PN ---
<CamilaAntony Travis - Last Filed: 02/22/17 01:55> Subjective - Date & Time of Evaluation Date of Evaluation: 02/22/17 Time of Evaluation: 06:00 - Subjective Subjective: PGY1 on medicine Dr. Magallon's service: Patient was examined at bedside. Her and daughter were present. She complains of subjective fevers and diaphoresis. She says she vomited x1 earlier today. She also complains of abdominal pain in the lower left and right quadrant. She is having bowel movements, passing flatus and urinating normally. She denies chest pain, shortness of breath, cough, diarrhea, constipation, bleeding. Objective - Vital Signs/Intake and Output Vital Signs (last 24 hours): Temp Pulse Resp BP Pulse Ox 98.1 F 81 18 102/66 99 02/21/17 07:10 02/21/17 07:10 02/21/17 07:10 02/21/17 07:10 02/21/17 07:10 - Medications Medications: Current Medications Acetaminophen (Tylenol 325mg Tab) 650 mg PO Q6 PRN PRN Reason: Pain, severe (8-10) Last Admin: 02/20/17 22:20 Dose: 650 mg Famotidine (Pepcid) 20 mg PO BID [facility] Last Admin: 02/21/17 18:00 Dose: 20 mg Ferrous Sulfate (Feosol) 325 mg PO BID [facility] Last Admin: 02/21/17 18:00 Dose: 325 mg Imipenem/Cilastatin Sodium 500 (mg/ Sodium Chloride) 100 mls @ 100 mls/hr IVPB Q6H [facility] Last Admin: 02/22/17 00:33 Dose: 100 mls/hr Linezolid (Zyvox 600mg/300ml D5w) 600 mg in 300 mls @ 200 mls/hr IVPB Q12H [facility] Last Admin: 02/22/17 01:34 Dose: 200 mls/hr Ondansetron HCl (Zofran Tab) 4 mg PO Q6 PRN PRN Reason: Nausea/Vomiting Last Admin: 02/20/17 18:30 Dose: 4 mg Saccharomyces Boulardii (Florastor) 250 mg PO BID [facility] Last Admin: 02/21/17 18:00 Dose: 250 mg Warfarin Sodium (Coumadin) 1 mg PO DAILY [facility] Stop: 02/24/17 10:01 - Labs Labs: 02/21/17 06:20 02/21/17 06:20 PT 30.8 SECONDS (9.7-12.2) H* 02/20/17 07:11 INR 2.6 02/20/17 07:11 APTT 43 SECONDS (21-34) H 02/17/17 07:32 - Constitutional Appears: Well, No Acute Distress - Head Exam Head Exam: NORMAL INSPECTION - Eye Exam Eye Exam: EOMI, Normal appearance Pupil Exam: PERRL - ENT Exam ENT Exam: Mucous Membranes Moist - Neck Exam Neck Exam: Normal Inspection - Respiratory Exam Respiratory Exam: Clear to Ausculation Bilateral, NORMAL BREATHING PATTERN - Cardiovascular Exam Cardiovascular Exam: REGULAR RHYTHM, +S1, +S2 - GI/Abdominal Exam GI & Abdominal Exam: Distended, Tenderness, Normal Bowel Sounds - Rectal Exam Rectal Exam: Deferred - Extremities Exam Extremities Exam: Full ROM - Neurological Exam Neurological Exam: Alert, Awake, Normal Gait, Oriented x3 - Psychiatric Exam Psychiatric exam: Normal Affect, Normal Mood - Skin Skin Exam: Intact, Normal Color, Warm Assessment and Plan - Assessment and Plan (Free Text) Assessment: 1.) Fever presumed to be due to incomplete therapy of UTI Infectious Disease Consult: Dr. Hernandez ---> help appreciated 500mg Primaxin q6h (02/15/17) ---> Day 6 out of 10 600mg Zyvox q12h (02/15/17) ---> Day 6 out of 10 WBC [02/21] -> 12.7 Temp [02/21] -> 98.1 Procalcitonin mildly elevated at 0.55 (02/15/17) Procalcionin 0.24 (02/19/17) Lactate Level normal Abdominal/Pelvis CT (02/16/17): Enlarged, multi fibroid uterus. Possible necrosis within the largest right fundal uterine fibroid although there was no liquefactation demonstrated on pelvic ultrasound examination of 02/04/17. Subtle increased attenuation of the periuterine fate along the right lateral aspect, of untertain significance. this may reflect an inflammatory or infectious process through no clear source is identified. Urine culture 02/17/17: No growth Blood culture (02/14/17): No growth Repeat stool occult blood [02/21] -> positive f/u Urine chlamydia and gonorrhea xray abd [02/21] -> no evidence of bowel obstruction 2.) Chest Pressure Resolved Angio chest CT showed no evidence of PE. 4mm RUL nodule finding does not need follow up per Fleischner criteria. 1.4cm right lobe thyroid per report. JOE negative EKG x3: Normal Sinus Rhythm; Inferior Infarct of undetermined age ECHO 02/14/17: LA, LV, and RA, RV size appears normal. Over all normal LV systolic function with LV EF of 55-60%. Normal diastolic filling. Mitral, TV and aortic valve are probably normal. No pericardial effusion. 3.) Hypokalemia K+ 3.4, repleted with Kdur 40meq po monitor 4.) Thyroid nodule Right thyroid nodule 1.4cm per CT report. Free T4: 1.33 5.) History of DVT Coumadin 1mg PO daily PT/INR: 30.8/2.6 6.) Chronic Anemia Monitor H/H: 8.2/25.5 325mg Ferrous Sulfate PO BID 15 %Iron Saturation, 39 serum iron, 268 TIBC, 151 ferritin, 3.1 reticulocyte count 7.) History of Fibroid Patient reports a history of irregular periods and history of fibroids Pelvic US (02/04/17): markedly enlarged heterogenous uters contains multiple soft tissue mass lesions likely represent fibroids. Largest fibroid seen at the fundus measures 11.7 cm in the largest diameter. Complex cystic lesion at the left ovary measures 4.6 cm. Gynecology Consult: Dr. Farooq --> help appreciated f/u repeat pelvic/transvaginal sonogram Patient to follow up with a label printer oncologist as an outpatient 8.) Prophylaxis Protonix 40mg PO daily Florastor <Doroteo Magallon - Last Filed: 03/03/17 15:18> Objective - Vital Signs/Intake and Output Vital Signs (last 24 hours): Temp Pulse Resp BP Pulse Ox 98.9 F 75 20 120/75 99 03/03/17 08:00 03/03/17 08:00 03/03/17 08:00 03/03/17 08:00 03/03/17 08:00 Intake and Output: 03/03/17 03/03/17 06:59 18:59 Intake Total 1060 Balance 1060 - Medications Medications: Current Medications Acetaminophen (Tylenol 325mg Tab) 650 mg PO Q6 PRN PRN Reason: Pain, severe (8-10) Last Admin: 03/02/17 17:57 Dose: 650 mg Famotidine (Pepcid) 20 mg PO BID [facility] Last Admin: 03/03/17 09:28 Dose: 20 mg Ferrous Sulfate (Feosol) 325 mg PO BID [facility] Last Admin: 03/03/17 09:28 Dose: 325 mg Imipenem/Cilastatin Sodium 500 (mg/ Sodium Chloride) 100 mls @ 100 mls/hr IVPB Q6H [facility] Last Admin: 03/03/17 12:42 Dose: 100 mls/hr Metronidazole (Flagyl) 500 mg in 100 mls @ 100 mls/hr IVPB Q12 [facility] Last Admin: 03/03/17 09:29 Dose: 100 mls/hr Ondansetron HCl (Zofran Inj) 4 mg IVP Q6H PRN PRN Reason: Nausea/Vomiting, IF NPO Last Admin: 03/02/17 02:22 Dose: 4 mg Saccharomyces Boulardii (Florastor) 250 mg PO BID [facility] Last Admin: 03/03/17 09:28 Dose: 250 mg - Labs Labs: 03/03/17 06:57 03/03/17 06:57 PT 24.1 SECONDS (9.7-12.2) H 03/03/17 06:57 INR 2.1 03/03/17 06:57 APTT 38 SECONDS (21-34) H 03/03/17 06:57 Attending/Attestation - Attestation I have personally seen and examined this patient.: Yes I have fully participated in the care of the patient.: Yes I have reviewed all pertinent clinical information, including history, physical exam and plan: Yes Notes (Text): Patient Seen and examined with the resident. Agree with the resident's evaluation, assessment and plan. Sepsis - Likely secondary to UTI failed antibiotics zyvox Hx of DVT - Cont home coumadin Hx of fatty liver Hx of iron deficiency anemia
[2017-02-22 08:30] LABS: SQUAMOUS EPITHIAL 1 /hpf (0-5); URINE BILIRUBIN NEGATIVE (NEGATIVE); URINE BLOOD 3+ (NEGATIVE); URINE CLARITY Hazy (Clear); URINE COLOR Yellow (YELLOW); URINE GLUCOSE (UA) 1+ mg/dL (Normal); URINE LEUKOCYTE ESTERASE 3+ Leu/uL (Negative); URINE NITRATE NEGATIVE (NEGATIVE); URINE PROTEIN 1+ mg/dL (NEGATIVE)
[2017-02-22] MEDS: Saccharomyces Boulardi 250 mg Cap PO SCH ×2 (09:50→17:12)
[2017-02-22 09:56] LABS: BASO # 0.1 K/uL (0.0-0.2); BASO % 0.6 % (0.0-2.0); EOS # 0.3 K/uL (0.0-0.7); EOS % 2.4 % (0.0-4.0); HEMOGLOBIN 7.8 g/dL (11.0-16.0); LYMPH # 1.7 K/uL (1.0-4.3); LYMPH % 15.1 % (20.0-40.0); MEAN CELL VOLUME 85.4 fL (81.0-99.0); MEAN CORPUSCULAR HEMOGLOBIN 27.4 pg (27.0-31.0); MEAN CORPUSCULAR HGB CONC 32.1 g/dL (33.0-37.0); MEAN PLATELET VOLUME 8.3 fL (7.2-11.7); MONO # 0.8 K/uL (0.0-0.8); MONO % 7.5 % (0.0-10.0); NEUT # 8.4 K/uL (1.8-7.0); NEUT % 74.4 % (50.0-75.0); RBC 2.85 Mil/uL (3.80-5.20); RED CELL DISTRIBUTION WIDTH 27.9 % (11.5-14.5); WHITE BLOOD COUNT 11.3 K/uL (4.8-10.8)
[2017-02-22 10:00] LABS: INR 1.9; PROTHROMBIN TIME 21.5 SECONDS (9.7-12.2)
[2017-02-22 10:09] LABS: ALBUMIN 2.9 g/dL (3.5-5.0)
[2017-02-22 10:12] LABS: ALB/GLOB RATIO 0.7 (1.0-2.1); ALT/SGPT 23 U/L (9-52); AST/SGOT 23 U/L (14-36); BLOOD UREA NITROGEN 3 mg/dL (7-17); CALCIUM 8.3 mg/dl (8.6-10.4); GFR AFRICAN-AMERICAN > 60; GFR NON-AFRICAN AMERICAN > 60
[2017-02-22 16:18] VITALS: RESP 20
[2017-02-23] MEDS: Linezolid 600 mg in D5W 300 ml 600 MG/300 ML BAG IVPB SCH ×2 (01:14→14:57)
[2017-02-23 08:19] LABS: BASO % 0.3 % (0.0-2.0); EOS # 0.2 K/uL (0.0-0.7); HEMOGLOBIN 8.1 g/dL (11.0-16.0); LYMPH # 1.6 K/uL (1.0-4.3); LYMPH % 14.9 % (20.0-40.0); MEAN CELL VOLUME 85.8 fL (81.0-99.0); MEAN CORPUSCULAR HGB CONC 31.5 g/dL (33.0-37.0); MEAN PLATELET VOLUME 8.8 fL (7.2-11.7); MONO # 0.7 K/uL (0.0-0.8); MONO % 6.7 % (0.0-10.0); NEUT # 8.1 K/uL (1.8-7.0); NEUT % 76.1 % (50.0-75.0); RBC 3.01 Mil/uL (3.80-5.20); RED CELL DISTRIBUTION WIDTH 27.7 % (11.5-14.5); WHITE BLOOD COUNT 10.7 K/uL (4.8-10.8)
[2017-02-23 08:23] LABS: INR 1.9; PROTHROMBIN TIME 22.3 SECONDS (9.7-12.2)
[2017-02-23] MEDS: Saccharomyces Boulardi 250 mg Cap PO SCH ×2 (09:12→17:58)
--- NOTE | 2017-02-23 12:29 | CP.PCM.PN ---
<Emily Duarte - Last Filed: 02/23/17 17:23> Subjective - Date & Time of Evaluation Date of Evaluation: 02/23/17 Time of Evaluation: 12:29 - Subjective Subjective: Medicine Progress Note- Dr. Rivera Service Patient was seen and examined at bedside in no acute distress. Patient reports feeling better today. Patient reports still having abdominal in her lower abdominal. She thinks it may be due to her fibroids. Patient states she had a bowel movement yesterday. Patient denies chest pain, shortness of breath, palpitations, nausea, vomiting, and dizziness. Objective - Vital Signs/Intake and Output Vital Signs (last 24 hours): Temp Pulse Resp BP Pulse Ox 98.2 F 80 20 98/65 L 98 02/23/17 00:00 02/23/17 00:00 02/23/17 00:00 02/23/17 00:00 02/23/17 00:00 - Medications Medications: Current Medications Acetaminophen (Tylenol 325mg Tab) 650 mg PO Q6 PRN PRN Reason: Pain, severe (8-10) Last Admin: 02/23/17 08:30 Dose: 650 mg Famotidine (Pepcid) 20 mg PO BID [facility] Last Admin: 02/23/17 09:12 Dose: 20 mg Ferrous Sulfate (Feosol) 325 mg PO BID [facility] Last Admin: 02/23/17 09:12 Dose: 325 mg Imipenem/Cilastatin Sodium 500 (mg/ Sodium Chloride) 100 mls @ 100 mls/hr IVPB Q6H [facility] Last Admin: 02/23/17 06:11 Dose: 100 mls/hr Linezolid (Zyvox 600mg/300ml D5w) 600 mg in 300 mls @ 200 mls/hr IVPB Q12H [facility] Last Admin: 02/23/17 01:14 Dose: 200 mls/hr Ondansetron HCl (Zofran Tab) 4 mg PO Q6 PRN PRN Reason: Nausea/Vomiting Last Admin: 02/20/17 18:30 Dose: 4 mg Saccharomyces Boulardii (Florastor) 250 mg PO BID [facility] Last Admin: 02/23/17 09:12 Dose: 250 mg Warfarin Sodium (Coumadin) 2 mg PO 1800 [facility] Stop: 02/23/17 18:01 - Labs Labs: 02/23/17 08:09 02/22/17 09:48 PT 22.3 SECONDS (9.7-12.2) H 02/23/17 08:09 INR 1.9 02/23/17 08:09 APTT 43 SECONDS (21-34) H 02/17/17 07:32 - Constitutional Appears: No Acute Distress - Head Exam Head Exam: NORMAL INSPECTION, NORMOCEPHALIC - Eye Exam Eye Exam: EOMI, Normal appearance - ENT Exam ENT Exam: Mucous Membranes Moist - Neck Exam Neck Exam: Full ROM, Normal Inspection - Respiratory Exam Respiratory Exam: Clear to Ausculation Bilateral, NORMAL BREATHING PATTERN. absent: Rhonchi, Wheezes - Cardiovascular Exam Cardiovascular Exam: REGULAR RHYTHM, +S1, +S2 - GI/Abdominal Exam GI & Abdominal Exam: Soft, Tenderness (RLQ and LLQ), Normal Bowel Sounds - Extremities Exam Extremities Exam: absent: Calf Tenderness, Pedal Edema, Tenderness - Neurological Exam Neurological Exam: Alert, Awake, Oriented x3 - Psychiatric Exam Psychiatric exam: Normal Affect, Normal Mood - Skin Skin Exam: Dry, Intact, Normal Color, Warm Assessment and Plan (1) Fever Assessment & Plan: Infectious Disease Consult: Dr. Hernandez, help appreciated 500mg Primaxin q6h (02/15/17) ---> Day 8 out of 10 600mg Zyvox q12h (02/15/17) ---> Day 8 out of 10 WBC [7/3] -> 10.7 Temp [3] -> 98.2 Procalcitonin mildly elevated at 0.55 (02/15/17) * Procalcitonin 0.24 (02/19/17) Lactate Level-normal Abdominal/Pelvis CT (02/16/17): Enlarged, multi fibroid uterus. Possible necrosis within the largest right fundal uterine fibroid although there was no liquefactation demonstrated on pelvic ultrasound examination of 02/04/17. Subtle increased attenuation of the periuterine fat along the right lateral aspect, of uncertain significance. this may reflect an inflammatory or infectious process through no clear source is identified. stable 5cm left ovarian cyst. Urine culture 02/17/17: No growth Blood culture (02/14/17): No growth Repeat stool occult blood [02/21] -> positive Urine chlamydia and gonorrhea: not detected xray abd [02/21] -> no evidence of bowel obstruction Status: Resolved (2) Chest pressure Assessment & Plan: Angio chest CT showed no evidence of PE. 4mm RUL nodule finding does not need follow up per Fleischner criteria. 1.4cm right lobe thyroid per report. JOE negative EKG x3: Normal Sinus Rhythm; Inferior Infarct of undetermined age ECHO 02/14/17: LA, LV, and RA, RV size appears normal. Over all normal LV systolic function with LV EF of 55-60%. Normal diastolic filling. Mitral, TV and aortic valve are probably normal. No pericardial effusion. Status: Acute (3) Thyroid nodule Assessment & Plan: Right thyroid nodule 1.4cm per CT report. Free T4: 1.33 Status: Acute (4) Hypokalemia Assessment & Plan: K+ 3.4 (02/21/17); K+ 3.9 (02/22/17) Repleted with Kdur 40meq PO on 02/16, 02/18, 02/21/17 Monitor Status: Acute (5) Anemia Assessment & Plan: Monitor H/H: 8.1/25.8 on 02/23/17 325mg Ferrous Sulfate PO BID 15 %Iron Saturation, 39 serum iron, 268 TIBC, 151 ferritin, 3.1 reticulocyte count Stool occult- positive Status: Chronic (6) Fibroid Assessment & Plan: Patient reports a history of irregular periods and history of fibroids Pelvic US (02/04/17): markedly enlarged heterogenous uterus contains multiple soft tissue mass lesions likely represent fibroids. Largest fibroid seen at the fundus measures 11.7 cm in the largest diameter. Complex cystic lesion at the left ovary measures 4.6 cm. Gynecology Consult: Dr. Farooq --> help appreciated Repeat pelvic/transvaginal sonogram (02/20/17)- enlarged fibroid uterus; 5.3cm simple cyst in the left ovary; differential considerations include simple cyst, cystadenoma, and cystadenocarcinoma. Patient to follow up with a air intelligence officer oncologist as an outpatient Status: Chronic (7) History of deep vein thrombosis (DVT) of lower extremity Assessment & Plan: Coumadin 2mg PO given on 02/23/17 PT/INR: 22.3/1.9 Status: Acute (8) Prophylactic measure Assessment & Plan: Protonix 40mg PO daily Florastor 250mg PO BID Status: Acute <Tiffani Rivera V - Last Filed: 02/23/17 23:34> Objective - Vital Signs/Intake and Output Vital Signs (last 24 hours): Temp Pulse Resp BP Pulse Ox 98.4 F 89 20 111/55 L 98 02/23/17 15:00 02/23/17 15:00 02/23/17 15:00 02/23/17 15:00 02/23/17 15:00 Intake and Output: 02/23/17 02/24/17 18:59 06:59 Intake Total 680 Balance 680 - Medications Medications: Current Medications Acetaminophen (Tylenol 325mg Tab) 650 mg PO Q6 PRN PRN Reason: Pain, severe (8-10) Last Admin: 02/23/17 21:12 Dose: 650 mg Famotidine (Pepcid) 20 mg PO BID [facility] Last Admin: 02/23/17 17:58 Dose: 20 mg Ferrous Sulfate (Feosol) 325 mg PO BID [facility] Last Admin: 02/23/17 17:58 Dose: 325 mg Heparin Sodium (Porcine) (Heparin) 5,000 units SC Q8 [facility] Last Admin: 02/23/17 21:11 Dose: 5,000 units Imipenem/Cilastatin Sodium 500 (mg/ Sodium Chloride) 100 mls @ 100 mls/hr IVPB Q6H [facility] Last Admin: 02/23/17 18:49 Dose: 100 mls/hr Linezolid (Zyvox 600mg/300ml D5w) 600 mg in 300 mls @ 200 mls/hr IVPB Q12H [facility] Last Admin: 02/23/17 14:57 Dose: 200 mls/hr Ondansetron HCl (Zofran Tab) 4 mg PO Q6 PRN PRN Reason: Nausea/Vomiting Last Admin: 02/23/17 20:31 Dose: 4 mg Saccharomyces Boulardii (Florastor) 250 mg PO BID [facility] Last Admin: 02/23/17 17:58 Dose: 250 mg - Labs Labs: 02/23/17 08:09 02/22/17 09:48 PT 22.3 SECONDS (9.7-12.2) H 02/23/17 08:09 INR 1.9 02/23/17 08:09 APTT 43 SECONDS (21-34) H 02/17/17 07:32 Attending/Attestation - Attestation I have personally seen and examined this patient.: Yes I have fully participated in the care of the patient.: Yes I have reviewed all pertinent clinical information, including history, physical exam and plan: Yes Notes (Text): Patient seen, examined, and case discussed with day-time tax services intern. Patient's cultures have shown no growth. Patient's prior UA shows pyuria and hematuria suggestive of UTI. Patient's repeat UA shows improvement. Patient to complete 2 more days of IV abx. Patient ordered for Coumadin 2mg PO X1 for treatment of DVT. Patient's white count has normalized. Patient is currently have irregular periods due to her fibroids. Patient is aware she needs to follow-up with air intelligence officer as outpatient.
[2017-02-23 18:15] LABS: URINE BACTERIA RARE (<OCC); URINE BILIRUBIN NEGATIVE (NEGATIVE); URINE BLOOD TRACE (NEGATIVE); URINE CLARITY Clear (Clear); URINE COLOR Straw (YELLOW); URINE GLUCOSE (UA) 1+ mg/dL (Normal); URINE LEUKOCYTE ESTERASE NEG Leu/uL (Negative); URINE NITRATE NEGATIVE (NEGATIVE); URINE PROTEIN NEGATIVE (NEGATIVE); URINE UROBILINOGEN NORMAL mg/dL (0.2-1.0)
[2017-02-24] MEDS: Linezolid 600 mg in D5W 300 ml 600 MG/300 ML BAG IVPB SCH ×2 (02:45→13:46)
[2017-02-24] MEDS ORDERED: Bisacodyl 5mg EC Tab PO ONE (07:28)
[2017-02-24 08:21] LABS: BASO % 0.4 % (0.0-2.0); EOS # 0.1 K/uL (0.0-0.7); EOS % 0.6 % (0.0-4.0); HEMOGLOBIN 8.5 g/dL (11.0-16.0); LYMPH # 1.5 K/uL (1.0-4.3); LYMPH % 14.8 % (20.0-40.0); MEAN CELL VOLUME 86.1 fL (81.0-99.0); MEAN CORPUSCULAR HEMOGLOBIN 27.6 pg (27.0-31.0); MEAN PLATELET VOLUME 8.1 fL (7.2-11.7); MONO # 0.6 K/uL (0.0-0.8); NEUT # 8.1 K/uL (1.8-7.0); NEUT % 78.2 % (50.0-75.0); RBC 3.09 Mil/uL (3.80-5.20); RED CELL DISTRIBUTION WIDTH 26.2 % (11.5-14.5); WHITE BLOOD COUNT 10.3 K/uL (4.8-10.8)
[2017-02-24 08:29] LABS: INR 2.3; PROTHROMBIN TIME 26.6 SECONDS (9.7-12.2)
[2017-02-24] MEDS ORDERED: Magnesium Hydroxide Susp 30 ml UD PO ONE (09:46)
[2017-02-24 10:05] LABS: ALBUMIN 3.1 g/dL (3.5-5.0)
--- NOTE | 2017-02-24 10:06 | CP.PCM.PN ---
Subjective - Date & Time of Evaluation Date of Evaluation: 02/24/17 Time of Evaluation: 09:45 - Subjective Subjective: Medical Attending Note Follow-up Patient seen, and examined this morning with patient's , son, and daughter at bedside. Patient reports she had mild stool 2 days ago but reports it was quite hard. Patient reports she was unable to sleep last night secondary to lower abdominal pain. Patient received Ducolax yesterday but does not have a bowel movement. Patient denies fever, denies chills, denies shortness of breathe , denies chest pain, denies cough, +abdominal pain, reports nausea with she attributes to antibotic, denies vomitting, denies dysuria, reports constipation. Objective - Vital Signs/Intake and Output Vital Signs (last 24 hours): Temp Pulse Resp BP Pulse Ox 98.8 F 83 20 106/68 98 02/24/17 07:00 02/24/17 07:00 02/24/17 07:00 02/24/17 07:00 02/24/17 07:00 - Medications Medications: Current Medications Acetaminophen (Tylenol 325mg Tab) 650 mg PO Q6 PRN PRN Reason: Pain, severe (8-10) Last Admin: 02/23/17 21:12 Dose: 650 mg Famotidine (Pepcid) 20 mg PO BID [facility] Last Admin: 02/23/17 17:58 Dose: 20 mg Ferrous Sulfate (Feosol) 325 mg PO BID [facility] Last Admin: 02/23/17 17:58 Dose: 325 mg Heparin Sodium (Porcine) (Heparin) 5,000 units SC Q8 [facility] Last Admin: 02/24/17 06:38 Dose: 5,000 units Imipenem/Cilastatin Sodium 500 (mg/ Sodium Chloride) 100 mls @ 100 mls/hr IVPB Q6H [facility] Last Admin: 02/24/17 06:38 Dose: 100 mls/hr Linezolid (Zyvox 600mg/300ml D5w) 600 mg in 300 mls @ 200 mls/hr IVPB Q12H [facility] Last Admin: 02/24/17 02:45 Dose: 200 mls/hr Magnesium Hydroxide (Milk Of Magnesia) 30 ml PO ONCE ONE Stop: 02/24/17 09:47 Ondansetron HCl (Zofran Tab) 4 mg PO Q6 PRN PRN Reason: Nausea/Vomiting Last Admin: 02/23/17 20:31 Dose: 4 mg Saccharomyces Boulardii (Florastor) 250 mg PO BID [facility] Last Admin: 02/23/17 17:58 Dose: 250 mg - Labs Labs: 02/24/17 08:11 02/22/17 09:48 PT 26.6 SECONDS (9.7-12.2) H 02/24/17 08:11 INR 2.3 02/24/17 08:11 APTT 43 SECONDS (21-34) H 02/17/17 07:32 - Constitutional Appears: Non-toxic, No Acute Distress - Head Exam Head Exam: NORMAL INSPECTION - Eye Exam Eye Exam: EOMI - ENT Exam ENT Exam: Mucous Membranes Dry - Respiratory Exam Respiratory Exam: Clear to Ausculation Bilateral, NORMAL BREATHING PATTERN. absent: Rales, Rhonchi, Wheezes - Cardiovascular Exam Cardiovascular Exam: REGULAR RHYTHM, +S1, +S2 - GI/Abdominal Exam GI & Abdominal Exam: Distended, Soft, Normal Bowel Sounds. absent: Firm, Guarding, Rigid, Hyperactive Bowel Sounds, Rebound - Neurological Exam Neurological Exam: Alert, Awake, Oriented x3 - Psychiatric Exam Psychiatric exam: Normal Affect, Normal Mood - Skin Skin Exam: Dry, Intact, Normal Color, Warm Assessment and Plan - Assessment and Plan (Free Text) Assessment: Patient seen, examined and case discussed with day-time sports apparel internship. Patient reports constipation. Unable to sleep overnight. Patient also reporting nausea which she attributes to the antibiotic. Discussed with family at bedside, patient's cultures do not show infection. Patient to complete last dose of antibiotics per infectious disease tomorrow. Patient ordered additional Milk of Magnesia X1, encouraged hydration and prune juice to improve constipation, and order for abdominal xray to rule out obstruction. Assessment/Plan 1.) Fever presumed to be due to incomplete therapy of UTI * Infectious Disease Consult: Dr. Hernandez ---> help appreciated * c/w Primaxin 500mg q6h (02/15/17) * c/w Zyvox 600mg q12h (02/15/17) * Monitor WBC, afebrile * Procalcitonin mildly elevated at 0.55 (02/15/17) * Procalcionin 0.24 (02/19/17) * Lactate Level normal * Abdominal/Pelvis CT (02/16/17): Enlarged, multi fibroid uterus. Possible necrosis within the largest right fundal uterine fibroid although there was no liquefactation demonstrated on pelvic ultrasound examination of 02/04/17. Subtle increased attenuation of the periuterine fate along the right lateral aspect, of untertain significance. this may reflect an inflammatory or infectious process through no clear source is identified. * Urine culture 02/17/17: No growth * Blood culture (02/14/17): No growth * Repeat stool occult blood: negative * f/u Urine chlamydia and gonorrhea * Per infectious disease, patient recommended for total 5-7 days of IV abx last dose 02/25/17. 2.) Chest Pressure Resolved * Angio chest CT showed no evidence of PE. 4mm RUL nodule finding does not need follow up per Fleischner criteria. 1.4cm right lobe thyroid per report. * JOE negative * EKG x3: Normal Sinus Rhythm; Inferior Infarct of undetermined age * ECHO 02/14/17: LA, LV, and RA, RV size appears normal. Over all normal LV systolic function with LV EF of 55-60%. Normal diastolic filling. Mitral, TV and aortic valve are probably normal. No pericardial effusion. 3.) Hypokalemia * Resolved 4.) Thyroid nodule * Right thyroid nodule 1.4cm per CT report. * Free T4: 1.33 5.) History of DVT * Coumadin 2mg PO tonight * INR 2.3 6.) Chronic Anemia * Monitor H/H * 325mg Ferrous Sulfate PO BID * 15 %Iron Saturation, 39 serum iron, 268 TIBC, 151 ferritin, 3.1 reticulocyte count * positive occult blood * Patient will need outpatient follow-up regarding colonoscopy 7.) History of Fibroid * Patient reports a history of irregular periods and history of fibroids * Pelvic US (02/04/17): markedly enlarged heterogenous uters contains multiple soft tissue mass lesions likely represent fibroids. Largest fibroid seen at the fundus measures 11.7 cm in the largest diameter. Complex cystic lesion at the left ovary measures 4.6 cm. * Gynecology Consult: Dr. Farooq --> help appreciated * f/u repeat pelvic/transvaginal sonogram * Patient to follow up with a blender snuff oncologist as an outpatient 8.) Prophylaxis * Protonix 40mg PO daily * Florastor 250mg PO bid * Heparin 5000 units subq 8hours
[2017-02-24 10:08] LABS: ALB/GLOB RATIO 0.8 (1.0-2.1); ALT/SGPT 19 U/L (9-52); AST/SGOT 18 U/L (14-36); BLOOD UREA NITROGEN 4 mg/dL (7-17); GFR AFRICAN-AMERICAN > 60; GFR NON-AFRICAN AMERICAN > 60
[2017-02-24 10:09] LABS: CALCIUM 8.4 mg/dl (8.6-10.4); MAGNESIUM 1.9 mg/dL (1.6-2.3)
[2017-02-24] MEDS: Saccharomyces Boulardi 250 mg Cap PO SCH ×2 (10:13→18:03)
--- NOTE | 2017-02-24 10:53 | RAD ---
HISTORY: abdominal distension; r/o obstruction COMPARISON: Comparison made with prior radiographs of the abdomen 02/21/2017 FINDINGS: BOWEL: . The current study reveals a very large amount of stool seen throughout the colon consistent with significant constipation -fecal impaction. Metallic clips in the right mid to lower abdomen unchanged BONES: Minor multilevel degenerative spondylosis of the lower thoracic and lumbar spine OTHER FINDINGS: None. IMPRESSION: Findings consistent with significant constipation is-fecal impaction.
[2017-02-25] MEDS: Linezolid 600 mg in D5W 300 ml 600 MG/300 ML BAG IVPB SCH ×2 (01:42→14:05)
[2017-02-25] MEDS: Saccharomyces Boulardi 250 mg Cap PO SCH ×2 (10:09→17:37)
[2017-02-25 10:37] LABS: BASO # 0.1 K/uL (0.0-0.2); BASO % 0.5 % (0.0-2.0); EOS # 0.1 K/uL (0.0-0.7); EOS % 0.6 % (0.0-4.0); HEMOGLOBIN 7.9 g/dL (11.0-16.0); LYMPH # 1.3 K/uL (1.0-4.3); LYMPH % 11.6 % (20.0-40.0); MEAN CORPUSCULAR HEMOGLOBIN 26.9 pg (27.0-31.0); MEAN CORPUSCULAR HGB CONC 31.3 g/dL (33.0-37.0); MEAN PLATELET VOLUME 7.6 fL (7.2-11.7); MONO # 0.7 K/uL (0.0-0.8); MONO % 6.2 % (0.0-10.0); NEUT # 9.3 K/uL (1.8-7.0); NEUT % 81.1 % (50.0-75.0); RBC 2.92 Mil/uL (3.80-5.20); RED CELL DISTRIBUTION WIDTH 26.8 % (11.5-14.5); WHITE BLOOD COUNT 11.5 K/uL (4.8-10.8)
[2017-02-25 10:50] LABS: GFR AFRICAN-AMERICAN > 60; GFR NON-AFRICAN AMERICAN > 60
[2017-02-25 10:51] LABS: ALB/GLOB RATIO 0.7 (1.0-2.1); ALT/SGPT 17 U/L (9-52); AST/SGOT 18 U/L (14-36); BLOOD UREA NITROGEN 3 mg/dL (7-17); CALCIUM 8.5 mg/dl (8.6-10.4)
--- NOTE | 2017-02-25 12:35 | CP.PCM.PN ---
Subjective - Date & Time of Evaluation Date of Evaluation: 02/25/17 Time of Evaluation: 12:32 - Subjective Subjective: Medicine Progress Note- Dr. Rivera Service Patient was seen and examined at bedside in no acute distress. Patient states she is feeling better. She still has abdominal/pelvic pain that has progressively worsened throughout the day. Patient had a bowel movement post- tap water enema yesterday. Patient denies feeling short of breath, chest pain, palpitations, nausea, vomiting, headache, changes in vision, or leg pain. Objective - Vital Signs/Intake and Output Vital Signs (last 24 hours): Temp Pulse Resp BP Pulse Ox 97.7 F 76 20 113/72 98 02/24/17 23:55 02/24/17 23:55 02/24/17 23:55 02/24/17 23:55 02/24/17 23:55 - Medications Medications: Current Medications Acetaminophen (Tylenol 325mg Tab) 650 mg PO Q6 PRN PRN Reason: Pain, severe (8-10) Last Admin: 02/23/17 21:12 Dose: 650 mg Famotidine (Pepcid) 20 mg PO BID [facility] Last Admin: 02/25/17 10:09 Dose: 20 mg Ferrous Sulfate (Feosol) 325 mg PO BID [facility] Last Admin: 02/25/17 10:09 Dose: 325 mg Heparin Sodium (Porcine) (Heparin) 5,000 units SC Q8 [facility] Last Admin: 02/25/17 06:07 Dose: Not Given Imipenem/Cilastatin Sodium 500 (mg/ Sodium Chloride) 100 mls @ 100 mls/hr IVPB Q6H [facility] Last Admin: 02/25/17 06:06 Dose: 100 mls/hr Linezolid (Zyvox 600mg/300ml D5w) 600 mg in 300 mls @ 200 mls/hr IVPB Q12H [facility] Last Admin: 02/25/17 01:42 Dose: 200 mls/hr Ondansetron HCl (Zofran Inj) 4 mg IVP Q6H PRN PRN Reason: Nausea/Vomiting, IF NPO Last Admin: 02/24/17 22:54 Dose: 4 mg Saccharomyces Boulardii (Florastor) 250 mg PO BID [facility] Last Admin: 02/25/17 10:09 Dose: 250 mg - Labs Labs: 02/25/17 10:31 02/25/17 10:31 PT 26.6 SECONDS (9.7-12.2) H 02/24/17 08:11 INR 2.3 02/24/17 08:11 APTT 43 SECONDS (21-34) H 02/17/17 07:32 - Constitutional Appears: No Acute Distress - Head Exam Head Exam: NORMAL INSPECTION, NORMOCEPHALIC - Eye Exam Eye Exam: EOMI, Normal appearance - ENT Exam ENT Exam: Mucous Membranes Moist - Neck Exam Neck Exam: Normal Inspection - Respiratory Exam Respiratory Exam: Clear to Ausculation Bilateral, NORMAL BREATHING PATTERN. absent: Rhonchi, Wheezes - Cardiovascular Exam Cardiovascular Exam: REGULAR RHYTHM, +S1, +S2 - GI/Abdominal Exam GI & Abdominal Exam: Soft, Tenderness, Normal Bowel Sounds - Extremities Exam Extremities Exam: absent: Calf Tenderness, Pedal Edema, Tenderness - Neurological Exam Neurological Exam: Alert, Awake, Oriented x3 - Psychiatric Exam Psychiatric exam: Normal Affect, Normal Mood - Skin Skin Exam: Dry, Intact, Normal Color, Warm Assessment and Plan (1) Fever Assessment & Plan: Infectious Disease Consult: Dr. Hernandez, help appreciated 500mg Primaxin q6h (02/15/17) ---> Day 8 out of 10 600mg Zyvox q12h (02/15/17) ---> Day 8 out of 10 WBC [02/23] -> 10.7; [02/25] 11.5 Temp [02/23] -> 98.2 Procalcitonin mildly elevated at 0.55 (02/15/17) * Procalcitonin 0.24 (02/19/17) * Procalcitonin- ordered 02/25/17 * Lactate Level-normal Abdominal/Pelvis CT (02/16/17): Enlarged, multi fibroid uterus. Possible necrosis within the largest right fundal uterine fibroid although there was no liquefactation demonstrated on pelvic ultrasound examination of 02/04/17. Subtle increased attenuation of the periuterine fat along the right lateral aspect, of uncertain significance. this may reflect an inflammatory or infectious process through no clear source is identified. stable 5cm left ovarian cyst. Abdominal/pelvis CT w/PO contrast ordered on 02/25/17 Urine culture 02/17/17: No growth Blood culture (02/14/17): No growth Repeat stool occult blood [02/21] -> positive Urine chlamydia and gonorrhea: not detected xray abd [02/21] -> no evidence of bowel obstruction Blood culture 02/21/17- gram negative rods Urine cx on 02/22/17- no growth Status: Resolved (2) Abdominal pain Assessment & Plan: Abdominal pelvic CT with PO: F/U Status: Acute (3) Chest pressure Assessment & Plan: Angio chest CT showed no evidence of PE. 4mm RUL nodule finding does not need follow up per Fleischner criteria. 1.4cm right lobe thyroid per report. JOE negative EKG x3: Normal Sinus Rhythm; Inferior Infarct of undetermined age ECHO 02/14/17: LA, LV, and RA, RV size appears normal. Over all normal LV systolic function with LV EF of 55-60%. Normal diastolic filling. Mitral, TV and aortic valve are probably normal. No pericardial effusion. Status: Resolved (4) Thyroid nodule Assessment & Plan: Right thyroid nodule 1.4cm per CT report. Free T4: 1.33 Status: Acute (5) Hypokalemia Assessment & Plan: K+ 3.4 (02/21/17); K+ 3.9 (02/22/17); K+ 4.3 on 02/25/17 Repleted with Kdur 40meq PO on 02/16, 02/18, 02/21/17 Monitor Status: Resolved (6) Anemia Assessment & Plan: Monitor H/H: 8.1/25.8 on 02/23/17; 7.9/25.1 on 02/25/17 325mg Ferrous Sulfate PO BID 15 %Iron Saturation, 39 serum iron, 268 TIBC, 151 ferritin, 3.1 reticulocyte count Stool occult- positive Status: Chronic (7) Fibroid Assessment & Plan: Patient reports a history of irregular periods and history of fibroids Pelvic US (02/04/17): markedly enlarged heterogenous uterus contains multiple soft tissue mass lesions likely represent fibroids. Largest fibroid seen at the fundus measures 11.7 cm in the largest diameter. Complex cystic lesion at the left ovary measures 4.6 cm. Gynecology Consult: Dr. Farooq --> help appreciated Repeat pelvic/transvaginal sonogram (02/20/17)- enlarged fibroid uterus; 5.3cm simple cyst in the left ovary; differential considerations include simple cyst, cystadenoma, and cystadenocarcinoma. Patient to follow up with a cloth trimmer hand oncologist as an outpatient Abdominal pelvis w/PO contrast- F/U Status: Chronic (8) History of deep vein thrombosis (DVT) of lower extremity Assessment & Plan: Coumadin 2mg PO given on 02/25/17 PT/INR: 26.6/2.3 on 02/25/17 F/U Status: Acute (9) Prophylactic measure Assessment & Plan: Protonix 40mg PO daily Florastor 250mg PO BID Status: Acute
[2017-02-25 12:44] LABS: INR 2.5
[2017-02-25 12:46] LABS: PROTHROMBIN TIME 29.4 SECONDS (9.7-12.2)
[2017-02-25] MEDS ORDERED: Iohexol 240 (50 ml) PO ONE (21:00)
--- NOTE | 2017-02-25 22:33 | CT ---
EXAM: CT Abdomen and Pelvis Without Intravenous Contrast CLINICAL HISTORY: 51 years old, female; Condition or disease; Intestinal condition; Obstruction; Additional info: R/O obstruction TECHNIQUE: Axial computed tomography images of the abdomen and pelvis without intravenous contrast. This CT exam was performed using one or more of the following dose reduction techniques: automated exposure control, adjustment of the mA and/or kV according to patient size, and/or use of iterative reconstruction technique. Coronal and sagittal reformatted images were created and reviewed. COMPARISON: Correlated with report of ultrasound pelvis 02/21/2017. FINDINGS: Lower thorax: No acute findings. ABDOMEN: Liver: Unremarkable. Gallbladder and bile ducts: Unremarkable. No calcified stones. No ductal dilation. Pancreas: Unremarkable. No ductal dilation. Spleen: Unremarkable. No splenomegaly. Adrenals: Unremarkable. No mass. Kidneys and ureters: Unremarkable. No obstructing stones. No hydronephrosis. Stomach and bowel: Diverticulosis. Appendix: No findings to suggest acute appendicitis. PELVIS: Bladder: Unremarkable. No stones. Reproductive: Enlarged, multilobulated uterus. This contains multiple large fibroids. The uterus measures 18 CM longitudinally x 15.5 CM transverse. Hypodense lesion left adnexa measuring 4.8 CM, probable ovarian cyst. Followup is recommended to exclude the possibility of cystic ovarian neoplasm. ABDOMEN and PELVIS: Intraperitoneal space: Unremarkable. No free air. No significant fluid collection. Bones/joints: Diffuse degenerative changes lumbosacral spine. No acute fracture. No dislocation. Soft tissues: Unremarkable. Vasculature: Unremarkable. No abdominal aortic aneurysm. Lymph nodes: Unremarkable. No enlarged lymph nodes. IMPRESSION: 1. Enlarged myomatous uterus. 2. Left adnexal cyst. Recommend followup. 3. No bowel obstruction. 4. Remainder of findings as above
[2017-02-26] MEDS: Linezolid 600 mg in D5W 300 ml 600 MG/300 ML BAG IVPB SCH ×2 (01:31→13:28)
[2017-02-26 07:57] LABS: BASO # 0.1 K/uL (0.0-0.2); BASO % 0.7 % (0.0-2.0); EOS % 0.3 % (0.0-4.0); LYMPH # 1.6 K/uL (1.0-4.3); LYMPH % 13.2 % (20.0-40.0); MEAN CELL VOLUME 85.7 fL (81.0-99.0); MEAN CORPUSCULAR HEMOGLOBIN 27.5 pg (27.0-31.0); MEAN CORPUSCULAR HGB CONC 32.1 g/dL (33.0-37.0); MEAN PLATELET VOLUME 7.6 fL (7.2-11.7); MONO # 0.6 K/uL (0.0-0.8); NEUT # 10.1 K/uL (1.8-7.0); NEUT % 80.8 % (50.0-75.0); RBC 2.89 Mil/uL (3.80-5.20); RED CELL DISTRIBUTION WIDTH 26.6 % (11.5-14.5); WHITE BLOOD COUNT 12.5 K/uL (4.8-10.8)
[2017-02-26 08:07] LABS: INR 2.4; PROTHROMBIN TIME 27.7 SECONDS (9.7-12.2)
[2017-02-26 08:15] LABS: AST/SGOT 20 U/L (14-36); GFR AFRICAN-AMERICAN > 60; GFR NON-AFRICAN AMERICAN > 60
[2017-02-26 08:16] LABS: ALB/GLOB RATIO 0.7 (1.0-2.1); ALT/SGPT 14 U/L (9-52); BLOOD UREA NITROGEN 3 mg/dL (7-17); CALCIUM 8.3 mg/dl (8.6-10.4)
[2017-02-26] MEDS: Saccharomyces Boulardi 250 mg Cap PO SCH ×2 (09:19→17:56)
--- NOTE | 2017-02-26 09:50 | CP.PCM.PN ---
Subjective - Date & Time of Evaluation Date of Evaluation: 02/26/17 Time of Evaluation: 09:50 - Subjective Subjective: Medicine Progress Note- Dr. Rivera Service Patient was seen and examined at bedside in no acute distress. Patient states her hand is swollen and painful. She reports still having lower abdominal/ pelvic pain and had diarrhea this morning. She also reports having vaginal bleeding that is more than usual. Patient denies having chest pain, palpitations , nausea, vomiting, and dizziness. Objective - Vital Signs/Intake and Output Vital Signs (last 24 hours): Temp Pulse Resp BP Pulse Ox 98.3 F 83 20 96/61 L 99 02/26/17 00:21 02/26/17 00:21 02/26/17 00:21 02/26/17 00:21 02/26/17 00:21 Intake and Output: 02/26/17 02/26/17 06:59 18:59 Intake Total 810 Balance 810 - Medications Medications: Current Medications Acetaminophen (Tylenol 325mg Tab) 650 mg PO Q6 PRN PRN Reason: Pain, severe (8-10) Last Admin: 02/25/17 20:38 Dose: 650 mg Famotidine (Pepcid) 20 mg PO BID [facility] Last Admin: 02/26/17 09:19 Dose: 20 mg Ferrous Sulfate (Feosol) 325 mg PO BID [facility] Last Admin: 02/26/17 09:19 Dose: 325 mg Heparin Sodium (Porcine) (Heparin) 5,000 units SC Q8 [facility] Last Admin: 02/26/17 06:03 Dose: Not Given Imipenem/Cilastatin Sodium 500 (mg/ Sodium Chloride) 100 mls @ 100 mls/hr IVPB Q6H [facility] Last Admin: 02/26/17 06:01 Dose: 100 mls/hr Linezolid (Zyvox 600mg/300ml D5w) 600 mg in 300 mls @ 200 mls/hr IVPB Q12H [facility] Last Admin: 02/26/17 01:31 Dose: 200 mls/hr Ondansetron HCl (Zofran Inj) 4 mg IVP Q6H PRN PRN Reason: Nausea/Vomiting, IF NPO Last Admin: 02/24/17 22:54 Dose: 4 mg Saccharomyces Boulardii (Florastor) 250 mg PO BID [facility] Last Admin: 02/26/17 09:19 Dose: 250 mg - Labs Labs: 02/26/17 07:51 02/26/17 07:51 PT 27.7 SECONDS (9.7-12.2) H 02/26/17 07:51 INR 2.4 02/26/17 07:51 APTT 39 SECONDS (21-34) H 02/26/17 07:51 - Constitutional Appears: No Acute Distress - Head Exam Head Exam: NORMAL INSPECTION, NORMOCEPHALIC - Eye Exam Eye Exam: EOMI, Normal appearance - ENT Exam ENT Exam: Mucous Membranes Moist - Neck Exam Neck Exam: Full ROM, Normal Inspection - Respiratory Exam Respiratory Exam: Clear to Ausculation Bilateral, NORMAL BREATHING PATTERN. absent: Rhonchi, Wheezes - Cardiovascular Exam Cardiovascular Exam: REGULAR RHYTHM, +S1, +S2. absent: Murmur - GI/Abdominal Exam GI & Abdominal Exam: Soft, Tenderness, Normal Bowel Sounds - Extremities Exam Extremities Exam: Full ROM. absent: Pedal Edema, Tenderness Additional comments: Right hand edema - Neurological Exam Neurological Exam: Alert, Awake, Oriented x3 - Psychiatric Exam Psychiatric exam: Normal Affect, Normal Mood - Skin Skin Exam: Dry, Intact, Normal Color, Warm Assessment and Plan (1) Fever Assessment & Plan: Infectious Disease Consult: Dr. Hernandez, gonzalez najera 500mg Primaxin q6h (02/15/17) ---> Day 12 600mg Zyvox q12h (02/15/17) ---> Day 12 WBC [7/3] -> 10.7; [7/5] 11.5; [7/6] 12.5 Temp [7/3] -> 98.2 Procalcitonin mildly elevated at 0.55 (02/15/17) * Procalcitonin 0.24 (02/19/17) * Procalcitonin- 0.18 (02/25/17) * Lactate Level-normal Abdominal/Pelvis CT (02/16/17): Enlarged, multi fibroid uterus. Possible necrosis within the largest right fundal uterine fibroid although there was no liquefactation demonstrated on pelvic ultrasound examination of 02/04/17. Subtle increased attenuation of the periuterine fat along the right lateral aspect, of uncertain significance. this may reflect an inflammatory or infectious process through no clear source is identified. stable 5cm left ovarian cyst. Abdominal/pelvis CT w/PO contrast ordered on 02/25/17: enlarged myomatous uterus; left adnexal cyst, follow up recommended; no obstruction Urine culture 02/17/17: No growth Blood culture (02/14/17): No growth Repeat stool occult blood [02/21] -> positive Urine chlamydia and gonorrhea: not detected xray abd [02/21] -> no evidence of bowel obstruction Blood culture 02/21/17- gram negative rods; pending specificity Urine cx on 02/22/17- no growth Status: Resolved (2) Abdominal pain Assessment & Plan: Abdominal pelvic CT with PO (02/25/17): enlarged myomatous uterus; left adnexal cyst, follow up recommended; no obstruction Status: Acute (3) Chest pressure Assessment & Plan: Angio chest CT showed no evidence of PE. 4mm RUL nodule finding does not need follow up per Fleischner criteria. 1.4cm right lobe thyroid per report. JOE negative EKG x3: Normal Sinus Rhythm; Inferior Infarct of undetermined age ECHO 02/14/17: LA, LV, and RA, RV size appears normal. Over all normal LV systolic function with LV EF of 55-60%. Normal diastolic filling. Mitral, TV and aortic valve are probably normal. No pericardial effusion. Status: Resolved (4) Thyroid nodule Assessment & Plan: Right thyroid nodule 1.4cm per CT report. Free T4: 1.33 Status: Acute (5) Hypokalemia Assessment & Plan: K+ 3.4 (02/21/17); K+ 3.9 (02/22/17); K+ 4.3 on 02/25/17; K+ 3.8 on 02/26/17 Repleted with Kdur 40meq PO on 02/16, 02/18, 02/21/17 Monitor Status: Resolved (6) Anemia Assessment & Plan: Monitor H/H: 8.1/25.8 on 02/23/17; 7.9/25.1 on 02/25/17 H/H on 02/26/17: 8/24.8 325mg Ferrous Sulfate PO BID 15 %Iron Saturation, 39 serum iron, 268 TIBC, 151 ferritin, 3.1 reticulocyte count Stool occult- positive Status: Chronic (7) Fibroid Assessment & Plan: Patient reports a history of irregular periods and history of fibroids Pelvic US (02/04/17): markedly enlarged heterogenous uterus contains multiple soft tissue mass lesions likely represent fibroids. Largest fibroid seen at the fundus measures 11.7 cm in the largest diameter. Complex cystic lesion at the left ovary measures 4.6 cm. Gynecology Consult: Dr. Farooq --> help appreciated Repeat pelvic/transvaginal sonogram (02/20/17)- enlarged fibroid uterus; 5.3cm simple cyst in the left ovary; differential considerations include simple cyst, cystadenoma, and cystadenocarcinoma. Patient to follow up with a sleep manager oncologist as an outpatient Abdominal pelvis w/PO contrast- enlarged myomatous uterus; left adnexal cyst, follow up recommended; no obstruction Status: Chronic (8) History of deep vein thrombosis (DVT) of lower extremity Assessment & Plan: Coumadin 1mg PO HS given on 02/26/17 PT/INR: 27.7/2.4 on 02/26/17 F/U Status: Acute (9) Diarrhea Assessment & Plan: C.Diff- F/U Ova and Parasites- F/U Flagyl 500mg IV Q12 started on 02/26/17 Status: Acute (10) Edema of hand Assessment & Plan: Right hand- edematous Venous dopplers- no abnormalities Lasix 20mEq PO once Status: Acute (11) Prophylactic measure Assessment & Plan: Protonix 40mg PO daily Florastor 250mg PO BID Status: Acute
--- NOTE | 2017-02-26 13:34 | VASCLAB ---
PROCEDURE: Right Upper Extremity Venous Duplex Exam HISTORY: swelling PRIORS: None. TECHNIQUE: Right upper extremity, internal jugular, subclavian, axillary, brachial, ulnar, radial, basilic and upper cephalic veins were evaluated. Flow was assessed with color Doppler, compressibility, assessment of phasic flow and augmentation response. Report prepared by TRINIDAD Sanchez, RVT FINDINGS: RIGHT: 1. Internal Jugular: 1.1. Compressibility - Fully compressible: Thrombus - None : Flow - Phasic: Augmentation -Normal: Reflux - None. 2. Subclavian: 2.1. Compressibility - Fully compressible: Thrombus - None : Flow - Phasic: Augmentation -Normal: Reflux - None. 3. Axillary: 3.1. Compressibility - Fully compressible: Thrombus - None : Flow - Phasic: Augmentation -Normal: Reflux - None. 4. Brachial: 4.1. Compressibility - Fully compressible: Thrombus - None: Flow - Phasic: Augmentation -Normal: Reflux - None. 5. Ulnar: 5.1. Compressibility - Fully compressible: Thrombus - None: Flow - Phasic: Augmentation -Normal: Reflux - None. 6. Radial: 6.1. Compressibility - Fully compressible: Thrombus - None: Flow - Phasic: Augmentation - Normal: Reflux - None. 7. Cephalic: 7.1. Compressibility - Fully compressible: Thrombus - None: Flow - Phasic: Augmentation -Normal: Reflux - None. 8. Basilic: 8.1. Compressibility - Fully compressible: Thrombus - None: Flow - Phasic: Augmentation -Normal: Reflux - None. OTHER FINDINGS: Right: None. IMPRESSION: Right: No evidence of vein thrombosis of the right upper extremity with excellent venous flow. Normal valve function noted of the right side. Normal venous flow noted in the left internal jugular and left subclavian veins.
[2017-02-26] MEDS: metroNIDAZOLE IV 500 mg/100 ml 500 MG/100 ML BAG IVPB SCH ×2 (14:02→21:53)
[2017-02-26 15:02] LABS: INR 2.3; PROTHROMBIN TIME 26.8 SECONDS (9.7-12.2)
--- NOTE | 2017-02-26 17:53 | CP.PCM.PN ---
Subjective - Date & Time of Evaluation Date of Evaluation: 02/26/17 Time of Evaluation: 05:00 - Subjective Subjective: Patient was seen today as her blood culture was positive yesterday she is still on iv antiibiotics but complains of freezing and is under multiple covers. Patient says she feels pain in left forearm and also after constipation she had diarrhea. Patient denies any abdominal pain or urinary symptoms at present. Had ctscan yesterday will review the results. Blood culture is gram negative bacteremia Objective - Vital Signs/Intake and Output Vital Signs (last 24 hours): Temp Pulse Resp BP Pulse Ox 98.7 F 85 20 100/67 99 02/26/17 15:00 02/26/17 15:00 02/26/17 15:00 02/26/17 15:00 02/26/17 15:00 Intake and Output: 02/26/17 02/26/17 06:59 18:59 Intake Total 1620 Balance 1620 - Medications Medications: Current Medications Acetaminophen (Tylenol 325mg Tab) 650 mg PO Q6 PRN PRN Reason: Pain, severe (8-10) Last Admin: 02/25/17 20:38 Dose: 650 mg Famotidine (Pepcid) 20 mg PO BID [facility] Last Admin: 02/26/17 09:19 Dose: 20 mg Ferrous Sulfate (Feosol) 325 mg PO BID [facility] Last Admin: 02/26/17 09:19 Dose: 325 mg Imipenem/Cilastatin Sodium 500 (mg/ Sodium Chloride) 100 mls @ 100 mls/hr IVPB Q6H [facility] Last Admin: 02/26/17 13:24 Dose: 100 mls/hr Metronidazole (Flagyl) 500 mg in 100 mls @ 100 mls/hr IVPB Q12 [facility] Last Admin: 02/26/17 14:02 Dose: 100 mls/hr Tobramycin Sulfate 60 mg/ (Sodium Chloride) 101.5 mls @ 100 mls/hr IV Q8 [facility] Ondansetron HCl (Zofran Inj) 4 mg IVP Q6H PRN PRN Reason: Nausea/Vomiting, IF NPO Last Admin: 02/26/17 16:07 Dose: 4 mg Saccharomyces Boulardii (Florastor) 250 mg PO BID [facility] Last Admin: 02/26/17 09:19 Dose: 250 mg Warfarin Sodium (Coumadin) 1 mg PO 1800 [facility] Stop: 02/26/17 18:01 - Labs Labs: 02/26/17 07:51 02/26/17 07:51 PT 26.8 SECONDS (9.7-12.2) H 02/26/17 14:35 INR 2.3 02/26/17 14:35 APTT 39 SECONDS (21-34) H 02/26/17 07:51 - Constitutional Appears: No Acute Distress - Head Exam Head Exam: ATRAUMATIC, NORMOCEPHALIC - Eye Exam Eye Exam: Normal appearance Pupil Exam: NORMAL ACCOMODATION - ENT Exam ENT Exam: Mucous Membranes Moist - Neck Exam Neck Exam: Normal Inspection - Respiratory Exam Respiratory Exam: Clear to Ausculation Bilateral, NORMAL BREATHING PATTERN - Cardiovascular Exam Cardiovascular Exam: REGULAR RHYTHM, RRR - GI/Abdominal Exam GI & Abdominal Exam: Normal Bowel Sounds. absent: Bruit, Distended, Firm, Guarding, Rigid, Soft, Tenderness, Diminished Bowel Sounds, Hernia, Hyperactive Bowel Sounds, Hypoactive Bowel Sounds, Organomegaly, Pulsatile Mass, Rebound, Mass - Extremities Exam Extremities Exam: Normal Inspection - Skin Skin Exam: Normal Color Assessment and Plan (1) Fever Assessment & Plan: Patient has gram negative septiciemia,no central line,has had recent multiple admission and has multiple fibroids uterus,recent uti ,dvt will add tobramycin to present treatment and dc zyvox as no gram negative Status: Resolved
[2017-02-26] MEDS: Tobramycin inj 60 MG in Sodium Chloride 0.9% 100 ML IV SCH (20:22)
[2017-02-27] MEDS: Tobramycin inj 60 MG in Sodium Chloride 0.9% 100 ML IV SCH ×3 (02:06→18:00)
[2017-02-27 07:09] LABS: BASO # 0.1 K/uL (0.0-0.2); BASO % 0.8 % (0.0-2.0); EOS # 0.1 K/uL (0.0-0.7); EOS % 0.7 % (0.0-4.0); HEMOGLOBIN 7.9 g/dL (11.0-16.0); LYMPH # 1.7 K/uL (1.0-4.3); LYMPH % 12.9 % (20.0-40.0); MEAN CELL VOLUME 86.4 fL (81.0-99.0); MEAN CORPUSCULAR HGB CONC 32.4 g/dL (33.0-37.0); MEAN PLATELET VOLUME 7.5 fL (7.2-11.7); MONO # 0.7 K/uL (0.0-0.8); MONO % 5.2 % (0.0-10.0); NEUT # 10.3 K/uL (1.8-7.0); NEUT % 80.4 % (50.0-75.0); RBC 2.82 Mil/uL (3.80-5.20); RED CELL DISTRIBUTION WIDTH 26.4 % (11.5-14.5); WHITE BLOOD COUNT 12.8 K/uL (4.8-10.8)
[2017-02-27 07:15] LABS: INR 2.2; PROTHROMBIN TIME 25.5 SECONDS (9.7-12.2)
[2017-02-27 07:38] LABS: ALB/GLOB RATIO 0.7 (1.0-2.1); ALT/SGPT 13 U/L (9-52); AST/SGOT 21 U/L (14-36); BLOOD UREA NITROGEN 4 mg/dL (7-17); GFR AFRICAN-AMERICAN > 60; GFR NON-AFRICAN AMERICAN > 60
[2017-02-27 07:39] LABS: CALCIUM 8.4 mg/dl (8.6-10.4)
[2017-02-27] MEDS: Saccharomyces Boulardi 250 mg Cap PO SCH ×2 (09:17→18:00)
[2017-02-27] MEDS: metroNIDAZOLE IV 500 mg/100 ml 500 MG/100 ML BAG IVPB SCH ×2 (09:22→21:42)
[2017-02-27 19:31] LABS: INR 1.9; PROTHROMBIN TIME 21.7 SECONDS (9.7-12.2)
--- NOTE | 2017-02-27 20:13 | CP.PCM.PN ---
Subjective - Date & Time of Evaluation Date of Evaluation: 02/27/17 Time of Evaluation: 12:00 - Subjective Subjective: Patient seen and examined at bedside. Patient was seen walking in the halls earlier. I saw her yesterday evening under 2 blankets shivering but today she says she feels better. She c/o of mild lower abdominal pain. She denies fever, chest pain , shortness of breath, headache, cough, vomiting, diarrhea. Objective - Vital Signs/Intake and Output Vital Signs (last 24 hours): Temp Pulse Resp BP Pulse Ox 98.2 F 83 20 99/65 L 98 02/27/17 15:10 02/27/17 15:10 02/27/17 15:10 02/27/17 15:10 02/27/17 15:10 Intake and Output: 02/27/17 02/28/17 18:59 06:59 Intake Total 700 Balance 700 - Medications Medications: Current Medications Acetaminophen (Tylenol 325mg Tab) 650 mg PO Q6 PRN PRN Reason: Pain, severe (8-10) Last Admin: 02/26/17 17:56 Dose: 650 mg Famotidine (Pepcid) 20 mg PO BID [facility] Last Admin: 02/27/17 18:00 Dose: 20 mg Ferrous Sulfate (Feosol) 325 mg PO BID [facility] Last Admin: 02/27/17 18:00 Dose: 325 mg Imipenem/Cilastatin Sodium 500 (mg/ Sodium Chloride) 100 mls @ 100 mls/hr IVPB Q6H [facility] Last Admin: 02/27/17 19:41 Dose: 100 mls/hr Metronidazole (Flagyl) 500 mg in 100 mls @ 100 mls/hr IVPB Q12 [facility] Last Admin: 02/27/17 09:22 Dose: 100 mls/hr Tobramycin Sulfate 60 mg/ (Sodium Chloride) 101.5 mls @ 100 mls/hr IV Q8H [facility] Last Admin: 02/27/17 18:00 Dose: 100 mls/hr Ondansetron HCl (Zofran Inj) 4 mg IVP Q6H PRN PRN Reason: Nausea/Vomiting, IF NPO Last Admin: 02/26/17 16:07 Dose: 4 mg Saccharomyces Boulardii (Florastor) 250 mg PO BID [facility] Last Admin: 02/27/17 18:00 Dose: 250 mg - Labs Labs: 02/27/17 06:49 02/27/17 06:49 PT 21.7 SECONDS (9.7-12.2) H 02/27/17 19:20 INR 1.9 02/27/17 19:20 APTT 39 SECONDS (21-34) H 02/26/17 07:51 - Constitutional Appears: Well - Head Exam Head Exam: ATRAUMATIC, NORMAL INSPECTION, NORMOCEPHALIC - Eye Exam Eye Exam: EOMI, Normal appearance, PERRL - ENT Exam ENT Exam: Mucous Membranes Moist, Normal Exam - Neck Exam Neck Exam: Full ROM, Normal Inspection. absent: Lymphadenopathy - Respiratory Exam Respiratory Exam: Clear to Ausculation Bilateral, NORMAL BREATHING PATTERN - Cardiovascular Exam Cardiovascular Exam: REGULAR RHYTHM, +S1, +S2. absent: Murmur - GI/Abdominal Exam GI & Abdominal Exam: Soft, Tenderness, Normal Bowel Sounds - Rectal Exam Rectal Exam: Deferred - Extremities Exam Extremities Exam: Full ROM, Normal Capillary Refill, Normal Inspection. absent : Joint Swelling, Pedal Edema - Back Exam Back Exam: NORMAL INSPECTION - Neurological Exam Neurological Exam: Alert, Awake, Normal Gait, Oriented x3 - Psychiatric Exam Psychiatric exam: Normal Affect, Normal Mood - Skin Skin Exam: Dry, Intact, Normal Color, Warm Assessment and Plan - Assessment and Plan (Free Text) Assessment: Assessment and Plan (1) Fever Assessment & Plan: Infectious Disease Consult: Dr. Hernandez, help appreciated 02/27: started tobramycin 60mg IV q8 (BUN and Cr are wnl) 02/27: started flagyl 500mg IV q12 02/27: stopped zyvox 600mg IV q12 02/27: blood culture collected on 02/21 positive for bacteroides vulgatus. blood culture collected on 02/26 show no growth after 24 hours 02/27: ova and parasite ordered, stool culture ordered, C Diff A B ordered 500mg Primaxin q6h (02/15/17) ---> Day 12 600mg Zyvox q12h (02/15/17) ---> Day 12 WBC [02/23] -> 10.7; [02/25] 11.5; [02/26] 12.5 Temp [02/23] -> 98.2 Procalcitonin mildly elevated at 0.55 (02/15/17) * Procalcitonin 0.24 (02/19/17) * Procalcitonin- 0.18 (02/25/17) * Lactate Level-normal Abdominal/Pelvis CT (02/16/17): Enlarged, multi fibroid uterus. Possible necrosis within the largest right fundal uterine fibroid although there was no liquefactation demonstrated on pelvic ultrasound examination of 02/04/17. Subtle increased attenuation of the periuterine fat along the right lateral aspect, of uncertain significance. this may reflect an inflammatory or infectious process through no clear source is identified. stable 5cm left ovarian cyst. Abdominal/pelvis CT w/PO contrast ordered on 02/25/17: enlarged myomatous uterus; left adnexal cyst, follow up recommended; no obstruction Urine culture 02/17/17: No growth Blood culture (02/14/17): No growth Repeat stool occult blood [02/21] -> positive Urine chlamydia and gonorrhea: not detected xray abd [02/21] -> no evidence of bowel obstruction Blood culture 02/21/17- gram negative rods; pending specificity Urine cx on 02/22/17- no growth Status: Resolved (2) Abdominal pain Assessment & Plan: Abdominal pelvic CT with PO (02/25/17): enlarged myomatous uterus; left adnexal cyst, follow up recommended; no obstruction Status: Acute (3) Chest pressure Assessment & Plan: Angio chest CT showed no evidence of PE. 4mm RUL nodule finding does not need follow up per Fleischner criteria. 1.4cm right lobe thyroid per report. JOE negative EKG x3: Normal Sinus Rhythm; Inferior Infarct of undetermined age ECHO 02/14/17: LA, LV, and RA, RV size appears normal. Over all normal LV systolic function with LV EF of 55-60%. Normal diastolic filling. Mitral, TV and aortic valve are probably normal. No pericardial effusion. Status: Resolved (4) Thyroid nodule Assessment & Plan: Right thyroid nodule 1.4cm per CT report. Free T4: 1.33 Status: Acute (5) Hypokalemia Assessment & Plan: K+ 3.4 (02/21/17); K+ 3.9 (02/22/17); K+ 4.3 on 02/25/17; K+ 3.8 on 02/26/17 Repleted with Kdur 40meq PO on 02/16, 02/18, 02/21/17 Monitor Status: Resolved (6) Anemia Assessment & Plan: Monitor H/H: 8.1/25.8 on 02/23/17; 7.9/25.1 on 02/25/17 H/H on 02/26/17: 8/24.8 325mg Ferrous Sulfate PO BID 15 %Iron Saturation, 39 serum iron, 268 TIBC, 151 ferritin, 3.1 reticulocyte count Stool occult- positive Status: Chronic (7) Fibroid Assessment & Plan: Patient reports a history of irregular periods and history of fibroids Pelvic US (02/04/17): markedly enlarged heterogenous uterus contains multiple soft tissue mass lesions likely represent fibroids. Largest fibroid seen at the fundus measures 11.7 cm in the largest diameter. Complex cystic lesion at the left ovary measures 4.6 cm. Gynecology Consult: Dr. Farooq --> help appreciated Repeat pelvic/transvaginal sonogram (02/20/17)- enlarged fibroid uterus; 5.3cm simple cyst in the left ovary; differential considerations include simple cyst, cystadenoma, and cystadenocarcinoma. Patient to follow up with a electro mechanical technician oncologist as an outpatient Abdominal pelvis w/PO contrast- enlarged myomatous uterus; left adnexal cyst, follow up recommended; no obstruction Status: Chronic (8) History of deep vein thrombosis (DVT) of lower extremity Assessment & Plan: Coumadin 1mg PO HS given on 02/26, 02/27 PT/INR: 27.7/2.4 on 02/26/17 F/U Status: Acute (9) Diarrhea Assessment & Plan: C.Diff- F/U Ova and Parasites- F/U Flagyl 500mg IV Q12 started on 02/26/17 Status: Acute (10) Edema of hand Assessment & Plan: Right hand- edematous Venous dopplers- no abnormalities Lasix 20mEq PO once Status: Acute (11) Prophylactic measure Assessment & Plan: Protonix 40mg PO daily Florastor 250mg PO BID Status: Acute
[2017-02-28] MEDS: Tobramycin inj 60 MG in Sodium Chloride 0.9% 100 ML IV SCH ×3 (02:10→18:19)
--- NOTE | 2017-02-28 02:15 | CP.PCM.PN ---
<Emily Duarte - Last Filed: 02/28/17 02:11> Subjective - Date & Time of Evaluation Date of Evaluation: 02/28/17 Time of Evaluation: 02:11 - Subjective Subjective: Medicine Progress Note- Dr. Pabon Service Patient was seen and examined at bedside in no acute distress. Patient's family was in the room. She reports having a lot of gas in her stomach that is causing her discomfort. She also reports feeling nausea at times. Patient's lower abdominal/pelvic pain has decreased. Patient reports having a normal bowel movement yesterday. Patient denies having chest pain, palpitations, shortness of breath, vomiting, dizziness, and diarrhea. Patient is eat and walking without difficulty. Objective - Vital Signs/Intake and Output Vital Signs (last 24 hours): Temp Pulse Resp BP Pulse Ox 101.2 F H 88 20 109/71 97 02/28/17 01:06 02/27/17 23:17 02/27/17 23:17 02/27/17 23:17 02/27/17 23:17 Intake and Output: 02/27/17 02/28/17 18:59 06:59 Intake Total 700 600 Balance 700 600 - Medications Medications: Current Medications Acetaminophen (Tylenol 325mg Tab) 650 mg PO Q6 PRN PRN Reason: Pain, severe (8-10) Last Admin: 02/28/17 01:06 Dose: 650 mg Famotidine (Pepcid) 20 mg PO BID [facility] Last Admin: 02/27/17 18:00 Dose: 20 mg Ferrous Sulfate (Feosol) 325 mg PO BID [facility] Last Admin: 02/27/17 18:00 Dose: 325 mg Imipenem/Cilastatin Sodium 500 (mg/ Sodium Chloride) 100 mls @ 100 mls/hr IVPB Q6H [facility] Last Admin: 02/28/17 01:03 Dose: 100 mls/hr Metronidazole (Flagyl) 500 mg in 100 mls @ 100 mls/hr IVPB Q12 [facility] Last Admin: 02/27/17 21:42 Dose: 100 mls/hr Tobramycin Sulfate 60 mg/ (Sodium Chloride) 101.5 mls @ 100 mls/hr IV Q8H [facility] Last Admin: 02/27/17 18:00 Dose: 100 mls/hr Ondansetron HCl (Zofran Inj) 4 mg IVP Q6H PRN PRN Reason: Nausea/Vomiting, IF NPO Last Admin: 02/26/17 16:07 Dose: 4 mg Saccharomyces Boulardii (Florastor) 250 mg PO BID [facility] Last Admin: 02/27/17 18:00 Dose: 250 mg Warfarin Sodium (Coumadin) 1 mg PO 1800 [facility] Stop: 02/28/17 18:01 - Labs Labs: 02/27/17 06:49 02/27/17 06:49 PT 21.7 SECONDS (9.7-12.2) H 02/27/17 19:20 INR 1.9 02/27/17 19:20 APTT 39 SECONDS (21-34) H 02/26/17 07:51 - Constitutional Appears: No Acute Distress - Head Exam Head Exam: NORMAL INSPECTION, NORMOCEPHALIC - Eye Exam Eye Exam: EOMI, Normal appearance - ENT Exam ENT Exam: Mucous Membranes Moist - Neck Exam Neck Exam: Normal Inspection - Respiratory Exam Respiratory Exam: Clear to Ausculation Bilateral, NORMAL BREATHING PATTERN. absent: Rhonchi, Wheezes - Cardiovascular Exam Cardiovascular Exam: REGULAR RHYTHM, +S1, +S2. absent: Rubs, Murmur - GI/Abdominal Exam GI & Abdominal Exam: Soft, Tenderness, Normal Bowel Sounds - Extremities Exam Extremities Exam: Normal Inspection. absent: Calf Tenderness, Pedal Edema, Tenderness - Neurological Exam Neurological Exam: Alert, Awake, Oriented x3 - Psychiatric Exam Psychiatric exam: Normal Affect, Normal Mood - Skin Skin Exam: Dry, Intact, Normal Color, Warm Assessment and Plan (1) Fever Assessment & Plan: Infectious Disease Consult: Dr. Hernandez, help appreciated 02/27: started tobramycin 60mg IV q8 (BUN and Cr are wnl) 02/26: started flagyl 500mg IV q12 02/27: stopped zyvox 600mg IV q12 02/27: blood culture collected on 02/21 positive for bacteroides vulgatus. blood culture collected on 02/26 show no growth after 24 hours 02/27: ova and parasite ordered, stool culture ordered, C Diff A B ordered 500mg Primaxin q6h (02/15/17) ---> Day 13 WBC [02/23] -> 10.7; [02/25] 11.5; [02/26] 12.5; [02/27] 12.8 Temp [02/23] -> 98.2 Procalcitonin mildly elevated at 0.55 (02/15/17) * Procalcitonin 0.24 (02/19/17) * Procalcitonin- 0.18 (02/25/17) * Lactate Level-normal Abdominal/Pelvis CT (02/16/17): Enlarged, multi fibroid uterus. Possible necrosis within the largest right fundal uterine fibroid although there was no liquefactation demonstrated on pelvic ultrasound examination of 02/04/17. Subtle increased attenuation of the periuterine fat along the right lateral aspect, of uncertain significance. this may reflect an inflammatory or infectious process through no clear source is identified. stable 5cm left ovarian cyst. Abdominal/pelvis CT w/PO contrast ordered on 02/25/17: enlarged myomatous uterus; left adnexal cyst, follow up recommended; no obstruction Urine culture 02/17/17: No growth Blood culture (02/14/17): No growth Repeat stool occult blood [02/21] -> positive Urine chlamydia and gonorrhea: not detected xray abd [02/21] -> no evidence of bowel obstruction Blood culture 02/21/17- gram negative rods; pending specificity Urine cx on 02/22/17- no growth Status: Resolved (2) Abdominal pain Assessment & Plan: Abdominal pelvic CT with PO (02/25/17): enlarged myomatous uterus; left adnexal cyst, follow up recommended; no obstruction Status: Acute (3) Chest pressure Assessment & Plan: Angio chest CT showed no evidence of PE. 4mm RUL nodule finding does not need follow up per Fleischner criteria. 1.4cm right lobe thyroid per report. OJE negative EKG x3: Normal Sinus Rhythm; Inferior Infarct of undetermined age ECHO 02/14/17: LA, LV, and RA, RV size appears normal. Over all normal LV systolic function with LV EF of 55-60%. Normal diastolic filling. Mitral, TV and aortic valve are probably normal. No pericardial effusion. Status: Resolved (4) Thyroid nodule Assessment & Plan: Right thyroid nodule 1.4cm per CT report. Free T4: 1.33 Status: Acute (5) Hypokalemia Assessment & Plan: K+ 3.4 (02/21/17); K+ 3.9 (02/22/17); K+ 4.3 on 02/25/17; K+ 3.8 on 02/26/17 Repleted with Kdur 40meq PO on 02/16, 02/18, 02/21/17 K+: 3.9 on 02/27/17 Monitor Status: Resolved (6) Anemia Assessment & Plan: Monitor H/H: 8.1/25.8 on 02/23/17; 7.9/25.1 on 02/25/17 H/H on 02/26/17: 8/24.8 325mg Ferrous Sulfate PO BID 15 %Iron Saturation, 39 serum iron, 268 TIBC, 151 ferritin, 3.1 reticulocyte count Stool occult- positive Status: Chronic (7) Fibroid Assessment & Plan: Patient reports a history of irregular periods and history of fibroids Pelvic US (02/04/17): markedly enlarged heterogenous uterus contains multiple soft tissue mass lesions likely represent fibroids. Largest fibroid seen at the fundus measures 11.7 cm in the largest diameter. Complex cystic lesion at the left ovary measures 4.6 cm. Gynecology Consult: Dr. Farooq --> help appreciated Repeat pelvic/transvaginal sonogram (02/20/17)- enlarged fibroid uterus; 5.3cm simple cyst in the left ovary; differential considerations include simple cyst, cystadenoma, and cystadenocarcinoma. Patient to follow up with a athletic turf worker oncologist as an outpatient Abdominal pelvis w/PO contrast- enlarged myomatous uterus; left adnexal cyst, follow up recommended; no obstruction Status: Chronic (8) History of deep vein thrombosis (DVT) of lower extremity Assessment & Plan: Coumadin 1mg PO HS given on 02/26, 02/27 PT/INR: 27.7/2.4 on 02/26/17 PT/INR: 27/1.9 F/U Status: Acute (9) Diarrhea Assessment & Plan: C.Diff- F/U Ova and Parasites- F/U Flagyl 500mg IV Q12 started on 02/26/17 Status: Acute (10) Edema of hand Assessment & Plan: Resolved Right hand- edematous Venous dopplers- no abnormalities Lasix 20mEq PO once Status: Resolved (11) Prophylactic measure Assessment & Plan: Protonix 40mg PO daily Florastor 250mg PO BID Status: Acute <Tiffani Rivera V - Last Filed: 02/28/17 16:17> Objective - Vital Signs/Intake and Output Vital Signs (last 24 hours): Temp Pulse Resp BP Pulse Ox 98.7 F 88 20 109/71 97 02/28/17 04:36 02/27/17 23:17 02/27/17 23:17 02/27/17 23:17 02/27/17 23:17 Intake and Output: 02/28/17 02/28/17 06:59 18:59 Intake Total 600 300 Balance 600 300 - Medications Medications: Current Medications Acetaminophen (Tylenol 325mg Tab) 650 mg PO Q6 PRN PRN Reason: Pain, severe (8-10) Last Admin: 02/28/17 01:06 Dose: 650 mg Famotidine (Pepcid) 20 mg PO BID [facility] Last Admin: 02/28/17 10:26 Dose: 20 mg Ferrous Sulfate (Feosol) 325 mg PO BID [facility] Last Admin: 02/28/17 10:25 Dose: 325 mg Imipenem/Cilastatin Sodium 500 (mg/ Sodium Chloride) 100 mls @ 100 mls/hr IVPB Q6H [facility] Last Admin: 02/28/17 12:48 Dose: 100 mls/hr Metronidazole (Flagyl) 500 mg in 100 mls @ 100 mls/hr IVPB Q12 [facility] Last Admin: 02/28/17 10:26 Dose: 100 mls/hr Tobramycin Sulfate 60 mg/ (Sodium Chloride) 101.5 mls @ 100 mls/hr IV Q8H [facility] Last Admin: 02/28/17 11:22 Dose: 100 mls/hr Ondansetron HCl (Zofran Inj) 4 mg IVP Q6H PRN PRN Reason: Nausea/Vomiting, IF NPO Last Admin: 02/28/17 02:14 Dose: 4 mg Saccharomyces Boulardii (Florastor) 250 mg PO BID [facility] Last Admin: 02/28/17 10:26 Dose: 250 mg Warfarin Sodium (Coumadin) 1 mg PO 1800 [facility] Stop: 02/28/17 18:01 - Labs Labs: 02/27/17 06:49 02/27/17 06:49 PT 21.7 SECONDS (9.7-12.2) H 02/27/17 19:20 INR 1.9 02/27/17 19:20 APTT 39 SECONDS (21-34) H 02/26/17 07:51 Attending/Attestation - Attestation I have personally seen and examined this patient.: Yes I have fully participated in the care of the patient.: Yes I have reviewed all pertinent clinical information, including history, physical exam and plan: Yes Notes (Text): Patient seen, examined and case discussed with day-time resident. Patient's 02/21 Blood Culture grew up Bacteroides. Discussed with infectious disease, it is off GI/SHIPPING SUPPORT etiology, recommended follow -up surgery and vice president research. Discussed with Dr Hurst, covering OB-SHIPPING SUPPORT, re-assess the patient today given history of fibroids General surgery (Dr. Barnett); patient's surgeon when patient had appendicitis in [place] 01/01/17 to rule out abscess. Patient has had repeat CT scan that does not show abscess but patient appears to have persistent fever in spite of antibiotic therapy. Patient reports stool has formed. Patient is on Coumadin for DVT (12/2016) is therapeutic.
[2017-02-28] MEDS: metroNIDAZOLE IV 500 mg/100 ml 500 MG/100 ML BAG IVPB SCH ×2 (10:26→21:45)
[2017-02-28] MEDS: Saccharomyces Boulardi 250 mg Cap PO SCH ×2 (10:26→18:17)
--- NOTE | 2017-02-28 18:26 | CP.PCM.PN ---
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 Asked by Dr Rivera to re-evaluate patient Patient seen at bedside.Denies any pelvic pain, abdominal pain, fever or chills Objective - Vital Signs/Intake and Output Vital Signs (last 24 hours): Temp Pulse Resp BP Pulse Ox 99.1 F 94 H 20 100/56 L 97 02/28/17 15:14 02/28/17 15:14 02/28/17 15:14 02/28/17 15:14 02/28/17 15:14 Intake and Output: 02/28/17 02/28/17 06:59 18:59 Intake Total 600 300 Balance 600 300 - Medications Medications: Current Medications Acetaminophen (Tylenol 325mg Tab) 650 mg PO Q6 PRN PRN Reason: Pain, severe (8-10) Last Admin: 02/28/17 01:06 Dose: 650 mg Famotidine (Pepcid) 20 mg PO BID [facility] Last Admin: 02/28/17 18:16 Dose: 20 mg Ferrous Sulfate (Feosol) 325 mg PO BID [facility] Last Admin: 02/28/17 18:16 Dose: 325 mg Imipenem/Cilastatin Sodium 500 (mg/ Sodium Chloride) 100 mls @ 100 mls/hr IVPB Q6H [facility] Last Admin: 02/28/17 12:48 Dose: 100 mls/hr Metronidazole (Flagyl) 500 mg in 100 mls @ 100 mls/hr IVPB Q12 [facility] Last Admin: 02/28/17 10:26 Dose: 100 mls/hr Tobramycin Sulfate 60 mg/ (Sodium Chloride) 101.5 mls @ 100 mls/hr IV Q8H [facility] Last Admin: 02/28/17 18:19 Dose: 100 mls/hr Ondansetron HCl (Zofran Inj) 4 mg IVP Q6H PRN PRN Reason: Nausea/Vomiting, IF NPO Last Admin: 02/28/17 02:14 Dose: 4 mg Saccharomyces Boulardii (Florastor) 250 mg PO BID [facility] Last Admin: 02/28/17 18:17 Dose: 250 mg - Labs Labs: 02/27/17 06:49 02/27/17 06:49 PT 21.7 SECONDS (9.7-12.2) H 02/27/17 19:20 INR 1.9 02/27/17 19:20 APTT 39 SECONDS (21-34) H 02/26/17 07:51 - Constitutional Appears: No Acute Distress - Respiratory Exam Respiratory Exam: Clear to Ausculation Bilateral, NORMAL BREATHING PATTERN - Cardiovascular Exam Cardiovascular Exam: REGULAR RHYTHM - GI/Abdominal Exam GI & Abdominal Exam: Soft. absent: Tenderness, Rebound Additional comments: on deep palpation uterus palpable below the umbilicus - Extremities Exam Extremities Exam: absent: Calf Tenderness - Back Exam Back Exam: absent: CVA tenderness (L), CVA tenderness (R) - Neurological Exam Neurological Exam: Alert, Normal Gait, Oriented x3 - Psychiatric Exam Psychiatric exam: Normal Affect, Normal Mood - Skin Skin Exam: Normal Color Assessment and Plan (1) Fever Status: Resolved (2) Fibroid Status: Chronic - Assessment and Plan (Free Text) Assessment: 51 y/o female admitted to medicine service for fever.On multiple antibiotics.Was improving and then wbc count started increasing Patient with hx of fibroid uterus and lefty adnexal cyst blood culture from 02/21/2017 positive for bacteroides vulgatus Blood cx from 02/24/2017 with no growth so far Patient with complex medical history starting from appendectomy in december 2016 followed by admission for sepsis, uti, fever to [facility] and then the [facility] Patient has hx of fibroids and menorrhaia she had an endometrial biopsy done at [facility] by Dr Perez on 01/28/17 which did not show any premaligannt or malignant cells.Patient was found to ahve left andexal cyst on ct scan and mri as well as pelvic ultrasound done at [facility] and then the [facility] in december and january.The left ovarian cyst size has been stable at 5.3 cm. Patient initially had elevated ca 125 level on 01/13/2017 at 61.8 followed by 37.1 on 01/23/2017 and then normal level of 25.8 on 02/05/2017 Patient had pelvic mri done 12/[address] scans doen in january with last ct scan done 02/17/2016 Abdominal/Pelvis CT (02/16/17): Enlarged, multi fibroid uterus. Possible necrosis within the largest right fundal uterine fibroid although there was no liquefactation demonstrated on pelvic ultrasound examination of 02/04/17. Subtle increased attenuation of the periuterine fat along the right lateral aspect, of uncertain significance. this may reflect an inflammatory or infectious process through no clear source is identified. Repeat pelvic/transvaginal sonogram (02/20/17)- enlarged fibroid uterus; 5.3cm simple cyst in the left ovary; differential considerations include simple cyst, cystadenoma, and cystadenocarcinoma. In view of stable left ovarian cyst no acute intervention indicated Fibroid uterus-last ultrasound done 02/20/2017 does not indicate liquefaction.Will repeat ultrasound again.Recommend gen surgery and GI evaluation to determien source of bacteroides vulgatus Anemia-Patient with no heavy bleeding now.monitor hemoglobin.continue iron
--- NOTE | 2017-02-28 19:32 | CARD ---
APPROVED REPORT EKG Measurement Heart [id number] VT [id number] <Conclusion> Normal sinus rhythm Inferior infarct, age undetermined Abnormal ECG
--- NOTE | 2017-02-28 21:40 | CP.PCM.CON ---
History of Present Illness - History of Present Illness History of Present Illness: Surgery Consult note. Dr. Barnett 51yo F with PMHx of Uterine Fibroids, Anemia, DVT on coumadin here for evaluation of recurrent fevers. Patient states that she had appendectomy by Dr. Barnett at [place] on January 01, 2017. She was doing well post-operatively, however, she states that she was found to be anemic secondary to menorrhagia due uterine fibroid, was given 2uPRBCs at [place] at that time and received IV iron treatments. During these treatments, patient reports swelling of entire right upper extremity (IV infusion was at right extremity), now resolved. Patient states that since these treatments, she has been having intermittent fevers and chills. She was readmitted multiple times with complicated courses, UTI w/ GNR bacteremia and subsequently discharged on PO Zyvox. She returned at this time again with fevers and chills. Blood culture on 02/21 with evidence of Bacteriodes. She currently c/o low pelvic/abdominal pain, associated with menorrhagia. Denies any N/V/D. No Headaches. No CP/SOB. No lower extremity edema , no calf tenderness. She states she has been having regular bowel movements, no blood, no dark stools. Denies any urinary symptoms. PMHx: Uterine Fibroids w/ menorrhagia, Anemia, DVT on coumadin, UTI w/ Bactermia PSHx: Lap Appy on 01/01/[address] Barnett Family Hx: Mother - HTN, Stomach CA Social Hx: Denies Tob, Denies ETOH, Denies illicit drugs Allergy: Vancomycin Review of Systems - Review of Systems All systems: reviewed and no additional remarkable complaints except - Constitutional Constitutional: Chills, Fever - Cardiovascular Cardiovascular: absent: Chest Pain, Dyspnea - Gastrointestinal Gastrointestinal: Abdominal Pain. absent: Diarrhea, Nausea, Vomiting - Genitourinary Genitourinary: absent: Dysuria - Reproductive: Female Reproductive:Female: Abnormal Vaginal Bleeding Past Patient History - Infectious Disease Hx of Infectious Diseases: None - Past Medical History & Family History Past Medical History?: No - Past Social History Smoking Status: Never Smoked - CARDIAC Hx Cardiac Disorders: No - PULMONARY Hx Respiratory Disorders: No - NEUROLOGICAL Hx Neurological Disorder: No - HEENT Hx HEENT Problems: No - RENAL Hx Chronic Kidney Disease: No - ENDOCRINE/METABOLIC Hx Endocrine Disorders: No - HEMATOLOGICAL/ONCOLOGICAL Hx Anemia: Yes - INTEGUMENTARY Hx Dermatological Problems: No - MUSCULOSKELETAL/RHEUMATOLOGICAL Hx Falls: No - GASTROINTESTINAL Hx Gastrointestinal Disorders: No - GENITOURINARY/GYNECOLOGICAL Other/Comment: uterine fibroids - PSYCHIATRIC Hx Substance Use: No - SURGICAL HISTORY Hx Surgeries: Yes Other/Comment: APPENDECTOMY-JAN 01 2017 - ANESTHESIA Hx Anesthesia: Yes Hx Anesthesia Reactions: No Hx Malignant Hyperthermia: No Meds Allergies/Adverse Reactions: Allergies Allergy/AdvReac Type Severity Reaction Status Date / Time vancomycin Allergy Severe REDNESS Verified 02/14/17 17:06 - Medications Medications: Current Medications Acetaminophen (Tylenol 325mg Tab) 650 mg PO Q6 PRN PRN Reason: Pain, severe (8-10) Last Admin: 02/28/17 01:06 Dose: 650 mg Famotidine (Pepcid) 20 mg PO BID [facility] Last Admin: 02/28/17 18:16 Dose: 20 mg Ferrous Sulfate (Feosol) 325 mg PO BID [facility] Last Admin: 02/28/17 18:16 Dose: 325 mg Imipenem/Cilastatin Sodium 500 (mg/ Sodium Chloride) 100 mls @ 100 mls/hr IVPB Q6H [facility] Last Admin: 02/28/17 19:31 Dose: 100 mls/hr Metronidazole (Flagyl) 500 mg in 100 mls @ 100 mls/hr IVPB Q12 [facility] Last Admin: 02/28/17 10:26 Dose: 100 mls/hr Tobramycin Sulfate 60 mg/ (Sodium Chloride) 101.5 mls @ 100 mls/hr IV Q8H [facility] Last Admin: 02/28/17 18:19 Dose: 100 mls/hr Ondansetron HCl (Zofran Inj) 4 mg IVP Q6H PRN PRN Reason: Nausea/Vomiting, IF NPO Last Admin: 02/28/17 02:14 Dose: 4 mg Saccharomyces Boulardii (Florastor) 250 mg PO BID [facility] Last Admin: 02/28/17 18:17 Dose: 250 mg Physical Exam - Constitutional Appears: No Acute Distress, Chronically Ill Additional comments: Pale - Head Exam Head Exam: ATRAUMATIC, NORMAL INSPECTION, NORMOCEPHALIC - Eye Exam Eye Exam: EOMI - Respiratory Exam Respiratory Exam: NORMAL BREATHING PATTERN - GI/Abdominal Exam GI & Abdominal Exam: Soft Additional comments: Tender to deep palpation in the lower abdomen. Soft, non distended, no guarding , no rebound Lap Appy scars well healed, skin edges well approximated. - Extremities Exam Extremities exam: Positive for: normal inspection. Negative for: calf tenderness, pedal edema - Neurological Exam Neurological exam: Alert, Oriented x3 - Skin Skin Exam: Dry, Intact, Normal Color, Warm Results - Vital Signs Recent Vital Signs: Last Vital Signs Temp 99.1 F 02/28/17 15:14 Pulse 94 H 02/28/17 15:14 Resp 20 02/28/17 15:14 BP 100/56 L 02/28/17 15:14 Pulse Ox 97 02/28/17 15:14 - Labs Result Diagrams: 02/27/17 06:49 02/27/17 06:49 Labs: Laboratory Results - last 24 hr 02/26/17 Unknown C. difficile Ag & Toxin Negative Assessment & Plan - Assessment and Plan (Free Text) Assessment: 51yo F with PMHx of Uterine fibroids, Anemia here with recurrent fevers. Lap Appy by Dr. Barnett on 01/01/17 - Leukocytosis noted. Tmax of 101.2 - 7/ blood cx - Bacteroides Vulgatus - / blood cx - NGTD @ 48hrs. - Multiple CT scans noted - Large Uterine fibroids. No lorraine-appendiceal stump abscess or fluid collection noted - Continue ABX as per ID - Pain management - Recommend complete Telecom Sales Consultant work-up - f/u Pelvic US as ordered by Telecom Sales Consultant Discussed case with Dr. Anibal Lott PGY1 surgery pager: [phone]
[2017-03-01] MEDS: Tobramycin inj 60 MG in Sodium Chloride 0.9% 100 ML IV SCH ×3 (02:00→17:47)
--- NOTE | 2017-03-01 02:58 | CP.PCM.PN ---
<Emily Duarte - Last Filed: 03/01/17 02:55> Subjective - Date & Time of Evaluation Date of Evaluation: 03/01/17 Time of Evaluation: 02:55 - Subjective Subjective: Medicine Progress Note- Dr. Rivera Service Patient was seen and examined at [facility]. Patient was resting comfortably in bed. Patient reports having "on and off chills", a "tiny headache", and feeling nauseas. Patient says she feels like her body is "trying to have a fever". She reports having a bowel movement 3 times yesterday after drinking prune juice. Patient denies having chest pain, shortness of breath, abdominal pain, vomiting , and dizziness. Objective - Vital Signs/Intake and Output Vital Signs (last 24 hours): Temp Pulse Resp BP Pulse Ox 100.2 F H 110 H 20 114/70 96 03/01/17 00:02 03/01/17 00:00 03/01/17 00:00 03/01/17 00:00 03/01/17 00:00 Intake and Output: 02/28/17 03/01/17 18:59 06:59 Intake Total 300 660 Balance 300 660 - Medications Medications: Current Medications Acetaminophen (Tylenol 325mg Tab) 650 mg PO Q6 PRN PRN Reason: Pain, severe (8-10) Last Admin: 03/01/17 00:02 Dose: 650 mg Famotidine (Pepcid) 20 mg PO BID [facility] Last Admin: 02/28/17 18:16 Dose: 20 mg Ferrous Sulfate (Feosol) 325 mg PO BID [facility] Last Admin: 02/28/17 18:16 Dose: 325 mg Imipenem/Cilastatin Sodium 500 (mg/ Sodium Chloride) 100 mls @ 100 mls/hr IVPB Q6H [facility] Last Admin: 03/01/17 00:45 Dose: 100 mls/hr Metronidazole (Flagyl) 500 mg in 100 mls @ 100 mls/hr IVPB Q12 [facility] Last Admin: 02/28/17 21:45 Dose: 100 mls/hr Tobramycin Sulfate 60 mg/ (Sodium Chloride) 101.5 mls @ 100 mls/hr IV Q8H [facility] Last Admin: 03/01/17 02:00 Dose: 100 mls/hr Ondansetron HCl (Zofran Inj) 4 mg IVP Q6H PRN PRN Reason: Nausea/Vomiting, IF NPO Last Admin: 03/01/17 00:02 Dose: 4 mg Saccharomyces Boulardii (Florastor) 250 mg PO BID [facility] Last Admin: 02/28/17 18:17 Dose: 250 mg Warfarin Sodium (Coumadin) 1 mg PO 1800 [facility] Stop: 03/01/17 18:01 - Labs Labs: 02/27/17 06:49 02/27/17 06:49 PT 21.7 SECONDS (9.7-12.2) H 02/27/17 19:20 INR 1.9 02/27/17 19:20 APTT 39 SECONDS (21-34) H 02/26/17 07:51 - Constitutional Appears: No Acute Distress - Head Exam Head Exam: NORMAL INSPECTION, NORMOCEPHALIC - Eye Exam Eye Exam: EOMI, Normal appearance - ENT Exam ENT Exam: Mucous Membranes Moist - Neck Exam Neck Exam: Full ROM, Normal Inspection - Respiratory Exam Respiratory Exam: Clear to Ausculation Bilateral, NORMAL BREATHING PATTERN. absent: Rhonchi, Wheezes - Cardiovascular Exam Cardiovascular Exam: REGULAR RHYTHM, +S1, +S2. absent: Rubs, Murmur - GI/Abdominal Exam GI & Abdominal Exam: Soft, Normal Bowel Sounds. absent: Tenderness - Extremities Exam Extremities Exam: Normal Inspection. absent: Calf Tenderness, Pedal Edema, Tenderness - Neurological Exam Neurological Exam: Alert, Awake, Oriented x3 - Psychiatric Exam Psychiatric exam: Normal Affect, Normal Mood - Skin Skin Exam: Dry, Intact, Normal Color, Warm Assessment and Plan (1) Fever Assessment & Plan: Infectious Disease Consult: Dr. Hernandez, help appreciated 02/27: started tobramycin 60mg IV q8 (BUN and Cr are wnl) 02/26: started flagyl 500mg IV q12 02/27: stopped zyvox 600mg IV q12 02/27: blood culture collected on 02/21 positive for bacteroides vulgatus. blood culture collected on 02/26 show no growth after 24 hours 02/27: Negative for: ova and parasite, C Diff A B 500mg Primaxin q6h (02/15/17) ---> Day 15 WBC [7/] -> 10.7; [02/25] 11.5; [02/26] 12.5; [02/27] 12.8 Temp [02/23] -> 98.2 Procalcitonin mildly elevated at 0.55 (02/15/17) * Procalcitonin 0.24 (02/19/17) * Procalcitonin- 0.18 (02/25/17) * Lactate Level-normal Abdominal/Pelvis CT (02/16/17): Enlarged, multi fibroid uterus. Possible necrosis within the largest right fundal uterine fibroid although there was no liquefactation demonstrated on pelvic ultrasound examination of 02/04/17. Subtle increased attenuation of the periuterine fat along the right lateral aspect, of uncertain significance. this may reflect an inflammatory or infectious process through no clear source is identified. stable 5cm left ovarian cyst. Abdominal/pelvis CT w/PO contrast ordered on 02/25/17: enlarged myomatous uterus; left adnexal cyst, follow up recommended; no obstruction Urine culture 02/17/17: No growth Blood culture (02/14/17): No growth Repeat stool occult blood [02/21] -> positive Urine chlamydia and gonorrhea: not detected Xray abd [02/21] -> no evidence of bowel obstruction Urine cx on 02/22/17- no growth Blood cx (02/26/17) no growth after 48 hours X 2 Status: Resolved (2) Abdominal pain Assessment & Plan: Abdominal pelvic CT with PO (02/25/17): enlarged myomatous uterus; left adnexal cyst, follow up recommended; no obstruction Status: Acute (3) Chest pressure Assessment & Plan: Angio chest CT showed no evidence of PE. 4mm RUL nodule finding does not need follow up per Fleischner criteria. 1.4cm right lobe thyroid per report. JOE negative EKG x3: Normal Sinus Rhythm; Inferior Infarct of undetermined age ECHO 02/14/17: LA, LV, and RA, RV size appears normal. Over all normal LV systolic function with LV EF of 55-60%. Normal diastolic filling. Mitral, TV and aortic valve are probably normal. No pericardial effusion. Status: Resolved (4) Thyroid nodule Assessment & Plan: Right thyroid nodule 1.4cm per CT report. Free T4: 1.33 Status: Acute (5) Hypokalemia Assessment & Plan: K+ 3.4 (02/21/17); K+ 3.9 (02/22/17); K+ 4.3 on 02/25/17; K+ 3.8 on 02/26/17 Repleted with Kdur 40meq PO on 02/16, 02/18, 02/21/17 K+: 3.9 on 02/27/17 Monitor Status: Resolved (6) Anemia Assessment & Plan: Monitor H/H: 8.1/25.8 on 02/23/17; 7.9/25.1 on 02/25/17 H/H on 02/26/17: 8/24.8 H/H pm 02/28/17: 7.9/24.4 325mg Ferrous Sulfate PO BID 15 %Iron Saturation, 39 serum iron, 268 TIBC, 151 ferritin, 3.1 reticulocyte count Stool occult- positive Status: Chronic (7) Fibroid Assessment & Plan: Patient reports a history of irregular periods and history of fibroids Pelvic US (02/04/17): markedly enlarged heterogenous uterus contains multiple soft tissue mass lesions likely represent fibroids. Largest fibroid seen at the fundus measures 11.7 cm in the largest diameter. Complex cystic lesion at the left ovary measures 4.6 cm. Gynecology Consult: Dr. Farooq --> help appreciated Repeat pelvic/transvaginal sonogram (02/20/17)- enlarged fibroid uterus; 5.3cm simple cyst in the left ovary; differential considerations include simple cyst, cystadenoma, and cystadenocarcinoma. Patient to follow up with a fire supervisor oncologist as an outpatient Abdominal pelvis w/PO contrast- enlarged myomatous uterus; left adnexal cyst, follow up recommended; no obstruction Pelvic US: F/U Surgery consulted, Dr. Barnett, Help appreciated. As per surgery, continue antibiotics as per ID, pain management, recommend complete Copy Coordinator work-up, and F/U Pelvic US ordered by Copy Coordinator. Status: Chronic (8) History of deep vein thrombosis (DVT) of lower extremity Assessment & Plan: Coumadin 1mg PO HS given on 02/26, 02/27 PT/INR: 27.7/2.4 on 02/26/17 PT/INR: 27/1.9 F/U Status: Acute (9) Diarrhea Assessment & Plan: Negative: C.Diff, Ova and Parasites Flagyl 500mg IV Q12 started on 02/26/17 Status: Acute (10) Edema of hand Assessment & Plan: Resolved Right hand- edematous Venous dopplers- no abnormalities Lasix 20mEq PO once Status: Resolved (11) Prophylactic measure Assessment & Plan: Protonix 40mg PO daily Florastor 250mg PO BID Heart healthy diet Status: Acute <Tiffani Rivera V - Last Filed: 03/01/17 15:00> Objective - Vital Signs/Intake and Output Vital Signs (last 24 hours): Temp Pulse Resp BP Pulse Ox 97.8 F 83 20 106/71 97 03/01/17 08:00 03/01/17 08:00 03/01/17 08:00 03/01/17 08:00 03/01/17 08:00 Intake and Output: 03/01/17 03/01/17 06:59 18:59 Intake Total 1260 650 Balance 1260 650 - Medications Medications: Current Medications Acetaminophen (Tylenol 325mg Tab) 650 mg PO Q6 PRN PRN Reason: Pain, severe (8-10) Last Admin: 03/01/17 00:02 Dose: 650 mg Famotidine (Pepcid) 20 mg PO BID [facility] Last Admin: 03/01/17 09:33 Dose: 20 mg Ferrous Sulfate (Feosol) 325 mg PO BID [facility] Last Admin: 03/01/17 09:32 Dose: 325 mg Imipenem/Cilastatin Sodium 500 (mg/ Sodium Chloride) 100 mls @ 100 mls/hr IVPB Q6H [facility] Last Admin: 03/01/17 12:12 Dose: 100 mls/hr Metronidazole (Flagyl) 500 mg in 100 mls @ 100 mls/hr IVPB Q12 [facility] Last Admin: 03/01/17 09:00 Dose: 100 mls/hr Tobramycin Sulfate 60 mg/ (Sodium Chloride) 101.5 mls @ 100 mls/hr IV Q8H [facility] Last Admin: 03/01/17 09:33 Dose: 100 mls/hr Ondansetron HCl (Zofran Inj) 4 mg IVP Q6H PRN PRN Reason: Nausea/Vomiting, IF NPO Last Admin: 03/01/17 13:58 Dose: 4 mg Saccharomyces Boulardii (Florastor) 250 mg PO BID [facility] Last Admin: 03/01/17 09:32 Dose: 250 mg Warfarin Sodium (Coumadin) 2 mg PO 1800 [facility] Stop: 03/01/17 18:01 - Labs Labs: 03/01/17 08:24 03/01/17 08:24 PT 19.0 SECONDS (9.7-12.2) H 03/01/17 12:33 INR 1.7 03/01/17 12:33 APTT 39 SECONDS (21-34) H 02/26/17 07:51 Attending/Attestation - Attestation I have personally seen and examined this patient.: Yes I have fully participated in the care of the patient.: Yes I have reviewed all pertinent clinical information, including history, physical exam and plan: Yes Notes (Text): Patient seen, examined, and case discussed at bedside. Patient is tolerating diet. Patient denies abdominal pain. Reports she feels nauseous in the evening times when she gets a fever. Patient denies urinary frequency, dysuria, and unclear about hematuria. Patient reports she has vaginal bleeding but when she goes to the bathroom for peeing or pooping they have blood because she is menstruating. Discussed case with mechanical test technician, unlikely source of infection is related to her fibroid, which is quite rare per discussion and if she is currently have infection, she is not a surgical candidate to remove fibroids at this time. Ovarian cyst is stable. Per surgical note, reporting no surgical intervention. Patient's 02/26/17 blood cultures are currently negative X3. Patient was started at this point given initial concern for Cdif given her diarrhea, which has now normalized per the patient. Patient reports stool is dark but she takes iron. Discussed with resident technical solutions engineer, for digital rectal exam to see if patient is having rectal bleeding given anemia as patient is receiving blood thinner for DVT diagnosed in 12/2016. Patient is ordered for Coumadin 2mg PO tonight (home dose) for DVT and monitor for H/H. Will order for serum osmolarity, urine osmolarity, and urine lytes given hyponatremia. Patient does not like getting her blood work taken. She only has 24 gauge peripheral line. She will think about something like a PICC line.
[2017-03-01 08:42] LABS: BASO # 0.1 K/uL (0.0-0.2); BASO % 0.8 % (0.0-2.0); EOS # 0.1 K/uL (0.0-0.7); HEMOGLOBIN 8.4 g/dL (11.0-16.0); LYMPH # 1.3 K/uL (1.0-4.3); LYMPH % 8.9 % (20.0-40.0); MEAN CELL VOLUME 87.8 fL (81.0-99.0); MEAN CORPUSCULAR HEMOGLOBIN 28.2 pg (27.0-31.0); MEAN CORPUSCULAR HGB CONC 32.1 g/dL (33.0-37.0); MEAN PLATELET VOLUME 7.7 fL (7.2-11.7); MONO # 1.1 K/uL (0.0-0.8); MONO % 7.1 % (0.0-10.0); NEUT # 12.3 K/uL (1.8-7.0); NEUT % 82.2 % (50.0-75.0); PLATELET COUNT 326 K/uL (130-400); RBC 2.99 Mil/uL (3.80-5.20); RED CELL DISTRIBUTION WIDTH 25.7 % (11.5-14.5); WHITE BLOOD COUNT 14.9 K/uL (4.8-10.8)
[2017-03-01] MEDS: metroNIDAZOLE IV 500 mg/100 ml 500 MG/100 ML BAG IVPB SCH ×2 (09:00→22:29)
[2017-03-01 09:01] LABS: ALB/GLOB RATIO 0.7 (1.0-2.1); AST/SGOT 20 U/L (14-36); GFR AFRICAN-AMERICAN > 60; GFR NON-AFRICAN AMERICAN > 60
[2017-03-01 09:02] LABS: ALT/SGPT 22 U/L (9-52); BLOOD UREA NITROGEN 3 mg/dL (7-17); CALCIUM 8.3 mg/dl (8.6-10.4); MAGNESIUM 1.8 mg/dL (1.6-2.3)
[2017-03-01 09:06] LABS: BANDS 1 % (0-2); EOSINOPHIL 2 % (0-4); MONOCYTE 6 % (0-10); TOTAL CELLS COUNTED 100
[2017-03-01 09:07] LABS: ANISOCYTOSIS MODERATE; LYMPHOCYTE 9 % (20-40); MICROCYTOSIS SLIGHT; NEUTROPHIL 82 % (50-75); PLATELET ESTIMATE NORMAL (NORMAL)
[2017-03-01 09:08] LABS: HYPOCHROMIC SLIGHT; POLYCHROMIC SLIGHT
[2017-03-01 09:09] LABS: OVALOCYTES SLIGHT; TEARDROP CELLS SLIGHT
[2017-03-01] MEDS: Saccharomyces Boulardi 250 mg Cap PO SCH ×2 (09:32→17:45)
--- NOTE | 2017-03-01 12:56 | CP.PCM.PN ---
Subjective - Date & Time of Evaluation Date of Evaluation: 03/01/17 Time of Evaluation: 12:30 - Subjective Subjective: Patient seen at bedside.Denies fever, pain, bleeding. Objective - Vital Signs/Intake and Output Vital Signs (last 24 hours): Temp Pulse Resp BP Pulse Ox 97.8 F 83 20 106/71 97 03/01/17 08:00 03/01/17 08:00 03/01/17 08:00 03/01/17 08:00 03/01/17 08:00 Intake and Output: 03/01/17 03/01/17 06:59 18:59 Intake Total 1260 Balance 1260 - Medications Medications: Current Medications Acetaminophen (Tylenol 325mg Tab) 650 mg PO Q6 PRN PRN Reason: Pain, severe (8-10) Last Admin: 03/01/17 00:02 Dose: 650 mg Famotidine (Pepcid) 20 mg PO BID [facility] Last Admin: 03/01/17 09:33 Dose: 20 mg Ferrous Sulfate (Feosol) 325 mg PO BID [facility] Last Admin: 03/01/17 09:32 Dose: 325 mg Imipenem/Cilastatin Sodium 500 (mg/ Sodium Chloride) 100 mls @ 100 mls/hr IVPB Q6H [facility] Last Admin: 03/01/17 12:12 Dose: 100 mls/hr Metronidazole (Flagyl) 500 mg in 100 mls @ 100 mls/hr IVPB Q12 [facility] Last Admin: 03/01/17 09:00 Dose: 100 mls/hr Tobramycin Sulfate 60 mg/ (Sodium Chloride) 101.5 mls @ 100 mls/hr IV Q8H [facility] Last Admin: 03/01/17 09:33 Dose: 100 mls/hr Ondansetron HCl (Zofran Inj) 4 mg IVP Q6H PRN PRN Reason: Nausea/Vomiting, IF NPO Last Admin: 03/01/17 00:02 Dose: 4 mg Saccharomyces Boulardii (Florastor) 250 mg PO BID [facility] Last Admin: 03/01/17 09:32 Dose: 250 mg Warfarin Sodium (Coumadin) 1 mg PO 1800 [facility] Stop: 03/01/17 18:01 - Labs Labs: 03/01/17 08:24 03/01/17 08:24 PT 21.7 SECONDS (9.7-12.2) H 02/27/17 19:20 INR 1.9 02/27/17 19:20 APTT 39 SECONDS (21-34) H 02/26/17 07:51 - Constitutional Appears: No Acute Distress - Respiratory Exam Respiratory Exam: Clear to Ausculation Bilateral, NORMAL BREATHING PATTERN - Cardiovascular Exam Cardiovascular Exam: REGULAR RHYTHM - GI/Abdominal Exam GI & Abdominal Exam: Soft. absent: Tenderness - Neurological Exam Neurological Exam: Alert, Awake, Oriented x3 - Psychiatric Exam Psychiatric exam: Normal Affect, Normal Mood - Skin Skin Exam: Pallor Assessment and Plan - Assessment and Plan (Free Text) Assessment: Patient s/p appendectomy december 2016, with post op fever, leukocytosis, septic shock Found to have enlarged uterus with fibroids and left ovarian cyst.Hx of anemia and menorrhagia.s/p emb. Repeat imaging found the left ovarian cyst size stable Repeat ultrasound report pending Continue management as per primary team
[2017-03-01 13:05] LABS: INR 1.7
--- NOTE | 2017-03-01 13:39 | CP.PCM.PN ---
Subjective - Date & Time of Evaluation Date of Evaluation: 03/01/17 Time of Evaluation: 07:00 - Subjective Subjective: GENERAL SURGERY PROGRESS NOTE FOR DR. GALVEZ Patient seen and examined at bedside. She states that she does not have any pain at all. She is tolerating her regular diet. She had some nausea but denies vomiting. She is going for Pelvic US today. Objective - Vital Signs/Intake and Output Vital Signs (last 24 hours): Temp Pulse Resp BP Pulse Ox 97.8 F 83 20 106/71 97 03/01/17 08:00 03/01/17 08:00 03/01/17 08:00 03/01/17 08:00 03/01/17 08:00 Intake and Output: 03/01/17 03/01/17 06:59 18:59 Intake Total 1260 Balance 1260 - Medications Medications: Current Medications Acetaminophen (Tylenol 325mg Tab) 650 mg PO Q6 PRN PRN Reason: Pain, severe (8-10) Last Admin: 03/01/17 00:02 Dose: 650 mg Famotidine (Pepcid) 20 mg PO BID [facility] Last Admin: 03/01/17 09:33 Dose: 20 mg Ferrous Sulfate (Feosol) 325 mg PO BID [facility] Last Admin: 03/01/17 09:32 Dose: 325 mg Imipenem/Cilastatin Sodium 500 (mg/ Sodium Chloride) 100 mls @ 100 mls/hr IVPB Q6H [facility] Last Admin: 03/01/17 12:12 Dose: 100 mls/hr Metronidazole (Flagyl) 500 mg in 100 mls @ 100 mls/hr IVPB Q12 [facility] Last Admin: 03/01/17 09:00 Dose: 100 mls/hr Tobramycin Sulfate 60 mg/ (Sodium Chloride) 101.5 mls @ 100 mls/hr IV Q8H [facility] Last Admin: 03/01/17 09:33 Dose: 100 mls/hr Ondansetron HCl (Zofran Inj) 4 mg IVP Q6H PRN PRN Reason: Nausea/Vomiting, IF NPO Last Admin: 03/01/17 00:02 Dose: 4 mg Saccharomyces Boulardii (Florastor) 250 mg PO BID [facility] Last Admin: 03/01/17 09:32 Dose: 250 mg Warfarin Sodium (Coumadin) 1 mg PO 1800 [facility] Stop: 03/01/17 18:01 - Labs Labs: 03/01/17 08:24 03/01/17 08:24 PT 19.0 SECONDS (9.7-12.2) H 03/01/17 12:33 INR 1.7 03/01/17 12:33 APTT 39 SECONDS (21-34) H 02/26/17 07:51 - Constitutional Appears: Non-toxic, No Acute Distress - Head Exam Head Exam: ATRAUMATIC, NORMAL INSPECTION - Respiratory Exam Respiratory Exam: NORMAL BREATHING PATTERN. absent: Respiratory Distress - Cardiovascular Exam Cardiovascular Exam: +S1, +S2 - GI/Abdominal Exam GI & Abdominal Exam: Soft. absent: Distended, Firm, Guarding, Rigid, Tenderness , Rebound - Neurological Exam Neurological Exam: Alert, Awake, Oriented x3 - Psychiatric Exam Psychiatric exam: Normal Affect, Normal Mood - Skin Skin Exam: Normal Color, Warm Assessment and Plan - Assessment and Plan (Free Text) Assessment: 51yo F with uterine fibroids and left adnexal cyst, anemia, fevers, leukocytosis. Lap Appy done on 01/01/17. - Afebrile past 24 hours - Leukocytosis increased to WBC 14.9 - Blood cx from 02/21 = bacteroides vulgatus - Repeat blood cx from 02/26 = no growth @ 3 days - Pelvic US done today as ordered by salon supervisor, will FU official read - Continue IV Abx per ID - No surgical intervention at this time as there are no signs of lorraine- appendiceal stump abscess or fluid collection - Discussed plan with Dr. Anibal Rodriguez PGY-3
--- NOTE | 2017-03-01 13:48 | US ---
Pelvic ultrasound History: Pelvic pain. Fibroid uterus. Comparison: CT scan dated 02/25/2017 Technique: Real-time sonography was performed through the pelvis utilizing transabdominal technique. Findings: Uterus: Markedly enlarged. 20.0 x 11.7 x 18.7 centimeters. Prominent heterogeneous echotexture. Anteverted. Multiple prominent large mixed echogenic lesions in the uterus which may represent fibroid lesions: Prominent mixed echogenic fundal lesion measuring 10.4 x 9.6 x 9.6 centimeters. Prominent left-sided mixed echogenic lesion measuring 11.5 x 10.2 x 9.5 centimeters. Endometrium is distorted and not well visualized secondary to the prominent uteirne lesions. Right ovary: 2.7 x 1.9 x 2.4 centimeters. Normal flow. Left ovary: Prominent. 5.8 x 4.4 x 5.2 centimeters. Normal flow. Associated heterogeneous cyst measuring 5.0 x 3.4 x 4.8 centimeters. Impression: Markedly enlarged heterogeneous uterus with mixed echogenic lesions suggestive for fibroid lesions as described above. Endometrium was not well delineated given the obscuration by the adjacent lesions. 5 centimeter left ovarian cyst/cystic lesion.
[2017-03-02] MEDS: Tobramycin inj 60 MG in Sodium Chloride 0.9% 100 ML IV SCH ×3 (02:21→17:58)
--- NOTE | 2017-03-02 07:30 | CP.PCM.PN ---
<Emily Duarte - Last Filed: 03/02/17 19:55> Subjective - Date & Time of Evaluation Date of Evaluation: 03/02/17 Time of Evaluation: 07:27 - Subjective Subjective: Medicine Progress Note- Dr. Witt's Service Patient was seen and examined at bedside in no acute distress. Patient was resting comfortably in bed. Patient reports feeling nausea sometimes, but with medication, she feels better. Patient reports having a normal bowel movement yesterday. She says she feels feverish sometimes, last night was her last episode. Patient denies chest pain, abdominal and pelvic pain, vomiting, dizziness, and leg pain. Objective - Vital Signs/Intake and Output Vital Signs (last 24 hours): Temp Pulse Resp BP Pulse Ox 98.4 F 91 H 20 109/67 99 03/02/17 00:00 03/02/17 00:00 03/02/17 00:00 03/02/17 00:00 03/02/17 00:00 Intake and Output: 03/02/17 03/02/17 06:59 18:59 Intake Total 960 Balance 960 - Medications Medications: Current Medications Acetaminophen (Tylenol 325mg Tab) 650 mg PO Q6 PRN PRN Reason: Pain, severe (8-10) Last Admin: 03/01/17 16:41 Dose: 650 mg Famotidine (Pepcid) 20 mg PO BID [facility] Last Admin: 03/01/17 17:46 Dose: 20 mg Ferrous Sulfate (Feosol) 325 mg PO BID [facility] Last Admin: 03/01/17 17:45 Dose: 325 mg Imipenem/Cilastatin Sodium 500 (mg/ Sodium Chloride) 100 mls @ 100 mls/hr IVPB Q6H [facility] Last Admin: 03/02/17 06:14 Dose: 100 mls/hr Metronidazole (Flagyl) 500 mg in 100 mls @ 100 mls/hr IVPB Q12 [facility] Last Admin: 03/01/17 22:29 Dose: 100 mls/hr Tobramycin Sulfate 60 mg/ (Sodium Chloride) 101.5 mls @ 100 mls/hr IV Q8H [facility] Last Admin: 03/02/17 02:21 Dose: 100 mls/hr Ondansetron HCl (Zofran Inj) 4 mg IVP Q6H PRN PRN Reason: Nausea/Vomiting, IF NPO Last Admin: 03/02/17 02:22 Dose: 4 mg Saccharomyces Boulardii (Florastor) 250 mg PO BID [facility] Last Admin: 03/01/17 17:45 Dose: 250 mg - Labs Labs: 03/01/17 08:24 03/01/17 08:24 PT 19.0 SECONDS (9.7-12.2) H 03/01/17 12:33 INR 1.7 03/01/17 12:33 APTT 39 SECONDS (21-34) H 02/26/17 07:51 - Constitutional Appears: No Acute Distress - Head Exam Head Exam: NORMAL INSPECTION, NORMOCEPHALIC - Eye Exam Eye Exam: EOMI, Normal appearance - ENT Exam ENT Exam: Mucous Membranes Moist - Neck Exam Neck Exam: Full ROM, Normal Inspection - Respiratory Exam Respiratory Exam: Clear to Ausculation Bilateral, NORMAL BREATHING PATTERN. absent: Rhonchi, Wheezes - Cardiovascular Exam Cardiovascular Exam: REGULAR RHYTHM, +S1, +S2. absent: Rubs, Murmur - GI/Abdominal Exam GI & Abdominal Exam: Soft, Normal Bowel Sounds. absent: Tenderness - Extremities Exam Extremities Exam: Normal Inspection. absent: Calf Tenderness, Pedal Edema, Tenderness - Neurological Exam Neurological Exam: Alert, Awake, Oriented x3 Neuro motor strength exam: Left Upper Extremity: 5 - Psychiatric Exam Psychiatric exam: Normal Affect, Normal Mood - Skin Skin Exam: Dry, Intact, Normal Color, Warm Assessment and Plan (1) Fever Assessment & Plan: Infectious Disease Consult: Dr. Hernandez, help appreciated 02/27: started tobramycin 60mg IV q8 (BUN and Cr are wnl) 02/26: started flagyl 500mg IV q12 02/27: stopped zyvox 600mg IV q12 02/27: blood culture collected on 02/21 positive for bacteroides vulgatus. blood culture collected on 02/26 show no growth after 24 hours 02/27: Negative for: ova and parasite, C Diff A B 500mg Primaxin q6h (02/15/17) ---> Day 15 WBC [02/23] -> 10.7; [/] 11.5; [02/26] 12.5; [02/27] 12.8 Temp [02/23] -> 98.2 Procalcitonin mildly elevated at 0.55 (02/15/17) * Procalcitonin 0.24 (02/19/17) * Procalcitonin- 0.18 (02/25/17) * Lactate Level-normal Abdominal/Pelvis CT (02/16/17): Enlarged, multi fibroid uterus. Possible necrosis within the largest right fundal uterine fibroid although there was no liquefactation demonstrated on pelvic ultrasound examination of 02/04/17. Subtle increased attenuation of the periuterine fat along the right lateral aspect, of uncertain significance. this may reflect an inflammatory or infectious process through no clear source is identified. stable 5cm left ovarian cyst. Abdominal/pelvis CT w/PO contrast ordered on 02/25/17: enlarged myomatous uterus; left adnexal cyst, follow up recommended; no obstruction Urine culture 02/17/17: No growth Blood culture (02/14/17): No growth Repeat stool occult blood [02/21] -> positive Urine chlamydia and gonorrhea: not detected Xray abd [02/21] -> no evidence of bowel obstruction Urine cx on 02/22/17- no growth Blood cx (02/26/17) no growth after 48 hours X 2 PICC line inserted on 03/02/17 Status: Resolved (2) Abdominal pain Assessment & Plan: Abdominal pelvic CT with PO (02/25/17): enlarged myomatous uterus; left adnexal cyst, follow up recommended; no obstruction Status: Acute (3) Chest pressure Assessment & Plan: Angio chest CT showed no evidence of PE. 4mm RUL nodule finding does not need follow up per Fleischner criteria. 1.4cm right lobe thyroid per report. JOE negative EKG x3: Normal Sinus Rhythm; Inferior Infarct of undetermined age ECHO 02/14/17: LA, LV, and RA, RV size appears normal. Over all normal LV systolic function with LV EF of 55-60%. Normal diastolic filling. Mitral, TV and aortic valve are probably normal. No pericardial effusion. Status: Resolved (4) Thyroid nodule Assessment & Plan: Right thyroid nodule 1.4cm per CT report. Free T4: 1.33 Patient will need to followup outpatient for thyroid ultrasound. Status: Acute (5) Hypokalemia Assessment & Plan: K+ 3.4 (02/21/17); K+ 3.9 (02/22/17); K+ 4.3 on 02/25/17; K+ 3.8 on 02/26/17 Repleted with Kdur 40meq PO on 02/16, 02/18, 02/21/17 K+: 3.9 on 02/27/17 K+: 3.7 on 03/02/17 Monitor Status: Resolved (6) Anemia Assessment & Plan: Monitor H/H: 8.1/25.8 on 02/23/17; 7.9/25.1 on 02/25/17 H/H on 02/26/17: 8/24.8 H/H on 02/28/17: 7.9/24.4 H/H on 03/02/17: 8.5/26.7 325mg Ferrous Sulfate PO BID 15 %Iron Saturation, 39 serum iron, 268 TIBC, 151 ferritin, 3.1 reticulocyte count Stool occult- positive Status: Chronic (7) Fibroid Assessment & Plan: Patient reports a history of irregular periods and history of fibroids Pelvic US (02/04/17): markedly enlarged heterogenous uterus contains multiple soft tissue mass lesions likely represent fibroids. Largest fibroid seen at the fundus measures 11.7 cm in the largest diameter. Complex cystic lesion at the left ovary measures 4.6 cm. Pelvic Ultrasound (03/01/17): enlarged heterogenous uterus with mixed echogenic lesions suggest fibroid lesions; endometrium not well delineated given the obstruction by adjacent lesions; 5cm left ovarian cyst/cystic lesions Gynecology Consult: Dr. Farooq --> help appreciated Repeat pelvic/transvaginal sonogram (02/20/17)- enlarged fibroid uterus; 5.3cm simple cyst in the left ovary; differential considerations include simple cyst, cystadenoma, and cystadenocarcinoma. Patient to follow up with a bid analyst oncologist as an outpatient Abdominal pelvis w/PO contrast- enlarged myomatous uterus; left adnexal cyst, follow up recommended; no obstruction Surgery consulted, Dr. Barnett, Help appreciated. As per surgery, continue antibiotics as per ID, pain management, recommend complete Bone Drier Operator work-up, and F/U Pelvic US ordered by Bone Drier Operator. Status: Chronic (8) History of deep vein thrombosis (DVT) of lower extremity Assessment & Plan: Coumadin 1mg PO HS given on 7/6, 7/ PT/INR on 03/02/17: 23.6/2.0 PT/INR: 27.7/2.4 on 02/26/17 PT/INR: 27/1.9 F/U Status: Acute (9) Diarrhea Assessment & Plan: Resolved Negative: C.Diff, Ova and Parasites Flagyl 500mg IV Q12 started on 02/26/17 Status: Resolved (10) Edema of hand Assessment & Plan: Resolved Right hand- edematous Venous dopplers- no abnormalities Lasix 20mEq PO once Status: Resolved (11) Prophylactic measure Assessment & Plan: Protonix 40mg PO daily Florastor 250mg PO BID Heart healthy diet Status: Acute <Dev Witt - Last Filed: 03/02/17 20:50> Objective - Vital Signs/Intake and Output Vital Signs (last 24 hours): Temp Pulse Resp BP Pulse Ox 97.8 F 84 20 102/67 98 03/02/17 16:00 03/02/17 16:00 03/02/17 16:00 03/02/17 16:00 03/02/17 16:00 Intake and Output: 03/02/17 03/03/17 18:59 06:59 Intake Total 650 Balance 650 - Medications Medications: Current Medications Acetaminophen (Tylenol 325mg Tab) 650 mg PO Q6 PRN PRN Reason: Pain, severe (8-10) Last Admin: 03/02/17 17:57 Dose: 650 mg Famotidine (Pepcid) 20 mg PO BID [facility] Last Admin: 03/02/17 17:57 Dose: 20 mg Ferrous Sulfate (Feosol) 325 mg PO BID [facility] Last Admin: 03/02/17 17:58 Dose: 325 mg Imipenem/Cilastatin Sodium 500 (mg/ Sodium Chloride) 100 mls @ 100 mls/hr IVPB Q6H [facility] Last Admin: 03/02/17 20:00 Dose: 100 mls/hr Metronidazole (Flagyl) 500 mg in 100 mls @ 100 mls/hr IVPB Q12 [facility] Last Admin: 03/02/17 09:30 Dose: 100 mls/hr Tobramycin Sulfate 60 mg/ (Sodium Chloride) 101.5 mls @ 100 mls/hr IV Q8H [facility] Last Admin: 03/02/17 17:58 Dose: 100 mls/hr Ondansetron HCl (Zofran Inj) 4 mg IVP Q6H PRN PRN Reason: Nausea/Vomiting, IF NPO Last Admin: 03/02/17 02:22 Dose: 4 mg Saccharomyces Boulardii (Florastor) 250 mg PO BID [facility] Last Admin: 03/02/17 17:57 Dose: 250 mg - Labs Labs: 03/02/17 08:10 03/02/17 08:10 PT 23.6 SECONDS (9.7-12.2) H 03/02/17 08:10 INR 2.0 03/02/17 08:10 APTT 36 SECONDS (21-34) H 03/02/17 08:10 Attending/Attestation - Attestation I have personally seen and examined this patient.: Yes I have fully participated in the care of the patient.: Yes I have reviewed all pertinent clinical information, including history, physical exam and plan: Yes Notes (Text): 03/02/17 20:49 Patient was seen and examined at 5:40 PM 03/02/17 History, Physical, Assesment and Plan were thoroughly gone over with the Resident If the repeat Blood Culture is finalized as negative at 5 days and there are no fevers, then will discharge patient. Dev Witt D.O.
--- NOTE | 2017-03-02 07:52 | CP.PCM.PN ---
Subjective - Date & Time of Evaluation Date of Evaluation: 03/02/17 Time of Evaluation: 07:00 - Subjective Subjective: Patient seen and examined this morning. Denies fever/chills, n/v, abdominal pain. Reports vaginal bleeding, patient reports she is currently menstruating. Tmax: 98.4 Objective - Vital Signs/Intake and Output Vital Signs (last 24 hours): Temp Pulse Resp BP Pulse Ox 98.4 F 91 H 20 109/67 99 03/02/17 00:00 03/02/17 00:00 03/02/17 00:00 03/02/17 00:00 03/02/17 00:00 Intake and Output: 03/02/17 03/02/17 06:59 18:59 Intake Total 960 Balance 960 - Medications Medications: Current Medications Acetaminophen (Tylenol 325mg Tab) 650 mg PO Q6 PRN PRN Reason: Pain, severe (8-10) Last Admin: 03/01/17 16:41 Dose: 650 mg Famotidine (Pepcid) 20 mg PO BID [facility] Last Admin: 03/01/17 17:46 Dose: 20 mg Ferrous Sulfate (Feosol) 325 mg PO BID [facility] Last Admin: 03/01/17 17:45 Dose: 325 mg Imipenem/Cilastatin Sodium 500 (mg/ Sodium Chloride) 100 mls @ 100 mls/hr IVPB Q6H [facility] Last Admin: 03/02/17 06:14 Dose: 100 mls/hr Metronidazole (Flagyl) 500 mg in 100 mls @ 100 mls/hr IVPB Q12 [facility] Last Admin: 03/01/17 22:29 Dose: 100 mls/hr Tobramycin Sulfate 60 mg/ (Sodium Chloride) 101.5 mls @ 100 mls/hr IV Q8H [facility] Last Admin: 03/02/17 02:21 Dose: 100 mls/hr Ondansetron HCl (Zofran Inj) 4 mg IVP Q6H PRN PRN Reason: Nausea/Vomiting, IF NPO Last Admin: 03/02/17 02:22 Dose: 4 mg Saccharomyces Boulardii (Florastor) 250 mg PO BID [facility] Last Admin: 03/01/17 17:45 Dose: 250 mg - Labs Labs: 03/01/17 08:24 03/01/17 08:24 PT 19.0 SECONDS (9.7-12.2) H 03/01/17 12:33 INR 1.7 03/01/17 12:33 APTT 39 SECONDS (21-34) H 02/26/17 07:51 - Constitutional Appears: Non-toxic, No Acute Distress - Head Exam Head Exam: NORMOCEPHALIC - Eye Exam Eye Exam: Normal appearance - ENT Exam ENT Exam: Mucous Membranes Moist - Respiratory Exam Respiratory Exam: NORMAL BREATHING PATTERN - Cardiovascular Exam Cardiovascular Exam: +S1, +S2 - GI/Abdominal Exam GI & Abdominal Exam: Soft. absent: Rigid Additional comments: Fundal height palpated along infra-umbilical region - Neurological Exam Neurological Exam: Alert, Awake, Oriented x3 - Psychiatric Exam Psychiatric exam: Normal Mood - Skin Skin Exam: Intact, Warm Assessment and Plan - Assessment and Plan (Free Text) Assessment: 51yo F with PMHx of Uterine fibroids, Anemia here with recurrent fevers. Lap Appy by Dr. Barnett on 01/01/17. -C/w Abx as per ID -Patient's symptoms likely related to gynecological issues -Symptoms unlikely related to post-operative complications from laparoscopic appendectomy done on 01/01/17 -Recommend further work-up/follow up with computer graphic designer for fibroids -Further recs per Dr. Barnett
[2017-03-02 08:23] LABS: BASO # 0.1 K/uL (0.0-0.2); BASO % 0.4 % (0.0-2.0); EOS # 0.1 K/uL (0.0-0.7); HEMOGLOBIN 8.5 g/dL (11.0-16.0); LYMPH # 1.8 K/uL (1.0-4.3); LYMPH % 12.8 % (20.0-40.0); MEAN CELL VOLUME 88.1 fL (81.0-99.0); MEAN CORPUSCULAR HEMOGLOBIN 28.1 pg (27.0-31.0); MEAN CORPUSCULAR HGB CONC 31.9 g/dL (33.0-37.0); MONO # 1.2 K/uL (0.0-0.8); MONO % 8.3 % (0.0-10.0); NEUT % 77.5 % (50.0-75.0); RBC 3.04 Mil/uL (3.80-5.20); RED CELL DISTRIBUTION WIDTH 25.2 % (11.5-14.5); WHITE BLOOD COUNT 14.2 K/uL (4.8-10.8)
[2017-03-02 08:31] LABS: PROTHROMBIN TIME 23.6 SECONDS (9.7-12.2)
[2017-03-02 08:49] LABS: ALB/GLOB RATIO 0.7 (1.0-2.1); AST/SGOT 22 U/L (14-36); GFR AFRICAN-AMERICAN > 60; GFR NON-AFRICAN AMERICAN > 60
[2017-03-02 08:50] LABS: ALT/SGPT 22 U/L (9-52); BLOOD UREA NITROGEN 4 mg/dL (7-17); CALCIUM 8.6 mg/dl (8.6-10.4)
[2017-03-02] MEDS: Saccharomyces Boulardi 250 mg Cap PO SCH ×2 (09:18→17:57)
[2017-03-02 09:19] LABS: OSMOLALITY,URINE 206 mosm/kg (300-1000)
[2017-03-02] MEDS: metroNIDAZOLE IV 500 mg/100 ml 500 MG/100 ML BAG IVPB SCH ×2 (09:30→21:35)
--- NOTE | 2017-03-02 16:04 | RAD ---
HISTORY: verify right PICC COMPARISON: No prior. FINDINGS: LUNGS: No active pulmonary disease. PLEURA: No significant pleural effusion identified, no pneumothorax apparent. CARDIOVASCULAR: Normal heart size. New right PICC catheter terminating just above the cavoatrial junction, in the superior vena cava. OSSEOUS STRUCTURES: No significant abnormalities. VISUALIZED UPPER ABDOMEN: Normal. OTHER FINDINGS: None. IMPRESSION: Right PICC catheter terminating at the level just above the cavoatrial junction. No pneumothorax. Otherwise unremarkable examination.
[2017-03-03 07:10] LABS: ALBUMIN 3.1 g/dL (3.5-5.0)
[2017-03-03 07:13] LABS: AST/SGOT 25 U/L (14-36); GFR AFRICAN-AMERICAN > 60; GFR NON-AFRICAN AMERICAN > 60
[2017-03-03 07:14] LABS: ALB/GLOB RATIO 0.7 (1.0-2.1); ALT/SGPT 25 U/L (9-52); BLOOD UREA NITROGEN 5 mg/dL (7-17); CALCIUM 8.7 mg/dl (8.6-10.4); MAGNESIUM 2.1 mg/dL (1.6-2.3)
[2017-03-03 07:17] LABS: BASO # 0.1 K/uL (0.0-0.2); BASO % 0.6 % (0.0-2.0); EOS # 0.2 K/uL (0.0-0.7); EOS % 1.7 % (0.0-4.0); HEMOGLOBIN 8.9 g/dL (11.0-16.0); LYMPH # 1.5 K/uL (1.0-4.3); MEAN CELL VOLUME 88.8 fL (81.0-99.0); MEAN CORPUSCULAR HEMOGLOBIN 28.6 pg (27.0-31.0); MEAN CORPUSCULAR HGB CONC 32.2 g/dL (33.0-37.0); MEAN PLATELET VOLUME 7.6 fL (7.2-11.7); MONO # 0.7 K/uL (0.0-0.8); MONO % 7.7 % (0.0-10.0); NEUT # 6.9 K/uL (1.8-7.0); NRBC % 0.1 % (0.0-2.0); RBC 3.1 Mil/uL (3.80-5.20); RED CELL DISTRIBUTION WIDTH 24.8 % (11.5-14.5); WHITE BLOOD COUNT 9.3 K/uL (4.8-10.8)
[2017-03-03 07:19] LABS: INR 2.1; PROTHROMBIN TIME 24.1 SECONDS (9.7-12.2)
--- NOTE | 2017-03-03 07:46 | CP.PCM.PN ---
Subjective - Date & Time of Evaluation Date of Evaluation: 03/03/17 Time of Evaluation: 07:46 - Subjective Subjective: Medicine Progress Note- Dr. Witt's Service Patient was seen and examined at bedside in no acute distress. Patient was resting comfortably in bed. Patient states she has no complaints and feels better. She is eating well and walking with no difficulty. She had a normal bowel movement yesterday. Patient denies chest pain, abdominal pain, nausea, vomiting, diarrhea, dizziness, leg pain/swelling, dysuria, and shortness of breath Objective - Vital Signs/Intake and Output Vital Signs (last 24 hours): Temp Pulse Resp BP Pulse Ox 97.9 F 80 20 107/73 96 03/03/17 00:09 03/03/17 00:09 03/03/17 00:09 03/03/17 00:09 03/03/17 00:09 Intake and Output: 03/03/17 03/03/17 06:59 18:59 Intake Total 1060 Balance 1060 - Medications Medications: Current Medications Acetaminophen (Tylenol 325mg Tab) 650 mg PO Q6 PRN PRN Reason: Pain, severe (8-10) Last Admin: 03/02/17 17:57 Dose: 650 mg Famotidine (Pepcid) 20 mg PO BID [facility] Last Admin: 03/02/17 17:57 Dose: 20 mg Ferrous Sulfate (Feosol) 325 mg PO BID [facility] Last Admin: 03/02/17 17:58 Dose: 325 mg Imipenem/Cilastatin Sodium 500 (mg/ Sodium Chloride) 100 mls @ 100 mls/hr IVPB Q6H [facility] Last Admin: 03/03/17 06:32 Dose: 100 mls/hr Metronidazole (Flagyl) 500 mg in 100 mls @ 100 mls/hr IVPB Q12 [facility] Last Admin: 03/02/17 21:35 Dose: 100 mls/hr Ondansetron HCl (Zofran Inj) 4 mg IVP Q6H PRN PRN Reason: Nausea/Vomiting, IF NPO Last Admin: 03/02/17 02:22 Dose: 4 mg Saccharomyces Boulardii (Florastor) 250 mg PO BID [facility] Last Admin: 03/02/17 17:57 Dose: 250 mg - Labs Labs: 03/03/17 06:57 03/03/17 06:57 PT 24.1 SECONDS (9.7-12.2) H 03/03/17 06:57 INR 2.1 03/03/17 06:57 APTT 38 SECONDS (21-34) H 03/03/17 06:57 - Constitutional Appears: No Acute Distress - Head Exam Head Exam: NORMAL INSPECTION, NORMOCEPHALIC - Eye Exam Eye Exam: EOMI, Normal appearance - ENT Exam ENT Exam: Mucous Membranes Moist - Neck Exam Neck Exam: Full ROM, Normal Inspection. absent: Tenderness - Respiratory Exam Respiratory Exam: Clear to Ausculation Bilateral, NORMAL BREATHING PATTERN. absent: Rhonchi, Wheezes - Cardiovascular Exam Cardiovascular Exam: REGULAR RHYTHM, +S1, +S2. absent: Murmur - GI/Abdominal Exam GI & Abdominal Exam: Soft, Normal Bowel Sounds. absent: Tenderness - Extremities Exam Extremities Exam: Normal Inspection. absent: Calf Tenderness, Pedal Edema, Tenderness - Neurological Exam Neurological Exam: Alert, Awake, Oriented x3 - Psychiatric Exam Psychiatric exam: Normal Affect, Normal Mood - Skin Skin Exam: Dry, Intact, Normal Color, Warm Assessment and Plan (1) Fever Status: Resolved (2) Abdominal pain Status: Acute (3) Chest pressure Status: Resolved (4) Thyroid nodule Status: Acute (5) Hypokalemia Status: Resolved (6) Anemia Status: Chronic (7) Fibroid Status: Chronic (8) History of deep vein thrombosis (DVT) of lower extremity Status: Acute (9) Diarrhea Status: Resolved (10) Edema of hand Status: Resolved (11) Prophylactic measure Status: Acute
[2017-03-03] MEDS: Saccharomyces Boulardi 250 mg Cap PO SCH (09:28)
[2017-03-03] MEDS: metroNIDAZOLE IV 500 mg/100 ml 500 MG/100 ML BAG IVPB SCH (09:29)
--- NOTE | 2017-03-03 09:44 | CP.PCM.PN ---
Subjective - Date & Time of Evaluation Date of Evaluation: 03/03/17 Time of Evaluation: 07:15 - Subjective Subjective: Pt seen and examined this morning, no complaints. Denies chest pain/SOB, fever/ chills. Patient afebrile. Review of vitals is normal. Objective - Vital Signs/Intake and Output Vital Signs (last 24 hours): Temp Pulse Resp BP Pulse Ox 98.9 F 75 20 120/75 99 03/03/17 08:00 03/03/17 08:00 03/03/17 08:00 03/03/17 08:00 03/03/17 08:00 Intake and Output: 03/03/17 03/03/17 06:59 18:59 Intake Total 1060 Balance 1060 - Medications Medications: Current Medications Acetaminophen (Tylenol 325mg Tab) 650 mg PO Q6 PRN PRN Reason: Pain, severe (8-10) Last Admin: 03/02/17 17:57 Dose: 650 mg Famotidine (Pepcid) 20 mg PO BID [facility] Last Admin: 03/03/17 09:28 Dose: 20 mg Ferrous Sulfate (Feosol) 325 mg PO BID [facility] Last Admin: 03/03/17 09:28 Dose: 325 mg Imipenem/Cilastatin Sodium 500 (mg/ Sodium Chloride) 100 mls @ 100 mls/hr IVPB Q6H [facility] Last Admin: 03/03/17 06:32 Dose: 100 mls/hr Metronidazole (Flagyl) 500 mg in 100 mls @ 100 mls/hr IVPB Q12 [facility] Last Admin: 03/03/17 09:29 Dose: 100 mls/hr Ondansetron HCl (Zofran Inj) 4 mg IVP Q6H PRN PRN Reason: Nausea/Vomiting, IF NPO Last Admin: 03/02/17 02:22 Dose: 4 mg Saccharomyces Boulardii (Florastor) 250 mg PO BID [facility] Last Admin: 03/03/17 09:28 Dose: 250 mg - Labs Labs: 03/03/17 06:57 03/03/17 06:57 PT 24.1 SECONDS (9.7-12.2) H 03/03/17 06:57 INR 2.1 03/03/17 06:57 APTT 38 SECONDS (21-34) H 03/03/17 06:57 - Constitutional Appears: No Acute Distress - Head Exam Head Exam: NORMOCEPHALIC - Eye Exam Eye Exam: Normal appearance - ENT Exam ENT Exam: Mucous Membranes Moist - Respiratory Exam Respiratory Exam: NORMAL BREATHING PATTERN - Cardiovascular Exam Cardiovascular Exam: +S1, +S2 - GI/Abdominal Exam GI & Abdominal Exam: Soft Additional comments: uterine fundus palpated along umbilical region - Neurological Exam Neurological Exam: Alert, Awake, Oriented x3 - Psychiatric Exam Psychiatric exam: Normal Mood - Skin Skin Exam: Dry, Warm Assessment and Plan - Assessment and Plan (Free Text) Assessment: 51yo F with PMHx of Uterine fibroids, Anemia here with recurrent fevers. Lap Appy by Dr. Barnett on 01/01/17. -C/w Abx as per ID -Patient's symptoms likely related to gynecological issues -Recommend further work-up/follow up with youth officer for fibroids -Will sign off, please re-consult as needed. Thank you. -D/w Dr. Anibal Desai PGY-2
--- NOTE | 2017-03-03 13:54 | CP.PCM.PN ---
Subjective - Date & Time of Evaluation Date of Evaluation: 03/03/17 Time of Evaluation: 11:43 - Subjective Subjective: Hospitalist Progress Note (Patient was seen and examined at 11:43 AM 370B with the help of Nurse Padmini who translated) Currrently upon FULL ROS there is NO chest pain, NO palpitations, NO SOB/Cough/ Wheezing, NO abdominal pain, NO n/v/d/c (last bowel movement was this morning and it was normal), NO burning/pain with urination, NO lightheadedness/ dizziness, NO headache, NO new changes in vision, NO new changes in hearing, NO paresthesias, NO diaphoresis. Exam: HEENT: NCA, EOMI, PERRLA, NO lymphadenopathy, NO thyromegaly, NO pharyngeal erythema/exudate Cardio: NS1 and NS2, NO M/R/G Resp: CTA B/L, NO R/R/W GI: BSx4 are decreased, NT, ND, NO HSM, NO guarding rebound tenderness Ext: Pulses are strong and equal, Capillary Refill is 2 seconds, NO edema Neuro: CN II through XII are grossly intact Assessments: 1). Fever 2). CP 3). Hx DVT 4). Chronic Anemia 5). Hx Fibroid Uterus 6). Right Thyroid Nodule 7). Hypokalemia 8). Diarrhea General Surgery has signed off patient as per their note and no surgical intervention from their standpoint. Tin Assorter spoke with Field Service Consultant Dr. Hurst today and there is no emergent SITE ACQUISITION MANAGER surgery at this time. I spoke with ID Dr. Hernandez and she has recommended Invanz 1 gm IV 1x/day for [address] [facility] and Flagyl 500 mg PO 3x/ day for 14 days. I have ordered 1 dose of Invanz 1 gm IV to be given right now. Rx for Invanz 1 gm IV 1x/day at [address] [place] [address] from 03/04/17 through was given to Nanoelectronics Engineer Glory to make arrangements with the infusion center. The following instructions will be included in the Discharge Summary and explained to the patient via Sinhala Translation by Tin Assorter: 1). You must schedule follow up with [facility] located on Floor [address] by calling [phone]. This appointment must take place in the next 7 to 10 days. The [facility] will to coordinate your medical care that will include preventative care such as Mammogram, Colonoscopy, and Blood Work. 2). You must come to [facility] everyday starting Thursday03/04/[address] through 03/16/17 to have antibiotic given to you through the Right Arm PICC Line. 3). Through the [facility] you will need to have SITE ACQUISITION MANAGER follow up for your Uterine Fibroid. This will likely require surgery and the Clinic can help you set this up. 4). Through the [facility] you will need to have an Ultrasound of your Thyroid for further evaluation of the Right Thyroid Nodule. 5). Through the [facility] you will need to have your blood INR monitored as you are on Coumadin. 6). The following precription were provided to you and refills must be obtained through the [facility] Metronidazole 500 mg, 1 tablet by mouth 3x/day for 14 days, Dispense: #42, NO refills Warfarin 1 mg, 1 tablet by mouth 1x/day at 6 PM, Dispense: #30, NO refills Ferrous Sulfate 325 mg, 1 tablet by mouth 2x/day, Dispense: #60, NO refills 7). Please follow the above instructions. 8). Please take care. Dev Witt D.O. Objective - Vital Signs/Intake and Output Vital Signs (last 24 hours): Temp Pulse Resp BP Pulse Ox 98.9 F 75 20 120/75 99 03/03/17 08:00 03/03/17 08:00 03/03/17 08:00 03/03/17 08:00 03/03/17 08:00 Intake and Output: 03/03/17 03/03/17 06:59 18:59 Intake Total 1060 Balance 1060 - Medications Medications: Current Medications Acetaminophen (Tylenol 325mg Tab) 650 mg PO Q6 PRN PRN Reason: Pain, severe (8-10) Last Admin: 03/02/17 17:57 Dose: 650 mg Famotidine (Pepcid) 20 mg PO BID [facility] Last Admin: 03/03/17 09:28 Dose: 20 mg Ferrous Sulfate (Feosol) 325 mg PO BID [facility] Last Admin: 03/03/17 09:28 Dose: 325 mg Imipenem/Cilastatin Sodium 500 (mg/ Sodium Chloride) 100 mls @ 100 mls/hr IVPB Q6H [facility] Last Admin: 03/03/17 12:42 Dose: 100 mls/hr Metronidazole (Flagyl) 500 mg in 100 mls @ 100 mls/hr IVPB Q12 [facility] Last Admin: 03/03/17 09:29 Dose: 100 mls/hr Ertapenem 1 gm/ Sodium (Chloride) 100 mls @ 100 mls/hr IVPB ONCE ONE Stop: 03/03/17 14:59 Ondansetron HCl (Zofran Inj) 4 mg IVP Q6H PRN PRN Reason: Nausea/Vomiting, IF NPO Last Admin: 03/02/17 02:22 Dose: 4 mg Saccharomyces Boulardii (Florastor) 250 mg PO BID [facility] Last Admin: 03/03/17 09:28 Dose: 250 mg - Labs Labs: 03/03/17 06:57 03/03/17 06:57 PT 24.1 SECONDS (9.7-12.2) H 03/03/17 06:57 INR 2.1 03/03/17 06:57 APTT 38 SECONDS (21-34) H 03/03/17 06:57
[2017-03-03] MEDS ORDERED: Ertapenem 1gm in NS 50ml 1 GM in Sodium Chloride 0.9% 50 ML IV ONE (14:00)
--- NOTE | 2017-03-03 15:10 | CP.PCM.DIS ---
<SofiaartemioEmily LlamasKristian - Last Filed: 03/03/17 15:52> Provider - Provider Date of Admission: 02/14/17 21:10 Attending physician: Dev Witt MD Time Spent in preparation of Discharge (in minutes): 45 Diagnosis - Discharge Diagnosis (1) Fever Status: Resolved Comment: Please see hospital summary for more details. Patient must come to [facility] on the 3rd floor everyday from 03/04/17 to to complete antibiotic treatment. (2) Abdominal pain Status: Resolved Comment: Please see hospital summary for more details. (3) Chest pressure Status: Resolved Comment: Please see hospital summary for more details. (4) Thyroid nodule Status: Chronic Comment: Please see hospital summary for more details. Patient must follow up outpatient for thyroid ultrasound. (5) Hypokalemia Status: Resolved Comment: Please see hospital summary for more details. (6) Anemia Status: Chronic Comment: Please see hospital summary for more details. (7) Fibroid Status: Chronic Comment: Please see hospital summary for more details. Patient must follow up with outpatient gynecology. (8) History of deep vein thrombosis (DVT) of lower extremity Status: Acute Comment: Please see hospital summary for more details. Patient must follow up with with [facility] to monitor INR while taking Coumadin. (9) Diarrhea Status: Resolved Comment: Please see hospital summary for more details. (10) Edema of hand Status: Resolved Comment: Please see hospital summary for more details. Hospital Course - Lab Results Lab Results: Micro Results 02/26/17 07:45 Blood Blood Culture - Final NO GROWTH AFTER 5 DAYS 02/26/17 07:45 Blood Gram Stain - Final TEST NOT PERFORMED 02/26/17 06:20 Blood Blood Culture - Final NO GROWTH AFTER 5 DAYS 02/26/17 06:20 Blood Gram Stain - Final TEST NOT PERFORMED 02/27/17 Unknown Stool Stool Culture - Final NO SALMONELLA, SHIGELLA OR CAMPYLOBACTER ISOLATED. 02/27/17 Unknown Rectum Ova and Parasite Concentrate Exam - Final 02/21/17 22:00 Blood Blood Culture - Final Bacteroides Vulgatus 02/21/17 22:00 Blood Gram Stain - Final 02/21/17 14:30 Blood-Venous Blood Culture - Final NO GROWTH AFTER 5 DAYS 02/21/17 14:30 Blood-Venous Gram Stain - Final TEST NOT PERFORMED 02/22/17 08:03 Urine,Clean Catch Urine Culture - Final No Growth (<1,000 CFU/ML) 02/17/17 18:42 Urine Urine Culture - Final No Growth (<1,000 CFU/ML) 02/15/17 Unknown Urine,Clean Catch Urine Culture - Final No Growth (<1,000 CFU/ML) 02/14/17 Unknown Urine,Clean Catch Urine Culture - Final 10-50,000 CFU/ML. MULTIPLE SPECIES. PROBABLE CONTAMINATION. Most Recent Lab Values WBC 9.3 K/uL (4.8-10.8) 03/03/17 06:57 RBC 3.10 Mil/uL (3.80-5.20) L 03/03/17 06:57 Hgb 8.9 g/dL (11.0-16.0) L 03/03/17 06:57 Hct 27.5 % (34.0-47.0) L 03/03/17 06:57 MCV 88.8 fL (81.0-99.0) 03/03/17 06:57 MCH 28.6 pg (27.0-31.0) 03/03/17 06:57 MCHC 32.2 g/dL (33.0-37.0) L 03/03/17 06:57 RDW 24.8 % (11.5-14.5) H 03/03/17 06:57 Plt Count 334 K/uL (130-400) 03/03/17 06:57 MPV 7.6 fL (7.2-11.7) 03/03/17 06:57 Neut % (Auto) 74.0 % (50.0-75.0) 03/03/17 06:57 Lymph % (Auto) 16.0 % (20.0-40.0) L 03/03/17 06:57 Douglas % (Auto) 7.7 % (0.0-10.0) 03/03/17 06:57 Eos % (Auto) 1.7 % (0.0-4.0) 03/03/17 06:57 Baso % (Auto) 0.6 % (0.0-2.0) 03/03/17 06:57 Neut # 6.9 K/uL (1.8-7.0) 03/03/17 06:57 Lymph # 1.5 K/uL (1.0-4.3) 03/03/17 06:57 Douglas # 0.7 K/uL (0.0-0.8) 03/03/17 06:57 Eos # 0.2 K/uL (0.0-0.7) 03/03/17 06:57 Baso # 0.1 K/uL (0.0-0.2) 03/03/17 06:57 Neutrophils % (Manual) 82 % (50-75) H 03/01/17 08:24 Band Neutrophils % 1 % (0-2) 03/01/17 08:24 Lymphocytes % (Manual) 9 % (20-40) L 03/01/17 08:24 Reactive Lymphs % 2 % (0-0) H 02/16/17 17:44 Monocytes % (Manual) 6 % (0-10) 03/01/17 08:24 Eosinophils % (Manual) 2 % (0-4) 03/01/17 08:24 Hypersegmented Polys Present 02/16/17 17:44 Smudge Cells Present 02/16/17 17:44 Toxic Granulation Present 02/16/17 17:44 Platelet Estimate Normal (NORMAL) 03/01/17 08:24 Large Platelets Present 02/16/17 17:44 Polychromasia Slight 03/01/17 08:24 Hypochromasia (manual) Slight 03/01/17 08:24 Poikilocytosis (manual Slight 02/20/17 07:11 Anisocytosis (manual) Moderate 03/01/17 08:24 Microcytosis (manual) Slight 03/01/17 08:24 Macrocytosis (manual) Slight 03/01/17 08:24 Tear Drop Cells Slight 03/01/17 08:24 Ovalocytes Slight 03/01/17 08:24 Retic Count 3.1 % (0.5-1.5) H D 02/18/17 13:45 PT 24.1 SECONDS (9.7-12.2) H 03/03/17 06:57 INR 2.1 03/03/17 06:57 APTT 38 SECONDS (21-34) H 03/03/17 06:57 D-Dimer, Quantitative 296 ng/mlDDU (0-243) H 02/14/17 17:42 pO2 39 mm/Hg (30-55) 02/14/17 18:35 VBG pH 7.41 (7.32-7.43) 02/14/17 18:35 VBG pCO2 39 mmHg (40-60) L 02/14/17 18:35 VBG HCO3 24.4 mmol/L 02/14/17 18:35 VBG Total CO2 25.9 mmol/L (22-28) 02/14/17 18:35 VBG O2 Sat (Calc) 77.1 % (40-65) H 02/14/17 18:35 VBG Base Excess 0.1 mmol/L (0.0-2.0) 02/14/17 18:35 VBG Potassium 3.7 mmol/L (3.6-5.2) 02/14/17 18:35 Sodium 139.0 mmol/l (132-148) 02/14/17 18:35 Chloride 102.0 mmol/L (98-107) 02/14/17 18:35 Glucose 121 mg/dl (65-105) H 02/14/17 18:35 Lactate 1.3 mmol/L (0.7-2.1) 02/14/17 18:35 Sodium 138 mmol/L (132-148) 03/03/17 06:57 Potassium 3.5 mmol/L (3.6-5.2) L 03/03/17 06:57 Chloride 100 mmol/L (98-107) 03/03/17 06:57 Carbon Dioxide 28 mmol/L (22-30) 03/03/17 06:57 Anion Gap 14 (10-20) 03/03/17 06:57 BUN 5 mg/dL (7-17) L 03/03/17 06:57 Creatinine 0.5 MG/DL (0.7-1.2) L 03/03/17 06:57 Est GFR ( Amer) > 60 03/03/17 06:57 Est GFR (Non-Af Amer) > 60 03/03/17 06:57 Random Glucose 112 mg/dL (65-105) H 03/03/17 06:57 Serum Osmolality 273 mosm/kg (272-300) 03/01/17 19:28 Lactic Acid 0.7 mmol/L (0.7-2.1) 02/14/17 23:37 Calcium 8.7 mg/dl (8.6-10.4) 03/03/17 06:57 Phosphorus 4.4 mg/dL (2.5-4.5) 03/03/17 06:57 Magnesium 2.1 mg/dL (1.6-2.3) 03/03/17 06:57 Iron 39 ug/dL (37-170) 02/18/17 13:45 TIBC 268 ug/dL (250-450) 02/18/17 13:45 % Saturation 15 (20-55) L 02/18/17 13:45 Ferritin 151.0 ng/mL 02/18/17 13:45 Total Bilirubin 0.5 mg/dL (0.2-1.3) 03/03/17 06:57 AST 25 U/L (14-36) 03/03/17 06:57 ALT 25 U/L (9-52) 03/03/17 06:57 Alkaline Phosphatase 137 U/L (38-126) H 03/03/17 06:57 Total Creatine Kinase < 20 U/L (30-135) L 02/15/17 05:37 CK-MB (Mass) < 0.22 ng/mL (0.0-3.38) 02/15/17 05:37 Troponin I < 0.0120 ng/mL (0.00-0.120) 02/14/17 17:42 Troponin I, Quant < 0.0120 ng/mL (0.00-0.120) 02/15/17 05:37 NT-Pro-B Natriuret Pep 280 pg/mL (0-900) 02/14/17 17:42 Total Protein 7.3 g/dL (6.3-8.3) 03/03/17 06:57 Albumin 3.1 g/dL (3.5-5.0) L 03/03/17 06:57 Globulin 4.2 gm/dL (2.2-3.9) H 03/03/17 06:57 Albumin/Globulin Ratio 0.7 (1.0-2.1) L 03/03/17 06:57 Procalcitonin 0.44 NG/ML (0.19-0.49) 03/02/17 08:10 Free T4 1.33 ng/dL (0.78-2.19) 02/17/17 07:32 Venous Blood Potassium 3.7 mmol/L (3.6-5.2) 02/14/17 18:35 Urine Color Straw (YELLOW) 02/23/17 17:39 Urine Clarity Clear (Clear) 02/23/17 17:39 Urine pH 8.0 (5.0-8.0) 02/23/17 17:39 Ur Specific [place] 1.006 (1.003-1.030) 02/23/17 17:39 Urine Protein Negative mg/dL (NEGATIVE) 02/23/17 17:39 Urine Glucose (UA) 1+ mg/dL (Normal) 02/23/17 17:39 Urine Ketones Trace mg/dL (NEGATIVE) 02/23/17 17:39 Urine Blood Trace (NEGATIVE) H 02/23/17 17:39 Urine Nitrate Negative (NEGATIVE) 02/23/17 17:39 Urine Bilirubin Negative (NEGATIVE) 02/23/17 17:39 Urine Urobilinogen Normal mg/dL (0.2-1.0) 02/23/17 17:39 Ur Leukocyte Esterase Neg [place]alia/uL (Negative) 02/23/17 17:39 Urine WBC (Auto) < 1 /hpf (0-5) 02/23/17 17:39 Urine RBC (Auto) 3 /hpf (0-3) 02/23/17 17:39 Ur Squamous Epith Cells 1 /hpf (0-5) 02/22/17 08:03 Ur Transition Epith Cell < 1 /hpf (0-3) 02/23/17 17:39 Urine Bacteria Rare (<OCC) 02/23/17 17:39 Urine Osmolality 206 mosm/kg (300-1000) L 03/02/17 07:30 Ur Random Sodium 54 mmol/L 03/02/17 07:30 Stool Occult Blood Negative (NEGATIVE) 03/01/17 16:54 C.trachomatis RNA (TMA) Not detected (Not Detected) 02/20/17 13:46 C. difficile Ag & Toxin Negative (NEGATIVE) 02/26/17 Unknown N.gonorrhoeae RNA (TMA) Not detected (Not Detected) 02/20/17 13:46 - Hospital Course Hospital Course: CC: "Fever" HPI: 51 year old female with past medical history of urinary tract infection, fibroids, anemia, dvt presents to the ED with fever. Patient states she had a fever today at 9AM at 101 degrees and after taking 2 Motrin her temperature went down to 97 degrees. Patient states she sweated when she had the fever. Patient states she feels short of breath with exertion. Patient states she feels chest pressure. Patient denies headache, change in vision, nausea, vomiting, dysuria, hematuria, diarrhea or constipation. Patient was admitted for fever. In the ED, EKG showed normal sinus rhythm and inferior infarct of undetermined age and ROMIs were negative x 3. D-dimer was elevated, however, patient has a history of a DVT and had an appendectomy in December 2016. Chest xray showed no acute disease, chest CT showed no pulmonary embolism, pneumonia, an incidental 4mm right upper lobe nodule that does not require followup as per Fleischner criteria, and a thyroid nodule in the right lobe with the recommendation to follow up. The patients echo showed normal sized LA, LV, RA, and RV, normal left ventricular function with an ejection fraction of 55-60%, no valve dysfunction, and no pericardial effusion. Infectious disease was consulted, patient was started on primaxin and zyvoc. Blood culture and urine culture showed no growth after 5 days. Patient started to have abdominal pain. Abdominal/pelvic CT showed an enlarged enlarged, multi fibroid uterus; possible necrosis within the largest right fundal uterine fibroid, no liquefactation demonstrated on pelvic ultrasound examination; subtle increased attenuation of the periuterine fat along the right lateral aspect, of uncertain significance; may reflect an inflammatory or infectious process through no clear source is identified; stable 5cm left ovarian cyst. Repeat abdominal/pelvis CT showed enlarged myomatous uterus; left adnexal cyst, follow up recommended; no obstruction. Transvaginal ultrasound showed enlarged fibroid uterus; 5.3cm simple cyst in the left ovary; differential considerations include simple cyst, cystadenoma, and cystadenocarcinoma. Pelvis ultrasound showed markedly enlarged heterogenous uterus contains multiple soft tissue mass lesions likely represent fibroids; Largest fibroid seen at the fundus measures 11.7 cm in the largest diameter; Complex cystic lesion at the left ovary measures 4.6 cm. Patient then developed diarrhea and was started on Flagyl. C. diff, ova and parasites were ordered and results were negative. Patient's WBCs started to increase and blood cultures results positive for bacteroides vulgatum. Patient was started on Tobramycin. Paients WBCs began trending down, and patient denied fevers. Repeat blood cultures were negative for 5 days. Surgery was consulted regarding her fibroids- patient did not need surgery. OBGYN was also consulted- as per OBGYN, patient does not need surgery at this time. Patient will need to follow up with outpatient gynecology for management of fibroids. Patient's anemia was monitors during her hospital stay. Patients hemoglobin and hematocrit are stable. Patient was taking Coumadin while in the hospital with daily INR checks. Patient is within therapeutic range. Patient is stable for discharge as per Dr. Witt. This is a summary of the hospital course. Please see chart for more details. Patient is stable for discharge home as per Dr. Witt. Patient is to follow directions written below. 1). You must schedule follow up with [facility] located on Floor [address] by calling [phone]. This appointment must take place in the next 7 to 10 days. The [facility] will to coordinate your medical care that will include preventative care such as Mammogram, Colonoscopy, and Blood Work. 2). You must come to [facility] 3 Infusion Center everyday starting Thursday03/04/[address] 03/16/17 to have antibiotic given to you through the Right Arm PICC Line. 3). Through the [facility] you will need to have INSULATION HELPER follow up for your Uterine Fibroid. This will likely require surgery and the Clinic can help you set this up. 4). Through the [facility] you will need to have an Ultrasound of your Thyroid for further evaluation of the Right Thyroid Nodule. 5). Through the [facility] you will need to have your blood INR monitored as you are on Coumadin. 6). The following prescriptions were provided to you and refills must be obtained through the [facility] Metronidazole 500 mg, 1 tablet by mouth 3x/day for 14 days, Dispense: #42, NO refills Warfarin 1 mg, 1 tablet by mouth 1x/day at 6 PM, Dispense: #30, NO refills Ferrous Sulfate 325 mg, 1 tablet by mouth 2x/day, Dispense: #60, NO refills 7). Please follow the above instructions. These instructions have been discussed with and understood by the patient. If symptoms reoccur, patient should return to the ED. Discharge Exam - Head Exam Head Exam: NORMAL INSPECTION, NORMOCEPHALIC - Eye Exam Eye Exam: EOMI, Normal appearance - ENT Exam ENT Exam: Mucous Membranes Moist - Neck Exam Neck exam: Full Rom, Normal Inspection - Respiratory Exam Respiratory Exam: Clear to PA & Lateral, NORMAL BREATHING PATTERN, UNREMARKABLE. absent: Rhonchi, Wheezes - Cardiovascular Exam Cardiovascular Exam: REGULAR RHYTHM, +S1, +S2 - GI/Abdominal Exam GI & Abdominal Exam: Normal Bowel Sounds, Unremarkable. absent: Tenderness - Extremities Exam Extremities exam: normal inspection - Neurological Exam Neurological exam: Alert, Oriented x3 - Psychiatric Exam Psychiatric exam: Normal Affect, Normal Mood - Skin Skin Exam: Dry, Intact, Normal Color, Warm Discharge Plan - Discharge Medications Prescriptions: Ferrous Sulfate [Feosol] 325 mg PO BID #60 tab Metronidazole [Flagyl] 500 mg PO TID #42 tablet Warfarin [Coumadin] 1 mg PO 1800 #30 tab - Follow Up Plan Condition: GOOD Disposition: HOME/ ROUTINE Instructions: Iron Supplements (By mouth), Warfarin (By mouth), Metronidazole ( By mouth), Fever in Adults (GEN) Additional Instructions: Patient is stable for discharge home as per Dr. Witt. Patient is to follow directions written below. 1). You must schedule follow up with [facility] located on Floor [address] by calling [phone]. This appointment must take place in the next 7 to 10 days. The [facility] will to coordinate your medical care that will include preventative care such as Mammogram, Colonoscopy, and Blood Work. 2). You must come to [facility] 3 Infusion Center everyday starting Thursday03/04/[address] through 03/16/17 to have antibiotic given to you through the Right Arm PICC Line. 3). Through the [facility] you will need to have INSULATION HELPER follow up for your Uterine Fibroid. This will likely require surgery and the Clinic can help you set this up. 4). Through the [facility] you will need to have an Ultrasound of your Thyroid for further evaluation of the Right Thyroid Nodule. 5). Through the [facility] you will need to have your blood INR monitored as you are on Coumadin. 6). The following prescriptions were provided to you and refills must be obtained through the [facility] Metronidazole 500 mg, 1 tablet by mouth 3x/day for 14 days, Dispense: #42, NO refills Warfarin 1 mg, 1 tablet by mouth 1x/day at 6 PM, Dispense: #30, NO refills Ferrous Sulfate 325 mg, 1 tablet by mouth 2x/day, Dispense: #60, NO refills 7). Please follow the above instructions. These instructions have been discussed with and understood by the patient. If symptoms reoccur, patient should return to the ED. Referrals: Nisa Goldstein MD [Staff Provider] - <Dev Witt - Last Filed: 03/03/17 20:40> Provider - Provider Date of Admission: 02/14/17 21:10 Attending physician: Dev Witt MD Hospital Course - Lab Results Lab Results: Micro Results 02/26/17 07:45 Blood Blood Culture - Final NO GROWTH AFTER 5 DAYS 02/26/17 07:45 Blood Gram Stain - Final TEST NOT PERFORMED 02/26/17 06:20 Blood Blood Culture - Final NO GROWTH AFTER 5 DAYS 02/26/17 06:20 Blood Gram Stain - Final TEST NOT PERFORMED 02/27/17 Unknown Stool Stool Culture - Final NO SALMONELLA, SHIGELLA OR CAMPYLOBACTER ISOLATED. 02/27/17 Unknown Rectum Ova and Parasite Concentrate Exam - Final 02/21/17 22:00 Blood Blood Culture - Final Bacteroides Vulgatus 02/21/17 22:00 Blood Gram Stain - Final 02/21/17 14:30 Blood-Venous Blood Culture - Final NO GROWTH AFTER 5 DAYS 02/21/17 14:30 Blood-Venous Gram Stain - Final TEST NOT PERFORMED 02/22/17 08:03 Urine,Clean Catch Urine Culture - Final No Growth (<1,000 CFU/ML) 02/17/17 18:42 Urine Urine Culture - Final No Growth (<1,000 CFU/ML) 02/15/17 Unknown Urine,Clean Catch Urine Culture - Final No Growth (<1,000 CFU/ML) 02/14/17 Unknown Urine,Clean Catch Urine Culture - Final 10-50,000 CFU/ML. MULTIPLE SPECIES. PROBABLE CONTAMINATION. Most Recent Lab Values WBC 9.3 K/uL (4.8-10.8) 03/03/17 06:57 RBC 3.10 Mil/uL (3.80-5.20) L 03/03/17 06:57 Hgb 8.9 g/dL (11.0-16.0) L 03/03/17 06:57 Hct 27.5 % (34.0-47.0) L 03/03/17 06:57 MCV 88.8 fL (81.0-99.0) 03/03/17 06:57 MCH 28.6 pg (27.0-31.0) 03/03/17 06:57 MCHC 32.2 g/dL (33.0-37.0) L 03/03/17 06:57 RDW 24.8 % (11.5-14.5) H 03/03/17 06:57 Plt Count 334 K/uL (130-400) 03/03/17 06:57 MPV 7.6 fL (7.2-11.7) 03/03/17 06:57 Neut % (Auto) 74.0 % (50.0-75.0) 03/03/17 06:57 Lymph % (Auto) 16.0 % (20.0-40.0) L 03/03/17 06:57 Douglas % (Auto) 7.7 % (0.0-10.0) 03/03/17 06:57 Eos % (Auto) 1.7 % (0.0-4.0) 03/03/17 06:57 Baso % (Auto) 0.6 % (0.0-2.0) 03/03/17 06:57 Neut # 6.9 K/uL (1.8-7.0) 03/03/17 06:57 Lymph # 1.5 K/uL (1.0-4.3) 03/03/17 06:57 Douglas # 0.7 K/uL (0.0-0.8) 03/03/17 06:57 Eos # 0.2 K/uL (0.0-0.7) 03/03/17 06:57 Baso # 0.1 K/uL (0.0-0.2) 03/03/17 06:57 Neutrophils % (Manual) 82 % (50-75) H 03/01/17 08:24 Band Neutrophils % 1 % (0-2) 03/01/17 08:24 Lymphocytes % (Manual) 9 % (20-40) L 03/01/17 08:24 Reactive Lymphs % 2 % (0-0) H 02/16/17 17:44 Monocytes % (Manual) 6 % (0-10) 03/01/17 08:24 Eosinophils % (Manual) 2 % (0-4) 03/01/17 08:24 Hypersegmented Polys Present 02/16/17 17:44 Smudge Cells Present 02/16/17 17:44 Toxic Granulation Present 02/16/17 17:44 Platelet Estimate Normal (NORMAL) 03/01/17 08:24 Large Platelets Present 02/16/17 17:44 Polychromasia Slight 03/01/17 08:24 Hypochromasia (manual) Slight 03/01/17 08:24 Poikilocytosis (manual Slight 02/20/17 07:11 Anisocytosis (manual) Moderate 03/01/17 08:24 Microcytosis (manual) Slight 03/01/17 08:24 Macrocytosis (manual) Slight 03/01/17 08:24 Tear Drop Cells Slight 03/01/17 08:24 Ovalocytes Slight 03/01/17 08:24 Retic Count 3.1 % (0.5-1.5) H D 02/18/17 13:45 PT 24.1 SECONDS (9.7-12.2) H 03/03/17 06:57 INR 2.1 03/03/17 06:57 APTT 38 SECONDS (21-34) H 03/03/17 06:57 D-Dimer, Quantitative 296 ng/mlDDU (0-243) H 02/14/17 17:42 pO2 39 mm/Hg (30-55) 02/14/17 18:35 VBG pH 7.41 (7.32-7.43) 02/14/17 18:35 VBG pCO2 39 mmHg (40-60) L 02/14/17 18:35 VBG HCO3 24.4 mmol/L 02/14/17 18:35 VBG Total CO2 25.9 mmol/L (22-28) 02/14/17 18:35 VBG O2 Sat (Calc) 77.1 % (40-65) H 02/14/17 18:35 VBG Base Excess 0.1 mmol/L (0.0-2.0) 02/14/17 18:35 VBG Potassium 3.7 mmol/L (3.6-5.2) 02/14/17 18:35 Sodium 139.0 mmol/l (132-148) 02/14/17 18:35 Chloride 102.0 mmol/L (98-107) 02/14/17 18:35 Glucose 121 mg/dl (65-105) H 02/14/17 18:35 Lactate 1.3 mmol/L (0.7-2.1) 02/14/17 18:35 Sodium 138 mmol/L (132-148) 03/03/17 06:57 Potassium 3.5 mmol/L (3.6-5.2) L 03/03/17 06:57 Chloride 100 mmol/L (98-107) 03/03/17 06:57 Carbon Dioxide 28 mmol/L (22-30) 03/03/17 06:57 Anion Gap 14 (10-20) 03/03/17 06:57 BUN 5 mg/dL (7-17) L 03/03/17 06:57 Creatinine 0.5 MG/DL (0.7-1.2) L 03/03/17 06:57 Est GFR ( Amer) > 60 03/03/17 06:57 Est GFR (Non-Af Amer) > 60 03/03/17 06:57 Random Glucose 112 mg/dL (65-105) H 03/03/17 06:57 Serum Osmolality 273 mosm/kg (272-300) 03/01/17 19:28 Lactic Acid 0.7 mmol/L (0.7-2.1) 02/14/17 23:37 Calcium 8.7 mg/dl (8.6-10.4) 03/03/17 06:57 Phosphorus 4.4 mg/dL (2.5-4.5) 03/03/17 06:57 Magnesium 2.1 mg/dL (1.6-2.3) 03/03/17 06:57 Iron 39 ug/dL (37-170) 02/18/17 13:45 TIBC 268 ug/dL (250-450) 02/18/17 13:45 % Saturation 15 (20-55) L 02/18/17 13:45 Ferritin 151.0 ng/mL 02/18/17 13:45 Total Bilirubin 0.5 mg/dL (0.2-1.3) 03/03/17 06:57 AST 25 U/L (14-36) 03/03/17 06:57 ALT 25 U/L (9-52) 03/03/17 06:57 Alkaline Phosphatase 137 U/L (38-126) H 03/03/17 06:57 Total Creatine Kinase < 20 U/L (30-135) L 02/15/17 05:37 CK-MB (Mass) < 0.22 ng/mL (0.0-3.38) 02/15/17 05:37 Troponin I < 0.0120 ng/mL (0.00-0.120) 02/14/17 17:42 Troponin I, Quant < 0.0120 ng/mL (0.00-0.120) 02/15/17 05:37 NT-Pro-B Natriuret Pep 280 pg/mL (0-900) 02/14/17 17:42 Total Protein 7.3 g/dL (6.3-8.3) 03/03/17 06:57 Albumin 3.1 g/dL (3.5-5.0) L 03/03/17 06:57 Globulin 4.2 gm/dL (2.2-3.9) H 03/03/17 06:57 Albumin/Globulin Ratio 0.7 (1.0-2.1) L 03/03/17 06:57 Procalcitonin 0.44 NG/ML (0.19-0.49) 03/02/17 08:10 Free T4 1.33 ng/dL (0.78-2.19) 02/17/17 07:32 Venous Blood Potassium 3.7 mmol/L (3.6-5.2) 02/14/17 18:35 Urine Color Straw (YELLOW) 02/23/17 17:39 Urine Clarity Clear (Clear) 02/23/17 17:39 Urine pH 8.0 (5.0-8.0) 02/23/17 17:39 Ur Specific [place] 1.006 (1.003-1.030) 02/23/17 17:39 Urine Protein Negative mg/dL (NEGATIVE) 02/23/17 17:39 Urine Glucose (UA) 1+ mg/dL (Normal) 02/23/17 17:39 Urine Ketones Trace mg/dL (NEGATIVE) 02/23/17 17:39 Urine Blood Trace (NEGATIVE) H 02/23/17 17:39 Urine Nitrate Negative (NEGATIVE) 02/23/17 17:39 Urine Bilirubin Negative (NEGATIVE) 02/23/17 17:39 Urine Urobilinogen Normal mg/dL (0.2-1.0) 02/23/17 17:39 Ur Leukocyte Esterase Neg [place]/uL (Negative) 02/23/17 17:39 Urine WBC (Auto) < 1 /hpf (0-5) 02/23/17 17:39 Urine RBC (Auto) 3 /hpf (0-3) 02/23/17 17:39 Ur Squamous Epith Cells 1 /hpf (0-5) 02/22/17 08:03 Ur Transition Epith Cell < 1 /hpf (0-3) 02/23/17 17:39 Urine Bacteria Rare (<OCC) 02/23/17 17:39 Urine Osmolality 206 mosm/kg (300-1000) L 03/02/17 07:30 Ur Random Sodium 54 mmol/L 03/02/17 07:30 Stool Occult Blood Negative (NEGATIVE) 03/01/17 16:54 C.trachomatis RNA (TMA) Not detected (Not Detected) 02/20/17 13:46 C. difficile Ag & Toxin Negative (NEGATIVE) 02/26/17 Unknown N.gonorrhoeae RNA (TMA) Not detected (Not Detected) 02/20/17 13:46 Attending/Attestation - Attestation I have personally seen and examined this patient.: Yes I have fully participated in the care of the patient.: Yes I have reviewed all pertinent clinical information, including history, physical exam and plan: Yes Notes (Text): 03/03/17 20:39 Please also see my note dated 03/03/17. This discharge was gone over with the Resident. Dev Witt D.O.
[2017-03-03 16:41] VITALS: BP 102/69; PULSE 86; TEMP 97.9; O2SAT 96
== END 2017-03-03 18:35 | disposition home or self-care (01) | DRG 569 ==
LOC: C.ER 16:46 → C.9E 21:10 → C.5T 22:37 → C.9E 22:38 → C.6T 23:21 → C.3T 02-25 14:26
PROVIDERS: ADMIT Family Medicine; ATTEND Family Medicine
PROC: 02HV33Z Insertion of Infusion Device into Superior Vena Cava, Percutaneous Approach (ICD-10-PCS; principal; 2017-02-21)
DX: N39.0 Urinary tract infection, site not specified (principal); R78.81 Bacteremia; N83.202 Unspecified ovarian cyst, left side; D50.0 Iron deficiency anemia secondary to blood loss (chronic); D25.9 Leiomyoma of uterus, unspecified; R07.89 Other chest pain; E87.6 Hypokalemia; N92.0 Excessive and frequent menstruation with regular cycle; B96.6 Bacteroides fragilis [B. fragilis] as the cause of diseases classified elsewhere; R19.7 Diarrhea, unspecified; R60.9 Edema, unspecified; R91.1 Solitary pulmonary nodule; E04.1 Nontoxic single thyroid nodule; K76.0 Fatty (change of) liver, not elsewhere classified; B96.89 Other specified bacterial agents as the cause of diseases classified elsewhere; K59.00 Constipation, unspecified; Z79.01 Long term (current) use of anticoagulants; Z86.718 Personal history of other venous thrombosis and embolism; Z87.440 Personal history of urinary (tract) infections; Z90.49 Acquired absence of other specified parts of digestive tract

== ENCOUNTER 2017-03-30 22:41 | Inpatient (IN) | payer OTHER ==
[2017-03-30 22:41] VITALS: BMI 33.0
--- NOTE | 2017-03-30 23:10 | C.PDOC ---
History Of Present Illness Patient presents to the ER with a complaint of fever, not feeling well, abdominal pain, and vaginal bleeding. Patient was seen last month for similar symptoms; she had developed fever, had a blood culture that was positive for bacteroides vulgatum and was started on tobramycin. Denies nausea, vomiting, diarrhea, or urinary symptoms. Time Seen by Provider: 03/30/17 23:09 Chief Complaint (Nursing): Abdominal Pain History Per: Patient History/Exam Limitations: no limitations Onset/Duration Of Symptoms: Hrs Current Symptoms Are (Timing): Still Present Severity: Severe Pain Scale Rating Of: 7 Location Of Pain/Discomfort: Diffuse Radiation Of Pain To:: None Quality Of Discomfort: Dull, Cramping Associated Symptoms: Fever. denies: Nausea, Vomiting, Diarrhea, Urinary Symptoms Exacerbating Factors: None Alleviating Factors: None Last Bowel Movement: Yesterday Recent travel outside of the [place]: No Additional History Per: Family Abnormal Vaginal Bleeding: Yes Past Medical History Reviewed: Historical Data, Nursing Documentation, Vital Signs Vital Signs: Last Vital Signs Temp 99.0 F 03/30/17 23:04 Pulse 134 H 03/30/17 23:04 Resp 20 03/30/17 23:04 BP 104/63 03/30/17 23:04 Pulse Ox 98 03/31/17 00:28 - Medical History PMH: Anemia, Deep Vein Thrombosis (to leg doesnt remember which one), Seizures - [facility] Procedures EXTRACTION OF ENDOMETRIUM, VIA OPENING, DIAGN (01/08/17) INSERTION OF ENDOTRACHEAL AIRWAY INTO TRACHEA, VIA OPENING (01/08/17) INSERTION OF INFUSION DEV INTO R FEMOR VEIN, PERC APPROACH (01/08/17) INSERTION OF INFUSION DEV INTO SUP VENA CAVA, PERC APPROACH (02/14/17) RESECTION OF APPENDIX, PERCUTANEOUS ENDOSCOPIC APPROACH (01/01/17) RESPIRATORY VENTILATION, 24-96 CONSECUTIVE HOURS (01/08/17) TRANSFUSE NONAUT RED BLOOD CELLS IN PERIPH VEIN, PERC (01/08/17) Family History: States: Diabetes - Social History Hx Alcohol Use: No Hx Substance Use: No - Immunization History Hx Tetanus Toxoid Vaccination: No Hx Influenza Vaccination: No Hx Pneumococcal Vaccination: No Review Of Systems Constitutional: Positive for: Fever, Sweats, Malaise Eyes: Negative for: Redness ENT: Negative for: Throat Pain Cardiovascular: Negative for: Chest Pain Respiratory: Negative for: Shortness of Breath Gastrointestinal: Positive for: Abdominal Pain. Negative for: Nausea, Vomiting , Diarrhea Genitourinary: Positive for: Vaginal Bleeding. Negative for: Dysuria, Incontinence, Hematuria Musculoskeletal: Negative for: Back Pain Skin: Negative for: Rash Neurological: Negative for: Weakness Psych: Negative for: Anxiety Physical Exam - Physical Exam Appears: In Acute Distress Skin: Warm, Diaphoretic (Mildly) Head: Normacephalic Eye(s): bilateral: Normal Inspection, PERRL, EOMI Oral Mucosa: Dry Lips: Other (dry) Neck: Trachea Midline, Supple Chest: Symmetrical, No Tenderness Cardiovascular: Rhythm Regular (Tachycardic) Respiratory: No Rales, No Rhonchi, No Wheezing Gastrointestinal/Abdominal: Soft, Tenderness (Diffusely), No Guarding, No Rebound Back: No CVA Tenderness Extremity: No Tenderness Extremity: Bilateral: Atraumatic, No Pedal Edema, Normal Color And Temperature Pulses: Left Dorsalis Pedis: Normal, Right Dorsalis Pedis: Normal Neurological/Psych: Oriented x3, Normal Speech, Normal Cognition Gait: Steady ED Course And Treatment - Laboratory Results Result Diagrams: 03/30/17 23:40 03/30/17 23:40 ECG: Interpreted By Me, Viewed By Me O2 Sat by Pulse Oximetry: 98 (Room air) Pulse Ox Interpretation: Normal - Radiology CXR: Interpreted by Me, Viewed By Me CXR Interpretation: Yes: Other (unchnaged(except no picc line)). No: Infiltrates, Fracture, Pnemothorax Progress Note: Blood work, cultures,ct scan. Pepcid , antibiotics and IV fluids administered. code sepsis called. spoke with dr gay for icu admission. will come and see the p tin the ed. spoke with family(HIPAA) compliant about th ept's condition Critical Care Time - Critical Care Note Total Time (in mins): 30 Documented critical care: time excludes all time spent performing seperately billable procedures. Disposition Discussed With : Pratik Alfonso Comment: accepted the pt on hi sservice and took over the care at 12:25 AM Doctor Will See Patient In The: ED Counseled Patient/Family Regarding: Studies Performed, Diagnosis - Disposition Disposition: HOSPITALIZED Disposition Time: 23:09 Condition: CRITICAL Forms: [facility] (Tajik) - POA Present On Arrival: Poor Glycemic Control - Clinical Impression Clinical Impression: Abdominal pain, Fever - Scribe Statement The provider has reviewed the documentation as recorded by the Scribe Jamal Patel All medical record entries made by the Arnulfoibe were at my direction and personally dictated by me. I have reviewed the chart and agree that the record accurately reflects my personal performance of the history, physical exam, medical decision making, and the department course for this patient. I have also personally directed, reviewed, and agree with the discharge instructions and disposition. Decision To Admit - Pt Status Changed To: Hospital Disposition Of: Inpatient - Admit Certification Admit to Inpatient:: After my assessment, the patient will require hospitalization for at least two midnights. This is because of the severity of symptoms shown, intensity of services needed, and/or the medical risk in this patient being treated as an outpatient. - InPatient: Physician Admission Certification:: After my assessment, the patient will require hospitalization for at least two midnights. This is because of the severity of symptoms shown, intensity of services needed, and/or the medical risk in this patient being treated as an outpatient. - . Bed Request Type: ICU Admitting Physician: Pratik Alfonso Patient Diagnosis: Abdominal pain, Fever
[2017-03-30] MEDS ORDERED: Sodium Chloride 0.9% 1,000 ML IV ONE (23:13)
[2017-03-30 23:43] LABS: BASO % 0.1 % (0.0-2.0); EOS % 0.2 % (0.0-4.0); HEMATOCRIT 33.9 % (34.0-47.0); LYMPH # 0.5 K/uL (1.0-4.3); LYMPH % 3.1 % (20.0-40.0); MEAN CELL VOLUME 82.4 fL (81.0-99.0); MEAN CORPUSCULAR HEMOGLOBIN 26.2 pg (27.0-31.0); MEAN CORPUSCULAR HGB CONC 31.7 g/dL (33.0-37.0); MEAN PLATELET VOLUME 9.7 fL (7.2-11.7); MONO # 0.1 K/uL (0.0-0.8); MONO % 0.8 % (0.0-10.0); PLATELET COUNT 290 K/uL (130-400); RED CELL DISTRIBUTION WIDTH 20.1 % (11.5-14.5); WHITE BLOOD COUNT 16.4 K/uL (4.8-10.8)
[2017-03-30] MEDS ORDERED: Sodium Chloride 0.9% 1,000 ML ONE (23:44)
[2017-03-30 23:51] LABS: INR 1.6
[2017-03-30 23:52] LABS: CHLORIDE 96 mmol/L (98-107); POTASSIUM 3.3 mmol/L (3.6-5.2); SODIUM 136 mmol/L (132-148)
[2017-03-30 23:54] LABS: BILIRUBIN,TOTAL 0.7 mg/dL (0.2-1.3); GFR AFRICAN-AMERICAN > 60
[2017-03-30] MEDS ORDERED: Piperacillin/Tazobact 3.375 gm 100 ML IVPB STA (23:54)
[2017-03-30 23:55] LABS: ALB/GLOB RATIO 0.8 (1.0-2.1); ALKALINE PHOSPHATASE 291 U/L (38-126); ALT/SGPT 38 U/L (9-52); AST/SGOT 53 U/L (14-36); BLOOD UREA NITROGEN 8 mg/dL (7-17); CALCIUM 8.8 mg/dl (8.6-10.4); CARBON DIOXIDE 18 mmol/L (22-30); GLUCOSE,RANDOM 113 mg/dL (65-105); TOTAL PROTEIN 7.9 g/dL (6.3-8.3)
[2017-03-31] LABS: VENOUS BLOOD GAS PCO2 23 mmHg (40-60); VENOUS BLOOD PH 7.47 (7.32-7.43)
[2017-03-31] MEDS ORDERED: Morphine 4 MG/ML VIAL ONE (00:05)
[2017-03-31] MEDS ORDERED: Sodium Chloride 0.9% 1,000 ML ONE ×2 (00:06→00:36)
[2017-03-31] MEDS ORDERED: Piperacillin/Tazobact 3.375 gm 100 ML IVPB ONE (00:06)
[2017-03-31] MEDS ORDERED: Sodium Chloride 0.9% 2,000 ML IV ONE (00:10)
[2017-03-31] MEDS ORDERED: Ciprofloxacin 400mg/200ml D5W 400 MG/200 ML BAG IVPB STA (00:13)
[2017-03-31] MEDS ORDERED: Potassium Chloride 10 mEq ER Tab PO STA (00:21)
[2017-03-31 00:23] LABS: NEUTROPHIL 71 % (50-75); TOTAL CELLS COUNTED 100
[2017-03-31] MEDS ORDERED: Ciprofloxacin 400mg/200ml D5W 400 MG/200 ML BAG IVPB ONE (01:02)
[2017-03-31] MEDS ORDERED: Iodixanol 320 MG/ML 100 ML BOTTLE IV ONE (01:27)
[2017-03-31] MEDS ORDERED: Lactated Ringer's 1,000 ML IV ONE (01:49)
[2017-03-31 01:55] LABS: BASO # 0.1 K/uL (0.0-0.2); BASO % 0.3 % (0.0-2.0); EOS % 0.1 % (0.0-4.0); HEMATOCRIT 23.4 % (34.0-47.0); LYMPH # 0.6 K/uL (1.0-4.3); LYMPH % 2.9 % (20.0-40.0); MEAN CELL VOLUME 83.4 fL (81.0-99.0); MEAN CORPUSCULAR HEMOGLOBIN 26.4 pg (27.0-31.0); MEAN CORPUSCULAR HGB CONC 31.6 g/dL (33.0-37.0); MEAN PLATELET VOLUME 9.8 fL (7.2-11.7); MONO # 0.1 K/uL (0.0-0.8); MONO % 0.4 % (0.0-10.0); RED CELL DISTRIBUTION WIDTH 20.4 % (11.5-14.5); WHITE BLOOD COUNT 20.8 K/uL (4.8-10.8)
[2017-03-31 02:17] LABS: CHLORIDE 105 mmol/L (98-107); POTASSIUM 2.7 mmol/L (3.6-5.2); SODIUM 136 mmol/L (132-148)
--- NOTE | 2017-03-31 02:17 | CP.PCM.CON ---
History of Present Illness - History of Present Illness History of Present Illness: 51 y/o female with recent h/o bacteremia x 2 c/o fever,chills,heavy menstrual bleeding ,abdominal pain x 1 day.She also c/o dizziness.No nausea,vomiting, urinary symptoms,cough.c/o poor apetite with about 50 lb weight loss since december 2016.In ER patient was hypotensive,tachycardiac with leucocytosis,bandemia and elevated lactic acid.BP improved with IV fluids Patient was admitted at [facility] in december 2016,had appendectomy.Hospital course complicated with Ecoli urosepsis,respiratory failure and DVT.Again admitted at [facility] January 2017 with Bacteriodes Vulgatus bacteremia, discharged in February with PICC line for IV antibiotics.She received one day of IV antibiotics at [facility] .The following day she developed fever and family took her to [facility] ,where she received 4-5 days of IV antibiotics,PICC line removed and discharged on PO antibiotics and coumadin.At time of appendectomy she was found to have large fibroid,tests done,seen by COLLAR FUSER and advised surgery at [facility]. history from patient, and son.translated by RN in ER Denies any illness prior to december 2016 Review of Systems - Review of Systems Systems not reviewed;Unavailable: Unstable Vital Signs, Language Barrier - Constitutional Constitutional: Anorexia, Chills, Malaise, Weight Loss, Weakness - EENT Eyes: absent: Blurred Vision Ears: Dizziness. absent: Abnormal Hearing Nose/Mouth/Throat: absent: Nasal Congestion, Sore Throat, Neck Pain - Cardiovascular Cardiovascular: absent: Chest Pain, Edema, Palpitations, Pedal Edema - Respiratory Respiratory: absent: Cough - Gastrointestinal Gastrointestinal: Abdominal Pain. absent: Change in Bowel Habits, Nausea, Vomiting - Genitourinary Genitourinary: absent: Change in Urinary Stream, Dysuria - Reproductive: Female Reproductive:Female: Menses Variable, Heavy Menses - Musculoskeletal Musculoskeletal: absent: Muscle Weakness, Stiffness - Integumentary Integumentary: absent: Dry Skin - Neurological Neurological: Dizziness, Weakness. 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 Alcohol: None Drugs: Denies Home Situation {Lives}: With Family - CARDIAC Hx Cardiac Disorders: No - PULMONARY Hx Respiratory Disorders: No - NEUROLOGICAL Hx Seizures: Yes - HEENT Hx HEENT Problems: No - RENAL Hx Chronic Kidney Disease: No - ENDOCRINE/METABOLIC Hx Endocrine Disorders: No - HEMATOLOGICAL/ONCOLOGICAL Hx Anemia: Yes - INTEGUMENTARY Hx Dermatological Problems: No - MUSCULOSKELETAL/RHEUMATOLOGICAL Hx Musculoskeletal Disorders: No Hx Falls: No - GASTROINTESTINAL Hx Gastrointestinal Disorders: No - GENITOURINARY/GYNECOLOGICAL Hx Genitourinary Disorders: Yes - PSYCHIATRIC Hx Substance Use: No - SURGICAL HISTORY Other/Comment: APPENDECTOMY-JAN 01 2017 - ANESTHESIA Hx Anesthesia: Yes Hx Anesthesia Reactions: No Hx Malignant Hyperthermia: No Meds Allergies/Adverse Reactions: Allergies Allergy/AdvReac Type Severity Reaction Status Date / Time vancomycin Allergy Severe REDNESS Verified 03/30/17 22:54 - Medications Medications: Current Medications Famotidine (Pepcid) 20 mg IVP Q12 TORI Metronidazole (Flagyl) 500 mg in 100 mls @ 100 mls/hr IVPB Q8H TORI Lactated Ringer's (Lactated Ringer's) 1,000 mls @ 1,000 mls/hr IV .Q1H ONE Stop: 03/31/17 02:48 Last Admin: 03/31/17 01:57 Dose: 1,000 mls/hr Lactated Ringer's (Lactated Ringer's) 1,000 mls @ 100 mls/hr IV .Q10H TORI Tobramycin Sulfate 100 mg/ (Sodium Chloride) 102.5 mls @ 102.5 mls/hr IVPB Q8 TORI Physical Exam - Constitutional Appears: No Acute Distress - Head Exam Head Exam: ATRAUMATIC, NORMAL INSPECTION, NORMOCEPHALIC - Eye Exam Eye Exam: EOMI, PERRL. absent: Periorbital swelling Pupil Exam: NORMAL ACCOMODATION Additional comments: pallor + - ENT Exam ENT Exam: Mucous Membranes Moist - Neck Exam Neck exam: Positive for: Normal Inspection - Respiratory Exam Respiratory Exam: Clear to Auscultation Bilateral, NORMAL BREATHING PATTERN. absent: Chest Wall Tenderness, Rales, Rhonchi - Cardiovascular Exam Cardiovascular Exam: REGULAR RHYTHM. absent: JVD - GI/Abdominal Exam GI & Abdominal Exam: Normal Bowel Sounds, Soft, Tenderness Additional comments: tender in lower abdomen with palpable mass - Rectal Exam Rectal Exam: Deferred - Extremities Exam Extremities exam: Positive for: normal inspection, pedal pulses present. Negative for: calf tenderness, pedal edema, tenderness - Back Exam Back exam: NORMAL INSPECTION - Neurological Exam Neurological exam: Alert, Oriented x3 - Skin Skin Exam: Intact, Pallor Results - Vital Signs Recent Vital Signs: Last Vital Signs Temp 97.8 F 03/31/17 01:00 Pulse 99 H 03/31/17 01:00 Resp 30 H 03/31/17 01:00 BP 76/31 L 03/31/17 00:45 Pulse Ox 99 03/31/17 01:00 - Labs Result Diagrams: 03/30/17 23:40 03/30/17 23:40 - Imaging and Cardiology Chest x-ray Status: Image reviewed by me (no infiltrate) Assessment & Plan - Assessment and Plan (Free Text) Assessment: 1.Sepsis-pt with 2 recent episodes of bacteremia presenting with fever, hypotension ,leucocytosis with bandemia and elevated lactic acid Blood ,urine cultures sent.IV antibiotics started. ID evaluation IV fluids 2.Anemia- secondary to fibroids.f/u CBC transfuse PRBC PRN 3.fibroids-COLLAR FUSER evaluation when stable. 4.H/o DVT with subtherapeutic INR. DVT prophylaxis until INR is therapeutic
[2017-03-31 02:19] LABS: GFR AFRICAN-AMERICAN > 60
[2017-03-31 02:20] LABS: ALB/GLOB RATIO 0.6 (1.0-2.1); ALKALINE PHOSPHATASE 204 U/L (38-126); ALT/SGPT 38 U/L (9-52); AST/SGOT 52 U/L (14-36); BILIRUBIN,TOTAL 0.6 mg/dL (0.2-1.3); BLOOD UREA NITROGEN 9 mg/dL (7-17); CALCIUM 6.7 mg/dl (8.6-10.4); CARBON DIOXIDE 16 mmol/L (22-30); GLUCOSE,RANDOM 103 mg/dL (65-105); TOTAL PROTEIN 5.9 g/dL (6.3-8.3)
[2017-03-31 02:21] LABS: MAGNESIUM 1.1 mg/dL (1.6-2.3)
--- NOTE | 2017-03-31 02:32 | CT ---
EXAM: CT Abdomen and Pelvis With Intravenous Contrast CLINICAL HISTORY: 51 years old, female; Pain; Abdominal pain and other: Large uterine fibroids; Patient HX: 02-25-17; Additional info: Abd pain, large uterine fibroids TECHNIQUE: Axial computed tomography images of the abdomen and pelvis with intravenous contrast. This CT exam was performed using one or more of the following dose reduction techniques: automated exposure control, adjustment of the mA and/or kV according to patient size, and/or use of iterative reconstruction technique. Coronal and sagittal reformatted images were created and reviewed. CONTRAST: 100 mL of [id number] administered intravenously. COMPARISON: CT - ABD PELVIS PO CONTRA 02/25/2017 10:01:36 PM FINDINGS: Lower thorax: No acute findings. ABDOMEN: Liver: Few too small to characterize lesions. Gallbladder and bile ducts: No calcified stones. No ductal dilation. Pancreas: No ductal dilation. No mass. Spleen: No splenomegaly. Adrenals: No mass. Kidneys and ureters: No mass. No hydronephrosis. Stomach and bowel: No definite mural thickening. No obstruction. Appendix: No findings to suggest acute appendicitis. PELVIS: Bladder: Unremarkable. Reproductive: 5.3 x 3.3 x 5.6 cm hypodense lesion within LEFT ovary. 16.7 x 15.8 x 13.2 cm, lobulated uterus with multiple masses. ABDOMEN and PELVIS: Intraperitoneal space: Trace fluid within the RIGHT paracolic gutter. No free air. Bones/joints: Mild degenerative changes of spine. No acute fracture. Soft tissues: Tiny umbilical hernia containing fat. Few small soft tissue nodules within abdominal wall, nonspecific. Vasculature: Unremarkable. No aneurysm. Lymph nodes: No pathologically enlarged lymph nodes. IMPRESSION: 1. Probable fibroid uterus. 2. LEFT adnexal lesion, indeterminate. Recommend ultrasound. 3. Incidental/non-acute findings are described above.
[2017-03-31] MEDS: Lactated Ringer's 1,000 ML IV SCH ×4 (03:30→23:00)
[2017-03-31] MEDS: metroNIDAZOLE IV 500 mg/100 ml 500 MG/100 ML BAG IVPB SCH ×4 (03:30→17:53)
--- NOTE | 2017-03-31 03:41 | CP.PCM.HP ---
<Neal Gross - Last Filed: 03/31/17 07:29> History of Present Illness - History of Present Illness History of Present Illness: CC: "fever" HPI: 51 year old female with PMHx significant for Fibroids, Anemia, thyroid nodule, DVT presents with complaints of fever, abdominal pain and vaginal bleeding. Patient states that she has experienced a 50 pound weight loss since December 2016 following her appendectomy. Patient was last admitted here back in January for a similar treatment course. On that admission, patient was found to have positive blood cultures for which she was started on tobramycin. Patient was discharged with the understanding that she would require snf IV antibiotics; however patient was admitted to [facility] where her treatment course was changed. On today's admission, patient was evaluated in the ED. There, she was found to be hypotensive and tachycardic with an elevated white count and lactate. Patients BP did improve with fluid administration. Patient admitted to fevers, diaphoresis, dizziness, abd pain, weight changes, vaginal bleeding and decreased appetite. PMhx- as stated above PSHx- appendectomy Fam Hx- Mother had stomach cancer as well as HTN Meds- Refer to MAR. Will need to confirm in light of recent hospitalization at [facility] Social Hx- denies alcohol, tobacco or illicit drug use Allergies- Vancomycin (erythema) Present on Admission - Present on Admission Any Indicators Present on Admission: No Review of Systems - Review of Systems Systems not reviewed;Unavailable: Language Barrier - Constitutional Constitutional: Excessive Sweating, Fever - EENT Eyes: absent: Change in Vision - Cardiovascular Cardiovascular: absent: Chest Pain, Chest Pain at Rest, Dyspnea - Respiratory Respiratory: absent: Dyspnea, Dyspnea on Exertion - Gastrointestinal Gastrointestinal: Abdominal Pain. absent: Nausea, Vomiting - Reproductive: Female Reproductive:Female: Abnormal Vaginal Bleeding - Musculoskeletal Musculoskeletal: absent: Back Pain - Integumentary Integumentary: absent: Dry Skin, Swelling - Neurological Neurological: absent: Headaches, Weakness Past Patient History - Infectious Disease Hx of Infectious Diseases: None - Past Medical History & Family History Past Medical History?: No - Past Social History Smoking Status: Never Smoked Alcohol: None Drugs: Denies Home Situation {Lives}: With Family - CARDIAC Hx Cardiac Disorders: No - PULMONARY Hx Respiratory Disorders: No - NEUROLOGICAL Hx Neurological Disorder: Yes Hx Seizures: Yes - HEENT Hx HEENT Problems: No - RENAL Hx Chronic Kidney Disease: No - ENDOCRINE/METABOLIC Hx Endocrine Disorders: No - HEMATOLOGICAL/ONCOLOGICAL Hx Blood Disorders: Yes Hx Anemia: Yes - INTEGUMENTARY Hx Dermatological Problems: No - MUSCULOSKELETAL/RHEUMATOLOGICAL Hx Falls: No - GASTROINTESTINAL Hx Gastrointestinal Disorders: No - GENITOURINARY/GYNECOLOGICAL Hx Genitourinary Disorders: Yes Other/Comment: fibroids - PSYCHIATRIC Hx Substance Use: No - SURGICAL HISTORY Hx Surgeries: Yes Hx Appendectomy: Yes (12/2016) Other/Comment: APPENDECTOMY-JAN 01 2017 - ANESTHESIA Hx Anesthesia: Yes Hx Anesthesia Reactions: No Hx Malignant Hyperthermia: No Has any member of the family had a problem w/ anesthesia?: No Meds Allergies/Adverse Reactions: Allergies Allergy/AdvReac Type Severity Reaction Status Date / Time vancomycin Allergy Severe REDNESS Verified 03/30/17 22:54 Physical Exam - Constitutional Appears: No Acute Distress Additional comments: diaphoretic - Head Exam Head Exam: ATRAUMATIC, NORMAL INSPECTION, NORMOCEPHALIC - Eye Exam Eye Exam: EOMI, Normal appearance, PERRL Pupil Exam: NORMAL ACCOMODATION, PERRL Additional comments: conjunctival pallor - ENT Exam ENT Exam: Mucous Membranes Moist, Normal Exam - Neck Exam Neck exam: Positive for: Full Rom - Respiratory Exam Respiratory Exam: NORMAL BREATHING PATTERN. absent: Wheezes - Cardiovascular Exam Cardiovascular Exam: +S1, +S2. absent: JVD - GI/Abdominal Exam GI & Abdominal Exam: Mass (RLQ), Normal Bowel Sounds, Soft, Tenderness (RLQ). absent: Firm, Guarding, Rigid - Extremities Exam Extremities exam: Positive for: full ROM, normal capillary refill, pedal pulses present - Back Exam Back exam: NORMAL INSPECTION - Neurological Exam Neurological exam: Alert, CN II-XII Intact, Oriented x3 - Psychiatric Exam Psychiatric exam: Normal Affect, Normal Mood - Skin Skin Exam: Intact, Pallor, Warm Results - Vital Signs Recent Vital Signs: Last Vital Signs Temp 97.8 F 03/31/17 01:00 Pulse 90 03/31/17 03:00 Resp 24 03/31/17 03:00 BP 82/38 L 03/31/17 02:28 Pulse Ox 98 03/31/17 03:00 - Labs Result Diagrams: 03/31/17 01:52 03/31/17 01:52 Labs: Laboratory Results - last 24 hr 03/31/17 03/31/17 03/31/17 01:52 01:52 01:52 WBC 20.8 H RBC 2.81 L Hgb 7.4 L D Hct 23.4 L MCV 83.4 MCH 26.4 L MCHC 31.6 L RDW 20.4 H Plt Count 211 MPV 9.8 Neut % (Auto) 96.3 H Lymph % (Auto) 2.9 L [place] % (Auto) 0.4 Eos % (Auto) 0.1 Baso % (Auto) 0.3 Neut # 20.0 H Lymph # 0.6 L [place] # 0.1 Eos # 0.0 Baso # 0.1 Sodium 136 Potassium 2.7 L Chloride 105 Carbon Dioxide 16 L Anion Gap 18 BUN 9 Creatinine 0.8 Est GFR ( Amer) > 60 Est GFR (Non-Af Amer) > 60 Random Glucose 103 Lactic Acid 2.6 H Calcium 6.7 L Magnesium 1.1 L Total Bilirubin 0.6 AST 52 H ALT 38 Alkaline Phosphatase 204 H D Total Protein 5.9 L Albumin 2.2 L D Globulin 3.6 Albumin/Globulin Ratio 0.6 L Assessment & Plan (1) Sepsis Assessment and Plan: Patient with 2 recent episodes of bacteremia presenting with fever,h ypotension ,leukocytosis with bandemia and elevated lactic acid F/U Blood and urine cultures IV antibiotics started: Flagyl, and Tobramycin) Florastor 250 mg PO BID ID evaluation IV fluids F/U echo Status: Acute (2) Abdominal pain Status: Chronic (3) Fibroid Assessment and Plan: Considerations for 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 Consider risks vs benefits of patient's vaginal bleeding vs need for anticoagulation due to hx of DVT. Will need to quantify vaginal bleeding. Status: Acute (6) Electrolyte abnormality Assessment and Plan: Hypokalemia and Hypomagnesemia Replete and monitor Status: Acute (7) Prophylactic measure Assessment and Plan: Currently on warfarin for hx of DVT. Weigh risks vs benefits of chemical VTE in light of vaginal bleeding GI prophylaxis 20 mg IV Q12 Status: Resolved <Pratik Alfonso P - Last Filed: 04/01/17 07:01> Results - Vital Signs Recent Vital Signs: Last Vital Signs Temp 97.5 F L 03/31/17 06:45 Pulse 74 03/31/17 06:45 Resp 24 03/31/17 06:45 BP 79/42 L 03/31/17 06:45 Pulse Ox 100 03/31/17 06:00 - Labs Result Diagrams: 04/01/17 05:36 04/01/17 05:36 Labs: Laboratory Results - last 24 hr 03/31/17 03/31/17 03/31/17 01:52 01:52 01:52 WBC 20.8 H RBC 2.81 L Hgb 7.4 L D Hct 23.4 L MCV 83.4 MCH 26.4 L MCHC 31.6 L RDW 20.4 H Plt Count 211 MPV 9.8 Neut % (Auto) 96.3 H Lymph % (Auto) 2.9 L [place] % (Auto) 0.4 Eos % (Auto) 0.1 Baso % (Auto) 0.3 Neut # 20.0 H Lymph # 0.6 L [place] # 0.1 Eos # 0.0 Baso # 0.1 Sodium 136 Potassium 2.7 L Chloride 105 Carbon Dioxide 16 L Anion Gap 18 BUN 9 Creatinine 0.8 Est GFR ( Amer) > 60 Est GFR (Non-Af Amer) > 60 Random Glucose 103 Lactic Acid 2.6 H Calcium 6.7 L Magnesium 1.1 L Total Bilirubin 0.6 AST 52 H ALT 38 Alkaline Phosphatase 204 H D Total Protein 5.9 L Albumin 2.2 L D Globulin 3.6 Albumin/Globulin Ratio 0.6 L Attending/Attestation - Attestation I have personally seen and examined this patient.: Yes I have fully participated in the care of the patient.: Yes I have reviewed all pertinent clinical information: Yes Notes (Text): 03/31/17 06:48 Assessment * Sepsis with prior h/o bacteremia with fever, hypotension again suspected gram neg bacteremia * Appendicectomy on 01/01/2107, Ecoli bacterimia same date, dvt right leg same time 1month rx at [facility] * 02/01/17 to 03/04/17 sepsis bacteriodes valgatus bacteremia treated with meropenium, tobramycin, falgyl * Post discharge fever with chills in 1 day went to [place] with 4 days of iv abx, removed picc line, the oral augmentin till a wk back * patient has long time h/o irregular periods with diagnosed massive necrotic fibroids, which could also be the source, she had abd pain with vaginal bleeding yesterday Plan * Broad spectrum abx * VOCATIONAL REHABILITATION TECHNICIAN eval as occult source could be fibroid with necrosis due to associated gu symptoms of pain and vaginal bleeding * Echo * supportive care with prbc, albumin, electrolytes * ID consult * Records from [facility]. * See orders for detail. 04/01/17 06:59
[2017-03-31] MEDS ORDERED: Magnesium Sulfate 1 gm in D5W 1 GM/100 ML BAG IVPB ONE (05:00)
[2017-03-31] MEDS ORDERED: Tobramycin Sulfate 40 mg/ml (2ml) Inj IVPB SCH (06:00)
[2017-03-31] MEDS ORDERED: Albumin Human 25% (12.5 gm/50 ml) IV ONE ×2 (06:41→10:00)
[2017-03-31 06:45] LABS: RBC URINE 25 /hpf (0-3); URINE BACTERIA FEW (<OCC); URINE BILIRUBIN NEGATIVE (NEGATIVE); URINE BLOOD 2+ (NEGATIVE); URINE COLOR Amber (YELLOW); URINE GLUCOSE (UA) NORMAL (Normal); URINE KETONE NEGATIVE (NEGATIVE); URINE LEUKOCYTE ESTERASE 3+ Leu/uL (Negative); URINE PROTEIN 2+ mg/dL (NEGATIVE); URINE UROBILINOGEN NORMAL mg/dL (0.2-1.0); WBC CLUMPS MOD /hpf; WBC URINE 706 /hpf (0-5)
--- NOTE | 2017-03-31 07:02 | PCM.SEPTIC ---
Sepsis Progress Note - Reassessment Type Date of Evaluation: 03/31/17 Time of Evaluation: 06:30 Reassessment Type: Non-invasive reassessment - Non Invasive Reassessment Were the most recent vital sign reviewed: Yes Vital Sign (Latest): Temp Pulse Resp BP Pulse Ox 97.5 F L 74 24 79/42 L 100 03/31/17 06:45 03/31/17 06:45 03/31/17 06:45 03/31/17 06:45 03/31/17 06:00 Cardiovascular: Yes: Regular Rate, Rhythm, Chest Non Tender. No: Edema, JVD, Bradycardia, Tachycardia Respiratory: Yes: Normal Breath Sounds. No: Accessory Muscle Use, Rales, Rhonchi, Stridor, Wheezing, Respiratory Distress Capillary Refill: Normal (Less than 2 sec) Pulses: Normal Radial, Normal Dorsalis Pedis, Normal Posterior Tibialis Skin: Pale (hemoglobin dropped,patient receiving PRBC at present time,albumin.) - Invasive Reassessment (complete 2 of 4) Was a Central Venous Pressure Measurement obtained within 6 Hours after the presentation of septic shock: No
[2017-03-31] MEDS: Potassium Chloride 20 mEq ER Tab PO SCH ×3 (07:15→11:11)
--- NOTE | 2017-03-31 08:38 | RAD ---
PROCEDURE: CHEST RADIOGRAPH, 1 VIEW HISTORY: Abdominal pain COMPARISON: None available. FINDINGS: LUNGS: Mild venous congestion. PLEURA: No pneumothorax or pleural fluid seen. CARDIOVASCULAR: Normal. OSSEOUS STRUCTURES: No significant abnormalities. VISUALIZED UPPER ABDOMEN: Normal. OTHER FINDINGS: None. IMPRESSION: Mild venous congestion.
[2017-03-31] MEDS: Saccharomyces Boulardi 250 mg Cap PO SCH ×2 (09:33→17:53)
[2017-03-31] MEDS ORDERED: Sodium Chloride 0.9% 500 ML IV ONE (10:14)
--- NOTE | 2017-03-31 10:58 | CP.PCM.CON ---
History of Present Illness - History of Present Illness History of Present Illness: 51 y/o female with recent h/o bacteremia x 2 c/o fever,chills,heavy menstrual bleeding , abdominal pain x 1 day. She also c/o .c/o poor apetite with about 50 lb weight loss since december 2016. In ER patient was hypotensive,tachycardiac with leucocytosis,bandemia and elevated lactic acid.BP improved with IV fluids Patient was admitted at [facility] in december 2016,had appendectomy. Hospital course complicated with Ecoli urosepsis,respiratory failure and DVT. Again admitted at [facility] January 2017 with Bacteriodes Vulgatus bacteremia, discharged in February with PICC line for IV antibiotics.She received one day of IV antibiotics at [facility] .The following day she developed fever and family took her to [facility] ,where she received 4-5 days of IV antibiotics,PICC line removed and discharged on PO antibiotics and coumadin. At time of appendectomy she was found to have large fibroid,tests done,seen by CORK CUTTER and advised surgery at [facility]. Review of Systems - Review of Systems Systems not reviewed;Unavailable: Language Barrier - Constitutional Constitutional: As Per HPI, Anorexia, Chills, Fever, Weight Loss - EENT Eyes: absent: As Per HPI, Blind Spots, Blurred Vision, Change in Vision, Decreased Night Vision, Diplopia, Discharge, Dry Eye, Exophthalmos, Floaters, Irritation, Itchy Eyes, Loss of Peripheral Vision, Pain, Photophobia, Requires Corrective Lenses, Sees Flashes, Spots in Vision, Tunnel Vision, Other Visual Disturbances, Loss of Vision, Other Ears: absent: As Per HPI, Decreased Hearing, Ear Discharge, Ear Pain, Tinnitus, Abnormal Hearing, Disequilibrium, Dizziness, Other Nose/Mouth/Throat: absent: As Per HPI, Epistaxis, Nasal Congestion, Nasal Discharge, Nasal Obstruction, Nasal Trauma, Nose Pain, Post Nasal Drip, Sinus Pain, Sinus Pressure, Bleeding Gums, Change in Voice, Dental Pain, Dry Mouth, Dysphagia, Halitosis, Hoarsness, Lip Swelling, Mouth Lesions, Mouth Pain, Odynophagia, Sore Throat, Throat Swelling, Tongue Swelling, Facial Pain, Neck Pain, Neck Mass, Other - Breasts Breasts: absent: As Per HPI, Change in Shape, Mass, Pain, Nipple Discharge, Nipple Inversion, Skin Changes, Swelling, Other - Cardiovascular Cardiovascular: absent: As Per HPI, Acrocyanosis, Chest Pain, Chest Pain at Rest , Chest Pain with Activity, Claudication, Diaphoresis, Dyspnea, Dyspnea on Exertion, Edema, Irregular Heart Rhythm, Pain Radiating to Arm/Neck/Jaw, Leg Edema, Leg Ulcers, Lightheadedness, Orthopnea, Palpitations, Paroxysmal Nocturnal Dyspnea, Pedal Edema, Radiating Pain, Rapid Heart Rate, Slow Heart Rate, Syncope, Other - Respiratory Respiratory: absent: As Per HPI, Cough, Dyspnea, Hemoptysis, Dyspnea on Exertion , Wheezing, Snoring, Stridor, Pain on Inspiration, Chest Congestion, Excessive Mucous Production, Change in Mucous Color, Pain with Coughing, Other - Gastrointestinal Gastrointestinal: As Per HPI - Genitourinary Genitourinary: As Per HPI - Reproductive: Female Reproductive:Female: As Per HPI - Menstruation Menstruation: absent: As Per HPI, Amenorrhea, Amenorrhea/ Control, Currently Menstual, Cycle <21 Days, Cycle >35 Days, Cycle Variable, Menses 1-7 Days, Menses >/= 8 Days, Menses Variable, Cycle > 4 Weeks Between, No Menses for 6 Months, Heavy Menses, Light Menses, Normal Menses, Spotting Between Cycles , S/P Hysterectomy, Menopausal, Post Menopausal, Premenarche, Abnormal Vaginal Bleeding, Dysmenorrhea, Other - Musculoskeletal Musculoskeletal: absent: As Per HPI, Abnormal Gait, Arthralgias, Atrophy, Back Pain, Deformity, Joint Swelling, Limited Range of Motion, Loss of Height, Muscle Cramps, Muscle Weakness, Myalgias, Neck Pain, Numbness, Radiating Pain into Limb, Stiffness, Tingling, Other - Integumentary Integumentary: absent: As Per HPI, Acne, Alopecia, Bleeding Lesions, Change in Hair, Change in Nails, Change in Pigmentation, Changing Lesions, Dry Skin, Erythema, Furuncle, Hirsutism, Lesions, New Lesions, Non-Healing Lesions, Photosensitivity, Pruritus, Rash, Skin Pain, Skin Ulcer, Sores, Striae, Swelling , Unusual Bruising, Wounds, Jaundice, Other - Neurological Neurological: absent: As Per HPI, Abnormal Gait, Abnormal Hearing, Abnormal Movements, Abnormal Speech, Behavioral Changes, Burning Sensations, Confusion, Convulsions, Disequilibrium, Dizziness, Numbness, Focal Weakness, Frequent Falls , Headaches, Lack of Coordination, Loss of Vision, Memory Loss, Paresthesias, Radicular Pain, Restless Legs, Sensory Deficit, Syncope, Tingling, Tremor, Vertigo, Weakness, Other Visual Disturbances, Other - Psychiatric Psychiatric: absent: As Per HPI, Abnormal Sleep Pattern, Anhedonia, Anxiety, Auditory Hallucinations, Behavioral Changes, Change in Appetite, Change in Libido, Confusion, Depression, Difficulty Concentrating, Hallucinations, Homicidal Ideation, Hopelessness, Irritability, Memory Loss, Mood Swings, Panic Attacks, Paranoia, Suicidal Ideation, Visual Hallucinations, Tactile Hallucinations, Other - Endocrine Endocrine: absent: As Per HPI, Change in Body Appearance, Change in Libido, Cold Intolorance, Deepening of Voice, Excessive Sweating, Fatigue, Flushing, Heat Intolorance, Increase in Ring/Shoe/Hat Size, Palpitations, Polydipsia, Polyphagia, Polyuria, Other - Hematologic/Lymphatic Hematologic: absent: As Per HPI, Easy Bleeding, Easy Bruising, Lymphadenopathy, Other Past Patient History - Infectious Disease Hx of Infectious Diseases: None - Past Medical History & Family History Past Medical History?: No - Past Social History Smoking Status: Never Smoked Alcohol: None Drugs: Denies Home Situation {Lives}: With Family - CARDIAC Hx Cardiac Disorders: No - PULMONARY Hx Respiratory Disorders: No - NEUROLOGICAL Hx Neurological Disorder: Yes Hx Seizures: Yes - HEENT Hx HEENT Problems: No - RENAL Hx Chronic Kidney Disease: No - ENDOCRINE/METABOLIC Hx Endocrine Disorders: No - HEMATOLOGICAL/ONCOLOGICAL Hx Blood Disorders: Yes Hx Anemia: Yes - INTEGUMENTARY Hx Dermatological Problems: No - MUSCULOSKELETAL/RHEUMATOLOGICAL Hx Falls: No - GASTROINTESTINAL Hx Gastrointestinal Disorders: No - GENITOURINARY/GYNECOLOGICAL Hx Genitourinary Disorders: Yes Other/Comment: fibroids - PSYCHIATRIC Hx Substance Use: No - SURGICAL HISTORY Hx Surgeries: Yes Hx Appendectomy: Yes (12/2016) Other/Comment: APPENDECTOMY-JAN 01 2017 - ANESTHESIA Hx Anesthesia: Yes Hx Anesthesia Reactions: No Hx Malignant Hyperthermia: No Has any member of the family had a problem w/ anesthesia?: No Meds Allergies/Adverse Reactions: Allergies Allergy/AdvReac Type Severity Reaction Status Date / Time vancomycin Allergy Severe REDNESS Verified 03/30/17 22:54 - Medications Medications: Current Medications Famotidine (Pepcid) 20 mg IVP Q12 [facility] Last Admin: 03/31/17 09:26 Dose: 20 mg Metronidazole (Flagyl) 500 mg in 100 mls @ 100 mls/hr IVPB Q8H [facility] Last Admin: 03/31/17 09:27 Dose: 100 mls/hr Lactated Ringer's (Lactated Ringer's) 1,000 mls @ 100 mls/hr IV .Q10H [facility] Last Admin: 03/31/17 03:30 Dose: 100 mls/hr Tobramycin Sulfate 100 mg/ (Sodium Chloride) 102.5 mls @ 102.5 mls/hr IVPB Q8 [facility] Last Admin: 03/31/17 05:28 Dose: 102.5 mls/hr Saccharomyces Boulardii (Florastor) 250 mg PO BID [facility] Last Admin: 03/31/17 09:33 Dose: 250 mg Warfarin Sodium (Coumadin) 1 mg PO 1800 [facility] Stop: 03/31/17 18:01 Physical Exam - Constitutional Appears: Toxic, Chronically Ill - Head Exam Head Exam: NORMOCEPHALIC - Eye Exam Eye Exam: PERRL. absent: Scleral icterus - ENT Exam ENT Exam: Mucous Membranes Dry, Normal External Ear Exam - Neck Exam Neck exam: Negative for: Lymphadenopathy, Thyromegaly - Respiratory Exam Respiratory Exam: Decreased Breath Sounds, Clear to Auscultation Bilateral - Cardiovascular Exam Cardiovascular Exam: REGULAR RHYTHM - GI/Abdominal Exam GI & Abdominal Exam: Diminished Bowel Sounds, Distended, Guarding, Soft, Tenderness. absent: Rebound, Rigid - Rectal Exam Rectal Exam: Deferred - Exam Exam: NORMAL INSPECTION - Extremities Exam Extremities exam: Negative for: calf tenderness, pedal edema - Back Exam Back exam: absent: CVA tenderness (L), CVA tenderness (R) - Neurological Exam Neurological exam: Alert, CN II-XII Intact, Oriented x3, Reflexes Normal - Psychiatric Exam Psychiatric exam: Normal Mood - Skin Skin Exam: Dry Results - Vital Signs Recent Vital Signs: Last Vital Signs Temp 98.6 F 03/31/17 08:00 Pulse 67 03/31/17 10:00 Resp 30 H 03/31/17 10:00 BP 83/51 L 03/31/17 09:46 Pulse Ox 99 03/31/17 10:00 - Labs Result Diagrams: 03/31/17 01:52 03/31/17 01:52 Labs: Laboratory Results - last 24 hr 03/31/17 03/31/17 03/31/17 01:52 01:52 01:52 WBC 20.8 H RBC 2.81 L Hgb 7.4 L D Hct 23.4 L MCV 83.4 MCH 26.4 L MCHC 31.6 L RDW 20.4 H Plt Count 211 MPV 9.8 Neut % (Auto) 96.3 H Lymph % (Auto) 2.9 L [place] % (Auto) 0.4 Eos % (Auto) 0.1 Baso % (Auto) 0.3 Neut # 20.0 H Lymph # 0.6 L [place] # 0.1 Eos # 0.0 Baso # 0.1 Sodium 136 Potassium 2.7 L Chloride 105 Carbon Dioxide 16 L Anion Gap 18 BUN 9 Creatinine 0.8 Est GFR ( Amer) > 60 Est GFR (Non-Af Amer) > 60 Random Glucose 103 Lactic Acid 2.6 H Calcium 6.7 L Magnesium 1.1 L Total Bilirubin 0.6 AST 52 H ALT 38 Alkaline Phosphatase 204 H D Total Protein 5.9 L Albumin 2.2 L D Globulin 3.6 Albumin/Globulin Ratio 0.6 L Urine Color Urine Clarity Urine pH Ur Specific [place] Urine Protein Urine Glucose (UA) Urine Ketones Urine Blood Urine Nitrate Urine Bilirubin Urine Urobilinogen Ur Leukocyte Esterase Urine WBC (Auto) Urine RBC (Auto) Urine WBC Clumps (Auto) Ur Squamous Epith Cells Urine Bacteria 03/31/17 06:24 WBC RBC Hgb Hct MCV MCH MCHC RDW Plt Count MPV Neut % (Auto) Lymph % (Auto) [place] % (Auto) Eos % (Auto) Baso % (Auto) Neut # Lymph # [place] # Eos # Baso # Sodium Potassium Chloride Carbon Dioxide Anion Gap BUN Creatinine Est GFR ( Amer) Est GFR (Non-Af Amer) Random Glucose Lactic Acid Calcium Magnesium Total Bilirubin AST ALT Alkaline Phosphatase Total Protein Albumin Globulin Albumin/Globulin Ratio Urine Color Tita Urine Clarity Turbid Urine pH 5.0 Ur Specific [place] 1.020 Urine Protein 2+ H Urine Glucose (UA) Normal Urine Ketones Negative Urine Blood 2+ H Urine Nitrate Negative Urine Bilirubin Negative Urine Urobilinogen Normal Ur Leukocyte Esterase 3+ H Urine WBC (Auto) 706 H Urine RBC (Auto) 25 H Urine WBC Clumps (Auto) Mod H Ur Squamous Epith Cells 48 H Urine Bacteria Few H Assessment & Plan (1) Fever Status: Acute (2) Sepsis Status: Acute (3) Abdominal pain Status: Chronic - Assessment and Plan (Free Text) Assessment: recurrent fevers/ sepsis in a 51 yo female with abd pain and hx of surgery for appendicitis r/o occult abscess, malignancy or endovascular source recc: echo, GI and CORK CUTTER eval cont empiric broad spectrum IV antibiotics
[2017-03-31] MEDS: Meropenem 1 GM in Sodium Chloride 0.9% 100 ML IVPB SCH ×2 (15:43→21:32)
[2017-03-31 17:15] LABS: BASO % 0.2 % (0.0-2.0); EOS # 0.1 K/uL (0.0-0.7); EOS % 0.7 % (0.0-4.0); HEMATOCRIT 31.3 % (34.0-47.0); LYMPH # 1.1 K/uL (1.0-4.3); LYMPH % 6.3 % (20.0-40.0); MEAN CELL VOLUME 84.7 fL (81.0-99.0); MEAN CORPUSCULAR HEMOGLOBIN 27.5 pg (27.0-31.0); MEAN CORPUSCULAR HGB CONC 32.4 g/dL (33.0-37.0); MEAN PLATELET VOLUME 9.8 fL (7.2-11.7); MONO # 1.1 K/uL (0.0-0.8); MONO % 5.9 % (0.0-10.0); NRBC % 0.1 % (0.0-2.0); PLATELET COUNT 190 K/uL (130-400); RED CELL DISTRIBUTION WIDTH 18.8 % (11.5-14.5); WHITE BLOOD COUNT 18.3 K/uL (4.8-10.8)
[2017-03-31 17:22] LABS: CHLORIDE 109 mmol/L (98-107)
[2017-03-31 17:23] LABS: INR 1.6; POTASSIUM 4.1 mmol/L (3.6-5.2); SODIUM 139 mmol/L (132-148)
[2017-03-31 17:25] LABS: AST/SGOT 34 U/L (14-36); BILIRUBIN,TOTAL 0.9 mg/dL (0.2-1.3); CARBON DIOXIDE 18 mmol/L (22-30); GFR AFRICAN-AMERICAN > 60
[2017-03-31 17:26] LABS: ALB/GLOB RATIO 0.8 (1.0-2.1); ALKALINE PHOSPHATASE 170 U/L (38-126); ALT/SGPT 36 U/L (9-52); BLOOD UREA NITROGEN 5 mg/dL (7-17); CALCIUM 8.1 mg/dl (8.6-10.4); GLUCOSE,RANDOM 89 mg/dL (65-105); TOTAL PROTEIN 6.3 g/dL (6.3-8.3)
--- NOTE | 2017-03-31 18:19 | CP.PCM.CON ---
History of Present Illness - History of Present Illness History of Present Illness: 51 yr aadmitted for abdominal pain and fever yesterday. pt has a h/o irrg period and enlarged uterus with fibroid.this is 4 th vist to the hospital. every visit pateint was told to go to agile coach oncologist in [place] or [facility] as no agile coach oncologist available in [place]. pt stes she went but due to insurance issues was not seen.pt stestes yesterday was bleeding heavy with clots. no bleeding now obhx 3 x pmh dvt on coumadin psh appendectomy soch den al vanco sse no bloo pelvic exam ut 20 week size, enlrged, irregular. ext gen no less, cervix closed. Past Patient History - Infectious Disease Hx of Infectious Diseases: None - Past Medical History & Family History Past Medical History?: No - Past Social History Smoking Status: Never Smoked Alcohol: None Drugs: Denies Home Situation {Lives}: With Family - CARDIAC Hx Cardiac Disorders: No - PULMONARY Hx Respiratory Disorders: No - NEUROLOGICAL Hx Neurological Disorder: Yes Hx Seizures: Yes - HEENT Hx HEENT Problems: No - RENAL Hx Chronic Kidney Disease: No - ENDOCRINE/METABOLIC Hx Endocrine Disorders: No - HEMATOLOGICAL/ONCOLOGICAL Hx Blood Disorders: Yes Hx Anemia: Yes - INTEGUMENTARY Hx Dermatological Problems: No - MUSCULOSKELETAL/RHEUMATOLOGICAL Hx Falls: No - GASTROINTESTINAL Hx Gastrointestinal Disorders: No - GENITOURINARY/GYNECOLOGICAL Hx Genitourinary Disorders: Yes Other/Comment: fibroids - PSYCHIATRIC Hx Substance Use: No - SURGICAL HISTORY Hx Surgeries: Yes Hx Appendectomy: Yes (12/2016) Other/Comment: APPENDECTOMY-JAN 01 2017 - ANESTHESIA Hx Anesthesia: Yes Hx Anesthesia Reactions: No Hx Malignant Hyperthermia: No Has any member of the family had a problem w/ anesthesia?: No Meds Allergies/Adverse Reactions: Allergies Allergy/AdvReac Type Severity Reaction Status Date / Time vancomycin Allergy Severe REDNESS Verified 03/30/17 22:54 - Medications Medications: Current Medications Famotidine (Pepcid) 20 mg IVP Q12 [facility] Last Admin: 03/31/17 09:26 Dose: 20 mg Metronidazole (Flagyl) 500 mg in 100 mls @ 100 mls/hr IVPB Q8H [facility] Last Admin: 03/31/17 17:53 Dose: 100 mls/hr Lactated Ringer's (Lactated Ringer's) 1,000 mls @ 100 mls/hr IV .Q10H [facility] Last Admin: 03/31/17 12:38 Dose: Not Given Tobramycin Sulfate 100 mg/ (Sodium Chloride) 102.5 mls @ 102.5 mls/hr IVPB Q8 [facility] Last Admin: 03/31/17 15:47 Dose: 102.5 mls/hr Meropenem 1 gm/ Sodium (Chloride) 100 mls @ 100 mls/hr IVPB Q8 [facility] Last Admin: 03/31/17 15:43 Dose: 100 mls/hr Saccharomyces Boulardii (Florastor) 250 mg PO BID [facility] Last Admin: 03/31/17 17:53 Dose: 250 mg Physical Exam - Exam External exam: NORMAL EXTERNAL EXAM Speculum exam: NORMAL SPECULUM EXAM Bimanual exam: Uterine Enlargement (20week size) Results - Vital Signs Recent Vital Signs: Last Vital Signs Temp 97.7 F 03/31/17 16:00 Pulse 81 03/31/17 17:16 Resp 21 03/31/17 17:16 BP 105/61 03/31/17 17:16 Pulse Ox 98 03/31/17 17:16 - Labs Result Diagrams: 03/31/17 17:10 03/31/17 17:10 Labs: Laboratory Results - last 24 hr 03/31/17 03/31/17 03/31/17 01:52 01:52 01:52 WBC 20.8 H RBC 2.81 L Hgb 7.4 L D Hct 23.4 L MCV 83.4 MCH 26.4 L MCHC 31.6 L RDW 20.4 H Plt Count 211 MPV 9.8 Neut % (Auto) 96.3 H Lymph % (Auto) 2.9 L [place] % (Auto) 0.4 Eos % (Auto) 0.1 Baso % (Auto) 0.3 Neut # 20.0 H Lymph # 0.6 L [place] # 0.1 Eos # 0.0 Baso # 0.1 PT INR APTT Sodium 136 Potassium 2.7 L Chloride 105 Carbon Dioxide 16 L Anion Gap 18 BUN 9 Creatinine 0.8 Est GFR ( Amer) > 60 Est GFR (Non-Af Amer) > 60 Random Glucose 103 Lactic Acid 2.6 H Calcium 6.7 L Magnesium 1.1 L Total Bilirubin 0.6 AST 52 H ALT 38 Alkaline Phosphatase 204 H D Total Protein 5.9 L Albumin 2.2 L D Globulin 3.6 Albumin/Globulin Ratio 0.6 L Urine Color Urine Clarity Urine pH Ur Specific [place] Urine Protein Urine Glucose (UA) Urine Ketones Urine Blood Urine Nitrate Urine Bilirubin Urine Urobilinogen Ur Leukocyte Esterase Urine WBC (Auto) Urine RBC (Auto) Urine WBC Clumps (Auto) Ur Squamous Epith Cells Urine Bacteria 03/31/17 03/31/17 03/31/17 06:24 17:10 17:10 WBC 18.3 H RBC 3.70 L Hgb 10.2 L D Hct 31.3 L MCV 84.7 MCH 27.5 MCHC 32.4 L RDW 18.8 H Plt Count 190 MPV 9.8 Neut % (Auto) 86.9 H Lymph % (Auto) 6.3 L [place] % (Auto) 5.9 Eos % (Auto) 0.7 Baso % (Auto) 0.2 Neut # 15.9 H Lymph # 1.1 [place] # 1.1 H Eos # 0.1 Baso # 0.0 PT INR APTT Sodium 139 Potassium 4.1 Chloride 109 H Carbon Dioxide 18 L Anion Gap 16 BUN 5 L Creatinine 0.5 L Est GFR ( Amer) > 60 Est GFR (Non-Af Amer) > 60 Random Glucose 89 Lactic Acid Calcium 8.1 L Magnesium Total Bilirubin 0.9 AST 34 ALT 36 Alkaline Phosphatase 170 H Total Protein 6.3 Albumin 2.7 L D Globulin 3.5 Albumin/Globulin Ratio 0.8 L Urine Color Tita Urine Clarity Turbid Urine pH 5.0 Ur Specific [place] 1.020 Urine Protein 2+ H Urine Glucose (UA) Normal Urine Ketones Negative Urine Blood 2+ H Urine Nitrate Negative Urine Bilirubin Negative Urine Urobilinogen Normal Ur Leukocyte Esterase 3+ H Urine WBC (Auto) 706 H Urine RBC (Auto) 25 H Urine WBC Clumps (Auto) Mod H Ur Squamous Epith Cells 48 H Urine Bacteria Few H 03/31/17 17:10 WBC RBC Hgb Hct MCV MCH MCHC RDW Plt Count MPV Neut % (Auto) Lymph % (Auto) [place] % (Auto) Eos % (Auto) Baso % (Auto) Neut # Lymph # [place] # Eos # Baso # PT 18.0 H INR 1.6 APTT 33 Sodium Potassium Chloride Carbon Dioxide Anion Gap BUN Creatinine Est GFR ( Amer) Est GFR (Non-Af Amer) Random Glucose Lactic Acid Calcium Magnesium Total Bilirubin AST ALT Alkaline Phosphatase Total Protein Albumin Globulin Albumin/Globulin Ratio Urine Color Urine Clarity Urine pH Ur Specific [place] Urine Protein Urine Glucose (UA) Urine Ketones Urine Blood Urine Nitrate Urine Bilirubin Urine Urobilinogen Ur Leukocyte Esterase Urine WBC (Auto) Urine RBC (Auto) Urine WBC Clumps (Auto) Ur Squamous Epith Cells Urine Bacteria Assessment & Plan - Assessment and Plan (Free Text) Assessment: 51 yr with sepsis/ irregular periods/fibroid uterus Plan: plan repeat snogrm cont medical management will folow up the results - Date & Time Date: 03/31/17 Time: 18:40
[2017-03-31 18:35] LABS: NEUTROPHIL 80 % (50-75); REACTIVE LYMPHOCYTES 1 % (0-0); TOTAL CELLS COUNTED 100
[2017-04-01] MEDS: metroNIDAZOLE IV 500 mg/100 ml 500 MG/100 ML BAG IVPB SCH ×3 (01:44→18:03)
[2017-04-01] MEDS: Meropenem 1 GM in Sodium Chloride 0.9% 100 ML IVPB SCH ×3 (05:01→21:30)
[2017-04-01 05:43] LABS: BASO # 0.1 K/uL (0.0-0.2); BASO % 0.5 % (0.0-2.0); EOS # 0.2 K/uL (0.0-0.7); EOS % 1.6 % (0.0-4.0); HEMATOCRIT 32.4 % (34.0-47.0); LYMPH # 1.4 K/uL (1.0-4.3); LYMPH % 9.7 % (20.0-40.0); MEAN CELL VOLUME 84.2 fL (81.0-99.0); MEAN CORPUSCULAR HEMOGLOBIN 26.9 pg (27.0-31.0); MEAN CORPUSCULAR HGB CONC 31.9 g/dL (33.0-37.0); MEAN PLATELET VOLUME 9.4 fL (7.2-11.7); MONO # 0.7 K/uL (0.0-0.8); MONO % 4.9 % (0.0-10.0); PLATELET COUNT 211 K/uL (130-400); RED CELL DISTRIBUTION WIDTH 19.4 % (11.5-14.5); WHITE BLOOD COUNT 14.4 K/uL (4.8-10.8)
[2017-04-01 06:25] LABS: ALB/GLOB RATIO 0.8 (1.0-2.1); ALKALINE PHOSPHATASE 155 U/L (38-126); ALT/SGPT 33 U/L (9-52); AST/SGOT 29 U/L (14-36); BILIRUBIN,TOTAL 0.4 mg/dL (0.2-1.3); BLOOD UREA NITROGEN 4 mg/dL (7-17); CALCIUM 8.4 mg/dl (8.6-10.4); CARBON DIOXIDE 17 mmol/L (22-30); CHLORIDE 107 mmol/L (98-107); GFR AFRICAN-AMERICAN > 60; GLUCOSE,RANDOM 84 mg/dL (65-105); MAGNESIUM 1.8 mg/dL (1.6-2.3); PHOSPHOROUS 4.1 mg/dL (2.5-4.5); POTASSIUM 3.3 mmol/L (3.6-5.2); SODIUM 137 mmol/L (132-148); TOTAL PROTEIN 6.2 g/dL (6.3-8.3)
[2017-04-01 08:25] LABS: EOSINOPHIL 3 % (0-4); NEUTROPHIL 74 % (50-75); TOTAL CELLS COUNTED 100
--- NOTE | 2017-04-01 08:45 | CP.PCM.PN ---
Subjective - Date & Time of Evaluation Date of Evaluation: 04/01/17 Time of Evaluation: 08:30 - Subjective Subjective: Patient was seen and examined by me, yesterday I did come in very briefly to introduce myself to the family as well as the patient. Today the patient reported that she was feeling better than she was yesterday. She is still reporting lower quadrant abdominal pain particularly on exam with palpation. She had some diarrhea previous night and this resolved with Imodium. She also had a blood transfusion yesterday as well today the hemoglobin is 10.4 after 1 unit of PRBCs. We discussed her anemia, and likely it appears that because of her very large fibroid situation that she's having a lot of vaginal bleeding from what I understand the patient says that she's trying to take extra iron in diet at home. She remains on IV into biotics at this time including IV Flagyl, IV Tobramycin, and IV Meropenem. The bandemia has decrease to 6, left shift is also decreased, and white blood cell count has decreased as well. She was afebrile overnight, her pressures have been better as well she has been getting IV fluids she has not needed IV pressor medications at this time As mentioned previously the patient is aware that she has very large fibrotic masses in the uterus. Very likely we suspect that these are the causes of her having so many infections and repeated admissions into the hospital, she is aware that likely not be able to remove these via surgery here [facility] and that she would have to go to a much larger Medical Center such as [facility]. The patient yesterday with a analytical sciences director explained to me that she's been there before but it seems like every time she stay her she's having a really bad infection and has not been able to get surgery. Objective - Vital Signs/Intake and Output Vital Signs (last 24 hours): Temp Pulse Resp BP Pulse Ox 99 F 73 26 H 106/46 L 97 04/01/17 08:00 04/01/17 08:00 04/01/17 08:00 04/01/17 07:46 04/01/17 08:00 Intake and Output: 04/01/17 04/01/17 06:59 18:59 Intake Total 1075 150 Output Total 1004 300 Balance 71 -150 - Medications Medications: Current Medications Famotidine (Pepcid) 20 mg IVP Q12 [facility] Last Admin: 03/31/17 21:31 Dose: 20 mg Metronidazole (Flagyl) 500 mg in 100 mls @ 100 mls/hr IVPB Q8H [facility] Last Admin: 04/01/17 01:44 Dose: 100 mls/hr Tobramycin Sulfate 100 mg/ (Sodium Chloride) 102.5 mls @ 102.5 mls/hr IVPB Q8 [facility] Last Admin: 04/01/17 06:32 Dose: Not Given Meropenem 1 gm/ Sodium (Chloride) 100 mls @ 100 mls/hr IVPB Q8 [facility] Last Admin: 04/01/17 05:01 Dose: 100 mls/hr Lactated Ringer's (Lactated Ringer's) 1,000 mls @ 75 mls/hr IV .[id number] [facility] Last Admin: 03/31/17 23:00 Dose: Not Given Saccharomyces Boulardii (Florastor) 250 mg PO BID [facility] Last Admin: 03/31/17 17:53 Dose: 250 mg - Labs Labs: 04/01/17 05:36 04/01/17 05:36 PT 18.0 SECONDS (9.7-12.2) H 03/31/17 17:10 INR 1.6 03/31/17 17:10 APTT 33 SECONDS (21-34) 03/31/17 17:10 - Constitutional Appears: Chronically Ill - Head Exam Head Exam: NORMAL INSPECTION - Eye Exam Eye Exam: Normal appearance - ENT Exam ENT Exam: Mucous Membranes Moist - Respiratory Exam Respiratory Exam: Clear to Ausculation Bilateral, NORMAL BREATHING PATTERN - GI/Abdominal Exam GI & Abdominal Exam: Soft, Tenderness. absent: Guarding, Rigid - Neurological Exam Neurological Exam: Alert, Awake, Oriented x3 Neuro motor strength exam: Left Upper Extremity: 5, Right Upper Extremity: 5, Left Lower Extremity: 5, Right Lower Extremity: 5 - Psychiatric Exam Psychiatric exam: Normal Affect, Normal Mood Assessment and Plan - Assessment and Plan (Free Text) Assessment: Assessment & Plan (1) Sepsis Assessment and Plan: 04/01: Her appearance is better today, the blood pressure is higher. WBC decreased , bandemia decreased, left shift decreased. Still pending on the blood culture at this time. Currently on Meropenon, Tobramycin, and Flagyl. Patient with 2 recent episodes of bacteremia presenting with fever,h ypotension ,leukocytosis with bandemia and elevated lactic acid F/U Blood and urine cultures IV antibiotics started: Flagyl, and Tobramycin) Florastor 250 mg PO BID ID evaluation IV fluids F/U echo (2) Fibroid - possible these are contributing to the repeat episodes of sepsis and hospitalizations Assessment and Plan: 04/01: Patient is aware of this and she understands that in the past has been advised that she needs this removed at [facility] for removal. The CT scan done here reveals Considerations for [employer] COMPENSATION re-evaluation once patient is stable Status: Chronic (3) Anemia Assessment and Plan: 04/01: she had 1 unit of PRBC yesterday. Hbg now 10 Likely secondary to hx of fibroids Considerations for iron deficiency workup if not previously investigated F/U CBC Type and screen (4) History of deep vein thrombosis (DVT) of lower extremity Assessment and Plan: 04/01: Currently not on coumadin, she just had a blood transfusion. Hgb is now better. Consider risks vs benefits of patient's vaginal bleeding vs need for anticoagulation due to hx of DVT. Will need to quantify vaginal bleeding. (5) Electrolyte abnormality Assessment and Plan: Hypokalemia and Hypomagnesemia Replete and monitor (6) Prophylactic measure Assessment and Plan: Currently on warfarin for hx of DVT. Weigh risks vs benefits of chemical VTE in light of vaginal bleeding GI prophylaxis 20 mg IV Q12
[2017-04-01] MEDS: Saccharomyces Boulardi 250 mg Cap PO SCH ×2 (10:06→18:04)
--- NOTE | 2017-04-01 10:39 | CP.CCUPN ---
CCU Objective - Vital Signs / Intake & Output Vital Signs (Last 4 hours): Vital Signs Temp Pulse Resp BP Pulse Ox 04/01/17 10:00 79 32 H 94 L 04/01/17 09:46 78 30 H 116/45 L 04/01/17 09:16 77 30 H 106/41 L 04/01/17 09:00 75 35 H 97 04/01/17 08:47 83 18 115/59 L 98 04/01/17 08:16 76 24 107/42 L 97 04/01/17 08:00 99 F 73 26 H 97 04/01/17 07:46 73 27 H 106/46 L 04/01/17 07:17 72 26 H 109/46 L 97 04/01/17 07:00 74 19 97 04/01/17 06:46 79 31 H 118/46 L Intake and Output (Last 8hrs): Intake & Output 03/31/17 04/01/17 04/01/17 22:59 06:59 14:59 Intake Total 1205 675 225 Output Total 873 1001 500 Balance 502 -324 -546 Intake: Intake, IV Amount 800 675 225 Right Antecubital 800 675 225 Oral 80 Blood Product 325 Red Blood Cells Cpd As1 325 Lr Unit [id number] Output: Urine 200 1000 500 Urine, Voided 200 1000 500 Urine/Stool Mix 673 1 Other: # Voids Urine, Voided 1 1 # Bowel Movements 2 - Medications Active Medications: Active Medications Generic Name Dose Route Start Last Admin Trade Name Franq PRN Reason Stop Dose Admin Famotidine 20 mg 03/31/17 10:00 04/01/17 10:05 Pepcid IVP 20 mg Q12 TORI Administration Metronidazole 500 mg in 100 mls @ 100 mls/hr 03/31/17 02:00 04/01/17 10:06 Flagyl IVPB 100 mls/hr Q8H TORI Administration Tobramycin Sulfate 100 mg/ 102.5 mls @ 102.5 mls/hr 03/31/17 06:00 04/01/17 06:32 Sodium Chloride IVPB Not Given Q8 TORI Meropenem 1 gm/ Sodium 100 mls @ 100 mls/hr 03/31/17 14:00 04/01/17 05:01 Chloride IVPB 100 mls/hr Q8 TORI Administration Lactated Ringer's 1,000 mls @ 75 mls/hr 03/31/17 22:42 03/31/17 23:00 Lactated Ringer's IV Not Given .[id number] TORI Saccharomyces Maxdii 250 mg 03/31/17 10:00 04/01/17 10:06 Florastor PO 250 mg BID TORI Administration - Patient Studies Lab Studies: Lab Studies 04/01/17 04/01/17 04/01/17 Range/Units 05:36 05:36 05:36 WBC 14.4 H (4.8-10.8) K/uL RBC 3.85 (3.80-5.20) Mil/uL Hgb 10.4 L (11.0-16.0) g/dL Hct 32.4 L (34.0-47.0) % MCV 84.2 (81.0-99.0) fL MCH 26.9 L (27.0-31.0) pg MCHC 31.9 L (33.0-37.0) g/dL RDW 19.4 H (11.5-14.5) % Plt Count 211 (130-400) K/uL MPV 9.4 (7.2-11.7) fL Neut % (Auto) 83.3 H (50.0-75.0) % Lymph % (Auto) 9.7 L (20.0-40.0) % [place] % (Auto) 4.9 (0.0-10.0) % Eos % (Auto) 1.6 (0.0-4.0) % Baso % (Auto) 0.5 (0.0-2.0) % Neut # 12.0 H (1.8-7.0) K/uL Lymph # 1.4 (1.0-4.3) K/uL [place] # 0.7 (0.0-0.8) K/uL Eos # 0.2 (0.0-0.7) K/uL Baso # 0.1 (0.0-0.2) K/uL Neutrophils % (Manual) 74 (50-75) % Band Neutrophils % 6 H (0-2) % Lymphocytes % (Manual) 12 L (20-40) % Reactive Lymphs % (0-0) % Monocytes % (Manual) 5 (0-10) % Eosinophils % (Manual) 3 (0-4) % Platelet Estimate Normal (NORMAL) Hypochromasia (manual) Slight Poikilocytosis (manual Slight Anisocytosis (manual) Slight PT (9.7-12.2) SECONDS INR APTT (21-34) SECONDS Sodium 137 (132-148) mmol/L Potassium 3.3 L (3.6-5.2) mmol/L Chloride 107 (98-107) mmol/L Carbon Dioxide 17 L (22-30) mmol/L Anion Gap 16 (10-20) BUN 4 L (7-17) mg/dL Creatinine 0.5 L (0.7-1.2) MG/DL Est GFR ( Amer) > 60 Est GFR (Non-Af Amer) > 60 Random Glucose 84 (65-105) mg/dL Calcium 8.4 L (8.6-10.4) mg/dl Phosphorus 4.1 (2.5-4.5) mg/dL Magnesium 1.8 (1.6-2.3) mg/dL Total Bilirubin 0.4 (0.2-1.3) mg/dL AST 29 (14-36) U/L ALT 33 (9-52) U/L Alkaline Phosphatase 155 H (38-126) U/L Total Protein 6.2 L (6.3-8.3) g/dL Albumin 2.7 L (3.5-5.0) g/dL Globulin 3.5 (2.2-3.9) gm/dL Albumin/Globulin Ratio 0.8 L (1.0-2.1) Tobramycin Trough 1.2 H (0.0-0.9) ug/mL 03/31/17 03/31/17 03/31/17 Range/Units 17:10 17:10 17:10 WBC 18.3 H (4.8-10.8) K/uL RBC 3.70 L (3.80-5.20) Mil/uL Hgb 10.2 L D (11.0-16.0) g/dL Hct 31.3 L (34.0-47.0) % MCV 84.7 (81.0-99.0) fL MCH 27.5 (27.0-31.0) pg MCHC 32.4 L (33.0-37.0) g/dL RDW 18.8 H (11.5-14.5) % Plt Count 190 (130-400) K/uL MPV 9.8 (7.2-11.7) fL Neut % (Auto) 86.9 H (50.0-75.0) % Lymph % (Auto) 6.3 L (20.0-40.0) % [place] % (Auto) 5.9 (0.0-10.0) % Eos % (Auto) 0.7 (0.0-4.0) % Baso % (Auto) 0.2 (0.0-2.0) % Neut # 15.9 H (1.8-7.0) K/uL Lymph # 1.1 (1.0-4.3) K/uL [place] # 1.1 H (0.0-0.8) K/uL Eos # 0.1 (0.0-0.7) K/uL Baso # 0.0 (0.0-0.2) K/uL Neutrophils % (Manual) 80 H (50-75) % Band Neutrophils % 9 H (0-2) % Lymphocytes % (Manual) 7 L (20-40) % Reactive Lymphs % 1 H (0-0) % Monocytes % (Manual) 3 (0-10) % Eosinophils % (Manual) (0-4) % Platelet Estimate Normal (NORMAL) Hypochromasia (manual) Slight Poikilocytosis (manual Slight Anisocytosis (manual) Slight PT 18.0 H (9.7-12.2) SECONDS INR 1.6 APTT 33 (21-34) SECONDS Sodium 139 (132-148) mmol/L Potassium 4.1 (3.6-5.2) mmol/L Chloride 109 H (98-107) mmol/L Carbon Dioxide 18 L (22-30) mmol/L Anion Gap 16 (10-20) BUN 5 L (7-17) mg/dL Creatinine 0.5 L (0.7-1.2) MG/DL Est GFR ( Amer) > 60 Est GFR (Non-Af Amer) > 60 Random Glucose 89 (65-105) mg/dL Calcium 8.1 L (8.6-10.4) mg/dl Phosphorus (2.5-4.5) mg/dL Magnesium (1.6-2.3) mg/dL Total Bilirubin 0.9 (0.2-1.3) mg/dL AST 34 (14-36) U/L ALT 36 (9-52) U/L Alkaline Phosphatase 170 H (38-126) U/L Total Protein 6.3 (6.3-8.3) g/dL Albumin 2.7 L D (3.5-5.0) g/dL Globulin 3.5 (2.2-3.9) gm/dL Albumin/Globulin Ratio 0.8 L (1.0-2.1) Tobramycin Trough (0.0-0.9) ug/mL Laboratory Results - last 24 hr 03/31/17 03/31/17 03/31/17 17:10 17:10 17:10 WBC 18.3 H RBC 3.70 L Hgb 10.2 L D Hct 31.3 L MCV 84.7 MCH 27.5 MCHC 32.4 L RDW 18.8 H Plt Count 190 MPV 9.8 Neut % (Auto) 86.9 H Lymph % (Auto) 6.3 L [place] % (Auto) 5.9 Eos % (Auto) 0.7 Baso % (Auto) 0.2 Neut # 15.9 H Lymph # 1.1 [place] # 1.1 H Eos # 0.1 Baso # 0.0 Neutrophils % (Manual) 80 H Band Neutrophils % 9 H Lymphocytes % (Manual) 7 L Reactive Lymphs % 1 H Monocytes % (Manual) 3 Eosinophils % (Manual) Platelet Estimate Normal Hypochromasia (manual) Slight Poikilocytosis (manual Slight Anisocytosis (manual) Slight PT 18.0 H INR 1.6 APTT 33 Sodium 139 Potassium 4.1 Chloride 109 H Carbon Dioxide 18 L Anion Gap 16 BUN 5 L Creatinine 0.5 L Est GFR ( Amer) > 60 Est GFR (Non-Af Amer) > 60 Random Glucose 89 Calcium 8.1 L Phosphorus Magnesium Total Bilirubin 0.9 AST 34 ALT 36 Alkaline Phosphatase 170 H Total Protein 6.3 Albumin 2.7 L D Globulin 3.5 Albumin/Globulin Ratio 0.8 L Tobramycin Trough 04/01/17 04/01/17 04/01/17 05:36 05:36 05:36 WBC 14.4 H RBC 3.85 Hgb 10.4 L Hct 32.4 L MCV 84.2 MCH 26.9 L MCHC 31.9 L RDW 19.4 H Plt Count 211 MPV 9.4 Neut % (Auto) 83.3 H Lymph % (Auto) 9.7 L [place] % (Auto) 4.9 Eos % (Auto) 1.6 Baso % (Auto) 0.5 Neut # 12.0 H Lymph # 1.4 [place] # 0.7 Eos # 0.2 Baso # 0.1 Neutrophils % (Manual) 74 Band Neutrophils % 6 H Lymphocytes % (Manual) 12 L Reactive Lymphs % Monocytes % (Manual) 5 Eosinophils % (Manual) 3 Platelet Estimate Normal Hypochromasia (manual) Slight Poikilocytosis (manual Slight Anisocytosis (manual) Slight PT INR APTT Sodium 137 Potassium 3.3 L Chloride 107 Carbon Dioxide 17 L Anion Gap 16 BUN 4 L Creatinine 0.5 L Est GFR ( Amer) > 60 Est GFR (Non-Af Amer) > 60 Random Glucose 84 Calcium 8.4 L Phosphorus 4.1 Magnesium 1.8 Total Bilirubin 0.4 AST 29 ALT 33 Alkaline Phosphatase 155 H Total Protein 6.2 L Albumin 2.7 L Globulin 3.5 Albumin/Globulin Ratio 0.8 L Tobramycin Trough 1.2 H Critical Care Progress Note - Nutrition Nutrition: Nutrition Category Date Time Status Liquid Diet [DIET] Diets 03/31/17 Dinner Active
--- NOTE | 2017-04-01 11:05 | US ---
HISTORY: VAGINAL BLEEDING, FIBROMAS COMPARISON: Pelvic ultrasound performed 03/01/17; CT of the abdomen and pelvis with contrast performed 03/31/17 TECHNIQUE: Transabdominal pelvic ultrasound FINDINGS: UTERUS: Measures 22.7 x 13.1 x 19.7 cm. Probable lower uterine fibroid measuring approximately 10.5 x 8.5 x 10.6 cm. Probable fundal fibroid measuring approximately 11.2 x 9.3 x 10.9 cm. ENDOMETRIUM: Measures measures approximately 1.6 cm in diameter. Small fluid noted within the endometrial cavity. CERVIX: No cervical abnormality identified. RIGHT OVARY: Not visualized. LEFT OVARY: Measures 6.0 x 5.1 x 6.5 cm. Flow is demonstrated. 5.7 x 4.1 x 4.8 cm anechoic avascular lesion with questionable thin septations. FREE FLUID: No significant free fluid noted. OTHER FINDINGS: None. IMPRESSION: Fibroid uterus as above. 5.7 x 4.1 x 4.8 cm cyst/cystic lesion. Small fluid within the endometrial cavity.
--- NOTE | 2017-04-01 17:26 | CP.PCM.PN ---
Subjective - Date & Time of Evaluation Date of Evaluation: 04/01/17 Time of Evaluation: 08:00 - Subjective Subjective: tobra held due to neg cultures and toxic levels cont flagyl/ merrem Objective - Vital Signs/Intake and Output Vital Signs (last 24 hours): Temp Pulse Resp BP Pulse Ox 98.8 F 87 35 H 116/38 L 95 04/01/17 16:00 04/01/17 15:46 04/01/17 15:46 04/01/17 15:46 04/01/17 15:00 Intake and Output: 04/01/17 04/01/17 06:59 18:59 Intake Total 1075 800 Output Total 1004 700 Balance 71 100 - Medications Medications: Current Medications Famotidine (Pepcid) 20 mg IVP Q12 [facility] Last Admin: 04/01/17 10:05 Dose: 20 mg Metronidazole (Flagyl) 500 mg in 100 mls @ 100 mls/hr IVPB Q8H [facility] Last Admin: 04/01/17 10:06 Dose: 100 mls/hr Meropenem 1 gm/ Sodium (Chloride) 100 mls @ 100 mls/hr IVPB Q8 [facility] Last Admin: 04/01/17 13:48 Dose: 100 mls/hr Lactated Ringer's (Lactated Ringer's) 1,000 mls @ 75 mls/hr IV .[id number] [facility] Last Admin: 03/31/17 23:00 Dose: Not Given Saccharomyces Boulardii (Florastor) 250 mg PO BID [facility] Last Admin: 04/01/17 10:06 Dose: 250 mg - Labs Labs: 04/01/17 05:36 04/01/17 05:36 PT 18.0 SECONDS (9.7-12.2) H 03/31/17 17:10 INR 1.6 03/31/17 17:10 APTT 33 SECONDS (21-34) 03/31/17 17:10 Assessment and Plan (1) Fever Status: Acute (2) Sepsis Status: Acute (3) Abdominal pain Status: Chronic
[2017-04-01] MEDS: Lactated Ringer's 1,000 ML IV SCH (18:05)
--- NOTE | 2017-04-01 19:27 | CARD ---
APPROVED REPORT EKG Measurement Heart [id number] CO [id number] [id number] <Conclusion> Normal sinus rhythm Inferior infarct, age undetermined Abnormal ECG
[2017-04-01 20:16] VITALS: RESP 20
[2017-04-02] MEDS: metroNIDAZOLE IV 500 mg/100 ml 500 MG/100 ML BAG IVPB SCH ×3 (01:50→17:37)
[2017-04-02] MEDS: Lactated Ringer's 1,000 ML IV SCH ×3 (01:52→14:09)
--- NOTE | 2017-04-02 02:30 | CP.PCM.CON ---
History of Present Illness - History of Present Illness History of Present Illness: Patient was interviewed 04/01/17 approximately 1830 hours in ICU bed 17. Chanell Phelps R.N. was present as my educational sign language interpreter. At that time, patient's ICU nurse was present, along with her and sister. Patient was received in bed, in NAD; awake, alert, oriented to time person and place. She reported persistent abdominal pain and occasional bloating, the latter more significant during LMP 02/21 through its termination 03/07/17. There was no more vaginal bleeding. During this encounter, patient explained that she presented to [facility] to see the "watch and clock repair clerk specialist" as she had been instructed to from previous admission(s). She states she was not seen because she did not have the appropriate referral. Patient has the appropriate insurance. Past Patient History - Infectious Disease Hx of Infectious Diseases: None - Past Medical History & Family History Past Medical History?: Yes - Past Social History Smoking Status: Never Smoked Alcohol: None Drugs: Denies Home Situation {Lives}: With Family - CARDIAC Hx Cardiac Disorders: No - PULMONARY Hx Respiratory Disorders: No - NEUROLOGICAL Hx Neurological Disorder: Yes Hx Seizures: Yes - HEENT Hx HEENT Problems: No - RENAL Hx Chronic Kidney Disease: No - ENDOCRINE/METABOLIC Hx Endocrine Disorders: Yes Other/Comment: thyroid disorder - HEMATOLOGICAL/ONCOLOGICAL Hx Blood Disorders: Yes Hx Anemia: Yes Other/Comment: DVT - INTEGUMENTARY Hx Dermatological Problems: No - MUSCULOSKELETAL/RHEUMATOLOGICAL Hx Falls: No - GASTROINTESTINAL Hx Gastrointestinal Disorders: Yes Other/Comment: 12/2016, Appendicitis - GENITOURINARY/GYNECOLOGICAL Hx Genitourinary Disorders: Yes Other/Comment: Leiomyomata LMP:: 02/21/17 - PSYCHIATRIC Hx Substance Use: No - SURGICAL HISTORY Hx Surgeries: Yes Hx Appendectomy: Yes (12/2016) Other/Comment: APPENDECTOMY-JAN 01 2017 - ANESTHESIA Hx Anesthesia: Yes Hx Anesthesia Reactions: No Hx Malignant Hyperthermia: No Has any member of the family had a problem w/ anesthesia?: No Meds Allergies/Adverse Reactions: Allergies Allergy/AdvReac Type Severity Reaction Status Date / Time vancomycin Allergy Severe REDNESS Verified 03/30/17 22:54 - Medications Medications: Current Medications Acetaminophen (Tylenol 325mg Tab) 650 mg PO Q6 PRN PRN Reason: Fever >100.4 F Last Admin: 04/01/17 19:59 Dose: 650 mg Famotidine (Pepcid) 20 mg IVP Q12 [facility] Last Admin: 04/01/17 21:31 Dose: 20 mg Metronidazole (Flagyl) 500 mg in 100 mls @ 100 mls/hr IVPB Q8H [facility] Last Admin: 04/02/17 01:50 Dose: 100 mls/hr Meropenem 1 gm/ Sodium (Chloride) 100 mls @ 100 mls/hr IVPB Q8 [facility] Last Admin: 04/01/17 21:30 Dose: 100 mls/hr Lactated Ringer's (Lactated Ringer's) 1,000 mls @ 75 mls/hr IV .[id number] [facility] Last Admin: 04/02/17 01:52 Dose: Not Given Saccharomyces Boulardii (Florastor) 250 mg PO BID [facility] Last Admin: 04/01/17 18:04 Dose: 250 mg Physical Exam - Constitutional Appears: Well, No Acute Distress - ENT Exam ENT Exam: Mucous Membranes Moist - Respiratory Exam Respiratory Exam: NORMAL BREATHING PATTERN - Cardiovascular Exam Cardiovascular Exam: REGULAR RHYTHM - GI/Abdominal Exam Additional comments: Palpable abdominal mass, approx 28 weeks, tender to palpation in all quadrants; immobile; irregular in contour. - Exam Additional comments: bimanual exam - not performed - Extremities Exam Extremities exam: Positive for: normal inspection - Neurological Exam Neurological exam: Alert, Oriented x3 - Psychiatric Exam Psychiatric exam: Normal Affect, Normal Mood - Skin Skin Exam: Dry, Intact, Pallor Results - Vital Signs Recent Vital Signs: Last Vital Signs Temp 98.6 F 04/02/17 00:00 Pulse 80 04/02/17 00:00 Resp 20 04/02/17 00:00 BP 108/69 04/02/17 00:00 Pulse Ox 98 04/02/17 00:00 - Labs Result Diagrams: 04/01/17 05:36 04/01/17 05:36 Labs: Laboratory Results - last 24 hr 04/01/17 04/01/17 04/01/17 05:36 05:36 05:36 WBC 14.4 H RBC 3.85 Hgb 10.4 L Hct 32.4 L MCV 84.2 MCH 26.9 L MCHC 31.9 L RDW 19.4 H Plt Count 211 MPV 9.4 Neut % (Auto) 83.3 H Lymph % (Auto) 9.7 L [place] % (Auto) 4.9 Eos % (Auto) 1.6 Baso % (Auto) 0.5 Neut # 12.0 H Lymph # 1.4 [place] # 0.7 Eos # 0.2 Baso # 0.1 Neutrophils % (Manual) 74 Band Neutrophils % 6 H Lymphocytes % (Manual) 12 L Monocytes % (Manual) 5 Eosinophils % (Manual) 3 Platelet Estimate Normal Hypochromasia (manual) Slight Poikilocytosis (manual Slight Anisocytosis (manual) Slight Sodium 137 Potassium 3.3 L Chloride 107 Carbon Dioxide 17 L Anion Gap 16 BUN 4 L Creatinine 0.5 L Est GFR ( Amer) > 60 Est GFR (Non-Af Amer) > 60 Random Glucose 84 Calcium 8.4 L Phosphorus 4.1 Magnesium 1.8 Total Bilirubin 0.4 AST 29 ALT 33 Alkaline Phosphatase 155 H Total Protein 6.2 L Albumin 2.7 L Globulin 3.5 Albumin/Globulin Ratio 0.8 L Tobramycin Trough 1.2 H Assessment & Plan - Assessment and Plan (Free Text) Assessment: Laboratory test results and imaging studies from 12/2016 through this admissin were reviewed by me personally . It was explained to the patient, that in my estimation, her recurrent episodes of septicemia/bacteremia are a separate phenomenon from the change in the nature of her vaginal bleeding, in the presence of her leiomyomatous uteri, even with the possibility of degeneration. The patient is quite possibly lorraine- menopausal; anecdotally, it is quite common for a woman t oexperience polymenorrhea during this time, before progressing to stage of oligomenorrhea and ultimately cessation of menses. Today's ultrasound results were reviewed with her and her family: significant for uterus measuring 22.7 x 13.1 x 19.7 cm ; probable lower uterine myoma 10.5 x 8.5 x 10.6 cm; probable fundal myoma 11.2 x 9.3 x 10.9 cm. Endometrium 1.6 cm. I explained to the patient that I will endeavour to provide her with referral letter in the hope that this will suffice. Of note: patient stated, and her concurred, that she has NEVER had a gynecological evaluation. It was explained to her that she will need a pap test, some sort of endometrial sampling, at a minimum. Patient's sister offered that she patient may have had a Pap test, a few months back. It was explained to the patient, it is up to her to obtain copies of her medical records from every medical provider she has seen in the past 6-8 months, including labs test and discharge summaries. Patient expressed an understanding and agrees. Plan: As per primary medical team. Signing off on this consult. Please re-consult if needed. - Date & Time Date: 04/01/17 Time: 19:00
[2017-04-02] MEDS: Meropenem 1 GM in Sodium Chloride 0.9% 100 ML IVPB SCH ×3 (05:25→21:39)
[2017-04-02] MEDS ORDERED: Potassium Chloride 20 mEq/15 ml LIQ UD PO ONE (09:18)
[2017-04-02] MEDS: Saccharomyces Boulardi 250 mg Cap PO SCH ×2 (10:04→17:37)
--- NOTE | 2017-04-02 16:07 | CP.PCM.PN ---
<Roger Mcdaniel - Last Filed: 04/02/17 16:03> Subjective - Date & Time of Evaluation Date of Evaluation: 04/02/17 Time of Evaluation: 09:05 - Subjective Subjective: PGY1 Medicine Note for Dr. Tamez Patient and examined this morning at bedside. Patient states that her pain is greatly decreased this morning. Patient states that the pain is just located in the lower portion of her abdomen, just inferior to her umbilicus. This is her baseline pain from her known fibroids. Patient states taht she is hungry and would like to eat a regular diet compared to just the clear liquid diet she is currently on. Denies f/c, n/v, d/c, sob or cp. Objective - Vital Signs/Intake and Output Vital Signs (last 24 hours): Temp Pulse Resp BP Pulse Ox 98.3 F 75 20 99/52 L 98 04/02/17 08:22 04/02/17 08:22 04/02/17 08:22 04/02/17 08:22 04/02/17 08:22 Intake and Output: 04/02/17 04/02/17 06:59 18:59 Intake Total 870 Balance 870 - Medications Medications: Current Medications Acetaminophen (Tylenol 325mg Tab) 650 mg PO Q6 PRN PRN Reason: Fever >100.4 F Last Admin: 04/02/17 10:18 Dose: 650 mg Famotidine (Pepcid) 20 mg IVP Q12 [facility] Last Admin: 04/02/17 10:05 Dose: 20 mg Metronidazole (Flagyl) 500 mg in 100 mls @ 100 mls/hr IVPB Q8H [facility] Last Admin: 04/02/17 10:04 Dose: 100 mls/hr Meropenem 1 gm/ Sodium (Chloride) 100 mls @ 100 mls/hr IVPB Q8 [facility] Last Admin: 04/02/17 14:10 Dose: 100 mls/hr Lactated Ringer's (Lactated Ringer's) 1,000 mls @ 75 mls/hr IV .[id number] [facility] Last Admin: 04/02/17 14:09 Dose: Not Given Saccharomyces Boulardii (Florastor) 250 mg PO BID [facility] Last Admin: 04/02/17 10:04 Dose: 250 mg - Labs Labs: 04/01/17 05:36 04/01/17 05:36 PT 18.0 SECONDS (9.7-12.2) H 03/31/17 17:10 INR 1.6 03/31/17 17:10 APTT 33 SECONDS (21-34) 03/31/17 17:10 - Constitutional Appears: Non-toxic, No Acute Distress - Head Exam Head Exam: ATRAUMATIC, NORMOCEPHALIC - ENT Exam ENT Exam: Mucous Membranes Moist - Respiratory Exam Respiratory Exam: Clear to Ausculation Bilateral, NORMAL BREATHING PATTERN. absent: Accessory Muscle Use, Rhonchi, Wheezes, Respiratory Distress - Cardiovascular Exam Cardiovascular Exam: REGULAR RHYTHM, +S1, +S2 - GI/Abdominal Exam GI & Abdominal Exam: Soft, Tenderness (inferior to umbilicus), Normal Bowel Sounds. absent: Distended, Guarding - Extremities Exam Extremities Exam: absent: Calf Tenderness, Pedal Edema - Neurological Exam Neurological Exam: Alert, Awake, Oriented x3 - Psychiatric Exam Psychiatric exam: Normal Affect, Normal Mood - Skin Skin Exam: Dry, Normal Color, Warm Assessment and Plan - Assessment and Plan (Free Text) Plan: (1) Sepsis Assessment and Plan: Blood cultures neg at 48 hours IV antibiotics started: Flagyl, and Tobramycin) Florastor 250 mg PO BID ID evaluation IV fluids F/U echo (2) Fibroid Assessment and Plan: US (04/01/17): Uterus - 11.2x9.3x10.9cm; Lower Uterine Myoma - 10.5x8.5x10.6cm; Fundal Myoma - 11.2x9.3x10.9cm; Endometrium - 1.6cm 04/01: Patient is aware of this and she understands that in the past has been advised that she needs this removed at [facility] for removal. The CT scan done here reveals Considerations for SUPERVISING FLOORPERSON re-evaluation once patient is stable (3) Anemia Assessment and Plan: 04/01: she had 1 unit of PRBC yesterday. Hbg now 10 Likely secondary to hx of fibroids H/H stable at 10.4/32.4 (4) History of deep vein thrombosis (DVT) of lower extremity Assessment and Plan: 04/01: Currently not on coumadin, she just had a blood transfusion. Hgb is now better. Consider risks vs benefits of patient's vaginal bleeding vs need for anticoagulation due to hx of DVT. Patient states she has been passing clots while using the bathroom. Will need to quantify vaginal bleeding. No anti-coag at this time. (5) Electrolyte abnormality Assessment and Plan: Hypokalemia and Hypomagnesemia Replete and monitor (6) Prophylactic measure Assessment and Plan: Currently on warfarin for hx of DVT. Weigh risks vs benefits of chemical VTE in light of vaginal bleeding GI prophylaxis 20 mg IV Q12 Discussed with patient the need to follow up with a larger hospital that has SUPERVISING FLOORPERSON /Oncologist specialist in order to remove her fibroids. Patient states she understands and will plan to be worked up as an outpatient at the [facility]. Case discussed with Dr. Joi Mcdaniel PGY1 <Michael Tamez H - Last Filed: 04/02/17 17:51> Objective - Vital Signs/Intake and Output Vital Signs (last 24 hours): Temp Pulse Resp BP Pulse Ox 98.3 F 75 20 99/52 L 98 04/02/17 08:22 04/02/17 08:22 04/02/17 08:22 04/02/17 08:22 04/02/17 08:22 Intake and Output: 04/02/17 04/02/17 06:59 18:59 Intake Total 870 Balance 870 - Medications Medications: Current Medications Acetaminophen (Tylenol 325mg Tab) 650 mg PO Q6 PRN PRN Reason: Fever >100.4 F Last Admin: 04/02/17 10:18 Dose: 650 mg Famotidine (Pepcid) 20 mg IVP Q12 [facility] Last Admin: 04/02/17 10:05 Dose: 20 mg Metronidazole (Flagyl) 500 mg in 100 mls @ 100 mls/hr IVPB Q8H [facility] Last Admin: 04/02/17 17:37 Dose: 100 mls/hr Meropenem 1 gm/ Sodium (Chloride) 100 mls @ 100 mls/hr IVPB Q8 [facility] Last Admin: 04/02/17 14:10 Dose: 100 mls/hr Lactated Ringer's (Lactated Ringer's) 1,000 mls @ 75 mls/hr IV .[id number] [facility] Last Admin: 04/02/17 14:09 Dose: Not Given Saccharomyces Boulardii (Florastor) 250 mg PO BID [facility] Last Admin: 04/02/17 17:37 Dose: 250 mg - Labs Labs: 04/01/17 05:36 04/01/17 05:36 PT 18.0 SECONDS (9.7-12.2) H 03/31/17 17:10 INR 1.6 03/31/17 17:10 APTT 33 SECONDS (21-34) 03/31/17 17:10 Attending/Attestation - Attestation I have personally seen and examined this patient.: Yes I have fully participated in the care of the patient.: Yes I have reviewed all pertinent clinical information, including history, physical exam and plan: Yes Notes (Text): 04/02/17 17:47 Medical attending: Patient was seen and examined by me, agree with the above note by director biomedical engineering. The patient reported that she was feeling a lot better since the previous day. She states that she normally has abdominal pain and that the pain is decreased and is back at her baseline. She remains on the IV into biotics at this time including Meropenem, Flagyl, and With the help of cardroom supervisor I explained to the patient the importance of her needing eventual follow-up at [facility]. And we were careful to explain to her that she needs to follow-up at some type of patricio care/ resident clinic over at [facility] for eventual surgical referrals. We explained to her that even though she is feeling better and that her lab work appeared to be better as well that are concern was with the very large fibroid situation that she has these are difficult to remove and could be necrotic tissue that could be the source of bacterial infections. The patient explains that she wants to go home, however her white blood cell count is still somewhat elevated. Thank you very much, Michael Tamez
--- NOTE | 2017-04-02 17:56 | CP.PCM.PN ---
Subjective - Date & Time of Evaluation Date of Evaluation: 04/02/17 Time of Evaluation: 08:00 - Subjective Subjective: thus far cultures are neg afeb with decreased wbc on iv merrem / flagyl less abd pain no fever cont rx for sepsis - given neg cultures and septic presentation would consider : echocardiogram, gallium scan Objective - Vital Signs/Intake and Output Vital Signs (last 24 hours): Temp Pulse Resp BP Pulse Ox 98.3 F 75 20 99/52 L 98 04/02/17 08:22 04/02/17 08:22 04/02/17 08:22 04/02/17 08:22 04/02/17 08:22 Intake and Output: 04/02/17 04/02/17 06:59 18:59 Intake Total 870 Balance 870 - Medications Medications: Current Medications Acetaminophen (Tylenol 325mg Tab) 650 mg PO Q6 PRN PRN Reason: Fever >100.4 F Last Admin: 04/02/17 10:18 Dose: 650 mg Famotidine (Pepcid) 20 mg IVP Q12 [facility] Last Admin: 04/02/17 10:05 Dose: 20 mg Metronidazole (Flagyl) 500 mg in 100 mls @ 100 mls/hr IVPB Q8H [facility] Last Admin: 04/02/17 17:37 Dose: 100 mls/hr Meropenem 1 gm/ Sodium (Chloride) 100 mls @ 100 mls/hr IVPB Q8 [facility] Last Admin: 04/02/17 14:10 Dose: 100 mls/hr Lactated Ringer's (Lactated Ringer's) 1,000 mls @ 75 mls/hr IV .[id number] [facility] Last Admin: 04/02/17 14:09 Dose: Not Given Saccharomyces Boulardii (Florastor) 250 mg PO BID [facility] Last Admin: 04/02/17 17:37 Dose: 250 mg - Labs Labs: 04/01/17 05:36 04/01/17 05:36 PT 18.0 SECONDS (9.7-12.2) H 03/31/17 17:10 INR 1.6 03/31/17 17:10 APTT 33 SECONDS (21-34) 03/31/17 17:10 Assessment and Plan (1) Fever Status: Acute (2) Sepsis Status: Acute (3) Abdominal pain Status: Chronic
[2017-04-03] MEDS: metroNIDAZOLE IV 500 mg/100 ml 500 MG/100 ML BAG IVPB SCH ×3 (01:36→17:18)
[2017-04-03] MEDS: Lactated Ringer's 1,000 ML IV SCH ×2 (04:21→05:00)
[2017-04-03] MEDS: Meropenem 1 GM in Sodium Chloride 0.9% 100 ML IVPB SCH ×3 (05:00→22:01)
[2017-04-03] MEDS: Saccharomyces Boulardi 250 mg Cap PO SCH ×2 (10:09→17:18)
[2017-04-03 13:01] LABS: BASO # 0.2 K/uL (0.0-0.2); BASO % 0.9 % (0.0-2.0); EOS % 0.1 % (0.0-4.0); HEMATOCRIT 35.1 % (34.0-47.0); LYMPH # 1.3 K/uL (1.0-4.3); LYMPH % 6.8 % (20.0-40.0); MEAN CELL VOLUME 82.5 fL (81.0-99.0); MEAN CORPUSCULAR HEMOGLOBIN 26.5 pg (27.0-31.0); MEAN CORPUSCULAR HGB CONC 32.1 g/dL (33.0-37.0); MEAN PLATELET VOLUME 9.3 fL (7.2-11.7); MONO # 0.8 K/uL (0.0-0.8); PLATELET COUNT 286 K/uL (130-400); RED CELL DISTRIBUTION WIDTH 19.7 % (11.5-14.5); WHITE BLOOD COUNT 19.3 K/uL (4.8-10.8)
[2017-04-03 13:23] LABS: NEUTROPHIL 75 % (50-75); REACTIVE LYMPHOCYTES 1 % (0-0); TOTAL CELLS COUNTED 100
[2017-04-03 13:29] LABS: ALB/GLOB RATIO 0.7 (1.0-2.1); ALKALINE PHOSPHATASE 174 U/L (38-126); ALT/SGPT 28 U/L (9-52); AST/SGOT 23 U/L (14-36); BILIRUBIN,TOTAL 0.6 mg/dL (0.2-1.3); BLOOD UREA NITROGEN 3 mg/dL (7-17); CALCIUM 8.5 mg/dl (8.6-10.4); CARBON DIOXIDE 24 mmol/L (22-30); CHLORIDE 96 mmol/L (98-107); GFR AFRICAN-AMERICAN > 60; GLUCOSE,RANDOM 116 mg/dL (65-105); POTASSIUM 3.3 mmol/L (3.6-5.2); SODIUM 133 mmol/L (132-148)
--- NOTE | 2017-04-03 13:54 | CP.PCM.PN ---
<Susan Min - Last Filed: 04/03/17 13:51> Subjective - Date & Time of Evaluation Date of Evaluation: 04/03/17 Time of Evaluation: 10:00 - Subjective Subjective: Medicine Note for Dr. Tamez Patient and examined at bedside. Patient reports she feels well and would like to go home. She just had some minor nausea with 1 episode of vomiting. Patient was made aware that we are managing her infection and once that resolves she can be discharged home. Admitted to scant vaginal bleeding when wiping. Denied fever, chills, headache, chest pain, abdominal pain, n/v/d/c, or urinary symptoms. Objective - Vital Signs/Intake and Output Vital Signs (last 24 hours): Temp Pulse Resp BP Pulse Ox 99.6 F 97 H 20 110/63 98 04/03/17 08:30 04/03/17 08:30 04/03/17 08:30 04/03/17 08:30 04/03/17 08:30 Intake and Output: 04/03/17 04/03/17 06:59 18:59 Intake Total 1650 Balance 1650 - Medications Medications: Current Medications Acetaminophen (Tylenol 325mg Tab) 650 mg PO Q6 PRN PRN Reason: Fever >100.4 F Last Admin: 04/03/17 13:18 Dose: 650 mg Famotidine (Pepcid) 20 mg IVP Q12 [facility] Last Admin: 04/03/17 10:10 Dose: 20 mg Metronidazole (Flagyl) 500 mg in 100 mls @ 100 mls/hr IVPB Q8H [facility] Last Admin: 04/03/17 10:10 Dose: 100 mls/hr Meropenem 1 gm/ Sodium (Chloride) 100 mls @ 100 mls/hr IVPB Q8 [facility] Last Admin: 04/03/17 05:00 Dose: 100 mls/hr Lactated Ringer's (Lactated Ringer's) 1,000 mls @ 75 mls/hr IV .[id number] [facility] Last Admin: 04/03/17 05:00 Dose: 75 mls/hr Ondansetron HCl (Zofran Inj) 4 mg IVP Q6H PRN PRN Reason: Nausea/Vomiting Last Admin: 04/03/17 13:18 Dose: 4 mg Potassium Chloride (K-Dur 20 Meq Er Tab) 40 meq PO ONCE ONE Stop: 04/03/17 14:01 Saccharomyces Sergei (Florastor) 250 mg PO BID [facility] Last Admin: 04/03/17 10:09 Dose: 250 mg - Labs Labs: 04/03/17 12:48 04/03/17 12:48 PT 18.0 SECONDS (9.7-12.2) H 03/31/17 17:10 INR 1.6 03/31/17 17:10 APTT 33 SECONDS (21-34) 03/31/17 17:10 - Constitutional Appears: No Acute Distress - Head Exam Head Exam: NORMAL INSPECTION, NORMOCEPHALIC - Eye Exam Eye Exam: EOMI, Normal appearance, PERRL - ENT Exam ENT Exam: Mucous Membranes Moist - Respiratory Exam Respiratory Exam: Clear to Ausculation Bilateral, NORMAL BREATHING PATTERN - Cardiovascular Exam Cardiovascular Exam: REGULAR RHYTHM, RRR, +S1, +S2 - GI/Abdominal Exam GI & Abdominal Exam: Soft, Normal Bowel Sounds. absent: Tenderness - Extremities Exam Extremities Exam: Normal Inspection. absent: Pedal Edema, Tenderness - Neurological Exam Neurological Exam: Alert, Awake, Oriented x3 - Psychiatric Exam Psychiatric exam: Normal Affect, Normal Mood - Skin Skin Exam: Dry, Intact, Normal Color, Warm Assessment and Plan - Assessment and Plan (Free Text) Plan: Sepsis Assessment and Plan: Blood cultures neg at 48 hours IV antibiotics started: Flagyl and Meropenem 03/31/17 Florastor 250 mg PO BID ID evaluation IV fluids F/U ECHO Fibroid Assessment and Plan: US (04/01/17): Uterus - 11.2x9.3x10.9cm; Lower Uterine Myoma - 10.5x8.5x10.6cm; Fundal Myoma - 11.2x9.3x10.9cm; Endometrium - 1.6cm 04/01: Patient is aware of this and she understands that in the past has been advised that she needs this removed at [facility] for removal. The CT scan done here reveals Considerations for [employer] re-evaluation once patient is stable Anemia Assessment and Plan: 04/01: she had 1 unit of PRBC yesterday. Hbg now 10 Likely secondary to hx of fibroids H/H stable at 10.4/32.4 History of deep vein thrombosis (DVT) of lower extremity Assessment and Plan: 8/9: Currently not on coumadin, she just had a blood transfusion. Hgb is now better. Consider risks vs benefits of patient's vaginal bleeding vs need for anticoagulation due to hx of DVT. Patient states she has been passing clots while using the bathroom. Will need to quantify vaginal bleeding. No anti-coag at this time. Prophylactic measure Assessment and Plan: Currently on warfarin for hx of DVT. Weigh risks vs benefits of chemical VTE in light of vaginal bleeding GI prophylaxis 20 mg IV Q12 Discussed with patient the need to follow up with a larger hospital that has DR[employer]ING TE[employer]ER /Oncologist specialist in order to remove her fibroids. Patient states she understands and will plan to be worked up as an outpatient at the [facility]. DW Dr. Tamez, Pako BARROSO, PGY-1 <Michael Tamez H - Last Filed: 04/03/17 14:32> Objective - Vital Signs/Intake and Output Vital Signs (last 24 hours): Temp Pulse Resp BP Pulse Ox 99.6 F 97 H 20 110/63 98 04/03/17 08:30 04/03/17 08:30 04/03/17 08:30 04/03/17 08:30 04/03/17 08:30 Intake and Output: 04/03/17 04/03/17 06:59 18:59 Intake Total 1650 Balance 1650 - Medications Medications: Current Medications Acetaminophen (Tylenol 325mg Tab) 650 mg PO Q6 PRN PRN Reason: Fever >100.4 F Last Admin: 04/03/17 13:18 Dose: 650 mg Famotidine (Pepcid) 20 mg IVP Q12 [facility] Last Admin: 04/03/17 10:10 Dose: 20 mg Metronidazole (Flagyl) 500 mg in 100 mls @ 100 mls/hr IVPB Q8H [facility] Last Admin: 04/03/17 10:10 Dose: 100 mls/hr Meropenem 1 gm/ Sodium (Chloride) 100 mls @ 100 mls/hr IVPB Q8 [facility] Last Admin: 04/03/17 13:52 Dose: 100 mls/hr Ondansetron HCl (Zofran Inj) 4 mg IVP Q6H PRN PRN Reason: Nausea/Vomiting Last Admin: 04/03/17 13:18 Dose: 4 mg Saccharomyces Boulardii (Florastor) 250 mg PO BID [facility] Last Admin: 04/03/17 10:09 Dose: 250 mg - Labs Labs: 04/03/17 12:48 04/03/17 12:48 PT 18.0 SECONDS (9.7-12.2) H 03/31/17 17:10 INR 1.6 03/31/17 17:10 APTT 33 SECONDS (21-34) 03/31/17 17:10 Attending/Attestation - Attestation I have personally seen and examined this patient.: Yes I have fully participated in the care of the patient.: Yes I have reviewed all pertinent clinical information, including history, physical exam and plan: Yes Notes (Text): Medical Attending: Patient was seen and examined by me. Agree with the above note by the resident. She really wanted to go home today. She reported not having any pain in the abdomen or flank areas and denied fevers and chills - however lab work had not yet returned and when it did it showed an elevation of WBC count. She remains on IV abx at this time. Recently she also had an echo done as well. Because of the elevated WBC continue abx for now. Continue to watch cultures, vital signs, procalctonin. thank you Michael Tamez 04/03/17 14:32
[2017-04-03] MEDS ORDERED: Potassium Chloride 20 mEq ER Tab PO ONE (14:00)
[2017-04-04] MEDS: metroNIDAZOLE IV 500 mg/100 ml 500 MG/100 ML BAG IVPB SCH ×2 (02:23→09:59)
[2017-04-04] MEDS: Meropenem 1 GM in Sodium Chloride 0.9% 100 ML IVPB SCH ×2 (05:09→13:31)
[2017-04-04 07:17] LABS: BASO % 0.2 % (0.0-2.0); EOS # 0.1 K/uL (0.0-0.7); EOS % 1.2 % (0.0-4.0); LYMPH # 1.7 K/uL (1.0-4.3); LYMPH % 15.2 % (20.0-40.0); MEAN CELL VOLUME 83.5 fL (81.0-99.0); MEAN CORPUSCULAR HEMOGLOBIN 26.8 pg (27.0-31.0); MEAN CORPUSCULAR HGB CONC 32.1 g/dL (33.0-37.0); MEAN PLATELET VOLUME 9.4 fL (7.2-11.7); MONO # 0.7 K/uL (0.0-0.8); MONO % 6.1 % (0.0-10.0); RED CELL DISTRIBUTION WIDTH 19.6 % (11.5-14.5); WHITE BLOOD COUNT 11.3 K/uL (4.8-10.8)
[2017-04-04 07:37] LABS: CHLORIDE 100 mmol/L (98-107); SODIUM 134 mmol/L (132-148)
[2017-04-04 07:38] LABS: POTASSIUM 3.4 mmol/L (3.6-5.2)
[2017-04-04 07:40] LABS: ALB/GLOB RATIO 0.7 (1.0-2.1); ALKALINE PHOSPHATASE 159 U/L (38-126); ALT/SGPT 22 U/L (9-52); AST/SGOT 19 U/L (14-36); BILIRUBIN,TOTAL 0.6 mg/dL (0.2-1.3); BLOOD UREA NITROGEN 4 mg/dL (7-17); CARBON DIOXIDE 24 mmol/L (22-30); GFR AFRICAN-AMERICAN > 60; GLUCOSE,RANDOM 105 mg/dL (65-105); TOTAL PROTEIN 6.7 g/dL (6.3-8.3)
[2017-04-04 07:41] LABS: CALCIUM 8.3 mg/dl (8.6-10.4)
--- NOTE | 2017-04-04 09:02 | CP.PCM.DIS ---
<Susan Min - Last Filed: 04/04/17 11:38> Provider - Provider Date of Admission: 03/31/17 00:26 Attending physician: Pratik Alfonso MD Consults: ID- Dr. Mitchell Time Spent in preparation of Discharge (in minutes): 55 Hospital Course - Lab Results Lab Results: Micro Results 04/01/17 Unknown Naris MRSA Culture - Final MRSA NOT DETECTED 03/31/17 03:39 Urine Urine Culture - Final <10,000 CFU/ML. MULTIPLE SPECIES. PROBABLE CONTAMINATION. 03/31/17 02:18 Nose MRSA Culture (Admit) - Final MRSA NOT DETECTED Most Recent Lab Values WBC 11.3 K/uL (4.8-10.8) H 04/04/17 07:04 RBC 4.07 Mil/uL (3.80-5.20) 04/04/17 07:04 Hgb 10.9 g/dL (11.0-16.0) L 04/04/17 07:04 Hct 34.0 % (34.0-47.0) 04/04/17 07:04 MCV 83.5 fL (81.0-99.0) 04/04/17 07:04 MCH 26.8 pg (27.0-31.0) L 04/04/17 07:04 MCHC 32.1 g/dL (33.0-37.0) L 04/04/17 07:04 RDW 19.6 % (11.5-14.5) H 04/04/17 07:04 Plt Count 287 K/uL (130-400) 04/04/17 07:04 MPV 9.4 fL (7.2-11.7) 04/04/17 07:04 Neut % (Auto) 77.3 % (50.0-75.0) H 04/04/17 07:04 Lymph % (Auto) 15.2 % (20.0-40.0) L 04/04/17 07:04 Eaton % (Auto) 6.1 % (0.0-10.0) 04/04/17 07:04 Eos % (Auto) 1.2 % (0.0-4.0) 04/04/17 07:04 Baso % (Auto) 0.2 % (0.0-2.0) 04/04/17 07:04 Neut # 8.8 K/uL (1.8-7.0) H 04/04/17 07:04 Lymph # 1.7 K/uL (1.0-4.3) 04/04/17 07:04 Eaton # 0.7 K/uL (0.0-0.8) 04/04/17 07:04 Eos # 0.1 K/uL (0.0-0.7) 04/04/17 07:04 Baso # 0.0 K/uL (0.0-0.2) 04/04/17 07:04 Neutrophils % (Manual) 75 % (50-75) 04/03/17 12:48 Band Neutrophils % 9 % (0-2) H 04/03/17 12:48 Lymphocytes % (Manual) 9 % (20-40) L 04/03/17 12:48 Reactive Lymphs % 1 % (0-0) H 04/03/17 12:48 Monocytes % (Manual) 6 % (0-10) 04/03/17 12:48 Eosinophils % (Manual) 3 % (0-4) 04/01/17 05:36 Platelet Estimate Normal (NORMAL) 04/03/17 12:48 Hypochromasia (manual) Slight 04/01/17 05:36 Poikilocytosis (manual Slight 04/01/17 05:36 Anisocytosis (manual) Moderate 04/03/17 12:48 PT 18.0 SECONDS (9.7-12.2) H 03/31/17 17:10 INR 1.6 03/31/17 17:10 APTT 33 SECONDS (21-34) 03/31/17 17:10 pO2 50 mm/Hg (30-55) 03/30/17 23:57 VBG pH 7.47 (7.32-7.43) H 03/30/17 23:57 VBG pCO2 23 mmHg (40-60) L 03/30/17 23:57 VBG HCO3 20.8 mmol/L 03/30/17 23:57 VBG Total CO2 17.4 mmol/L (22-28) L 03/30/17 23:57 VBG O2 Sat (Calc) 92.9 % (40-65) H 03/30/17 23:57 VBG Base Excess -5.0 mmol/L (0.0-2.0) L 03/30/17 23:57 VBG Potassium 2.5 mmol/L (3.6-5.2) L* 03/30/17 23:57 Sodium 135.0 mmol/l (132-148) 03/30/17 23:57 Chloride 110.0 mmol/L (98-107) H 03/30/17 23:57 Glucose 115 mg/dl (65-105) H 03/30/17 23:57 Lactate 3.9 mmol/L (0.7-2.1) H 03/30/17 23:57 Crit Value Called To Jasmina francisco rn 03/30/17 23:57 Crit Value Called By Daiana jewelry sales representative 03/30/17 23:57 Crit Value Read Back Y 03/30/17 23:57 Blood Gas Notified Time 0 03/30/17 23:57 Sodium 134 mmol/L (132-148) 04/04/17 07:04 Potassium 3.4 mmol/L (3.6-5.2) L 04/04/17 07:04 Chloride 100 mmol/L (98-107) 04/04/17 07:04 Carbon Dioxide 24 mmol/L (22-30) 04/04/17 07:04 Anion Gap 13 (10-20) 04/04/17 07:04 BUN 4 mg/dL (7-17) L 04/04/17 07:04 Creatinine 0.4 MG/DL (0.7-1.2) L 04/04/17 07:04 Est GFR ( Amer) > 60 04/04/17 07:04 Est GFR (Non-Af Amer) > 60 04/04/17 07:04 Random Glucose 105 mg/dL (65-105) 04/04/17 07:04 Lactic Acid 2.6 mmol/L (0.7-2.1) H 03/31/17 01:52 Calcium 8.3 mg/dl (8.6-10.4) L 04/04/17 07:04 Phosphorus 4.1 mg/dL (2.5-4.5) 04/01/17 05:36 Magnesium 1.8 mg/dL (1.6-2.3) 04/01/17 05:36 Total Bilirubin 0.6 mg/dL (0.2-1.3) 04/04/17 07:04 AST 19 U/L (14-36) 04/04/17 07:04 ALT 22 U/L (9-52) 04/04/17 07:04 Alkaline Phosphatase 159 U/L (38-126) H 04/04/17 07:04 Total Protein 6.7 g/dL (6.3-8.3) 04/04/17 07:04 Albumin 2.8 g/dL (3.5-5.0) L 04/04/17 07:04 Globulin 3.9 gm/dL (2.2-3.9) 04/04/17 07:04 Albumin/Globulin Ratio 0.7 (1.0-2.1) L 04/04/17 07:04 Lipase 41 U/L (23-300) 03/30/17 23:40 Venous Blood Potassium 2.5 mmol/L (3.6-5.2) L* 03/30/17 23:57 Urine Color Tita (YELLOW) 03/31/17 06:24 Urine Clarity Turbid (Clear) 03/31/17 06:24 Urine pH 5.0 (5.0-8.0) 03/31/17 06:24 Ur Specific [place] 1.020 (1.003-1.030) 03/31/17 06:24 Urine Protein 2+ mg/dL (NEGATIVE) H 03/31/17 06:24 Urine Glucose (UA) Normal mg/dL (Normal) 03/31/17 06:24 Urine Ketones Negative mg/dL (NEGATIVE) 03/31/17 06:24 Urine Blood 2+ (NEGATIVE) H 03/31/17 06:24 Urine Nitrate Negative (NEGATIVE) 03/31/17 06:24 Urine Bilirubin Negative (NEGATIVE) 03/31/17 06:24 Urine Urobilinogen Normal mg/dL (0.2-1.0) 03/31/17 06:24 Ur Leukocyte Esterase 3+ [place]/uL (Negative) H 03/31/17 06:24 Urine WBC (Auto) 706 /hpf (0-5) H 03/31/17 06:24 Urine RBC (Auto) 25 /hpf (0-3) H 03/31/17 06:24 Urine WBC Clumps (Auto) Mod /hpf (NONE) H 03/31/17 06:24 Ur Squamous Epith Cells 48 /hpf (0-5) H 03/31/17 06:24 Urine Bacteria Few (<OCC) H 03/31/17 06:24 Tobramycin Trough 1.2 ug/mL (0.0-0.9) H 04/01/17 05:36 Blood Type B POSITIVE 03/30/17 23:40 Antibody Screen Negative 03/30/17 23:40 - Hospital Course Hospital Course: Upon Admission: CC: "fever" HPI: 51 year old female with PMHx significant for Fibroids, Anemia, thyroid nodule, DVT presents with complaints of fever, abdominal pain and vaginal bleeding. Patient states that she has experienced a 50 pound weight loss since December 2016 following her appendectomy. Patient was last admitted here back in January for a similar treatment course. On that admission, patient was found to have positive blood cultures for which she was started on tobramycin. 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 On today's admission, patient was evaluated in the ED. There, she was found to be hypotensive and tachycardic with an elevated white count and lactate. Patients BP did improve with fluid administration. Patient admitted to fevers, diaphoresis, dizziness, abd pain, weight changes, vaginal bleeding and decreased appetite. PMhx- as stated above PSHx- appendectomy Fam Hx- Mother had stomach cancer as well as HTN Meds- Refer to MAR. Will need to confirm in light of recent hospitalization at [facility] Social Hx- denies alcohol, tobacco or illicit drug use Allergies- Vancomycin (erythema) Throughout Hospital Course: Patient was admitted due to being septic. ID was consulted. Patient was cabrera cultured and then started on IV antiobiotics. She was also transfused 2 units of PRBCs due to anemia secondary to vaginal bleeding. Abdominal CT scan showed: PELVIS: Bladder: Unremarkable. Reproductive: 5.3 x 3.3 x 5.6 cm hypodense lesion within LEFT ovary.16.7 x 15.8 x 13.2 cm, lobulated uterus with multiple masses. ABDOMEN and PELVIS: Intraperitoneal space : Trace fluid within the RIGHT paracolic gutter. No free air. IMPRESSION: 1. Probable fibroid uterus. 2. LEFT adnexal lesion, indeterminate. Recommend ultrasound. An abdominal US was done and showed: US (04/01/17): Uterus - 11.2x9.3x10.9cm; Lower Uterine Myoma - 10.5x8.5x10.6cm; Fundal Myoma - 11.2x9.3x10.9cm; Endometrium - 1.6cm. 04/01: Patient is aware of this and she understands that she has been advised that she needs this removed at larger hospital.. Discussed with patient the need to follow up with a larger hospital that has IP COUNSEL/ Oncologist specialist in order to remove her fibroids. Patient states she understands and will plan to be worked up as an outpatient at the [facility]. Patient has a history of DVT of LE, but anticoagulants was not resumed due to patient's anemia and active vaginal bleeding. She was seen by REHABILITATION TECH here and the recommendations as noted above. Patient will be discharged with ORAL antiobiotics which she will continue for 14 days. This is a brief summary of the patient's hospital course. Please refer to EMR for full record. Discharge Exam - Head Exam Head Exam: NORMAL INSPECTION, NORMOCEPHALIC - Eye Exam Eye Exam: EOMI, Normal appearance, PERRL Pupil Exam: NORMAL ACCOMODATION - ENT Exam ENT Exam: Mucous Membranes Moist - Respiratory Exam Respiratory Exam: Clear to PA & Lateral, NORMAL BREATHING PATTERN. absent: Decreased Breath Sounds - Cardiovascular Exam Cardiovascular Exam: REGULAR RHYTHM, RRR, +S1 - GI/Abdominal Exam GI & Abdominal Exam: Normal Bowel Sounds, Soft - Extremities Exam Extremities exam: normal inspection, pedal pulses present - Neurological Exam Neurological exam: Alert, Oriented x3 - Skin Skin Exam: Dry, Intact, Normal Color, Warm Discharge Plan - Discharge Medications Prescriptions: Ciprofloxacin HCl [Cipro] 500 mg PO Q12H #28 tablet Metronidazole [Flagyl] 500 mg PO Q8H #48 tablet Saccharomyces Boulardii [Florastor] 250 mg PO DAILY #30 capsule - Follow Up Plan Condition: STABLE Disposition: HOME/ ROUTINE Instructions: Ciprofloxacin (By mouth), Metronidazole (By mouth), Uterine Fibroids (DC), Uterine Fibroids (GEN), Sepsis (DC), Sepsis (GEN) Additional Instructions: Please continue taking Flagyl 500mg by mouth 3 times a day and Ciprofloxacin 500mg by mouth twice a day for 14 days. Also please take FLORASTOR 250mg by mouth 2 hours before you take your antibiotics to help your stomach tolerate the long course of oral antibiotics. Please follow up with a IP COUNSEL/ONCOLOGIST specialist at [place] to remove your fibroids. Please make an appointment with your PMD or here at the clinic to follow up with routine care. Please return to the ED immediately if you continue to have severe vaginal bleeding, feel lightheaded, dizzy, shortness of breath, chest pain, or any other symptoms. PLEASE DO NOT TAKE any aspirin or coumadin since you are actively still bleeding , wait until you see a doctor either your PMD, a physician here at our clinic or a doctor in [place] and wait until they tell you when to resume coumadin for your DVT. Here are the results of the abdominal cat scan and abdominal ultrasound: Abdominal CT scan showed: PELVIS: Bladder: Unremarkable. Reproductive: 5.3 x 3.3 x 5.6 cm hypodense lesion within LEFT ovary.16.7 x 15.8 x 13.2 cm, lobulated uterus with multiple masses. ABDOMEN and PELVIS: Intraperitoneal space : Trace fluid within the RIGHT paracolic gutter. No free air. IMPRESSION: 1. Probable fibroid uterus. 2. LEFT adnexal lesion, indeterminate. Recommend ultrasound. An abdominal US was done and showed: US (04/01/17): Uterus - 11.2x9.3x10.9cm; Lower Uterine Myoma - 10.5x8.5x10.6cm; Fundal Myoma - 11.2x9.3x10.9cm; Endometrium - 1.6cm. 04/01: Patient is aware of this and she understands that she has been advised that she needs this removed at larger hospital.. Discussed with patient the need to follow up with a larger hospital that has IP COUNSEL/ Oncologist specialist in order to remove her fibroids. Patient states she understands and will plan to be worked up as an outpatient at the [facility]. PLEASE SEE A SPECIALIST IN [place] TO HAVE YOUR FIBROIDS REMOVED. -- Siga tomando Flagyl 500mg por va oral 3 veces al da y Ciprofloxacin 500mg por va oral dos veces al da colt 14 ricardo. Tambin por favor tome FLORASTOR 250mg por va oral 2 horas antes de angi teri antibiticos para ayudar a swartz estmago a tolerar el manny curso de antibiticos orales. Por favor, siga con un especialista de IP COUNSEL / ONCOLOGIST en [place] para eliminar teri fibromas. Por favor, emanuel uche javier con swartz PMD o aqu en la clnica para el seguimiento con la atencin de rutina. Por favor regrese inmediatamente al servicio de urgencias si contina teniendo sangrado vaginal bindu, siente aturdimiento, mareos, falta de aliento, dolor en el pecho o cualquier otro sntoma. POR FAVOR NO TOME ninguna aspirina o coumadin ya que usted todava est sangrando activamente, espere hasta que eunice a un mdico ya sea swartz PMD, un m dico aqu en nuestra clnica o un mdico en [place] y espere hasta que le digan cundo reanudar coumadin para swartz TVP. Aqu estn los resultados de la exploracin abdominal del akiko y de la ecograf a abdominal: Tomografa computarizada abdominal mostr: PELVIS: Vejiga: Unremarkable. Reproductiva: 5.3 x 3.3 x 5.6 cm lesin hipodensa dentro del ovario SALVATORE.16.7 x 15.8 x 13.2 cm, tero lobulado con masas mltiples. ABDOMEN y PELVIS: Espacio intraperitoneal: Trace fluido dentro del canal derecho parac clint. No hay aire jr. IMPRESIN: 1. Probable fibroide uterino. 2. Lesin anexial izquierda, indeterminada. Recomendar el ultrasonido. Se realiz un US abdominal y se mostr: US (04/01/17): Uterus - 11.2x9.3x10.9cm; Mioma uterino inferior: 10,5 x 8,5 x 10,6 cm; Shanon Myoma - 11,2 x 9,3 x 10,9 cm ; Endometrio - 1.6cm. 04/01: La paciente es consciente de esto y chente entiende que le lewis aconsejado que chente la quite en el hospital [place]. Discutido con el paciente la necesidad de continuar con un hospital [place] que tenga especialista del IP COUNSEL / onclogo para quitarla Fibromas Los estados del paciente entiende y planea trabajar jeremiah paciente ambulatorio en la [facility] del [facility] dico de [place]. POR FAVOR EUNICE A UN ESPECIALISTA EN [place] PARA HACER SWARTZ FIBROIDES REMOVIDOS. Referrals: [facility] [place] [Outside] <Michael Tamez - Last Filed: 04/04/17 15:49> Provider - Provider Date of Admission: 03/31/17 00:26 Attending physician: Pratik Alfonso MD Hospital Course - Lab Results Lab Results: Micro Results 04/01/17 Unknown Naris MRSA Culture - Final MRSA NOT DETECTED 03/31/17 03:39 Urine Urine Culture - Final <10,000 CFU/ML. MULTIPLE SPECIES. PROBABLE CONTAMINATION. 03/31/17 02:18 Nose MRSA Culture (Admit) - Final MRSA NOT DETECTED Most Recent Lab Values WBC 11.3 K/uL (4.8-10.8) H 04/04/17 07:04 RBC 4.07 Mil/uL (3.80-5.20) 04/04/17 07:04 Hgb 10.9 g/dL (11.0-16.0) L 04/04/17 07:04 Hct 34.0 % (34.0-47.0) 04/04/17 07:04 MCV 83.5 fL (81.0-99.0) 04/04/17 07:04 MCH 26.8 pg (27.0-31.0) L 04/04/17 07:04 MCHC 32.1 g/dL (33.0-37.0) L 04/04/17 07:04 RDW 19.6 % (11.5-14.5) H 04/04/17 07:04 Plt Count 287 K/uL (130-400) 04/04/17 07:04 MPV 9.4 fL (7.2-11.7) 04/04/17 07:04 Neut % (Auto) 77.3 % (50.0-75.0) H 04/04/17 07:04 Lymph % (Auto) 15.2 % (20.0-40.0) L 04/04/17 07:04 Eaton % (Auto) 6.1 % (0.0-10.0) 04/04/17 07:04 Eos % (Auto) 1.2 % (0.0-4.0) 04/04/17 07:04 Baso % (Auto) 0.2 % (0.0-2.0) 04/04/17 07:04 Neut # 8.8 K/uL (1.8-7.0) H 04/04/17 07:04 Lymph # 1.7 K/uL (1.0-4.3) 04/04/17 07:04 Eaton # 0.7 K/uL (0.0-0.8) 04/04/17 07:04 Eos # 0.1 K/uL (0.0-0.7) 04/04/17 07:04 Baso # 0.0 K/uL (0.0-0.2) 04/04/17 07:04 Neutrophils % (Manual) 75 % (50-75) 04/03/17 12:48 Band Neutrophils % 9 % (0-2) H 04/03/17 12:48 Lymphocytes % (Manual) 9 % (20-40) L 04/03/17 12:48 Reactive Lymphs % 1 % (0-0) H 04/03/17 12:48 Monocytes % (Manual) 6 % (0-10) 04/03/17 12:48 Eosinophils % (Manual) 3 % (0-4) 04/01/17 05:36 Platelet Estimate Normal (NORMAL) 04/03/17 12:48 Hypochromasia (manual) Slight 04/01/17 05:36 Poikilocytosis (manual Slight 04/01/17 05:36 Anisocytosis (manual) Moderate 04/03/17 12:48 PT 18.0 SECONDS (9.7-12.2) H 03/31/17 17:10 INR 1.6 03/31/17 17:10 APTT 33 SECONDS (21-34) 03/31/17 17:10 pO2 50 mm/Hg (30-55) 03/30/17 23:57 VBG pH 7.47 (7.32-7.43) H 03/30/17 23:57 VBG pCO2 23 mmHg (40-60) L 03/30/17 23:57 VBG HCO3 20.8 mmol/L 03/30/17 23:57 VBG Total CO2 17.4 mmol/L (22-28) L 03/30/17 23:57 VBG O2 Sat (Calc) 92.9 % (40-65) H 03/30/17 23:57 VBG Base Excess -5.0 mmol/L (0.0-2.0) L 03/30/17 23:57 VBG Potassium 2.5 mmol/L (3.6-5.2) L* 03/30/17 23:57 Sodium 135.0 mmol/l (132-148) 03/30/17 23:57 Chloride 110.0 mmol/L (98-107) H 03/30/17 23:57 Glucose 115 mg/dl (65-105) H 03/30/17 23:57 Lactate 3.9 mmol/L (0.7-2.1) H 03/30/17 23:57 Crit Value Called To Jasmina francisco rn 03/30/17 23:57 Crit Value Called By Daiana jewelry sales representative 03/30/17 23:57 Crit Value Read Back Y 03/30/17 23:57 Blood Gas Notified Time 0 03/30/17 23:57 Sodium 134 mmol/L (132-148) 04/04/17 07:04 Potassium 3.4 mmol/L (3.6-5.2) L 04/04/17 07:04 Chloride 100 mmol/L (98-107) 04/04/17 07:04 Carbon Dioxide 24 mmol/L (22-30) 04/04/17 07:04 Anion Gap 13 (10-20) 04/04/17 07:04 BUN 4 mg/dL (7-17) L 04/04/17 07:04 Creatinine 0.4 MG/DL (0.7-1.2) L 04/04/17 07:04 Est GFR ( Amer) > 60 04/04/17 07:04 Est GFR (Non-Af Amer) > 60 04/04/17 07:04 Random Glucose 105 mg/dL (65-105) 04/04/17 07:04 Lactic Acid 2.6 mmol/L (0.7-2.1) H 03/31/17 01:52 Calcium 8.3 mg/dl (8.6-10.4) L 04/04/17 07:04 Phosphorus 4.1 mg/dL (2.5-4.5) 04/01/17 05:36 Magnesium 1.8 mg/dL (1.6-2.3) 04/01/17 05:36 Total Bilirubin 0.6 mg/dL (0.2-1.3) 04/04/17 07:04 AST 19 U/L (14-36) 04/04/17 07:04 ALT 22 U/L (9-52) 04/04/17 07:04 Alkaline Phosphatase 159 U/L (38-126) H 04/04/17 07:04 Total Protein 6.7 g/dL (6.3-8.3) 04/04/17 07:04 Albumin 2.8 g/dL (3.5-5.0) L 04/04/17 07:04 Globulin 3.9 gm/dL (2.2-3.9) 04/04/17 07:04 Albumin/Globulin Ratio 0.7 (1.0-2.1) L 04/04/17 07:04 Lipase 41 U/L (23-300) 03/30/17 23:40 Venous Blood Potassium 2.5 mmol/L (3.6-5.2) L* 03/30/17 23:57 Urine Color Tita (YELLOW) 03/31/17 06:24 Urine Clarity Turbid (Clear) 03/31/17 06:24 Urine pH 5.0 (5.0-8.0) 03/31/17 06:24 Ur Specific [place] 1.020 (1.003-1.030) 03/31/17 06:24 Urine Protein 2+ mg/dL (NEGATIVE) H 03/31/17 06:24 Urine Glucose (UA) Normal mg/dL (Normal) 03/31/17 06:24 Urine Ketones Negative mg/dL (NEGATIVE) 03/31/17 06:24 Urine Blood 2+ (NEGATIVE) H 03/31/17 06:24 Urine Nitrate Negative (NEGATIVE) 03/31/17 06:24 Urine Bilirubin Negative (NEGATIVE) 03/31/17 06:24 Urine Urobilinogen Normal mg/dL (0.2-1.0) 03/31/17 06:24 Ur Leukocyte Esterase 3+ [place]/uL (Negative) H 03/31/17 06:24 Urine WBC (Auto) 706 /hpf (0-5) H 03/31/17 06:24 Urine RBC (Auto) 25 /hpf (0-3) H 03/31/17 06:24 Urine WBC Clumps (Auto) Mod /hpf (NONE) H 03/31/17 06:24 Ur Squamous Epith Cells 48 /hpf (0-5) H 03/31/17 06:24 Urine Bacteria Few (<OCC) H 03/31/17 06:24 Tobramycin Trough 1.2 ug/mL (0.0-0.9) H 04/01/17 05:36 Blood Type B POSITIVE 03/30/17 23:40 Antibody Screen Negative 03/30/17 23:40 Attending/Attestation - Attestation I have personally seen and examined this patient.: Yes I have fully participated in the care of the patient.: Yes I have reviewed all pertinent clinical information, including history, physical exam and plan: Yes Notes (Text): 04/04/17 15:45 Medical Attending: Patient was seen and examined by me. Agree with the above note by the resident. The patient WBC was decreased today. She has been for the past two days asking to be discharged as she reports feeling much less pain, no fever and better. As mentioned before the patient understands that she needs to be evaluated at a much larger hospital for the removal of the large fibrotic mass. Very likley this mass is causing her to have repeat episodes of infections and needs to be surgically removed at a much larger hospital that have the ability to do this. thank you Michael Tamez
[2017-04-04 09:28] VITALS: BP 112/78; PULSE 74; TEMP 98; O2SAT 97
[2017-04-04] MEDS: Saccharomyces Boulardi 250 mg Cap PO SCH (09:57)
[2017-04-04] MEDS ORDERED: Potassium Chloride 20 mEq ER Tab PO ONE (10:00)
== END 2017-04-04 02:50 | disposition home or self-care (01) | DRG 901 ==
LOC: C.ER 22:41 → C.9I 03-31 00:26 → C.3T 04-01 20:19
PROVIDERS: ADMIT Internal Medicine; ATTEND Internal Medicine
PROC: 30233N1 Transfusion of Nonautologous Red Blood Cells into Peripheral Vein, Percutaneous Approach (ICD-10-PCS; principal; 2017-03-31)
DX: A41.9 Sepsis, unspecified organism (principal); E83.42 Hypomagnesemia; E87.6 Hypokalemia; D25.9 Leiomyoma of uterus, unspecified; D64.9 Anemia, unspecified; R65.20 Severe sepsis without septic shock; N93.9 Abnormal uterine and vaginal bleeding, unspecified; E04.1 Nontoxic single thyroid nodule; Z86.718 Personal history of other venous thrombosis and embolism; R63.4 Abnormal weight loss; N92.6 Irregular menstruation, unspecified; Z80.0 Family history of malignant neoplasm of digestive organs